=== PATIENT | female | born 1970 | race Caucasian/White ===

== ENCOUNTER 2019-09-25 15:05 | Outpatient (CLI) | payer BC, SELFPAY ==
--- NOTE | ~2019-09-25 | CT_ITS ---
EXAMINATION: CT sinus wo con DATE: 09/25/2019 15:47 INDICATION: Chronic sinusitis TECHNIQUE: Computed tomography (CT) of the paranasal sinuses was performed without intravenous contra st. Coronal reconstructions were obtained. Iterative reconstruction technique was employed. The dose- length product was 261.01 mGy-cm. COMPARISON: Head CT dated 11/18/2013 FINDINGS: Thickened sclerotic wall of the left sphenoid sinus consistent with chronic sinusitis. There is a def ect at the anterior wall of the left sphenoid sinus suggesting prior compression surgery no mucosal t hickening throughout the paranasal sinuses. Bilateral ostiomeatal units are patent with change of lik galilea prior left uncinectomy. Mild leftward bowing of the nasal septum. Orbits are normal. IMPRESSION: 1. Postoperative change of prior right uncinectomy and left anterior sphenoidotomy, the latter likely for prior chronic left sphenoid sinusitis. No evident current sinus disease. Reviewed, dictated and finalized at location A. 3RD GRADE TEACHER IMPRESSION: 1. Postoperative change of prior right uncinectomy and left anterior sphenoidot gayle, the latter likely for prior chronic left sphenoid sinusitis. No evident cu rrent sinus disease.
== END 2019-09-25 15:06 | disposition home or self-care (01) ==
PROVIDERS: PCP Family Medicine; Visit Provider Nurse Practitioner Family
DX: J32.9 Chronic sinusitis, unspecified (principal)
CPT/HCPCS: 70486

== ENCOUNTER → 2020-09-14 00:25 | Outpatient (CLI) | payer BC, SELFPAY ==
[2020-09-14 21:19] LABS: SARS-CoV-2 RNA PCR Negative
== END ==
PROVIDERS: PCP Family Medicine; Visit Provider Surgery Plastic and Reconstructive Surgery
DX: Z01.812 Encounter for preprocedural laboratory examination (principal); Z20.822 Contact with and (suspected) exposure to COVID-19
CPT/HCPCS: C9803; U0003; U0005

== ENCOUNTER 2020-09-14 10:06 | Outpatient (CLI) | payer BC, SELFPAY ==
--- NOTE | 2020-09-14 10:08 | ECG_ITS ---
Measurements Intervals [place] Rate: 63 P: 50 NV: 171 QRS: -32 QRSD: 100 T: -8 QT: 387 QTc: 396 Interpretive Statements SINUS RHYTHM LEFT AXIS DEVIATION VOLTAGE CRITERIA FOR LVH POOR R WAVE PROGRESSION, ANTERIOR LEADS BORDERLINE T WAVE ABNORMALITY- INFERIOR LEADS BORDERLINE ECG Electronically Signed On 09-14-2020 10:31:43 ERECTING CRANE OPERATOR by Mich Leary D.O.
[2020-09-14 10:51] LABS: Anion Gap 6 mmol/L (8-16); Blood Urea Nitrogen 13 mg/dL (7-17); Calcium 9.1 mg/dL (8.4-10.2); Carbon Dioxide 29 mmol/L (22-30); Chloride 104 mmol/L (98-107); Estimated Glomerular Filt Rate > 60; Glucose 119 mg/dL (65-105); Potassium 3.7 mmol/L (3.4-5.0); Sodium 139 mmol/L (137-145)
== END 2020-09-14 10:07 | disposition home or self-care (01) ==
LOC: ANHSURGERY 10:08
PROVIDERS: Anesthesiology; PCP Family Medicine; Visit Provider Surgery Plastic and Reconstructive Surgery
DX: I10 Essential (primary) hypertension (principal); Z01.818 Encounter for other preprocedural examination; R94.31 Abnormal electrocardiogram [ECG] [EKG]
CPT/HCPCS: 36415; 80048; 93005

== ENCOUNTER 2020-09-16 01:04 | Day surgery (SDC) | payer BC, SELFPAY ==
[2020-09-13 15:03] VITALS: BMI 38.3
[2020-09-16] VITALS (15 sets, daily range): BP systolic 101–142; BP diastolic 62–98; PULSE 59–96; RESP 12–20; TEMP 36.4–36.9; O2SAT 93–100
[2020-09-16] MEDS: LACTATED RINGERS 1,000 ML 30 ML IV CONT ×2 (06:40→10:04)
--- NOTE | 2020-09-16 06:42 | WPDHPUPDATE1 ---
History and Physical Update Update Date/Time: 09/16/20 06:42 History and Physical has been reviewed, including an updated exam of the patient. There are NO changes in the patient's condition. Risks, benefits, and alternatives have been discussed and questions answered. Patient agrees to proceed with procedure.
--- NOTE | 2020-09-16 06:42 | PM.PROC ---
Procedure Note - Detailed Date of procedure: 09/16/20 Pre-op diagnosis: Macromastia Post-op diagnosis: same Procedure performed: Bilateral Reduction Mammaplasty Description of procedure: She is here today for bilateral breast reduction. Previously and again today the risks, benefits, alternatives were discussed in extensive detail. I wanted her to be very realistic about the risks involved as well as expectations. We discussed aftercare and what to monitor for. She understands we can never guarantee final breast size and there will always be asymmetry. I was very upfront and honest about the risks of sensation change and even nipple loss (). Made sure answered all of her questions to her satisfaction today and consent was obtained. She was marked in the preoperative holding area with their verification. The patient was taken to the operating room placed supine on the operating table. Anesthesia was provided by anesthesiology. She was prepped and draped in a standard sterile fashion. A surgical time-out was taken. Stab incisions were made and I tumessed with a tumescent solution. I marked out the nipple-areolar complex at 42 mm. I then de-epithelialized the pedicle. The pedicle was well left well more than 2 cm in thickness. I then removed the inferior portion of the breast as well as the central keel to get shape based on preoperative planning. At this point copiously irrigated with saline solution and verified a strict hemostasis. I reapproximated the pillars using a 2-0 PDS as well as along the IMF. I tailor tacked the breast into place with ellie. She was placed in a sitting position. I verified the nipple-areolar complex position based on preoperative markings, intraoperative measurements, and observation which were in full agreement. This nipple-areolar complex was marked at 42 mm in size. I then placed supine and de-epithelialized this. Nipple-areolar complex was inset with 3-0 Monocryl. I closed the vertical incision with 3-0 Monocryl in the IMF with 3-0 stratafix. Then everything was closed using a running subcuticular 4-0 Monocryl followed by Steri-Strips. A dressing was placed followed by surgical bra. Patient was awoke and taken to PACU without difficulty. All instrument sponge counts were correct at the end of the case. Anesthesia: GLMA Surgeon: Dalton Hirsch MD Estimated blood loss (mL): 50 Drains: No Packing: No Pathology: yes (Breast tissue) Complications: No immediate complications Condition: stable Disposition: PACU Findings: Inverted T Superior Medial Pedicle Grams removed: Right: 665 grams Left: 591 grams
[2020-09-16 07:00] LABS: Urine Cotinine NEGATIVE
--- NOTE | 2020-09-16 07:12 | WPDANESEPPF ---
Anes - Initial Pre Proc Eval Procedure: Operation Date: 09/16/20 07:30 Proposed Procedures p Bilateral Reduction Mammoplasty - Dalton Hirsch MD Date/Time: 09/16/20 07:12 Surgeon: Dalton Hirsch MD Pre Op Diagnosis: Macromastia Patient Data Age: 49 Gender: F Height: 5 ft 7 in Weight: 111 kg Allergies Allergy/AdvReac Type Severity Reaction Status Date / Time metoclopramide Allergy Severe RASH, Verified 09/16/20 06:32 MUSCLE CONTRACTIONS, SOB morphine AdvReac Intermediate Itching Verified 09/16/20 06:32 Penicillins AdvReac Mild Rash Verified 09/16/20 06:32 sulfamethoxazole AdvReac Mild UPSET Verified 09/16/20 06:32 STOMACH trimethoprim AdvReac Mild Unknown Verified 09/16/20 06:32 Home Medications Medication Instructions Recorded Confirmed Type Cbd Oil 1,200 mg DAILY PRN 08/17/19 09/16/20 History estradiol 1 patch TRANSDERMAL WEEKLY 08/17/19 09/16/20 History losartan 50 mg-hydrochlorothiazide 1 tablet PO DAILY #90 tablet 07/10/20 09/16/20 Rx 12.5 mg tablet docusate sodium 100 mg capsule 100 mg PO BID #14 cap 09/06/20 09/13/20 Rx hydrocodone 5 mg-acetaminophen 325 1 tablet PO Q6H PRN #15 tablet 09/06/20 09/16/20 Rx mg tablet ondansetron HCl 4 mg tablet 4 mg PO Q6H PRN #30 tablet 09/06/20 09/13/20 Rx cetirizine [Zyrtec] 10 mg PO DAILY PRN 09/13/20 09/16/20 History montelukast [Singulair] 10 mg PO DAILY PRN 09/13/20 09/13/20 History diltiazem HCl 180 mg PO QPM 09/15/20 09/16/20 History sertraline 150 mg HS 09/15/20 09/16/20 History trazodone 50 mg PO HS PRN 09/15/20 09/16/20 History Laboratory Tests 09/16/20 06:16 Cotinine Negative Patient hx anesthesia problems: post op nausea/vomiting Family hx anesthesia problems: none PMFSH Past Medical History Medical History Body mass index [BMI] 39.0-39.9, adult (02/12/19) Chronic back pain Dyslipidemia Essential hypertension Fibromyalgia Heart palpitations Hypersomnia Obesity (BMI 35.0-39.9 without comorbidity) Syncope and collapse Surgical History Surgical History (Reviewed 09/06/20 @ 11:38 by Tg Wolf [facility]) delivery delivered Cholecystectomy planned H/O: hysterectomy History of ankle surgery History of cardiac radiofrequency ablation Previous back surgery Family History Family History Mother Family history of malignant neoplasm Father , motorcycle crash No problems noted. Sibling No problems noted. 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 Gender identity (if verbalized by the patient): Female Sexual Orientation (if Verbalized by the Patient): Straight or Heterosexual Spiritual care concerns: No Anes - Eval Final PreProcedure Day of Procedure 09/16/20 07:12 Patient weight: obese Heart: regular rate and rhythm Lungs: clear to auscultation Airway: Mallampati scale class II Neurological: alert and oriented Last oral intake: >/= 8 hours ASA classification: III Emergent: no Anesthetic plan: proceed Anesthesia type and monitoring: general LMA and standard monitoring Informed Consent: The patient's anesthetic plan and its attendant risks and benefits were discussed with the patient/family/POA. Questions were solicited and answers provided to the satisfaction of the patient/family/POA.
[2020-09-16] MEDS: SCOPOLAMINE 1.5 MG PATCH TRANSDERM (07:18)
[2020-09-16] MEDS: ceFAZolin 2 GM/D5W 50 ML 2 GM/50 ML BAG IVPB (07:33)
--- NOTE | 2020-09-16 09:43 | SUR.OPER ---
breast tissue sent to lab. given to Laura by Delisa quintana at [id number]
[2020-09-16] MEDS: fentaNYL CITRATE INJ (*CRX) 100 MCG/2 ML VIAL 25 MCG IV PUSH ×6 (10:09→10:45)
[2020-09-16] MEDS: HYDROmorphone HCL INJ (*CRX) 1 MG/ML SYR 0.5 MG IV PUSH ×5 (10:52→11:43)
[2020-09-16] MEDS: oxyCODONE HCL (*CRX) 5 MG TAB IR PO (12:51)
== END 2020-09-16 14:25 | disposition home or self-care (01) ==
PROVIDERS: PCP Family Medicine; Visit Provider Surgery Plastic and Reconstructive Surgery
PROC: 0HBV0ZZ Excision of Bilateral Breast, Open Approach (ICD-10-PCS; CPT 19318; principal; 2020-09-16 07:30)
DX: N62 Hypertrophy of breast (principal); M54.9 Dorsalgia, unspecified; G89.29 Other chronic pain; I10 Essential (primary) hypertension; E78.5 Hyperlipidemia, unspecified; M79.7 Fibromyalgia; E66.01 Morbid (severe) obesity due to excess calories; Z68.41 Body mass index [BMI] 40.0-44.9, adult
CPT/HCPCS: 19318; 80307; 88305; A9270; J0171; J0690; J1100; J1170; J2250; J2405; J2704; J3010; J7120

== ENCOUNTER → 2021-07-08 04:18 | Outpatient (CLI) | payer BC, SELFPAY ==
[2021-07-08 19:27] LABS: SARS-CoV-2 RNA PCR Positive
== END ==
PROVIDERS: PCP Family Medicine; Visit Provider Nurse Practitioner Family
DX: U07.1 COVID-19 (principal)
CPT/HCPCS: C9803; U0003; U0005

== ENCOUNTER 2021-07-11 11:00 | Outpatient (RCR) | payer BC, SELFPAY ==
[2021-07-11 14:14] VITALS: BP 136/85; PULSE 73; RESP 24; TEMP 36.3; O2SAT 99
[2021-07-11] MEDS: FAMOTIDINE 20 MG TABLET PO (14:20)
[2021-07-11] MEDS: diphenhydrAMINE HCl CAP 25 MG CAPSULE PO (14:20)
[2021-07-11] MEDS: ACETAMINOPHEN 325 MG TABLET 650 MG PO (14:20)
[2021-07-11 15:48] VITALS: BP 130/75
--- NOTE | 2021-07-12 12:13 | PC.NURSE ---
Ms Gomez called back and she stated she had a fever last night but it stopped now, and she is still tired and weak, but feels some better today. She has no other questions at this time.
== END 2021-07-11 17:00 ==
LOC: AMCINF 11:00
PROVIDERS: PCP Family Medicine; Referring Provider Family Medicine; Visit Provider Internal Medicine Hematology & Oncology
DX: U07.1 COVID-19 (principal); I10 Essential (primary) hypertension; I25.10 Atherosclerotic heart disease of native coronary artery without angina pectoris
CPT/HCPCS: A9270; M0245; Q0245

== ENCOUNTER 2021-07-13 11:51 | Emergency (ER) | payer BC, SELFPAY ==
--- NOTE | ~2021-07-13 | XR_ITS ---
EXAMINATION: XR chest 1V portable EXAM DATE: 07/13/2021 12:48 INDICATION: Cough. TECHNIQUE: Frontal and lateral projections of the chest obtained and reviewed. Comparison is made to prior examination from 04/28/2019. FINDINGS: Suspect some ill-defined bilateral mid lung zone peripheral groundglass airspace disease, possible COVID pneumonia. Please clinically correlate. No pneumothorax or pleural effusion. Cardiomed iastinal silhouette is normal. There are no osseous abnormalities identified. IMPRESSION: Suspicion of developing viral pneumonia. Reviewed, dictated and finalized at location B. HEN HAND
[2021-07-13 11:55] VITALS: BP 147/77; PULSE 64; RESP 16; TEMP 36.2; O2SAT 94
[2021-07-13 12:31] VITALS: BP 115/63; PULSE 64
[2021-07-13 12:33] VITALS: BP 126/82; PULSE 67
[2021-07-13 12:34] VITALS: BP 130/84; PULSE 73
[2021-07-13 12:38] VITALS: BP 130/84; PULSE 73; RESP 14; O2SAT 96
[2021-07-13] MEDS: ONDANSETRON INJ 4 MG/2 ML VIAL IV PUSH (14:54)
--- NOTE | 2021-07-13 15:00 | ED.GENADULT ---
HPI - General Adult General Chief complaint: Upper Respiratory Infection Stated complaint: COVID+ Time Seen by Provider: 07/13/21 12:14 History of Present Illness HPI narrative: Patient is a 50-year-old female who presents ER with shortness of breath and nausea/vomiting. Patient recently diagnosed with COVID-19. Of biting her house is the same illness. She received monoclonal antibody infusion. She reports fevers and sweats. Has not been eating well. Feels like she is dehydrated. Patient has developed some cough and occasional dyspnea with walking. She also feels like she gets dizzy when she goes from sitting to standing. Patient is unvaccinated. Related Data Home Medications Medication Instructions Recorded Confirmed Cbd Oil 1,200 mg DAILY PRN 08/17/19 07/11/21 estradiol 1 patch TRANSDERMAL WEEKLY 08/17/19 07/11/21 cetirizine [Zyrtec] 10 mg PO DAILY PRN 09/13/20 07/11/21 montelukast [Singulair] 10 mg PO DAILY PRN 09/13/20 07/11/21 Allergies Allergy/AdvReac Type Severity Reaction Status Date / Time metoclopramide Allergy Severe RASH, Verified 07/13/21 11:59 MUSCLE CONTRACTIONS, SOB morphine AdvReac Intermediate Itching Verified 07/13/21 11:59 Penicillins AdvReac Mild Rash Verified 07/13/21 11:59 sulfamethoxazole AdvReac Mild UPSET Verified 07/13/21 11:59 STOMACH trimethoprim AdvReac Mild Unknown Verified 07/13/21 11:59 Review of Systems Review of Systems: All systems reviewed & are unremarkable except as noted in HPI and below Constitutional: Constitutional: Reports chills, Reports fatigue and Reports fever(s) ENT: Reports nasal congestion and Reports sore throat Comments: Loss of taste and smell. Cardiovascular: Cardiovascular: Denies chest pain and Denies radiating jaw, neck or arm pain Respiratory: Respiratory: Denies chest congestion, Reports cough, Reports dyspnea and Denies wheezing Gastrointestinal: Gastrointestinal: Denies abdominal pain, Reports nausea and Reports vomiting PMFSH Past Medical History Medical History Body mass index [BMI] 39.0-39.9, adult (02/12/19) Chronic back pain Dyslipidemia Essential hypertension Fibromyalgia Heart palpitations Hypersomnia Obesity (BMI 35.0-39.9 without comorbidity) Syncope and collapse Surgical History Surgical History delivery delivered Cholecystectomy planned H/O: hysterectomy History of ankle surgery History of cardiac radiofrequency ablation Hx of breast reduction, elective Previous back surgery Family History Family History Mother Family history of malignant neoplasm Father , motorcycle crash Sibling Hypertension Other Family history of lung disease Social History Social History Smoking status: Never smoker Second hand tobacco smoke exposure: Yes Alcohol intake: current Substance use: never Substance use type: does not use 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 HEAD: Normocephalic, atraumatic. CHEST: Clear to auscultation, coughs with deep breath. No respiratory distress. HEART: Regular rate and rhythm. Normal peripheral pulses. EXTREMITIES: Normal range of motion. No edema. SKIN: Warm, dry, no rash. NEURO: No focal deficits. Alert and oriented x3. PSYCH: Normal mood and affect. Course Course Emergency Course: Patient informed of results. Discussed return precautions. Discharged home with albuterol and Zofran. Vital Signs Vital signs: Vital Signs Temperature 97.2 F L
[2021-07-13 15:15] VITALS: BP 144/98; PULSE 62; RESP 16; O2SAT 96
== END 2021-07-13 15:15 | disposition home or self-care (01) ==
PROVIDERS: Emergency Provider Emergency Medicine; PCP Family Medicine
DX: U07.1 COVID-19 (principal); J12.82 Pneumonia due to coronavirus disease 2019; G89.29 Other chronic pain; E78.5 Hyperlipidemia, unspecified; I10 Essential (primary) hypertension; M79.7 Fibromyalgia; E66.9 Obesity, unspecified
CPT/HCPCS: 71045; 96374; 99284; J2405

== ENCOUNTER 2021-08-12 11:07 | Outpatient (CLI) | payer BC, SELFPAY ==
--- NOTE | ~2021-08-12 | XR_ITS ---
EXAMINATION: XR chest 2V DATE: 08/12/2021 11:38 INDICATION: Cough. COVID-19 pneumonia. TECHNIQUE: Frontal and lateral views of the chest were obtained. COMPARISON: Chest single view 07/13/2021, chest CT 01/16/2019 FINDINGS: The chest demonstrates clear lungs without pneumonia, pleural effusion, or pneumothorax. Th e heart size is normal. IMPRESSION: 1. No acute cardiopulmonary disease. Reviewed, dictated and finalized at location B. AL HYGIENE PROFESSOR
== END 2021-08-12 11:08 | disposition home or self-care (01) ==
LOC: ANHIMG 11:12
PROVIDERS: PCP Family Medicine; Visit Provider Nurse Practitioner Family
DX: K76.0 Fatty (change of) liver, not elsewhere classified (principal); R05.3 Chronic cough; U07.1 COVID-19
CPT/HCPCS: 71046

== ENCOUNTER 2021-11-15 09:52 | Outpatient (CLI) | payer BC, SELFPAY ==
--- NOTE | ~2021-11-15 | MM_ITS ---
EXAMINATION: MM screening priti BI w antonio HISTORY: Screening mammogram TECHNIQUE: Craniocaudal and mediolateral oblique 3-D tomosynthesis images were obtained and synthetic 2-D images were generated. CAD analysis was submitted and interpreted. COMPARISON: No prior mammogram is available for comparison at this institution. BREAST PARENCHYMAL COMPOSITION: There are scattered areas of fibroglandular density. FINDINGS: Status post bilateral breast reduction surgery. There is no evidence of suspicious mass, ca lcification, or architectural distortion to suggest malignancy in either breast. IMPRESSION: 1. No mammographic evidence of malignancy. 2. Recommend routine screening mammography in one year. BI-RADS Category 2: Benign finding(s). Reviewed, dictated and finalized at location A.
== END 2021-11-15 09:53 | disposition home or self-care (01) ==
PROVIDERS: PCP Family Medicine; Visit Provider Obstetrics & Gynecology
DX: Z12.31 Encounter for screening mammogram for malignant neoplasm of breast (principal)
CPT/HCPCS: 77063; 77067

== ENCOUNTER 2022-02-22 15:22 | Outpatient (CLI) | payer BC, SELFPAY ==
--- NOTE | ~2022-02-22 | CT_ITS ---
EXAMINATION: CT abdomen pelvis w con INDICATION: Right-sided abdominal pain, history of cholecystectomy TECHNIQUE: Computed tomographic images of the abdomen and pelvis were obtained after the administrati on of 100 cc of Omnipaque 350 intravenous contrast. The dose-length product (DLP) was 1460.52 mGy-cm. Automated exposure control and iterative reconstruction technique were employed. COMPARISON: 04/24/2013 FINDINGS: The lung bases are clear. The heart size is normal. The liver is diffusely low in attenuati on when compared with the spleen, consistent with hepatic steatosis. The gallbladder is surgically ab sent. The spleen, pancreas, and adrenal glands are normal. The kidneys are unremarkable. No pathologi kenneth enlarged abdominal or pelvic lymph nodes are identified. There is no free intraperitoneal gas o r evidence of bowel obstruction. The appendix is normal. There is severe lumbar spondylosis at L4-5. A fat-containing umbilical hernia is noted. IMPRESSION: 1. No CT correlate for the patient's symptoms. 2. Diffuse hepatic steatosis. Reviewed, dictated and finalized at location B.
[2022-02-22 15:45] LABS: Estimated Glomerular Filt Rate > 60
== END 2022-02-22 15:23 | disposition home or self-care (01) ==
LOC: ANHIMG 15:22
PROVIDERS: PCP Family Medicine; Visit Provider Nurse Practitioner Family
DX: R10.9 Unspecified abdominal pain (principal); R10.819 Abdominal tenderness, unspecified site; K76.0 Fatty (change of) liver, not elsewhere classified
CPT/HCPCS: 74177; Q9967

== ENCOUNTER → 2022-11-28 16:05 | Outpatient (CLI) | payer BC, SELFPAY ==
--- NOTE | ~2022-11-28 | XR_ITS ---
EXAMINATION: XR ribs BI 3V w CXR 2V DATE: 11/28/2022 16:31 INDICATION: Pleurodynia TECHNIQUE: PA and lateral views of the chest and 3 views of the left ribs and 3 views of the right ri bs were obtained. COMPARISON: Chest radiograph dated 08/12/2021 FINDINGS: No rib fractures identified. And remain clear with no focal airspace opacities, pulmonary edema, pleu ral effusion or pneumothorax. Cardiomediastinal silhouette is normal. Mild thoracic spondylosis. Chol ecystectomy clips in right upper quadrant. IMPRESSION: 1. No rib fracture or acute cardiopulmonary disease. Reviewed, dictated and finalized at location A.
== END ==
PROVIDERS: PCP Nurse Practitioner Family; Visit Provider Nurse Practitioner Family
DX: R07.81 Pleurodynia (principal)
CPT/HCPCS: 71046; 71110

== ENCOUNTER 2023-03-23 09:39 | Outpatient (CLI) | payer BC, SELFPAY ==
--- NOTE | ~2023-03-23 | CT_ITS ---
EXAMINATION: CT cervical spine wo con DATE: 03/23/2023 09:58 INDICATION: Cervical spondylosis. TECHNIQUE: Computed tomography (CT) of the cervical spine was performed without intravenous contrast. Automated exposure control and iterative reconstruction technique were employed. The dose-length pro duct was 537.52 mGy-cm. COMPARISON: None FINDINGS: There is 5 degrees dextrocurvature of cervical spine. Vertebral body heights are normal. Th ere is moderately decreased disc height at C5-C6. The following disc levels are specifically discusse d: C2-C3: There is no uncovertebral joint osteoarthritis. There is mild left facet joint osteoarthritis. There is no neural foraminal stenosis. There is no central canal stenosis. C3-C4: There is mild bilateral uncovertebral joint osteoarthritis. There is no facet joint osteoarthr itis. There is moderate left neural foraminal stenosis. There is no central canal stenosis. C4-C5: There is no uncovertebral joint osteoarthritis. There is moderate left facet joint osteoarthri tis. There is mild left neural foraminal stenosis. There is no central canal stenosis. C5-C6: There is severe bilateral uncovertebral joint osteoarthritis. There is moderate left facet rose mary nt osteoarthritis. There is moderate bilateral neural foraminal stenosis. There is mild central canal stenosis. C6-C7: There is no uncovertebral joint osteoarthritis. There is severe left facet joint osteoarthriti s. There is mild left neural foraminal stenosis. There is no central canal stenosis. C7-T1: There is no uncovertebral joint osteoarthritis. There is severe bilateral facet joint osteoart hritis. There is mild bilateral neural foraminal stenosis. There is no central canal stenosis. IMPRESSION: 1. Moderate cervical spondylosis. Reviewed, dictated and finalized at location A.
== END 2023-03-23 09:40 | disposition home or self-care (01) ==
PROVIDERS: PCP Family Medicine; Visit Provider Neurological Surgery
DX: M43.02 Spondylolysis, cervical region (principal)
CPT/HCPCS: 72125

== ENCOUNTER 2023-03-28 13:33 | Outpatient (CLI) | payer BC, SELFPAY ==
--- NOTE | ~2023-03-28 | MM_ITS ---
EXAMINATION: MM screening priti BI w antonio HISTORY: Screening mammogram TECHNIQUE: Craniocaudal and mediolateral oblique 3-D tomosynthesis images were obtained and synthetic 2-D images were generated. CAD analysis was submitted and interpreted. COMPARISON: 11/15/2021 BREAST PARENCHYMAL COMPOSITION: The breasts are almost entirely fatty. FINDINGS: There are dystrophic calcifications in the right breast related to reduction mammoplasty. N o suspicious mass, calcification, or architectural distortion are identified in either breast to sugg est malignancy. There has been no suspicious interval change. IMPRESSION: 1. No mammographic evidence of malignancy. 2. Recommend routine screening mammography in one year. BI-RADS Category 2: Benign finding(s). Reviewed, dictated and finalized at location A.
== END 2023-03-28 13:34 | disposition home or self-care (01) ==
LOC: ANHIMG 13:36
PROVIDERS: PCP Family Medicine; Visit Provider Obstetrics & Gynecology
DX: Z12.31 Encounter for screening mammogram for malignant neoplasm of breast (principal)
CPT/HCPCS: 77063; 77067

== ENCOUNTER 2023-05-09 09:59 | Outpatient (CLI) | payer BC, SELFPAY ==
--- NOTE | ~2023-05-09 | US_ITS ---
EXAMINATION: US venous doppler [facility] DATE: 05/09/2023 10:40 INDICATION: Right lower limb pain. TECHNIQUE: Grayscale ultrasound images without and with compression and Doppler ultrasound images of the bilateral lower extremity veins were obtained. COMPARISON: None. FINDINGS: The visualized portions of right common femoral vein, profunda (deep) femoral vein, femoral vein, pop liteal vein, peroneal veins, posterior tibial veins, and greater saphenous vein outflow are patent. T here is no abnormality posterior to the knee where the patient reports a bulge. The visualized portions of left common femoral vein, profunda femoral vein, femoral vein, popliteal v ein, peroneal veins, posterior tibial veins, and greater saphenous vein outflow are patent. IMPRESSION: 1. No deep venous thrombosis. Reviewed, dictated and finalized at location A.
== END 2023-05-09 10:00 | disposition home or self-care (01) ==
PROVIDERS: PCP Family Medicine; Visit Provider Nurse Practitioner Family
DX: M25.561 Pain in right knee (principal); M79.651 Pain in right thigh
CPT/HCPCS: 93970

== ENCOUNTER 2023-05-17 11:50 | Outpatient (CLI) | payer BC, SELFPAY ==
--- NOTE | ~2023-05-17 | XR_ITS ---
XR knee RT 3V DATE: 05/17/2023 12:25 INDICATION: Right knee pain, posterior. No injury. TECHNIQUE: AP, lateral, sunrise views COMPARISON: None FINDINGS: No fracture or dislocation or joint effusion. Joint spaces are well preserved. No radiopaqu e intra-articular loose body or chondrocalcinosis. No periosteal reaction or bone destruction. IMPRESSION: Negative Reviewed, dictated and finalized at location L. IMPRESSION: Negative
== END 2023-05-17 11:51 | disposition home or self-care (01) ==
PROVIDERS: PCP Family Medicine; Visit Provider Nurse Practitioner Family
DX: M25.561 Pain in right knee (principal); R29.898 Other symptoms and signs involving the musculoskeletal system
CPT/HCPCS: 73562

== ENCOUNTER 2023-07-07 18:23 | Emergency (ER) | payer BC, SELFPAY ==
[2023-07-07] VITALS (19 sets, daily range): BP systolic 120–151; BP diastolic 81–107; PULSE 70–103; RESP 13–25; TEMP 36.3; O2SAT 95–100
--- NOTE | ~2023-07-07 | XR_ITS ---
EXAMINATION: XR chest 2V Exam Date/Time: 07/07/2023 19:30 [employer] HISTORY: CP Comparison: 11/28/2022. RESULT: Lines, tubes, and devices: Cholecystectomy clips. Lungs and pleura: Clear. Cardiomediastinal silhouette: Stable. Other: No acute osseous or upper abdominal finding. IMPRESSION: No acute cardiopulmonary process. Reviewed, dictated and finalized at location K. [employer]
--- NOTE | 2023-07-07 18:30 | ECG_ITS ---
Measurements Intervals [place] Rate: 97 P: 47 WV: 174 QRS: -39 QRSD: 99 T: 51 QT: 342 QTc: 436 Interpretive Statements SINUS RHYTHM LEFTWARD AXIS MODERATE VOLTAGE CRITERIA FOR LVH, CONSIDER NORMAL VARIANT POSSIBLE ANTEROSEPTAL MYOCARDIAL INFARCTION , AGE INDETERMINATE Electronically Signed On 07-08-2023 10:26:30 ANALOG DESIGN ENGINEER by Anil Rhoades M.D.
[2023-07-07 18:55] LABS: Basophils Absolute Auto 0.1 K/mm3 (0.0-0.1); Eosinophils Absolute Auto 0.1 K/mm3 (0-0.3); Eosinophils Percent Auto 1.3 % (0-4.4); Hematocrit 45.2 % (37.0-47.0); Hemoglobin 15.7 g/dL (12.0-15.0); Immature Granulocyte Absolute 0.04 K/mm3 (0.00-0.031); Immature Granulocyte Percent A 0.4 % (0-0.5); Lymphocytes Absolute Auto 2.61 K/mm3 (0.9-3.2); Lymphocytes Percent Auto 28.6 % (18.3-44.2); Mean Corpuscular HGB Conc 34.7 g/dl (32-36); Mean Corpuscular Hemoglobin 32.1 pg (26-34); Mean Corpuscular Volume 92.4 fl (80-100); Mean Platelet Volume 9.8 fl (7.4-10.4); Monocytes Absolute Auto 0.6 K/mm3 (0.1-0.6); Monocytes Percent Auto 6.9 % (2.6-8.5); Neutrophils Absolute Auto 5.6 K/mm3 (1.3-6.7); Neutrophils Percent Auto 61.8 % (45.5-73.1); Platelet Count Result 271 k/mm3 (150-375); Red Blood Count 4.89 M/mm3 (4.2-5.4); Red Cell Distribution Width 12.8 % (11.5-14.5); White Blood Count 9.1 K/mm3 (4.5-10.0)
[2023-07-07 19:04] LABS: Appearance Urine Clear (Clear); Bilirubin Urine Negative (Negative); Blood Urine Negative (Negative); Color Urine Yellow (Yellow); Glucose Urine UA Negative (Negative); Ketones Urine Negative (Negative); Leukocyte Esterase Ur Negative LEU/UL (Negative); Nitrate Urine Negative (Negative); Protein Urine Negative (Negative); Specific Grav Ur 1.005 (1.001-1.035); Urobilinogen Urine 0.2 mg/dL (<2.0)
[2023-07-07 19:05] LABS: Prothrombin Time 13.5 Seconds (11.1-14.7)
[2023-07-07 19:06] LABS: Partial Thromboplastin Time 28.7 SECONDS (22.3-36.8)
[2023-07-07 19:08] LABS: Alanine Aminotransferase 38 U/L (6-35); Albumin Level 4.9 g/dL (3.5-5.1); Alkaline Phosphatase 77 U/L (38-126); Anion Gap 8 mmol/L (8-16); Aspartate Amino Transferase 31 U/L (14-36); Bilirubin,Total 1.6 mg/dL (0.2-1.3); Blood Urea Nitrogen 14 mg/dL (7-17); Calcium 9.8 mg/dL (8.4-10.2); Carbon Dioxide 28 mmol/L (22-30); Chloride 105 mmol/L (98-107); Estimated CRCL calculation 92 ml/min; Estimated Glomerular Filt Rate > 60; Glucose 103 mg/dL (65-110); Lipase 536 U/L (23-300); Potassium 3.3 mmol/L (3.4-5.0); Sodium 141 mmol/L (137-145)
--- NOTE | 2023-07-07 19:10 | PC.NURSE ---
Report received from SHAYAN Meraz. Assumed care of patient at this time.
[2023-07-07 19:14] LABS: Add Urine Microscopic? NO
[2023-07-07 19:20] LABS: Troponin I < 0.012 ng/mL (0.000-0.034)
--- NOTE | 2023-07-07 20:32 | ED.GENADULT ---
HPI - General Adult General Chief complaint: Arrhythmia/Palpitations Stated complaint: Afib RVR Time Seen by Provider: 07/07/23 18:59 History of Present Illness HPI narrative: This is a 52-year-old female presenting with chief complaint of palpitations. Patient says that today she developed palpitations while sitting on the sofa. They lasted for longer than they usually do approximately 30 minutes before EMS was called. The patient then converted without any medications. Patient says that she has palpitations repeatedly every day. They usually last for several minutes at a time. She has been seen by insulator apprentice use they were benign. Patient was concerned today because it lasted longer than usual and she also developed a chest discomfort that radiated up into her jaw during the event. The pain resolved after the palpitations and finished and she is currently asymptomatic. 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 Related Data Home Medications Medication Instructions Recorded Confirmed estradiol 0.1 mg/24 hr weekly 1 patch transdermal WEEKLY 08/17/19 04/30/23 transdermal patch cetirizine 10 mg tablet (Zyrtec) 10 mg PO DAILY PRN Allergy Symptoms 09/13/20 04/30/23 cholecalciferol (vitamin D3) 50 50 mcg PO DAILY 01/04/23 04/30/23 mcg (2,000 unit) capsule (Vitamin D3) hydrocodone 7.5 mg-acetaminophen 1 tablet PO BID PRN Pain 01/04/23 04/30/23 325 mg tablet ibuprofen 200 mg tablet 800 mg PO BID 01/04/23 04/30/23 Allergies Allergy/AdvReac Type Severity Reaction Status Date / Time metoclopramide Allergy Severe RASH, Verified 07/07/23 18:47 MUSCLE CONTRACTIONS, SOB morphine AdvReac Intermediate Itching Verified 07/07/23 18:47 Penicillins AdvReac Mild Rash Verified 07/07/23 18:47 sulfamethoxazole AdvReac Mild UPSET Verified 07/07/23 18:47 STOMACH trimethoprim AdvReac Mild Nausea and Verified 07/07/23 18:47 Vomiting PMFSH Past Medical History Medical History BMI greater than 40 Body mass index [BMI] 39.0-39.9, adult (02/12/19) Chronic back pain Dyslipidemia Essential hypertension Fibromyalgia Heart palpitations Hypersomnia Obesity (BMI 35.0-39.9 without comorbidity) Syncope and collapse Surgical History Surgical History delivery delivered Cholecystectomy planned H/O: hysterectomy History of ankle surgery History of cardiac radiofrequency ablation Hx of breast reduction, elective Previous back surgery Family History Family History Mother Family history of malignant neoplasm Father , motorcycle crash Sibling Hypertension Other Family history of lung disease Social History Social History Smoking status: Never smoker Second hand tobacco smoke exposure: Yes Alcohol intake: current Substance use: never Substance use type: does not use Lack of Transportation: No Lack of Food: Never True Current Housing: I Have Housing Concerned About Future Housing: No Difficulty Paying Gas/Electric Bills: No Difficulty Paying for Meds: No Currently Unemployed: No Education: Trade/Vocational Certificate Difficulty w/ Childcare or Family Care: No Living arrangements: with family Occupation/Education: retired Additional occupation/education comments: [employer]-retired Gender identity (if verbalized by the patient): Female Sexual Orientation (if Verbalized by the Patient): Straight or Heterosexual Spiritual care concerns: No Exam Narrative: APPEARANCE: No apparent distress. Head: atraumatic. EYES: EOMI, NOSE: Atraumatic NECK: Trachea midline RESPIRATORY: No increased rate of breathing, CTAB CARDIOVASCULAR: RRR, no peripheral ABDOMINAL: Non-distended MUSCULOSKELETAl: No obvious defor
[2023-07-07 21:55] LABS: Troponin I < 0.012 ng/mL (0.000-0.034)
== END 2023-07-07 22:31 | disposition home or self-care (01) ==
PROVIDERS: Student in an Organized Health Care Education/Training Program; Emergency Provider Emergency Medicine; PCP Family Medicine
DX: R00.2 Palpitations (principal); I10 Essential (primary) hypertension; E78.5 Hyperlipidemia, unspecified; E11.9 Type 2 diabetes mellitus without complications; M79.7 Fibromyalgia; E66.9 Obesity, unspecified; Z68.37 Body mass index [BMI] 37.0-37.9, adult; Z90.49 Acquired absence of other specified parts of digestive tract; Z79.85 Long-term (current) use of injectable non-insulin antidiabetic drugs
CPT/HCPCS: 36415; 71046; 80053; 81003; 83690; 84484; 85025; 85610; 85730; 93005; 99284

== ENCOUNTER 2023-09-20 13:17 | Outpatient (CLI) | payer BC, SELFPAY ==
--- NOTE | 2023-09-26 16:23 | WPDHOLTEREM ---
Holter/Event Monitor Holter/Event Monitor Date of procedure: 09/20/23 Holter/Event Procedure: 48 Hr Holter Monitor Indications: Palpitations Conclusion: 1. 48 hour holter monitor on 09/20/23. 2. Underlying rhythm is sinus rhythm. HR range 52-106 bpm; average HR 69 bpm. 3. There are 19 premature supraventricular complexes. No supraventricular tachycardia. 4. There are 2 premature ventricular complexes. No ventricular tachycardia. 5. No sinoatrial or atrioventricular blocks. No significant pauses greater than 2 seconds. 6. No symptoms available for correlation.
== END 2023-09-20 13:18 | disposition home or self-care (01) ==
PROVIDERS: PCP Family Medicine; Visit Provider Nurse Practitioner Family
DX: R00.2 Palpitations (principal)
CPT/HCPCS: 93225; 93226

== ENCOUNTER 2023-11-08 17:13 | Outpatient (CLI) | payer BC, SELFPAY ==
--- NOTE | ~2023-11-08 | XR_ITS ---
XR chest 2V 11/08/2023 17:28 Indication: Chronic cough Procedure: 2 view chest Comparison: No prior studies for comparison. Findings: There is a possible new thin-walled cavitary lesion of the right upper lung. Heart size nor mal. Left lung clear. No pleural effusion or pneumothorax. No acute osseous abnormality. Impression: 1: Possible new thin-walled cavitary lesion right upper thorax, most likely infectious/inflammatory. Consider correlation with CT chest. Reviewed, dictated and finalized at location A. Impression: 1: Possible new thin-walled cavitary lesion right upper thorax, most likely inf ectious/inflammatory. Consider correlation with CT chest.
== END 2023-11-08 17:14 | disposition home or self-care (01) ==
LOC: ANHIMG 17:14
PROVIDERS: PCP Family Medicine; Visit Provider Nurse Practitioner Family
DX: R05.3 Chronic cough (principal)
CPT/HCPCS: 71046

== ENCOUNTER 2023-11-19 08:41 | Outpatient (CLI) | payer BC, SELFPAY ==
--- NOTE | ~2023-11-19 | CT_ITS ---
EXAMINATION:CT diagnostic chest w con DATE: 11/19/2023 09:27 INDICATION: Other disorders of lung. TECHNIQUE: Computed tomography (CT) of the chest was performed with 75 mL Omnipaque 350 intravenous c ontrast. Automated exposure control and iterative reconstruction technique were employed. The dose-le ngth product (DLP) was 668.38 mGy-cm. COMPARISON: Chest CT 01/16/19, chest 2 views 11/08/2023 FINDINGS: The lungs demonstrate minimal atelectasis. No pleural effusion. The heart size is normal. N o pericardial effusion. There is diffuse hepatic steatosis. There are changes of cholecystectomy. The re is moderate thoracic spondylosis. There is a benign bone island in T2 vertebral body. IMPRESSION: 1. No lung disease. No abnormal correlate for the chest radiograph finding. Reviewed, dictated and finalized at location E.
[2023-11-19 09:20] LABS: Estimated Glomerular Filt Rate > 60
== END 2023-11-19 08:42 | disposition home or self-care (01) ==
LOC: ANHIMG 08:45
PROVIDERS: PCP Family Medicine; Visit Provider Nurse Practitioner Family
DX: R91.8 Other nonspecific abnormal finding of lung field (principal); J98.4 Other disorders of lung
CPT/HCPCS: 71260; Q9967

== ENCOUNTER 2023-12-26 09:32 | Outpatient (CLI) | payer BC, SELFPAY ==
[2024-01-08 15:43] VITALS: BMI 39.4
--- NOTE | 2024-01-08 15:43 | WPDSLEEPSTUD ---
Sleep Study Date of Study: 12/26/23 Ordering Provider: Mich Leary DO Interpreting Physician: Mana Kwong DO Sleep Study Type: Polysomnogram Height: 1.68 m Weight: 110.677 kg Body Mass Index: 39.4 Neck Circumference (inches): 17 [place]: 2 Reason for Sleep Study Unrefreshing sleep Sleep History The patient is a 53-year-old female with chronic back pain, dyslipidemia, hypertension, fibromyalgia, heart palpitations, obesity, history of atrial fibrillation and seasonal allergies that had a sleep study ordered by her operations officer for evaluation of sleep apnea. The patient denies awakening from sleep short of breath. She occasionally awakens at night with heartburn, belching or cough. She rarely snores and is never loud enough that others complain. She occasionally has trouble sleeping when she has a cold. She denies waking up gasping for air throughout the night. She denies having breathing problems at night observed by herself or others. She denies sweating excessively at night. She frequently has heart palpitations or irregular heartbeats during the night. She denies falling asleep during the day and while driving. She denies sleep paralysis, cataplexy and hypnagogic / hypnopompic hallucinations. She denies having trouble at school or work due to sleepiness. She denies feeling afraid of going to sleep. She denies having nightmares. She rarely remembers her dreams. She denies having thoughts racing through her mind. She occasionally feels sad or depressed. She frequently has anxiety. She constantly has muscular tension. She rarely notices parts of her body jerk. She denies kicking during the night. She frequently has crawling and aching feelings in her legs but rarely has leg pain during the. She denies grinding her teeth during sleep and denies awakening with morning jaw pain. She is constantly bothered by pain during the day and frequently awakened by pain during the night. She constantly wakes up feeling stiff in the morning. She constantly wakes up with sore or achy muscles. She constantly wakes up with pain in the neck, spine and other joints. She did not give a specific time that she goes to bed or wakes up. It takes her 10-15 minutes to fall asleep. She wakes up 2-3 times throughout the night to urinate and a can take 10 minutes up to several hours for her to fall back asleep. The amount of sleep she gets per night is variable. She will stay in bed for a few minutes after waking up in the morning. She currently lives with her and 2 children. She will consume caffeinated beverages within 2 hours of bedtime. She denies engaging in physical exercise before bedtime. She will watch television before falling asleep. She denies taking naps in the afternoon or the evening. She consumes 1 caffeinated beverage per day. She denies tobacco, alcohol and recreational drug use. [facility] Past Medical History Medical History Acute medial meniscus tear of right knee BMI greater than 40 Body mass index [BMI] 39.0-39.9, adult (02/12/19) Chronic back pain Dyslipidemia Essential hypertension Fibromyalgia Heart palpitations Hypersomnia Obesity (BMI 35.0-39.9 without comorbidity) Syncope and collapse Synovial cyst of popliteal space [Dempsey], right knee Surgical History Surgical History delivery delivered Cholecystectomy planned H/O: hysterectomy History of ankle surgery History of cardiac radiofrequency ablation Hx of breast reduction, elective Previous back surgery Family History Family History Mother Family history of malignant neoplasm Father , motorcycle crash Sibling Hypertension Other Family history of lung disease Social History Social History (Reviewed 01/08/24 @ 15:43 by Francisco
== END 2023-12-27 05:55 | disposition home or self-care (01) ==
LOC: ANHCSM 09:33
PROVIDERS: PCP Family Medicine; Visit Provider Internal Medicine Cardiovascular Disease
DX: G47.10 Hypersomnia, unspecified (principal); R06.83 Snoring; I10 Essential (primary) hypertension
CPT/HCPCS: 95810

== ENCOUNTER 2024-02-21 15:42 | Outpatient (CLI) | payer BC, SELFPAY ==
--- NOTE | 2024-02-21 15:47 | ECHO_ITS ---
Patient Info Name: Tg Gomez Age: 53 years : 1970 Gender: Female Ht: 67 in Wt: 245 lbs BSA: 2.34 m2 HR: 70 bpm BP: 130 / 70 mmHg Heart Rhythm: Sinus Rhythm Technical Quality: Good Exam Date: 02/21/2024 4:01 PM Exam Location: Echo Lab Patient Status: Outpatient Admit Date: 02/21/2024 Staff Ordering Physician: Mich Leary DO Compressor Station Engineer Chief: Ninoska Aburto RDCS Attending Provider: Mich Leary DO Referring Physician: Gibran HUTCHINSON; Exam Type: CA echo doppler color flow Study Info Indications - paryoxyismal atrial fibrillation Complete two-dimensional, color flow and Doppler transthoracic echocardiogram is performed. Summary 1. Complete two-dimensional, color flow and Doppler transthoracic echocardiogram is performed. 2. Left ventricular chamber dimension is normal. 3. Left ventricular systolic function is normal, estimated at 60-65%. 4. The left ventricular diastolic function is normal. 5. E/e' 6 is not elevated. 6. Left atrial chamber dimension is mildly enlarged. 7. There is trace mitral valve regurgitation. 8. There is mild tricuspid valve regurgitation. 9. No pulmonary hypertension, estimated pulmonary arterial systolic pressure is 30 mmHg. Left Ventricle E/e' 6 is not elevated. Left ventricular chamber dimension is normal. Left ventricular systolic function is normal, estimated at 60-65%. The left ventricular diastolic function is normal. Right Ventricle Right ventricular systolic function is normal and with normal TAPSE 2.2 cm. Right ventricular chamber dimension is normal. Left Atria Left atrial chamber dimension is mildly enlarged. Right Atria Right atrial chamber dimension is normal. Aortic Valve The aortic valve is trileaflet. There is no aortic valve stenosis. There is no aortic valve regurgitation. Pulmonic Valve There is no pulmonic regurgitation. Mitral Valve There is no mitral valve stenosis. There is trace mitral valve regurgitation. Tricuspid Valve There is mild tricuspid valve regurgitation. No pulmonary hypertension, estimated pulmonary arterial systolic pressure is 30 mmHg. Pericardium/Pleural There is no pericardial effusion. Inferior Vena Cava Normal inferior vena cava with >50% collapse upon inspiration consistent with normal right atrial pressure, 5 mmHg. Aorta The aortic root size at the sinus of Valsalva is normal. Left Ventricular Outflow Tract Name Value Normal LVOT 2D LVOT Diameter 2.0 cm LVOT Doppler LVOT Peak Gradient 3 mmHg LVOT Mean Gradient 2 mmHg LVOT VTI 19 cm LVOT VTI/AV VTI Ratio 0.6 LVOT Stroke Volume 57 ml LVOT CO 2.0 l/min LVOT CI 0.8 l/min/m2 Pulmonic Valve Name Value Normal PV Doppler PV Peak Gradient 4 mmHg Mitral Valve ----
== END 2024-02-21 15:43 | disposition home or self-care (01) ==
LOC: ANHCARD 15:43
PROVIDERS: PCP Family Medicine; Visit Provider Internal Medicine Cardiovascular Disease
DX: I48.0 Paroxysmal atrial fibrillation (principal); I36.1 Nonrheumatic tricuspid (valve) insufficiency
CPT/HCPCS: 93306

== ENCOUNTER 2024-03-15 12:57 | Outpatient (CLI) | payer BC, SELFPAY ==
--- NOTE | ~2024-03-15 | CT_ITS ---
EXAMINATION: CT sinus wo con DATE: 03/15/2024 13:22 INDICATION: Chronic sinusitis. Previous sphenoid sinus surgery TECHNIQUE: Computed tomography (CT) of the paranasal sinuses was performed without contrast. Iterativ e reconstruction technique was employed. Exam dose: 294.13 mGy-cm total exam DLP. COMPARISON: September 25, 2019 CT sinuses FINDINGS: There is leftward deviation of the nasal septum. There is resection of the left uncinate process. There is partial resection of the anterior inferomed ial wall of the left sphenoid sinus. The paranasal sinuses are well developed and aerated, without significant mucoperiosteal thickening o r air-fluid level or soft tissue mass density. The mastoid air cells are well-developed and aerated bilaterally. IMPRESSION: Status post left uncinectomy and partial anterior inferomedial wall resection Patent ostiomeatal units, paranasal sinuses and mastoid air cells Reviewed, dictated and finalized at Location A. Reviewed, dictated and finalized at location J. IMPRESSION: Status post left uncinectomy and partial anterior inferomedial wal l resection Patent ostiomeatal units, paranasal sinuses and mastoid air cells
== END 2024-03-15 12:58 | disposition home or self-care (01) ==
PROVIDERS: PCP Family Medicine
DX: J32.9 Chronic sinusitis, unspecified (principal); Z98.890 Other specified postprocedural states
CPT/HCPCS: 70486

== ENCOUNTER 2024-03-19 23:09 | Emergency (ER) | payer BC, SELFPAY ==
--- NOTE | ~2024-03-19 | CT_ITS ---
EXAMINATION: CT abdomen pelvis w con DATE: 03/20/2024 01:21 INDICATION: Abdominal pain. TECHNIQUE: Computed tomography (CT) of the abdomen and pelvis was performed with 100 mL Omnipaque 350 intravenous contrast. Automated exposure control and iterative reconstruction technique were employe d. The dose-length product was 1536.77 mGy-cm. COMPARISON: None. FINDINGS: The visualized portions of the lung bases demonstrate mild atelectasis. No pleural effusion . The heart is normal. No pericardial effusion. There is diffuse hepatic steatosis. There are changes of cholecystectomy. The spleen, pancreas, adrenal glands, and right kidney are normal. There is a 5 mm cyst in left kidney. There is diverticulosis of the colon without evidence of diverticulitis. The appendix is normal. There are no dilated loops of bowel. There are no pathologically enlarged lymph n odes. There is no free intraperitoneal fluid. There is extensive fat stranding and subcutaneous gas i n anterior abdominal wall, consistent with recent liposuction. There is a focus of old fat necrosis i n the right buttock. There is severe lumbar spondylosis. IMPRESSION: 1. Changes of recent liposuction. 2. Diffuse hepatic steatosis. Reviewed, dictated and finalized at location A.
[2024-03-19 23:11] VITALS: BP 134/86; PULSE 90; RESP 14; TEMP 36.6; O2SAT 94
[2024-03-20 00:12] VITALS: BP 134/78; PULSE 72; RESP 16; TEMP 36.3; O2SAT 100
--- NOTE | 2024-03-20 00:33 | ED.GENADULT ---
HPI - General Adult General Chief complaint: Recheck/Abnormal Lab/Rx Stated complaint: POST OP BLEEDING Time Seen by Provider: 03/20/24 00:16 History of Present Illness HPI narrative: patient 53-year-old female who presents emergency department with chief complaint of bleeding from incision sites. The patient reports she had a light post suction and skin removal procedure done today by a local plastic surgeon office patient states that she started having some bright red blood from the incision sites and had to reinforce the dressing 3 times. The patient reports no lightheadedness reports she is having some abdominal pain and nausea. Patient reports that she is not on any blood thinners reports no trauma reports that she talked to her surgeon who recommended that she come to the nearest emergency department. Related Data Home Medications Medication Instructions Recorded Confirmed estradiol 0.1 mg/24 hr weekly 1 patch transdermal WEEKLY 08/17/19 03/06/24 transdermal patch cetirizine 10 mg tablet (Zyrtec) 10 mg PO DAILY PRN Allergy Symptoms 09/13/20 03/06/24 cholecalciferol (vitamin D3) 50 50 mcg PO DAILY 01/04/23 03/06/24 mcg (2,000 unit) capsule (Vitamin D3) hydrocodone 7.5 mg-acetaminophen 1 tablet PO BID PRN Pain 01/04/23 03/06/24 325 mg tablet ibuprofen 200 mg tablet 800 mg PO BID 01/04/23 03/06/24 aspirin 325 mg tablet 325 mg PO DAILY 08/22/23 03/06/24 Allergies Allergy/AdvReac Type Severity Reaction Status Date / Time metoclopramide Allergy Severe RASH, Verified 03/06/24 13:31 MUSCLE CONTRACTIONS, SOB morphine AdvReac Intermediate Itching Verified 03/06/24 13:31 Penicillins AdvReac Mild Rash Verified 03/06/24 13:31 sulfamethoxazole AdvReac Mild UPSET Verified 03/06/24 13:31 STOMACH trimethoprim AdvReac Mild Nausea and Verified 03/06/24 13:31 Vomiting Review of Systems Review of Systems: A 10 system review of systems was completed on the patient and is negative except for what is stated in the HPI. Nursing and ancillary documentation was reviewed. [facility] Past Medical History Medical History Acute medial meniscus tear of right knee BMI greater than 40 Body mass index [BMI] 39.0-39.9, adult (02/12/19) Chronic back pain Dyslipidemia Essential hypertension Fibromyalgia Heart palpitations Hypersomnia Obesity (BMI 35.0-39.9 without comorbidity) Syncope and collapse Synovial cyst of popliteal space [Dempsey], right knee Surgical History Surgical History delivery delivered Cholecystectomy planned H/O: hysterectomy History of ankle surgery History of cardiac radiofrequency ablation Hx of breast reduction, elective Previous back surgery Family History Family History Mother Family history of malignant neoplasm Father , motorcycle crash Sibling Hypertension Other Family history of lung disease Social History Social History Smoking status: Never smoker Second hand tobacco smoke exposure: Yes Alcohol intake: current Substance use: never Substance use type: does not use Lack of Transportation: No Lack of Food: Never True Current Housing: I Have Housing Concerned About Future Housing: No Difficulty Paying Gas/Electric Bills: No Difficulty Paying for Meds: No Currently Unemployed: No Education: Trade/Vocational Certificate Difficulty w/ Childcare or Family Care: No Living arrangements: with family Occupation/Education: retired 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
[2024-03-20] MEDS: ONDANSETRON INJ 4 MG/2 ML VIAL IV PUSH (00:34)
[2024-03-20] MEDS: SODIUM CHLORIDE 0.9% IV 1,000 ML 999 ML IV CONT (00:34)
[2024-03-20] MEDS: HYDROmorphone HCL INJ (*CRX) 1 MG/ML SYR 0.5 MG IV PUSH (00:34)
[2024-03-20 00:49] LABS: BEDSIDEPREGUCG Negative
[2024-03-20 00:52] LABS: Alanine Aminotransferase 53 U/L (6-35); Albumin Level 3.8 g/dL (3.5-5.1); Alkaline Phosphatase 67 U/L (38-126); Anion Gap 9 mmol/L (4-12); Aspartate Amino Transferase 36 U/L (14-36); Basophils Absolute Auto 0.1 K/mm3 (0.0-0.1); Basophils Percent Auto 0.6 % (0.2-1.2); Bilirubin,Total 1.3 mg/dL (0.2-1.3); Blood Urea Nitrogen 13 mg/dL (7-17); Carbon Dioxide 26 mmol/L (22-30); Chloride 100 mmol/L (98-107); Eosinophils Absolute Auto 0.1 K/mm3 (0-0.3); Eosinophils Percent Auto 0.6 % (0-4.4); Estimated CRCL calculation 91 ml/min; Estimated Glomerular Filt Rate > 60; Glucose 201 mg/dL (65-110); Hematocrit 38.2 % (37.0-47.0); Hemoglobin 13.4 g/dL (12.0-15.0); Immature Granulocyte Absolute 0.23 K/mm3 (0.00-0.031); Immature Granulocyte Percent A 1.6 % (0-0.5); Lymphocytes Percent Auto 18.6 % (18.3-44.2); Mean Corpuscular HGB Conc 35.1 g/dl (32-36); Mean Corpuscular Hemoglobin 33.5 pg (26-34); Mean Corpuscular Volume 95.5 fl (80-100); Mean Platelet Volume 9.7 fl (7.4-10.4); Monocytes Percent Auto 7.4 % (2.6-8.5); Neutrophils Absolute Auto 9.9 K/mm3 (1.3-6.7); Neutrophils Percent Auto 71.2 % (45.5-73.1); Platelet Count Result 192 k/mm3 (150-375); Potassium 3.4 mmol/L (3.4-5.0); Red Cell Distribution Width 13.3 % (11.5-14.5); Sodium 135 mmol/L (137-145)
[2024-03-20 00:53] LABS: Prothrombin Time 13.8 Seconds (11.1-14.7)
[2024-03-20 00:54] LABS: Partial Thromboplastin Time 24.9 Seconds (22.3-36.8)
[2024-03-20 00:55] LABS: Add Urine Microscopic? YES; Appearance Urine Clear (Clear); Bacteria Urine None Seen /hpf; Bilirubin Urine Negative (Negative); Blood Urine Trace (Negative); Color Urine Dark Yellow (Yellow); Glucose Urine UA Negative (Negative); Ketones Urine Trace mg/dL (Negative); Leukocyte Esterase Ur Negative LEU/UL (Negative); Nitrate Urine Negative (Negative); Non Pathogenic Casts 0-2; Protein Urine Negative (Negative); RBC Urine 0-2 /hpf (0-2); Specific Grav Ur 1.026 (1.001-1.035); Squamous Epithelial Cell Urine Occasional /hpf (Few); WBC Urine 0-5 /hpf (0-3); pH Urine 5.5 (5.0-9.0)
[2024-03-20] MEDS: HYDROmorphone HCL INJ (*CRX) 1 MG/ML SYR IV PUSH (01:47)
[2024-03-20 02:01] VITALS: BP 117/70; PULSE 67; RESP 16; TEMP 37; O2SAT 96
[2024-03-20 03:58] VITALS: BP 119/79; PULSE 72; RESP 16; TEMP 36.6; O2SAT 99
== END 2024-03-20 04:06 | disposition home or self-care (01) ==
PROVIDERS: Emergency Provider Emergency Medicine; PCP Family Medicine
DX: L76.22 Postprocedural hemorrhage of skin and subcutaneous tissue following other procedure (principal); I10 Essential (primary) hypertension; E78.5 Hyperlipidemia, unspecified; E66.9 Obesity, unspecified; Z68.37 Body mass index [BMI] 37.0-37.9, adult; M79.7 Fibromyalgia; Z90.710 Acquired absence of both cervix and uterus; Z90.49 Acquired absence of other specified parts of digestive tract
CPT/HCPCS: 36415; 74177; 80053; 81001; 81025; 83605; 85025; 85610; 85730; 86850; 86900; 86901; 96361; 96374; 96375; 96376; 99284; J1170; J2405; J7030; Q9967

== ENCOUNTER 2024-04-03 13:41 | Outpatient (CLI) | payer BC, SELFPAY ==
--- NOTE | ~2024-04-03 | MM_ITS ---
EXAMINATION: MM screening priti BI w antonio HISTORY: Screening TECHNIQUE: Craniocaudal and mediolateral oblique 3-D tomosynthesis images were obtained and synthetic 2-D images were generated. CAD analysis was submitted and interpreted. COMPARISON: Comparison to multiple prior studies sequentially, with oldest reviewed study dated . BREAST PARENCHYMAL COMPOSITION: Not dense: There are scattered areas of fibroglandular density. FINDINGS: Stable benign bilateral breast calcifications. There is no evidence of suspicious mass, mariola cification, or architectural distortion to suggest malignancy in either breast. There has been no michael picious interval change. IMPRESSION: 1. No mammographic evidence of malignancy. 2. Recommend routine screening mammography in one year. BI-RADS Category 2: Benign finding(s). Reviewed, dictated and finalized at location B.
== END 2024-04-03 13:42 | disposition home or self-care (01) ==
PROVIDERS: PCP Family Medicine; Visit Provider Obstetrics & Gynecology
DX: Z12.31 Encounter for screening mammogram for malignant neoplasm of breast (principal)
CPT/HCPCS: 77063; 77067

== ENCOUNTER 2024-08-02 13:18 | Emergency (ER) | payer BC, SELFPAY ==
--- NOTE | ~2024-08-02 | XR_ITS ---
XR chest 1V portable Ordering provider: Luzma Jacobson MD History: 53 years Female with . cough . Comparison: None. FINDINGS: MEDIASTINUM: The cardiac silhouette is slightly enlarged. Congestive amanda. LUNGS: No effusions or pneumothorax. Opacification in the left lower lobe suggestive of atelectasis v ersus pneumonia. Bilateral interstitial changes. OTHER: No free air under the diaphragm. IMPRESSION: Left basilar atelectasis versus pneumonia. Bilateral interstitial changes which may indicate pneumonitis versus pulmonary edema. Clinical correl ation advised. Reviewed, dictated and finalized at location A. SUGAR HANDLER IMPRESSION: Left basilar atelectasis versus pneumonia. Bilateral interstitial changes which may indicate pneumonitis versus pulmonary edema. Clinical correlation advised.
[2024-08-02 13:40] VITALS: BP 134/81; PULSE 89; RESP 18; TEMP 37.4; O2SAT 95
[2024-08-02 17:32] VITALS: BP 148/75; PULSE 87; RESP 16; O2SAT 100
--- NOTE | 2024-08-02 17:33 | ED.GENADULT ---
HPI - General Adult General Chief complaint: Nausea/Vomiting/Diarrhea Stated complaint: n/v, fever Time Seen by Provider: 08/02/24 17:30 Source: patient Mode of arrival: ambulatory Limitations: no limitations History of Present Illness HPI narrative: Patient is 53 years old white female came to the ED with her from home complaining of headache, body aches, fever, chills, coughing, nasal and postnasal discharge and sore throat started 2-3 days ago. History hypertension, does not smoke or drink or use drugs. Patient denies sick contact. Reported vomiting maximum twice and loose bowel movement once over the last 24 hours Related Data Home Medications ?Medication ?Instructions ?Recorded ?Confirmed ?Last Taken ?Type estradiol 0.1 mg/24 hr weekly 1 patch transdermal WEEKLY 08/17/19 07/09/24 09/13/20 History transdermal patch cetirizine 10 mg tablet (Zyrtec) 10 mg PO DAILY PRN Allergy Symptoms 09/13/20 07/09/24 Unknown History cholecalciferol (vitamin D3) 50 50 mcg PO DAILY 01/04/23 07/09/24 Unknown History mcg (2,000 unit) capsule (Vitamin D3) hydrocodone 7.5 mg-acetaminophen 1 tablet PO BID PRN Pain 01/04/23 07/09/24 Unknown History 325 mg tablet ibuprofen 200 mg tablet 800 mg PO BID 01/04/23 07/09/24 Unknown History omega-3 900 mg-dha 360 mg-epa 455 cap PO 07/09/24 07/09/24 Unknown History mg-fish oil 1,000 mg capsule (Fish Oil) Allergies Allergy/AdvReac Type Severity Reaction Status Date / Time metoclopramide Allergy Severe RASH, Verified 08/02/24 17:31 MUSCLE CONTRACTIONS, SOB morphine AdvReac Intermediate Itching Verified 08/02/24 17:31 Penicillins AdvReac Mild Rash Verified 08/02/24 17:31 sulfamethoxazole AdvReac Mild UPSET Verified 08/02/24 17:31 STOMACH trimethoprim AdvReac Mild Nausea and Verified 08/02/24 17:31 Vomiting Review of Systems Review of Systems: All systems reviewed & are unremarkable except as noted in HPI and below PMFSH Past Medical History Medical History Acute medial meniscus tear of right knee Synovial cyst of popliteal space [Dempsey], right knee BMI greater than 40 Body mass index [BMI] 39.0-39.9, adult (02/12/19) Dyslipidemia Essential hypertension Heart palpitations Hypersomnia Obesity (BMI 35.0-39.9 without comorbidity) Syncope and collapse Fibromyalgia Chronic back pain Surgical History Surgical History Hx of breast reduction, elective History of cardiac radiofrequency ablation History of ankle surgery Cholecystectomy planned H/O: hysterectomy Previous back surgery delivery delivered Family History Family History Mother Family history of malignant neoplasm Father , motorcycle crash Sibling Hypertension Other Family history of lung disease Social History Social History Smoking status: Never smoker Second hand tobacco smoke exposure: Yes Alcohol intake: current Substance use: never Substance use type: does not use Do You Feel Safe in your Home?: Yes Lack of Transportation: No Lack of Food: Never True Current Housing: I Have Housing Concerned About Future Housing: No Difficulty Paying Gas/Electric Bills: No Difficulty Paying for Meds: No Currently Unemployed: No Education: Trade/Vocational Certificate Difficulty w/ Childcare or Family Care: No Living arrangements: with family Occupation/Education: retired 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 Gender identity (if verbalized by the patient): Female Sexual Orientation (if Verbalized by the Patient): Straight or Heterosexual Spiritual care concerns: No Exam Narrative: General appearance: Well-developed, well-nourished, raspy voice Skin: Normal color Head: Normocephalic, nontraumatic Eyes: Clear conjunctiva ENT: Oropharynx normal, ears normal, nose normal Neck: Supple, nontender Chest and respiratory: Airway patent, no respiratory distress, no accessory muscle use Heart: Regular rate/rhythm Abdomen: Soft, nontender, no organomegaly, quiet bowel sounds Vascular: Normal peripheral pulses, normal capillary refill. Musculoskeletal: Normal range of motion, nontender back Neurologic: Alert and oriented ?3, INSURANCE CODER is normal as tested, no gross motor deficit Course Consultations Consultation #1: Dr. Magana at shift change. Waiting for lab result of the COVID, flu and RSV. Date: 08/02/24 Time: 19:15 Vital Signs Vital signs: Vital Signs Temperature 37.4 C 08/02/24 13:40 Pulse Rate 89 08/02/24 13:40 Respiratory Rate 18 08/02/24 13:40 Blood Pressure 134/81 08/02/24 13:40 Pulse Oximetry 95 08/02/24 13:40 Temperature 38.8 C H 08/02/24 18:41 Pulse Rate 82 08/02/24 18:41 Respiratory Rate 20 08/02/24 18:41 Blood Pressure 127/64 08/02/24 18:41 Pulse Oximetry 94 08/02/24 18:41 Medical Decision Making MDM Narrative Medical decision making narrative: Patient presents with upper respiratory viral infection like symptoms Vital signs are stable Physical examination as above Differential diagnosis upper respiratory viral infection, walking pneumonia is less likely. Differential Diagnosis Differential Diagnosis: As above Vital Signs Vital Signs: Vital Signs Temperature 37.4 C 08/02/24 13:40 Pulse Rate 89 08/02/24 13:40 Respiratory Rate 18 08/02/24 13:40 Blood Pressure 134/81 08/02/24 13:40 Pulse Oximetry 95 08/02/24 13:40 Temperature 38.8 C H 08/02/24 18:41 Pulse Rate 82 08/02/24 18:41 Respiratory Rate 20 08/02/24 18:41 Blood Pressure 127/64 08/02/24 18:41 Pulse Oximetry 94 08/02/24 18:41 Lab Data Labs: Lab Results 08/02/24 Range/Units 17:35 Influenza A (RT-PCR) Pending Influenza B (RT-PCR) Pending RSV (RT-PCR) Pending SARS-CoV-2 RNA (RT-PCR) Pending Imaging Data Radiologist's impression: Chest x-ray showed no acute abnormality Discharge Plan Discharge Patient Language: Guinean Prescriptions: No Action estradiol 0.1 mg/24 hr Patch Weekly 1 patch TRANSDERMAL WEEKLY Patient Comments: TOOK PATCH OFF 09/15/2020 ondansetron HCl 4 mg tablet 4 mg PO Q6H PRN (Reason: nausea and vomiting) Qty: 30 0RF montelukast [Singulair] 10 mg tablet 10 mg PO DAILY PRN (Reason: Allergy Symptoms) Qty: 30 2RF Fish Oil 900 mg-360 mg- 455 mg-1,000 mg capsule PO Zepbound 2.5 mg/0.5 mL pen injector 2.5 mg subcut WEEKLY Qty: 2 2RF Rx Instructions: for weeks 1 through 4 azithromycin 250 mg tablet See Rx Instructions PO .COMPLEX Qty: 6 0RF Rx Instructions: For 250 mg dose pack: take 500 mg today (day 1), then 250 mg for 4 days (days 2-5) PO hydrocodone-acetaminophen 7.5-325 mg tablet 1 tablet PO BID PRN (Reason: Pain) Patient Comments: TAKES USUALLY AT NIGHT ibuprofen 200 mg Tablet 800 mg PO BID cholecalciferol (vitamin D3) [Vitamin D3] 50 mcg (2,000 unit) Capsule 50 mcg PO DAILY cetirizine [Zyrtec] 10 mg tablet 10 mg PO DAILY PRN (Reason: Allergy Symptoms) (DME) pen needle, diabetic [BD Arabella 2nd Gen Pen Needle] 32 gauge x 5/32 needle See Rx Instructions .Route Qty: 100 2RF Rx Instructions: for use with daily saxenda injection sertraline 100 mg tablet See Rx Instructions .ROUTE .COMPLEX Qty: 90 5RF Dose Instruction: TAKE ONE AND ONE-HALF TABLETS AT BEDTIME Rx Instructions: TAKE ONE AND ONE-HALF TABLETS AT BEDTIME diltiazem HCl 180 mg capsule,extended release 24hr See Rx Instructions .ROUTE .COMPLEX Qty: 90 3RF Dose Instruction: TAKE 1 CAPSULE DAILY Rx Instructions: TAKE 1 CAPSULE DAILY losartan 100 mg tablet 100 mg PO DAILY Qty: 90 1RF Follow-up/Referrals: Ashwin Hong MD [Primary Care Provider] -
[2024-08-02] MEDS: SODIUM CHLORIDE 0.9% IV 1,000 ML 999 ML IV CONT (17:53)
[2024-08-02] MEDS: ONDANSETRON INJ 4 MG/2 ML VIAL IV PUSH (17:54)
[2024-08-02] MEDS: KETOROLAC 30 MG/ML VIAL (*BKC) IV PUSH (17:54)
[2024-08-02 17:59] VITALS: BP 145/73; PULSE 79; RESP 16; TEMP 39.4; O2SAT 96
[2024-08-02 18:41] VITALS: BP 127/64; PULSE 82; RESP 20; TEMP 38.8; O2SAT 94
[2024-08-02 19:20] LABS: Influenza A QL RT-PCR Positive (Negative); Influenza B QL RT-PCR Negative (Negative); RSV RNA, RT-PCR Negative (Negative); SARS-CoV-2 RNA PCR Negative (Negative)
[2024-08-02 19:53] VITALS: BP 130/66; PULSE 84; RESP 19; TEMP 37.9; O2SAT 99
[2024-08-02 19:54] VITALS: BP 130/66; PULSE 84; RESP 19; TEMP 37.9; O2SAT 99
--- OUTSIDE RECORDS SUMMARY | 2024-08-09 20:02 | XMS_ITS | Encounter Summary ---
Author Organization [facility] Address [address] [facility] [place] [address] Care Team Providers Care Deployment Engineer Name Role Phone Cesar Berry MD Primary Care Provider [phone] Encounter Details Date Type Department Care Team (Late st Contact Info) Description 03/18/2021 Lab Requisition [facility] [address] [facility], [facility] [place] [id number] Noe Niño MD [address] [place] [id number] Social History Tobacco Use Types Packs/Day Years Used Date Smoking Tobacco: Never Smokeless Tobacco: Never Alcohol Use Standard Drinks/Week Comments Yes 0 (1 standard drink = 0.6 oz pur e alcohol) Sex and Gender Information Value Date Recorded Sex Assigned at Not on file Gender Identity Not on file Sexual Orientation Not on file documented as of this encounter Plan of Treatment Not on file documented as of this encounter Procedures Procedure Name Priority Date/Time Associated Diagnosis Comments DERMATOPATHOLOGY Routine 03/16/2021 3:33 AM CDT documented in this encounter Results * DERMATOPATHOLOGY (03/16/2021 3:33 AM CDT) Case Report Dermatopathology Report ? Case: [id number] ? Authorizing Provider: ??Noe Niño MD ?Collected: ? 03/16/2021 03:33 AM ? Ordering Location: ? [facility] ?Received: ?03/18/2021 05:50 AM ? Pathologist: ? Radha Alfonso MD ? Specimen: ?Skin, left anti helix ? 1 4:09 PM CDT DERMATOPATHOLOGY LABORATORY Final Diagnosis Specimen A. SKIN, left anti helix: SEBORRHEIC KERATOSIS, IRRITATED (L82.0) 4:09 PM T DERMATOPATHOLOGY LABORATORY Clinical History SK vs other. Path # [id number]. 4:09 PM CDT DERMATOPATHOLOGY LABORATORY Gross Description Specimen A: Received is one formalin filled container labeled with the patient's name and designated left anti helix. The specimen consists of a shave biopsy measuring [id number]. Jar 0. 4:09 PM CDT DERMATOPATHOLOGY LABORATORY Microscopic Description Specimen A. SKIN, left anti helix: There is acanthosis consisting of fairly uniform squamous cells with eosinophilic cytoplasm and squamous eddies. 4:09 PM T DERMATOPATHOLOGY LABORATORY Disclaimer An external and internal positive and negative controls are appropriate for the histochemical, immunohistochemical and immunofluorescence stain(s) in this case (if any), except where stated explicitly. The performance characteristics of the stain(s) cited in this report were developed and its performance characteristic determined by the Dermatopathology Laboratory at [facility], directed by Dr. Mayte Quintana. These tests need not be, and therefore are not, approved by the [place] Food and Drug Administration. The tests are used for clinical purposes. Billing Codes Specimen Charges Stain Charges 90928 1 1 4:09 PM CDT DERMATOPATHOLOGY LABORATORY Embedded Images 1 4:09 PM CDT DERMATOPATHOLOGY LABORATORY Pathology/Cytolo gy TISSUE SPECIMEN FROM SKIN / Unknown 03/16/2021 3:33 AM CDT 03/18/2021 5:50 AM CDT Noe Niño MD LAB - PATHOLOGY/CYTO LOGY ORDERABLES DERMATOPATHOLOGY LABORATORY [facility] - Department of Dermatology [address] [phone] documented in this encounter Visit Diagnoses Not on filedocumented in this encounter Care Teams Deployment Engineer Relationship Specialty Start Date End Date Cesar Berry MD [address] [facility] [address] [place] [address] PCP - General 08/09/16 documented as of this encounter
--- OUTSIDE RECORDS SUMMARY | 2024-08-09 20:02 | XMS_ITS | Encounter Summary ---
Author Organization [facility] Address [address] [facility] [place] [address] Care Team Providers Care Milling Machine Operator Gear Name Role Phone Cesar Berry MD Primary Care Provider [phone] Encounter Details Date Type Department Care Team (Late st Contact Info) Description 09/05/2012 Hospital Outpatient Visit [facility] [address] [place] [address] Lisset Romero S, SAND CUTTING MACHINE OPERATOR-INSPECTOR RUBBER ST[employer] DIE [address] [facility] [address] [place] [address] Discharge Disposition: Home or Self Care Social History Tobacco Use Types Packs/Day Years Used Date Smoking Tobacco: Never Assessed Sex and Gender Information Value Date Recorded Sex Assigned at Not on file Gender Identity Not on file Sexual Orientation Not on file documented as of this encounter Plan of Treatment Not on file documented as of this encounter Visit Diagnoses Not on filedocumented in this encounter Care Teams Milling Machine Operator Gear Relationship Specialty Start Date End Date Cesar Berry MD [address] [facility] [address] [place] [id number] PCP - General 08/09/16 documented as of this encounter
--- OUTSIDE RECORDS SUMMARY | 2024-08-09 20:02 | XMS_ITS | Encounter Summary ---
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 [address] [place] [id number] Discharge Disposition: Home or Self Care Social History Tobacco Use Types Packs/Day Years Used Date Smoking Tobacco: Never Assessed Sex and Gender Information Value Date Recorded Sex Assigned at Not on file Gender Identity Not on file Sexual Orientation Not on file documented as of this encounter H&P Notes * Marc Nunez MD - 08/30/2012 7:18 AM CST H&P Signed by Marc Nunez MD on 08/30/2012 8:44 AM Author: Marc Nunez MD Service: Electrophysiology Author Type: Physician Date of Service: 08/30/2012 7:18 AM Filed: 08/30/2012 8:44 AM Note Type: H&P Status: Signed Animal Health Technician: Marc Nunez MD (Physician) Related Notes: Original Note by Andres Ayers MD (Resident) filed at 08/30/2012 7:[address] [facility] Inpatient Moderate Sedation H&P Patient: Tg Hurst Age: 41 y.o. Date of : 1970 Date of Admission: 08/30/2012 Subjective: Date: 08/30/2012 Procedure: PVC ablation Pre-Procedure diagnosis: Symptomatic PVC Indications: Symptomatic PVC Past medical History: 41 yo with hx of hypertension and palpitation and documented symptomatic PVC (about 2% on the last monitor) with intolerance to the medical therapy (fatigue with BB and CCB) was referred to EP lab for ablation of PVCs. Past Medical History Diagnosis Date ??? Arrhythmia ??? Hypertension Objective: Past Medical History History of cardiac disease? No History of pulmonary disease? No History of central nervous system disease? No History of liver disease? No History of kidney disease, renal failure, or dialysis? No Allergies Allergen Reactions ??? Pcn (Penicillins Cross Reactors) Shortness Of Breath ??? Morphine Hives ??? Reglan Nausea And Vomiting Medications Coumadin - No ASA - No NSAID - No Insulin - No Other Meds - Current Outpatient Prescriptions Medication Sig Dispense Refill ??? losartan (COZAAR) 50 MG PO tablet Take one tab by mouth daily 30 tablet 6 Pain: No Assessment: Physical examination 41 y.o. Wt Readings from Last 1 Encounters: 08/30/12 220 lb (99.791 kg) HEENT: PERRL, OP Clear, MMM Lungs:CTAB, No WRR Heart: RRR, S1S2, No MRG appreciated Abdomen:S/NT/ND, no fluid shift, BS+ Mental Status;Neuro: AxOx3, no focal deficits Stress Test Results : Lexiscan was normal Echocardiogram (last 6 months): 05/2012 - Normal LV size and systolic function. Ejection fraction = 50-55%. - Normal RV size and systolic function. - Enlarged left atrium. - Normal aortic valve structure and velocities. No aortic regurgitation. - Normal mitral valve structure and velocities. Mild mitral regurgitation. - Normal LV diastolic function. - Normal tricuspid valve structure and velocities. Mild tricuspid regurgitation. - Calculated right ventricular systolic pressure of <35 mmHg which is normal. - Normal pulmonary valve structure and velocities. No pulmonic egurgitation. Sedation Risk Assessment: Any oral intake after midnight? No Time of last oral intake: last night Previous adverse reaction to conscious sedation or other types of anesthesia? No Aspiration risk? No History of substance abuse? No Possibility of ? No History of stridor, snoring, disturbed sleep or obstructive sleep apnea? No History of oropharyngeal surgery? No History of chronic analgesic drugs? No History of gastric outlet obstruction, intestinal obstruction or hiatal hernia? No ASA physical status classification: ASA 3 - Patient with moderate systemic disease with functional limitations Sedation Plan: Local and moderate sedation. The procedure, its risk, benefits and alternatives have been discussed with the patient and/or family and informed consent has been obtained. Andres Ayers MD Attending note:41 year old woman with symptomatic recurrent PVCs here for ablation. On exam there was no murmur,or rales. Pt would be an excellent candidate to have ablation. I went over the risks,benefirts,alternatives and details of procedure and answered all her question.She gave informed consent. Patient was seen and examined with the fellow. I have discussed the pertinent information with him and have reviewed all pertinent laboratory dataand imaging studies. I agree with his assessment and plan as outlined. Marc Nunez MD, [facility] decorator consultant NTRY INDIRECT FIRE CREWMEMBER documented in this encounter Procedure Notes * Provider, MD Mariana - 08/30/2012 1:44 PM CST Procedures Signed by Ian Bunn MD on 09/01/2012 10:43 AM Author: Ian Bunn MD Service: Electrophysiology Author Type: Physician Date of Service: 08/30/2012 1:44 PM Filed: 09/01/2012 10:43 AM Note Type: Procedures Status: Signed Animal Health Technician: Ian Bunn MD (Physician) Related Notes: Original Note by Girish Becerra MD (Resident) filed at 08/30/2012 2:39 PM Pre-procedure Diagnoses: 1. PVC's (premature ventricular contractions) [427.69] Post-procedure Diagnoses: 1. PVC (premature ventricular contraction) [427.69] Procedures: 1. EP ABLATION VT [EP82 (Custom)] Electrophysiology Laboratory Procedure Report 08/30/2012 Procedures Performed: 1. Comprehensive Electrophysiology Study with Coronary Sinus Pacing/Recording 2. LVOT PVC Ablation. Indication: Ms. Tg Hurst is a 41 year old female with a history of hypertension and symptomatic PVC's (palpitations). She has been intolerant to the medical therapy (fatigue with BB and CCB) and was thus referred to for ablation of PVCs. 12 lead holter monitor revealed 2 PVC morphologies. One appears to be in the RVOT/LVOT interventricular septum and the other from the aortic-mitral continuity. PVC 1 (RVOT/LVOT interventricular septum): LBBB. + 2,3,AVF. R in lead 1. Precordial transition v2-v3. PVC 2 (aortic-mitral continuity): RBBB. + 2, 3, AVF. rS in lead 1. Precordial transition v3-v4. Team Supervisor: MD Ian Trotter MD Medications: The patient received 23 mg of Versed and 675 mcg of Fentanyl in divided doses for conscious sedation during the procedure. Isoproterenol was utilized at doses up to 2 mcg/min for attempts at induction of tachycardia. Description of Procedure: The risks and benefits of the procedure were discussed with the patient and the patient consented for the procedure. The patient presented to the electrophysiology laboratory in a fasting, nonsedated state. The patient was prepped and draped in the usual sterile fashion for electrophysiology study. 1% lidocaine was administered to the skin and subcutaneous tissues in theRight groin(s). Using a modified Seldinger technique the right femoral vein was accessed times 2. A6 and an 8 czech sheath were advanced into the vein without difficulty. Through the 6 czech sheath a Bard deflectable decapolar catheter was advanced to the coronary sinus with the use of fluoroscopic guidance. Through the 8 czech sheath a Bard Dynamic XT quadripolar catheter was advanced to the His bundle region with the use of fluoroscopic guidance. Pacing and recording was performed from these catheters for the purposes of electrophysiologic study. Isoproterenol was utilized at 2 mcg/min for induction of PVC's. A PVC morphology similar to that seen on the patient's outpatient 12 lead holter (PVC morphology 2 = aortic-mitral continuity) was seenand noted to elicit the patient's clinical symptoms. After a baseline study was performed the RV catheter was removed and a [employer] 4 mm tip D curve ablation catheter was advanced though the 8 sheath to the right ventricle with the use of fluoroscopic guidance. The [employer] system was utilized for three dimensional electroanatomic mapping of the RVOT. PVC frequency was insufficient as to allow activation mapping. Therefore, pace mapping was undertaken. It was clear that the pacing morphology in the RVOT and distal coronary sinus (not quite tothe anterior cardiac vein) was dissimilar from the clinical PVCs morophology. The ablation catheterwas removed and an 8 czech sheath was inserted into the right femoral artery utilizing the Seldinger technique. Heparin was administered to maintain an ACT between 250-350. ACTs were drawn every 20 minutes. The coronary cusps and LVOT were pace mapped until a 12/12 match was noted along the aortic-mitral continuity. Ablation was undertaken at the earliest site at 35 Martinez (increased to 50 Martinez). Ventricular ectopy with a 12/12 match to the clinical PVC morphology was noted during ablation. Additional lesions were placed in a circumferential pattern around the initial ablation site. The ablation catheter was withdrawn and isoproterenol was re-infused. Additional PVC's were noted that were of a similar morphology but slightly different than the clinical PVCs seen earlier (PVC 2). The ablation catheter was re-advanced to the aortic-mitral continuity and pace mapping yielded a 12/12 matchin an area just posterior and lateral to the prior ablation site. RF was administered at 50 Martinez and additional ectopy was noted with a 12/12 match to this new PVC morphology. The ablation catheter was withdrawn and no further ectopy was noted for 20 minutes. The patient tolerated the procedure well; there were no apparent complications at the end of the procedure. Electrophysiology Study Data: Baseline Study: Sinus Cycle Length 809 ms, AH Interval 50 ms, HV interval 44 ms. 1:1 conduction present to 320 ms. AVWB at 320 msec and 2:1 AVB at 280 msec. Retrograde 1:1 conduction present to 320 ms (VAWB). Concentric atrial activation. AV Node ERP 600/260 and 400/280 with no AH jump. Mapping and Ablation: Using a [employer] 4mm tip D curve ablation catheter mapping was undertaken in the RVOT/LVOT/distal coronary sinus/aortic cusps with the use of the DIVINE system. Pace mapping was performed as described above and a 12/12 match was noted at the aortic-mitral continuity. Ablation was undertaken in this area at 35 to 50 Martinez. Ablation successfully terminated the patient's ectopy. Fluoroscopy Time: 44 min. Impression: 1. LVOT PVCs at the aortic-mitral contuinuity status post successful ablation. 2. Unable to induce pt's second clinical PVC morphology (PVC 1 above). Plan: 1. Bedrest for 4 hours 2. Overnight telemetry monitoring. 3. Clinic follow up in 1 month. 4. ASA 25 mg po daily for 1 month. NTRY INDIRECT FIRE CREWMEMBER documented in this encounter Plan of Treatment Not on file documented as of this encounter Procedures Procedure Name Priority Date/Time Associated Diagnosis Comments BASIC METABOLIC PANEL (CALCIUM TOTAL) STAT 08/30/2012 8:09 AM INFANTRY INDIRECT FIRE CREWMEMBER URINALYSIS REFLEX TO MICROSCOPIC NO CULTURE STAT 08/30/2012 8:00 AM INFANTRY INDIRECT FIRE CREWMEMBER CULTURE URINE STAT 08/30/2012 8:00 AM INFANTRY INDIRECT FIRE CREWMEMBER PT-INR SL STAT 08/30/2012 6:30 AM INFANTRY INDIRECT FIRE CREWMEMBER CBC W/O DIFFERENTIAL STAT 08/30/2012 6:30 AM INFANTRY INDIRECT FIRE CREWMEMBER documented in this encounter Results * BASIC METABOLIC PANEL (CALCIUM TOTAL) (08/30/2012 8:09 AM INFANTRY INDIRECT FIRE CREWMEMBER) BUN 13 7 - 26 mg/dL [facility] Creatinine 0.7 0.6 - 1.2 mg/dL [facility] eGFR by MDRD > 60 ML/MIN [facility] Comment: Chronic kidney disease: ??<60 ml/min Kidney failure: ?<15 ml/min Based on BSA of 1.73m2. Sodium 141 136 - 145 mmol/L [facility] Potassium 4.0 3.5 - 4.5 mmol/L [facility] Chloride 106 98 - 107 mmol/L [facility] CO2 26 22 - 29 mmol/L [facility] Glucose 97 70 - 115 mg/dL [facility] Calcium 9.3 8.4 - 10.2 mg/dL [facility] Anion Gap 13 8 - 18 [facility] BUN/Creatinine Ratio 18 7 - 23 [facility] Osmolality Calculation 276 270 - 300 mOsm/kg [facility] Venous blood specimen (specimen) 08/30/2012 8:09 AM INFANTRY INDIRECT FIRE CREWMEMBER 08/30/2012 8:27 AM INFANTRY INDIRECT FIRE CREWMEMBER Marc Nunez MD LAB - CHEMISTRY ORDKary JACKSON [address] [phone] * CULTURE URINE (08/30/2012 8:00 AM INFANTRY INDIRECT FIRE CREWMEMBER) Culture Urine NO GROWTH OF >100 CFU/ML AFTER 48 HOURS. [facility] Urine specimen (specimen) URINE SPECIMEN COLLECTION, CATHETERIZED / Unknown 08/30/2012 8:00 AM INFANTRY INDIRECT FIRE CREWMEMBER 08/30/2012 8:26 AM INFANTRY INDIRECT FIRE CREWMEMBER Narrative [facility] - 09/01/2012 11:09 AM INFANTRY INDIRECT FIRE CREWMEMBER Specimen Type->Urine Marc Nunez MD LAB - MICROBIOLOGY O RDERABLES Performing Organization Address [facility] Co de Phone Number [address] [phone] * URINALYSIS REFLEX TO MICROSCOPIC NO CULTURE (08/30/2012 8:00 AM INFANTRY INDIRECT FIRE CREWMEMBER) Color UA YELLOW STRW,YELLOW [facility] Clarity UA CLEAR CLEAR [facility] Specific [place] Urine 1.010 1.001 - 1.030 [facility] pH UA 7.0 5.0 - 8.0 [facility] Protein UA NEGATIVE <20 mg/dL [facility] Glucose UA NEGATIVE NEGATIVE mg/dL [facility] Ketones NEGATIVE NEGATIVE mg/dL [facility] Bilirubin UA NEGATIVE NEGATIVE mg/dL [facility] Blood UA NEGATIVE NEGATIVE [facility] Nitrite UA NEGATIVE NEGATIVE [facility] Leukocyte Esterase NEGATIVE NEGATIVE [facility] Urobilinogen UA < 2.0 <2.0 mg/dL [facility] UA Micro Reflex NO [facility] Urine specimen (specimen) URINE SPECIMEN COLLECTION, CATHETERIZED / Unknown 08/30/2012 8:00 AM INFANTRY INDIRECT FIRE CREWMEMBER 08/30/2012 8:27 AM INFANTRY INDIRECT FIRE CREWMEMBER Marc Nunez MD LAB - URINALYSIS ORD ERABLES Performing Organization Address [facility] [place] [address], [facility] [phone] * PT-INR SLU (08/30/2012 6:30 AM INFANTRY INDIRECT FIRE CREWMEMBER) PT 13.1 12.1 - 14.8 SECONDS [facility] INR 1.0 [facility] Comment: SUGGESTED THERAPEUTIC RANGE FOR LOW-INTENSITY COUMADIN THERAPY FOR VENOUS THROMBOEMBOLISM IS INR 2.0-3.0. ??FOR HIGH RISK PATIENTS (MITRAL VALVE PROSTHESIS, ATRIAL FIBRILLATION, HISTORY OF TIA/STROKE), SUGGESTED THERAPEUTIC RANGE IS INR 2.5-3.5. Plasma specimen (specimen) 08/30/2012 6:30 AM INFANTRY INDIRECT FIRE CREWMEMBER 08/30/2012 7:50 AM INFANTRY INDIRECT FIRE CREWMEMBER Narrative [facility] - 08/30/2012 8:12 AM INFANTRY INDIRECT FIRE CREWMEMBER Is patient on Heparin, Argatroban or Dabigatran?->N Marc Nunez MD LAB - COAGULATION OR DERABLES Performing Organization Address City/State/[facility] Co de Phone Number [address] [phone] * CBC W/O DIFFERENTIAL (08/30/2012 6:30 AM INFANTRY INDIRECT FIRE CREWMEMBER) WBC 6.6 3.5 - 10.5 10^3/uL [facility] RBC 4.69 3.90 - 5.00 10^6/uL [facility] Hemoglobin 15.0 12.0 - 15.5 g/dL [facility] Hematocrit 43.3 35.0 - 45.0 % [facility] MCV 92.3 81.0 - 97.0 FL [facility] MCH 32.0 28.0 - 34.0 PG [facility] MCHC 34.6 32.0 - 36.0 G/DL [facility] Platelet 208 150 - 400 10^3/uL [facility] RDW 13.2 11.2 - 14.8 % [facility] RDW-SD 44.5 36 - 50 FL [facility] MPV 9.9 9.3 - 12.8 FL [facility] Venous blood specimen (specimen) 08/30/2012 6:30 AM INFANTRY INDIRECT FIRE CREWMEMBER 08/30/2012 7:50 AM INFANTRY INDIRECT FIRE CREWMEMBER Marc Nunez MD LAB - HEMATOLOGY ORD BROO[place] [facility] [address] [phone] documented in this encounter Visit Diagnoses Diagnosis Other premature beats Essential hypertension documented in this encounter Care Teams Vertica Architect Relationship Specialty Start Date End Date Cesar Berry MD [address] [facility] [address] [place] [address] PCP - General 08/09/16 documented as of this encounter
--- OUTSIDE RECORDS SUMMARY | 2024-08-09 20:02 | XMS_ITS | Encounter Summary ---
Author Organization [facility] Address [address] [place] [address] Care Team Providers Care Test Pilot Name Role Phone Cesar Berry MD Primary Care Provider [phone] Encounter Details Date Type Department Care Team (Latest Contact Info) Description 09/02/2012 Emergency Department Historic [facility] EMERGENCY DEPARTMENT [address] [place] [address] Jaskaran Plummer, [address] [place] [id number] Discharge Disposition: Home or Self Care Social [...] Procedure Name Priority Date/Time Associated Diagnosis Comments EKG 12-LEAD STAT 12/17/2012 1:47 PM CDT TROPONIN I STAT 09/02/2012 3:00 PM LOG COOKER CBC W AUTO DIFFERENTIAL STAT 09/02/2012 3:00 PM LOG COOKER BASIC METABOLIC PANEL (CALCIUM TOTAL) STAT 09/02/2012 3:00 PM LOG COOKER CK + CKMB PANEL STAT 09/02/2012 3:00 PM LOG COOKER XR CHEST 2VW STAT 09/02/2012 2:38 PM LOG COOKER ECHO LIMITED OR FOLLOWUP Routine 09/02/2012 12:00 AM LOG COOKER documented in this encounter Results * EKG 12-LEAD (12/17/2012 1:47 PM CDT) Narrative [facility] RADIOLOG[facility] - 12/17/2012 1:47 PM CDT A scan was deleted from the Results section by Jenni Arreola [[id number]] on 12/17/2012 at ??1:47 PM (File: [id number]) Procedure Note Provider, MD Mariana - 01/04/2018 A scan was deleted from the Results section by Jenni Arreola [[id number]] on 12/17/2012t 1:47 PM (File:[id number]) Gaetano Partida MD ECG ORDERABLES [facility] RAD[facility] * (ABNORMAL) TROPONIN I (09/02/2012 3:00 PM LOG COOKER) Troponin I 0.675(HH) <0.032 ng/mL [facility] Comment: RESULT CONFIRMED BY REPEAT ANALYSIS, CALLED TO AND READ BACK BY SHAYAN PATEL AT 1617 ON 09/02/12. ? NOTE Any condition resulting in myocardial cell damage can potentially increase cardiac troponin-I levels. Published studies have documented that these conditions include, but are not limited to, angina, unstable angina, congestive heart failure, myocarditis, cardiac surgery, or invasive testing and non-cardiac related causes such as pulmonary embolism, renal failure, and sepsis. 6-8 hours are required for cardiac troponin I to increase after onset of chest pain. ??Troponin values generally remain elevated for 5-10 days. 09/02/2012 3:00 PM LOG COOKER 09/02/2012 3:25 PM LOG COOKER Gaetano Partida MD LAB - CHEMISTRY ORDE RABLES Performing Organization Address [facility]/ZIP Co de Phone Number [address] [phone] * CK + CKMB PANEL (09/02/2012 3:00 PM LOG COOKER) CK Total 103 30 - 200 Units/L [facility] CK-MB 2.2 0.0 - 6.6 ng/mL [facility] Comment: ? CKMB Reference Range 6.6 ng/mL or greater = Positive For indeterminate results, additional specimen(s) for CKMB, drawn at least one hour apart, may aid diagnosis. Positive CKMB results should be clinically interpreted in combination with total CK serum level. ??In patients without cardiac muscle damage, CKMB (ng/mL) is generally <2.5% of total CK enzyme activity (Units/L). Virtually all patients with acute myocardial infarction have CKMB values 6.6 ng/mL or greater for samples drawn at least 8-12 hours after the onset of chest pain. ??CKMB values generally remain elevated for 2-3 days. 09/02/2012 3:00 PM LOG COOKER 09/02/2012 3:25 PM LOG COOKER Gaetano Partida MD LAB - CHEMISTRY PEDRO PABLO KERAROSY Performing Organization Address [facility] Co de Phone Number [address] [phone] * BASIC METABOLIC PANEL (CALCIUM TOTAL) (09/02/2012 3:00 PM LOG COOKER) BUN 11 7 - 26 mg/dL [facility] Creatinine 0.7 0.6 - 1.2 mg/dL [facility] eGFR by MDRD > 60 ML/MIN [facility] Comment: Chronic kidney disease: ??<60 ml/min Kidney failure: ?<15 ml/min Based on BSA of 1.73m2. Sodium 143 136 - 145 mmol/L [facility] Potassium 3.9 3.5 - 4.5 mmol/L [facility] Chloride 105 98 - 107 mmol/L [facility] CO2 27 22 - 29 mmol/L [facility] Glucose 88 70 - 115 mg/dL [facility] Calcium 9.8 8.4 - 10.2 mg/dL [facility] Anion Gap 15 8 - 18 [facility] BUN/Creatinine Ratio 15 7 - 23 [facility] Osmolality Calculation 278 270 - 300 mOsm/kg [facility] Venous blood specimen (specimen) 09/02/2012 3:00 PM LOG COOKER 09/02/2012 3:25 PM LOG COOKER Gaetano Partida MD LAB - CHEMISTRY PEDRO PABLO [place] Organization Address City/State/[facility] Co de Phone Number [address] [phone] * (ABNORMAL) CBC W AUTO DIFFERENTIAL (09/02/2012 3:00 PM LOG COOKER) WBC 6.9 3.5 - 10.5 10^3/uL [facility] RBC 3.67(L) 3.90 - 5.00 10^6/uL [facility] Hemoglobin 11.9(L) 12.0 - 15.5 g/dL [facility] Hematocrit 33.9(L) 35.0 - 45.0 % [facility] MCV 92.4 81.0 - 97.0 FL [facility] MCH 32.4 28.0 - 34.0 PG [facility] MCHC 35.1 32.0 - 36.0 G/DL [facility] Platelet 195 150 - 400 10^3/uL [facility] RDW 13.1 11.2 - 14.8 % [facility] RDW-SD 43.9 36 - 50 FL [facility] MPV 9.9 9.3 - 12.8 FL [facility] Neutrophils % 70.0 35.0 - 70.0 % [facility] Lymphocytes % 21.0 19.7 - 55.1 % [facility] Monocytes % 6.5 3 - 15 % [facility] Eosinophils % 1.9 0.0 - 6.0 % [facility] Basophils % 0.6 0.0 - 1.5 % [facility] Neutrophils Absolute 4.8 1.7 - 7.0 10^3/uL [facility] Lymphocyte Absolute 1.5 0.8 - 2.9 10^3/uL [facility] Monocytes Absolute 0.5 0.14 - 0.66 10^3/uL [facility] Eosinophils Absolute 0.13 0.00 - 0.22 10^3/uL [facility] Basophils Absolute 0.04 0.02 - 0.06 10^3/uL [facility] Differential Type AUTO DIFFERENTIAL [facility] Venous blood specimen (specimen) 09/02/2012 3:00 PM LOG COOKER 09/02/2012 3:25 PM LOG COOKER Gaetano Partida MD LAB - HEMATOLOGY ORD ERABLES [address] [phone] * XR CHEST 2VW (09/02/2012 2:38 PM LOG COOKER) Anatomical Region Laterality Modality Chest Other Impressions 09/02/2012 4:12 PM LOG COOKER Impression: No acute pulmonary disease. Report dictated by Dalton Alonzo DO (vice president sales). This report was approved ??by Dalton Alonzo M.D. ?? on 09/02/2012 3:54 PM . I, Dr. TERI CHASE M.D. have personally reviewed and interpreted this examination/study. This report was electronically signed by TERI CHASE M.D. ??on 09/02/2012 4:12 PM . Narrative 09/02/2012 4:12 PM LOG COOKER Examination: XR CHEST PA AND LATERAL Date: 09/02/2012 2:30 PM History: chest pain Findings: No prior study is available for comparison. The lungs are free of focal consolidation bilaterally. No pneumothorax or pleural effusion is identified. The cardiomediastinal silhouette is within normal limits. The visualized osseous structures appear intact. Procedure Note Teri Chase MD - 10/28/2017 Examination: XR CHEST PA AND LATERAL Date: 09/02/2012 2:30 PM History: chest pain Findings: No prior study is available for comparison. The lungs are free of focal consolidation bilaterally. No pneumothorax orpleural effusion is identified. The cardiomediastinal silhouette is withinnormal limits. The visualized osseous structures appear intact. IMPRESSION Impression: No acute pulmonary disease. Report dictated by Dalton Alonzo DO (vice president sales). This report was approved by Dalton Alonzo M.D. on 09/02/2012 3:54 PM . I, Dr. TERI CHASE M.D. have personally reviewed and interpreted thisexamination/study. This report was electronically signed by TERI CHASE M.D. on 09/02/20124:12 PM . Gaetano Partida MD DIAGNOSTIC IMAGING O RDERABLES * ECHO FU OR LIMITED (09/02/2012 12:00 AM LOG COOKER) Anatomical Region Laterality Modality Other 09/02/2012 Ian Bunn MD ECHOCARDIOGRAPHY RADIANT documented in this encounter Visit Diagnoses Diagnosis Other premature beats Chest pain documented in this encounter Care Teams Test Pilot Relationship Specialty Start Date End Date Cesar Berry MD [address] [facility] [address] [place] [address] PCP - General 08/09/16 documented as of this encounter
--- OUTSIDE RECORDS SUMMARY | 2024-08-09 20:02 | XMS_ITS | Encounter Summary ---
Author Organization [facility] Address [address] [place] [address] Care Team Providers Care Wooden Furniture Polisher Name Role Phone Cesar Berry MD Primary Care Provider Encounter Details Date Type Department Care Team (Latest Contact Info) Description 09/05/2012 Hospital Outpatient Visit Historic [facility] VASCULAR [facility] [place] [id number] Discharge Disposition: Home or Self Care Social [...] Procedure Name Priority Date/Time Associated Diagnosis Comments VAS RIGHT ARTERIAL DUPLEX LE Routine 09/05/2012 2:17 PM 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 documented in this encounter Results * VAS RIGHT ARTERIAL DUPLEX LE (09/05/2012 2:17 PM 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) Anatomical Region Laterality Modality Other Lisset Romero 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
--- OUTSIDE RECORDS SUMMARY | 2024-08-09 20:02 | XMS_ITS | Clinical Summary ---
Author Organization [facility] [employer] Address [address] [place] [address] Care Team Providers Care Performance Test Architect Name Role Phone Cesar Berry MD Primary Care Provider [phone] Source Comments [facility] [employer],non-owned Affiliates and Associated Physician Practices is amultiple site organization consisting of ambulatory clinics and hospital sitesin [place], [place], [place] and [place]. This disclosure is being madepursuant to the Care Everywhere program and may not contain all information available regarding this patient. Last updated 18.Your Policy Manager [employer] Allergies Active Allergy Reactions Criticality Noted Date Comments Kdc:Yellow Dye+Ci Pigment Bl ue 63+Metoclopramide Nausea and/or Vomiting Low 02/05/2012 Morphine Skin Reactions Medium 02/05/2012 Penicillins Cross Reactors Shortness of Breath High 02/05/2012 Sulfa Drugs Nausea Low 09/06/2016 Medications * Be aware that medications may not be up to date on this document. Alwaysverify current medications with the patient. Medication Sig Dispensed Refills Start Date End Date Status sertraline (ZOLOFT) 100 MG tablet 100 mg DAILY. 0 08/08/2016 Active dilTIAZem SR 24hr (DILT-XR) 180 MG capsule 180 mg DAILY. 0 06/01/2016 Active estradiol (VIVELLE-DOT) 0.1 MG/24HR patch 1 patch 2X/week. 3 06/28/2016 A ctive dicyclomine (BENTYL) 20 MG tablet 20 mg. 0 08/21/2016 Active traMADol (ULTRAM) 50 MG tablet 50 mg. 0 06/30/2016 Active Active Problems Problem Noted Date Diagnosed Date Obesity 05/13/2015 Insomnia 10/10/2012 Other specified postprocedural states 09/09/2012 Personal history of other di seases of the circulatory system 09/09/2012 Gastro-esophageal reflux disease without esophag itis 09/09/2012 Essential (primary) hypertension 02/11/2012 Palpitations 02/11/2012 Ventricular premature depolarization 02/11/2012 Family History Medical History Relation Name Comments Other Father MVA; Status: De ceased Arthritis - Rheumatoid Maternal Grandmother Arthritis - Rheumatoid Mother Cancer Mother cervical mets l ungs Hypertension Mother Status: d Inflammatory Bowel Disease Neg Hx Lupus Neg Hx Psoriasis Neg Hx Thyroid Disease Neg Hx Relation Name Status Comments Father Maternal Grandmother Mother Social History Tobacco Use Types Packs/Day Years Used Date Smoking Tobacco: Never Smokeless Tobacco: Never Alcohol Use Standard Drinks/Week Comments Yes 0 (1 standard drink = 0.6 oz pur e alcohol) Sex and Gender Information Value Date Recorded Sex Assigned at Not on file Gender Identity Not on file Sexual Orientation Not on file Last Filed Vital Signs Vital Sign Reading Time Taken Comments Blood Pressure 120/80 09/06/2016 9:44 AM PROFESSIONAL BUILDER Pulse 98 09/06/2016 9:44 AM PROFESSIONAL BUILDER Temperature 36.6 ??C (97.9 ??F) 09/06/2016 9:44 AM CS T Respiratory Rate 18 09/06/2016 9:44 AM PROFESSIONAL BUILDER Oxygen Saturation 97% 09/06/2016 9:44 AM PROFESSIONAL BUILDER Inhaled Oxygen Concentration - - Weight 110.2 kg (243 lb) 09/06/2016 9:44 AM PROFESSIONAL BUILDER Height 170.2 cm (5' 7 ) 09/06/2016 9:44 AM PROFESSIONAL BUILDER Body Mass Index 38.06 09/06/2016 9:44 AM PROFESSIONAL BUILDER Plan of Treatment Health Maintenance Due Date Last Done Comments COLOGUARD (AGES 45-75) - COL ON CA SCREENING 1971 COLON MONITORING 1971 COLONOSCOPY - COLON CA SCREENING 1971 CT COLONOGRAPHY - COLON CA SCREENING 1971 Colorectal Cancer Screening 1971 FIT - COLON CA SCREENING 1971 FLEX SIG - COLON CA SCREENING 1971 LIPID TESTING 1971 MAMMOGRAM 1971 PAP SMEAR 1971 HIV SCREENING 11/30/1986 HEPATITIS C SCREENING 11/26/1989 DTAP/TDAP/TD VACCINES (1 - Tdap) 11/30/1990 HEPATITIS B VACCINE (1 of 3 - 19+ 3-dose series) 11/30/1990 ZOSTER VACCINE (1 of 2) 11/30/2021 DEPRESSION SCREENING 07/30/2023 COVID-19 VACCINE (1 - 2023-2 5 season) 2024 INFLUENZA VACCINE (#1) 2024 HIB VACCINE Aged Out No longer eligi ble based on patient's age to complete this topic HPV VACCINE Aged Out No longer eligi ble based on patient's age to complete this topic MENINGOCOCCAL VACCINE Aged Out No raven luis eligible based on patient's age to complete this topic PNEUMOCOCCAL VACCINE Aged Out No long er eligible based on patient's age to complete this topic Care Teams Performance Test Architect Relationship Specialty Start Date End Date Cesar Berry MD [address] [facility] [address] [place] [address] PCP - General 08/09/16
--- OUTSIDE RECORDS SUMMARY | 2024-08-09 20:02 | XMS_ITS | Referral Summary ---
Author Organization [facility] [employer] Address [address] [place] [address] Care Team Providers Care Photographs Curator Name Role Phone Cesar Berry MD Primary Care Provider [phone] Source Comments [facility] [employer],non-owned Affiliates and Associated Physician Practices is amultiple site organization consisting of ambulatory clinics and hospital sitesin [place], [place], [place] and [place]. This disclosure is being madepursuant to the Care Everywhere program and may not contain all information available regarding this patient. 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 Social History Tobacco Use Types Packs/Day Years [...] Comments Blood Pressure 120/80 09/06/2016 9:44 AM ROUSTABOUT HEAD Pulse 98 09/06/2016 9:44 AM ROUSTABOUT HEAD Temperature 36.6 ??C (97.9 ??F) 09/06/2016 9:44 AM CS T Respiratory Rate 18 09/06/2016 9:44 AM ROUSTABOUT HEAD Oxygen Saturation 97% 09/06/2016 9:44 AM ROUSTABOUT HEAD Inhaled Oxygen Concentration - - Weight 110.2 kg (243 lb) 09/06/2016 9:44 AM ROUSTABOUT HEAD Height 170.2 cm (5' 7 ) 09/06/2016 9:44 AM ROUSTABOUT HEAD Body Mass Index 38.06 09/06/2016 9:44 AM ROUSTABOUT HEAD Plan of Treatment Not on file Care Teams Photographs Curator Relationship Specialty Start Date End Date Cesar Berry MD [address] [facility] [address] [place] [address] PCP - General 08/09/16
--- OUTSIDE RECORDS SUMMARY | 2024-08-09 20:02 | XMS_ITS | Patient Health Summary ---
Author Organization [facility] [employer] Address [address] [place] [address] Care Team Providers Care Primer Inserting Machine Operator Name Role Phone Cesar Berry MD Primary Care Provider [phone] Note from [facility],non-owned Affiliates and Associated Physician Practices is amultiple site organization consisting of ambulatory clinics and hospital sitesin [place], [place], [place] and [place]. This disclosure is being madepursuant to the Care Everywhere program and may not contain all information available regarding this patient. Last updated 18.[facility] [employer] Allergies * Kdc:Yellow Dye+Ci Pigment Blue 63+Metoclopramide(Nausea and/or Vomiting) -Low Criticality * Morphine(Skin Reactions) -Medium Criticality * Penicillins Cross Reactors(Shortness of Breath) -High Criticality * Sulfa Drugs(Nausea) -Low Criticality Medications * Be aware that medications may not be up to date on this document. Alwaysverify current medications with the patient. * sertraline (ZOLOFT) 100 MG tablet(Started 08/08/2016) 100 mg DAILY. * dilTIAZem SR 24hr (DILT-XR) 180 MG capsule(Started 06/01/2016) 180 mg DAILY. * estradiol (VIVELLE-DOT) 0.1 MG/24HR patch(Started 06/28/2016) 1 patch 2X/week. 3 refills left * dicyclomine (BENTYL) 20 MG tablet(Started 08/21/2016) 20 mg. * traMADol (ULTRAM) 50 MG tablet(Started 06/30/2016) 50 mg. Active Problems Problem Noted Date Diagnosed Date [...] Comments Blood Pressure 120/80 09/06/2016 9:44 AM HIGH SCHOOL T[employer]OR Pulse 98 09/06/2016 9:44 AM H[employer] S[employer]OL [employer] Temperature 36.6 ??C (97.9 ??F) 09/06/2016 9:44 AM CS T Respiratory Rate 18 09/06/2016 9:44 AM H[employer] SCHOOL T[employer]OR Oxygen Saturation 97% 09/06/2016 9:44 AM HIGH S[employer]OL T[employer]OR Inhaled Oxygen Concentration - - Weight 110.2 kg (243 lb) 09/06/2016 9:44 AM HIGH SCHOOL T[employer]OR Height 170.2 cm (5' 7 ) 09/06/2016 9:44 AM HIGH SCHOOL T[employer]OR Body Mass Index 38.06 09/06/2016 9:44 AM HIGH SCHOOL T[employer]OR Procedures * DERMATOPATHOLOGY(Performed 03/16/2021) * EKG 12-LEAD(Performed 12/17/2012) * HOLTER MONITOR(Performed 10/21/2012) * HOLTER MONITOR(Performed 10/10/2012) * MAGNESIUM BLOOD(Performed 10/10/2012) * BASIC METABOLIC PANEL (CALCIUM TOTAL)(Performed 10/10/2012) * EKG 12-LEAD(Performed 10/10/2012) * LAB HISTORICAL RESULTS-ONBASE(Performed 10/10/2012) * EKG 12-LEAD(Performed 09/26/2012) * EKG 12-LEAD(Performed 09/26/2012) * VAS RIGHT ARTERIAL DUPLEX LE(Performed 09/05/2012) * EKG 12-LEAD(Performed 09/05/2012) * TROPONIN I(Performed 09/02/2012) * CK + CKMB PANEL(Performed 09/02/2012) * BASIC METABOLIC PANEL (CALCIUM TOTAL)(Performed 09/02/2012) * CBC W AUTO DIFFERENTIAL(Performed 09/02/2012) * XR CHEST 2VW(Performed 09/02/2012) * ECHO LIMITED OR FOLLOWUP(Performed 09/02/2012) * ANTITHROMBIN III ACTIVITY(Performed 08/30/2012) * ANTITHROMBIN III ACTIVITY(Performed 08/30/2012) * ANTITHROMBIN III ACTIVITY(Performed 08/30/2012) * ANTITHROMBIN III ACTIVITY(Performed 08/30/2012) * ANTITHROMBIN III ACTIVITY(Performed 08/30/2012) * BASIC METABOLIC PANEL (CALCIUM TOTAL)(Performed 08/30/2012) * URINALYSIS REFLEX TO MICROSCOPIC NO CULTURE(Performed 08/30/2012) * CULTURE URINE(Performed 08/30/2012) * PT-INR [facility](Performed 08/30/2012) * CBC W/O DIFFERENTIAL(Performed 08/30/2012) * HOLTER MONITOR(Performed 06/19/2012) * EKG 12-LEAD(Performed 06/13/2012) * ECHO 2D ONLY WO COLOR OR DOPPLER(Performed 06/03/2012) * TSH(Performed 06/03/2012) * HOLTER MONITOR(Performed 05/31/2012) Results * DERMATOPATHOLOGY (03/16/2021 3:33 AM CDT) Case Report Dermatopathology Report ? Case: [id number] ? Authorizing Provider: ??Noe Niño MD ?Collected: ? 03/16/2021 03:33 AM ? Ordering Location: ? [facility] Care DermPath Lab ?Received: ?03/18/2021 05:50 AM ? Pathologist: ? Radha Alfonso MD ? Specimen: ?Skin, left anti helix ? 4:09 PM CDT DERMATOPATHOLOGY LABORATORY Final Diagnosis Specimen A. SKIN, left anti helix: SEBORRHEIC KERATOSIS, IRRITATED (L82.0) 4:09 PM CDT DERMATOPATHOLOGY LABORATORY Clinical History SK vs other. Path # [id number]. 4:09 PM CDT DERMATOPATHOLOGY LABORATORY Gross Description Specimen A: Received is one formalin filled container labeled with the patient's name and designated left anti helix. The specimen consists of a shave biopsy measuring [id number]. Jar 0. 4:09 PM CDT DERMATOPATHOLOGY LABORATORY Microscopic Description Specimen A. SKIN, left anti helix: There is acanthosis consisting of fairly uniform squamous cells with eosinophilic cytoplasm and squamous eddies. 4:09 PM CDT DERMATOPATHOLOGY LABORATORY Disclaimer An external and internal [...] purposes. Billing Codes Specimen Charges Stain Charges [id number] 1 4:09 PM CDT DERMATOPATHOLOGY LABORATORY Embedded Images 4:09 PM CDT DERMATOPATHOLOGY LABORATORY Pathology/Cytolo gy TISSUE SPECIMEN FROM SKIN / Unknown 03/16/2021 3:33 AM CDT 03/18/2021 5:50 AM CDT Noe Niño MD LAB - PATHOLOGY/CYTO LOGY ORDERABLES DERMATOPATHOLOGY LABORATORY [facility] Department of Dermatology [address], [address] [phone] * EKG 12-LEAD (12/17/2012 1:47 PM CDT) Only the most recent of6 resultswithin the time period is included. Narrative [facility] - 12/17/2012 1:47 PM CDT A scan was deleted from the Results section by Jenni Arreola [[id number]] on 12/17/2012 at ??1:47 PM (File: [id number]) Procedure Note Provider, MD Mariana - 01/04/2018 A scan was deleted from the Results section by Jenni Arreola [[id number]] on 12/17/2012t 1:47 PM (File:[id number]) Gaetano Partida MD ECG ORDERABLES [facility] * HOLTER MONITOR (10/21/2012 5:05 PM CDT) Only the most recent of4 resultswithin the time period is included. Narrative [facility] - 10/21/2012 5:05 PM CDT Comments: 1) Predominant rhythm sinus rhythm 2) 947 premature ventricular contractions noted (out of [id number] total beats). Mrs. Hurst has a PVC burden of 0.39% (i.e. PVC's represent 0.39% of her total ventricular contractions). Twenty three couplets and one bigeminy event noted (representing three beats). 3) No supraventricular ectopy noted. 4) No patient diary submitted. 5) Maximum heart rate, 128 bpm, occurred during sinus tachycardia. 6) There were no pauses noted which were > 2.5 seconds. 7) A total of 45:09 hours was analyzed. Procedure Note Provider, MD Mariana - 01/04/2018 Comments: 1) Predominant rhythm sinus rhythm 2) 947 premature ventricular contractions noted (out of [id number] totalbeats). Mrs. Hurst has a PVC burden of 0.39% (i.e. PVC's represent 0.39%of her total ventricular contractions). Twenty three couplets and onebigeminy event noted (representing three beats). 3) No supraventricular ectopy noted. 4) No patient diary submitted. 5) Maximum heart rate, 128 bpm, occurred during sinus tachycardia. 6) There were no pauses noted which were > 2.5 seconds. 7) A total of 45:09 hours was analyzed. Lisset Romero FIELD ASSOCIATE-FLASH DRIER OPERATOR CARDIAC SER VICES ORDERABLES [facility] * BASIC METABOLIC PANEL (CALCIUM TOTAL) (10/10/2012 2:19 PM CDT) Only the most recent of3 resultswithin the time period is included. Glucose 77 65 - 99 mg/dL [facility] ([facility]) Comment: ? Fasting reference interval BUN 13 7 - 25 mg/dL [facility] ([facility]) Creatinine 0.67 0.50 - 1.10 mg/dL [facility] ([facility]) eGFR non- 110 > OR = 60 mL/min/1. 73m2 [facility] ([facility]) eGFR 127 > OR = 60 mL/min/1. 73m2 [facility] ([facility]) BUN/Creatinine Ratio NOT APPLICABLE 6 - 22 (calc) [facility] ([facility]) Sodium 141 135 - 146 mmol/L [facility] ([facility]) Potassium 4.0 3.5 - 5.3 mmol/L [facility] ([facility]) Chloride 106 98 - 110 mmol/L [facility] ([facility]) CO2 25 19 - 30 mmol/L [facility] ([facility]) Calcium 9.0 8.6 - 10.2 mg/dL [facility] ([facility]) Comment: Test Performed at: [facility] [address] [place], [place] ??[address] GAGE DRAKE DO,MPH 10/10/2012 2:19 PM CDT 10/10/2012 2:20 PM CDT Lisset Angelica Heather CHRISN-FLASH DRIER OPERATOR LAB - CHEMI STRY ORDERABLES Performing Organization Address [facility]/ZIP Co de Phone Number [facility] ([facility]) * MAGNESIUM BLOOD (10/10/2012 2:19 PM CDT) Magnesium 2.4 1.5 - 2.5 mg/dL [facility] ([facility]) Comment: Test Performed at: [facility] [address] ??[phone] GAGE DRAKE DO,MPH Serum 10/10/2012 2:19 PM CDT 10/10/2012 2:20 PM CDT Lisset Romero APRN-FLASH DRIER OPERATOR LAB - CHEMI STRY ORDERABLES Performing Organization Address [facility] Co de Phone Number [facility] ([facility]) * LAB HISTORICAL RESULTS-ONBASE (10/10/2012) 10/10/2012 Narrative [facility] - 10/11/2012 9:21 AM CDT Historical Provider LAB - CHEMISTRY O RDERABLES Performing Organization Address [facility] Co de Phone Number [facility] [address] [place] [address], [facility] * VAS RIGHT ARTERIAL DUPLEX LE (09/05/2012 2:17 PM HIGH SCHOOL TUTOR) Anatomical Region Laterality Modality Other Lisset Angelica Heather FIELD ASSOCIATE-FLASH DRIER OPERATOR VASCULAR LA B ORDERABLES * (ABNORMAL) TROPONIN I (09/02/2012 3:00 PM HIGH SCHOOL TUTOR) Troponin I 0.675(HH) <0.032 ng/mL [facility] Comment: RESULT CONFIRMED BY REPEAT [...] elevated for 5-10 days. 09/02/2012 3:00 PM HIGH SCHOOL TUTOR 09/02/2012 3:25 PM HIGH SCHOOL TUTOR Gaetano Partida MD LAB - CHEMISTRY [facility] [address] [phone] * (ABNORMAL) CBC W AUTO DIFFERENTIAL (09/02/2012 3:00 PM HIGH SCHOOL TUTOR) WBC 6.9 3.5 - 10.5 10^3/uL [facility] RBC 3.67(L) 3.90 - 5.00 10^6/uL [facility] Hemoglobin 11.9(L) 12.0 - 15.5 g/dL [facility] Hematocrit 33.9(L) 35.0 - 45.0 % [facility] MCV 92.4 81.0 - 97.0 FL [facility] MCH 32.4 28.0 - 34.0 PG [facility] MCHC 35.1 32.0 - 36.0 G/DL [facility] Platelet 195 150 - 400 10^3/uL [facility] RDW 13.1 11.2 - 14.8 % [facility] RDW-SD 43.9 36 - 50 FL [facility] MPV 9.9 9.3 - 12.8 FL [facility] Neutrophils % 70.0 35.0 - 70.0 % [facility] Lymphocytes % 21.0 19.7 - 55.1 % [facility] Monocytes % 6.5 3 - 15 % [facility] Eosinophils % 1.9 0.0 - 6.0 % [facility] Basophils % 0.6 0.0 - 1.5 % [facility] Neutrophils Absolute 4.8 1.7 - 7.0 10^3/uL [facility] Lymphocyte Absolute 1.5 0.8 - 2.9 10^3/uL [facility] Monocytes Absolute 0.5 0.14 - 0.66 10^3/uL [facility] Eosinophils Absolute 0.13 0.00 - 0.22 10^3/uL [facility] Basophils Absolute 0.04 0.02 - 0.06 10^3/uL [facility] Differential Type AUTO DIFFERENTIAL [facility] Venous blood specimen (specimen) 09/02/2012 3:00 PM HIGH SCHOOL TUTOR 09/02/2012 3:25 PM HIGH SCHOOL TUTOR Gaetano Partida MD LAB - HEMATOLOGY FRANCY COX Performing Organization Address [facility] Co de Phone Number [address] [phone] * CK + CKMB PANEL (09/02/2012 3:00 PM HIGH SCHOOL TUTOR) CK Total 103 30 - 200 Units/L [facility] CK-MB 2.2 0.0 - 6.6 ng/mL [facility] Comment: ? CKMB Reference Range 6.6 [...] elevated for 2-3 days. 09/02/2012 3:00 PM HIGH SCHOOL TUTOR 09/02/2012 3:25 PM HIGH SCHOOL TUTOR Gaetano Partida MD LAB - CHEMISTRY PEDRO PABLO JACKSON Performing Organization Address [facility] Co de Phone Number [address] [phone] * XR CHEST 2VW (09/02/2012 2:38 PM HIGH SCHOOL TUTOR) Anatomical Region Laterality Modality Chest Other Impressions 09/02/2012 4:12 PM HIGH SCHOOL TUTOR Impression: No acute pulmonary disease. Report dictated by Dalton Alonzo DO (vice president tax). This report was approved ??by Dalton Alonzo M.D. ?? on 09/02/2012 3:[address] TERI Alcantar M.D. have personally reviewed and interpreted this examination/study. This report was electronically signed by ETRI CHASE M.D. ??on 09/02/2012 4:12 PM . Narrative 09/02/2012 4:12 PM HIGH SCHOOL TUTOR Examination: XR CHEST PA AND LATERAL Date: [...] dictated by Dalton Alonzo DO (vice president tax). This report was approved by Dalton Alonzo M.D. on 09/02/2012 3:[address] TERI Alcantar M.D. have personally reviewed and interpreted thisexamination/study. This report was electronically signed by TERI CHASE M.D. on 09/02/20124:12 PM . Gaetano Partida MD DIAGNOSTIC IMAGING O RDERABLES * ECHO FU OR LIMITED (09/02/2012 12:00 AM HIGH SCHOOL TUTOR) Anatomical Region Laterality Modality Other 09/02/2012 Ian Bunn MD ECHOCARDIOGRAPHY RADIANT * ANTITHROMBIN III ACTIVITY (08/30/2012 12:35 PM HIGH SCHOOL TUTOR) Only the most recent of5 resultswithin the time period is included. AT ACT 138 105 - 167 SECONDS [facility] Comment: Therapeutic range for Cardiac laborer airport maintenance is: ? 200 - 300 seconds ? line pull ACT < 170 seconds ? Therapeutic range for EPS lab is: ? 200 - 240 seconds ? rebolus at < 160 seconds for procedure ? line pull ACT < 140 seconds ? Therapeutic range for CT/Angio Special Procedures is: ? 200 - 300 seconds ? line pull ACT < 200 seconds Therapeutic range for Surgery in OR: ? ACT > 360-999 seconds Patient on Aprotinin ACT > 450-999 seconds 08/30/2012 12:3 5 PM HIGH SCHOOL TUTOR 09/02/2012 4:12 PM HIGH SCHOOL TUTOR Marc Nunez MD LAB - COAGULATION OR DERABLES Performing Organization Address City/State/[facility] Co de Phone Number [address] [phone] * URINALYSIS REFLEX TO MICROSCOPIC NO CULTURE (08/30/2012 8:00 AM HIGH SCHOOL TUTOR) Color UA YELLOW STRW,YELLOW [facility] Clarity UA CLEAR CLEAR [facility] Specific [place] Urine 1.010 1.001 - 1.030 [facility] pH UA 7.0 5.0 - 8.0 [facility] Protein UA NEGATIVE <20 mg/dL [facility] Glucose UA NEGATIVE NEGATIVE mg/dL [facility] Ketones NEGATIVE NEGATIVE mg/dL [facility] Bilirubin UA NEGATIVE NEGATIVE mg/dL [facility] Blood UA NEGATIVE NEGATIVE [facility] Nitrite UA NEGATIVE NEGATIVE [facility] Leukocyte Esterase NEGATIVE NEGATIVE [facility] Urobilinogen UA < 2.0 <2.0 mg/dL [facility] UA Micro Reflex NO [facility] Urine specimen (specimen) URINE SPECIMEN COLLECTION, CATHETERIZED / Unknown 08/30/2012 8:00 AM HIGH SCHOOL TUTOR 08/30/2012 8:27 AM HIGH SCHOOL TUTOR Marc Nunez MD LAB - URINALYSIS ORD ERABLES Performing Organization Address [facility] Co de Phone Number [address] [phone] * CULTURE URINE (08/30/2012 8:00 AM HIGH SCHOOL TUTOR) Culture Urine NO GROWTH OF >100 CFU/ML AFTER 48 HOURS. [facility] Urine specimen (specimen) URINE SPECIMEN COLLECTION, CATHETERIZED / Unknown 08/30/2012 8:00 AM HIGH SCHOOL TUTOR 08/30/2012 8:26 AM HIGH SCHOOL TUTOR Narrative [facility] - 09/01/2012 11:09 AM HIGH SCHOOL TUTOR Specimen Type->Urine Marc Nunez MD LAB - MICROBIOLOGY O RDERABLES Performing Organization Address [facility] Co de Phone Number [address] [phone] * PT-INR [facility] (08/30/2012 6:30 AM HIGH SCHOOL TUTOR) PT 13.1 12.1 - 14.8 SECONDS [facility] INR 1.0 [facility] Comment: SUGGESTED THERAPEUTIC RANGE FOR LOW-INTENSITY COUMADIN THERAPY FOR VENOUS THROMBOEMBOLISM IS INR 2.0-3.0. ??FOR HIGH RISK PATIENTS (MITRAL VALVE PROSTHESIS, ATRIAL FIBRILLATION, HISTORY OF TIA/STROKE), SUGGESTED THERAPEUTIC RANGE IS INR 2.5-3.5. Plasma specimen (specimen) 08/30/2012 6:30 AM HIGH SCHOOL TUTOR 08/30/2012 7:50 AM HIGH SCHOOL TUTOR Narrative [facility] - 08/30/2012 8:12 AM HIGH SCHOOL TUTOR Is patient on Heparin, Argatroban or Dabigatran?->N Marc Nunez MD LAB - COAGULATION OR DERABLES Performing Organization Address [facility] Co de Phone Number [address] [phone] * CBC W/O DIFFERENTIAL (08/30/2012 6:30 AM HIGH SCHOOL TUTOR) WBC 6.6 3.5 - 10.5 10^3/uL [facility] RBC 4.69 3.90 - 5.00 10^6/uL [facility] Hemoglobin 15.0 12.0 - 15.5 g/dL [facility] Hematocrit 43.3 35.0 - 45.0 % [facility] MCV 92.3 81.0 - 97.0 FL [facility] MCH 32.0 28.0 - 34.0 PG [facility] MCHC 34.6 32.0 - 36.0 G/DL [facility] Platelet 208 150 - 400 10^3/uL [facility] RDW 13.2 11.2 - 14.8 % [facility] RDW-SD 44.5 36 - 50 FL [facility] MPV 9.9 9.3 - 12.8 FL [facility] Venous blood specimen (specimen) 08/30/2012 6:30 AM HIGH SCHOOL TUTOR 08/30/2012 7:50 AM HIGH SCHOOL TUTOR Marc Nunez MD LAB - HEMATOLOGY ORD ERABLES Performing Organization Address [facility] Co de Phone Number [address] [phone] * ECHO 2D ONLY WO COLOR OR DOPPLER (06/03/2012 3:07 PM HIGH SCHOOL TUTOR) Anatomical Region Laterality Modality Other Narrative 06/03/2012 3:07 PM HIGH SCHOOL TUTOR NAME: Tg Hurst : 1970 AGE: 41 y.o. SEX: female Referring Physician: Vivek Leo MD [address] [place] [address] [address] [place] [address] Ordering Physician: ?? 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 Weight: ?? BSA: ?? Introduction: Tg Hurst is a 41 y.o. female presenting with palpitations. Indication: Palpitations Chamber Measurements LV Internal Dimension Systole (cm): 3.6 cm LV Internal Dimension Diastole (cm): 4.7 cm Septal Thickness (cm): 0.9 cm Posterior Wall Thickness (cm): 0.8 cm LV Systolic Function: Normal Aortic Root Measurement (cm): 3.3 cm Left Atrium Measurement (cm): 4.2 cm Right Atrial Size: Normal RV Size: Normal Global RV function: Normal Aortic Valve AV Max (m/s): 1.8 m/s LVOT Diameter (cm): 2.1 cm LVOT max (m/s): 1.5 m/s Normal Aortic Valve Velocities: Yes Mitral Valve Mitral Valve Velocities: ? E (m/s): 0.8 m/s ? A (m/s): 0.7 m/s ? Tissue Doppler Velocities: ? Diastolic Function: Normal Tricuspid Valve Max Tricuspid Valve Velocity (m/s): 0.8 m/s Normal Tricuspid Valve Velocities: Yes Pulmonic Valve Max Pulmonic Valve Velocity (m/s): 1 m/s Normal Pulmonic Valve Velocities: Yes OVERALL INTERPRETATION: - Technically Good echocardiogram. - Normal LV size and systolic function. Ejection fraction = 50-55%. - Normal RV size and systolic function. - Enlarged left atrium. - Normal right atrium. - No abnormalities of the aorta. - No abnormalities of the pericardium. - Normal aortic valve structure and velocities. ??No aortic regurgitation. - Normal mitral valve structure and velocities. ??Mild mitral regurgitation. - Normal LV diastolic function. - Normal tricuspid valve structure and velocities. ?? Mild tricuspid regurgitation. - Calculated right ventricular systolic pressure of <35 mmHg which is normal. - Normal pulmonary valve structure and velocities. ??No pulmonic regurgitation. Supervising Physician: Vivek Leo, ??M.D. Reading Physician: Delisa Caro MD Procedure Note Provider, MD Mariana - 01/04/2018 NAME: Tg Hurst : 1970 AGE: 41 y.o. SEX: female Referring Physician: Vivek Leo MD [address] [facility] [address] [place] [address] Ordering Physician: Primary Care Physician: Shekhar Blake Date of Test: 06/03/12 TAPE#: digital Jigger Artisan: casper Height: Weight: BSA: Introduction: Tg Hurst is a 41 y.o. female presenting withpalpitations. Indication: Palpitations Chamber Measurements LV Internal Dimension Systole (cm): 3.6 cm LV Internal Dimension Diastole (cm): 4.7 cm Septal Thickness (cm): 0.9 cm Posterior Wall Thickness (cm): 0.8 cm LV Systolic Function: Normal Aortic Root Measurement (cm): 3.3 cm Left Atrium Measurement (cm): 4.2 cm Right Atrial Size: Normal RV Size: Normal Global RV function: Normal Aortic Valve AV Max (m/s): 1.8 m/s LVOT Diameter (cm): 2.1 cm LVOT max (m/s): 1.5 m/s Normal Aortic Valve Velocities: Yes Mitral Valve Mitral Valve Velocities: E (m/s): 0.8 m/s A (m/s): 0.7 m/s Tissue Doppler Velocities: Diastolic Function: Normal Tricuspid Valve Max Tricuspid Valve Velocity (m/s): 0.8 m/s Normal Tricuspid ValveVelocities: Yes Pulmonic Valve Max Pulmonic Valve Velocity (m/s): 1 m/s Normal Pulmonic Valve Velocities:Yes OVERALL INTERPRETATION: - Technically Good echocardiogram. - Normal LV size and systolic function. Ejection fraction = 50-55%. - Normal RV size and systolic function. - Enlarged left atrium. - Normal right atrium. - No abnormalities of the aorta. - No abnormalities of the pericardium. - Normal aortic valve structure and velocities. No aorticregurgitation. - Normal mitral valve structure and velocities. Mild mitralregurgitation. - Normal LV diastolic function. - Normal tricuspid valve structure and velocities. Mild tricuspidregurgitation. - Calculated right ventricular systolic pressure of <35 mmHg which isnormal. - Normal pulmonary valve structure and velocities. No pulmonicregurgitation. Supervising Physician: Vivek Leo M.D. Reading Physician: Delisa Caro MD Vivek Leo MD ECHOCARDIOGRAPHY RAD IANT * TSH (06/03/2012 12:00 PM HIGH SCHOOL TUTOR) TSH 0.78 mIU/L [facility] ([facility]) Comment: ?Reference Range ?> or = 20 Years ??0.40-4.50 ? Ranges ?First trimester ?0.26-2.66 ?Second trimester ?? 0.55-2.73 ?Third trimester ?0.43-2.91 Test Performed at: [facility] [address] ??[phone] GAGE DRAKE DO,MPH Venous blood specimen (specimen) 06/03/2012 12:00 PM HIGH SCHOOL TUTOR 06/03/2012 12:01 PM HIGH SCHOOL TUTOR Vivek Leo MD LAB - CHEMISTRY PEDRO PABLO JACKSON [facility] ([facility]) Care Teams Primer Inserting Machine Operator Relationship Specialty Start Date End Date Cesar Berry MD [address] [facility] [address] [place] [address] PCP - General 08/09/16
--- OUTSIDE RECORDS SUMMARY | 2024-08-09 20:04 | XMS_ITS | Referral Summary ---
Author Organization [facility] Address [address] [place] [address] Care Team Providers Care Tool Procurement Coordinator Name Role Phone Deyns Urrutia MD Unavailable [phone] Suzy Hopkins PT Unavailable Unavailable Aditi Mccormick GAMEPLAY PROGRAMMER Unavailable Unavailable Ashwin Hong MD Primary Care Provider [phone] Jeanette Parikh MD Unavailable [phone] Allergies Active Allergy Reactions Criticality Noted Date Comments Levofloxacin Nausea only Low Patient says she has GI upset with levaquin Metoclopramide Hcl Nausea And Vomiting Low 02/05/20 12 Morphine Itching,Hives High 02/05/2012 Patient states is extreme itching Oxycodone Vomiting High 12/05/2017 Patient states she received after her ablation, and vomited and vomited profusly Penicillins Other (See comments),Shortness of breath High 02/05/2012 Reaction: Unknown, , Metoclopramide Nausea only High Reaction: Unknown, , Sulfasalazine Nausea Only Low 09/06/2016 Medications dilTIAZem XR (CARDIZEM CD,DILACOR XR) 180 mg 24 hr capsule Take 1 capsule (180 mg total) by mouth daily with dinner Active sertraline (ZOLOFT) 100 mg tablet Take 1 tablet (100 mg total) by mouth nightly Active loratadine (CLARITIN) 10 mg tablet Take 1 tablet (10 mg total) by mouth daily as needed for allergies Active fluticasone propionate (FLONASE) 50 mcg/actuation nasal spray Administer 1 spray into each nostril daily Active cannabidiol, CBD, (EPIDIOLEX) 100 mg/mL solution Take 5 mg/kg by mouth 2 (two) times a day Active Narcan 4 mg/actuation spray,non-aeroso l USE 1 SPRAY NASALLY ONCE FOR OVERSEDATION. REPEAT IN 2 TO 3 MINUTES IF NEEDED. 2 Active HYDROcodone-acet aminophen (NORCO) 7.5-325 mg per tablet Take 1 tablet by mouth 2 (two) times a day as needed 2 Active losartan-hydroCH LOROthiazide (HYZAAR) 100-12.5 mg per tablet 2 Active Ozempic 1 mg/dose (4 mg/3 mL) pen injector injection 4 Active estradioL (Lyllana) 0.1 mg/24 hrIndications:Ho rmone replacement therapy Place 1 patch on the skin 2 (two) times a week 8 patch 4 Active estradioL (VIVELLE-DOT) 0.1 mg/[address] 1 patch on the skin 2 (two) times a week 24 patch 2 4 12/06/19 25 Active Active Problems Problem Noted Date Diagnosed Date 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 Assessment & Plan (02/13/2020 8:31 AM CDT): Will obtain CT sinus Sinus Rinse or Nasal saline spray (Simply saline, Little Remedies, [place], [place]) 2 second sprays or 2 squeezes into each nostril while looking down over the sink, do not need to sniff in followed by Flonase 2 sprays into each nostril while looking down over the sink, do not sniff in or blow nose after use for at least 30 minutes Continue Claritin or other antihistamine such as Zyrtec (Cetirizine) 10 mg daily Blood allergy testing Avoid ear cleaning techniques Avoid water to ears Allergic rhinitis 02/11/2020 Assessment & Plan (02/13/2020 8:31 AM CDT): Will obtain CT sinus Sinus Rinse or Nasal saline spray (Simply saline, Little Remedies, [place], [place]) 2 second sprays or 2 squeezes into each nostril while looking down over the sink, do not need to sniff in followed by Flonase 2 sprays into each nostril while looking down over the sink, do not sniff in or blow nose after use for at least 30 minutes Continue Claritin or other antihistamine such as Zyrtec (Cetirizine) 10 mg daily Blood allergy testing Avoid ear cleaning techniques Avoid water to ears Fibromyalgia 06/14/2018 Chronic bilateral low back pain without sciatica 05/31/2018 Lumbar disc herniation 12/05/2017 H/O: pituitary tumor 04/20/2017 Hypertension 06/30/2014 Chronic infection of sinus 12/20/2011 Assessment & Plan (02/11/2020 3:15 PM CDT): Will obtain CT sinus Sinus Rinse or Nasal saline spray (Simply saline, Little Remedies, [place], [place]) 2 second sprays or 2 squeezes into each nostril while looking down over the sink, do not need to sniff in followed by Flonase 2 sprays into each nostril while looking down over the sink, do not sniff in or blow nose after use for at least 30 minutes Continue Claritin or other antihistamine such as Zyrtec (Cetirizine) 10 mg daily Blood allergy testing Avoid ear cleaning techniques Avoid water to ears Acquired deviated nasal septum 05/10/2009 Social History Tobacco Use Types Packs/Day Years Used Date Smoking Tobacco: Never Passive Smoke Exposure: Never Smokeless Tobacco: Never Tobacco Cessation:Counseling Given: Not Answered Alcohol Use Standard Drinks/Week Comments Yes 0 (1 standard drink = 0.6 oz pur e alcohol) socially Comments No Sex and Gender Information Value Date Recorded Sex Assigned at Not on file Legal Sex Female 5:22 AM HOME MAKER Gender Identity Not on file Sexual Orientation Not on file Last Filed Vital Signs Vital Sign Reading Time Taken Comments Blood Pressure 119/86 10/02/2023 11:53 AM HOME MAKER Pulse 74 02/11/2020 2:42 PM CDT Temperature 36.6 ??C (97.9 ??F) 08/09/2020 12:[address] Respiratory Rate 18 05/31/2018 1:59 PM CDT Oxygen Saturation 95% 01/26/2018 12:46 PM CDT Inhaled Oxygen Concentration - - Weight 112 kg (247 lb) 10/02/2023 11:53 AM HOME MAKER Height 170.2 cm (5' 7 ) 10/02/2023 11:53 AM HOME MAKER Body Mass Index 38.69 10/02/2023 11:53 AM HOME MAKER Plan of Treatment Not on file Goals Goal Patient Goal Type Associated Problems Recent Progress Patient-Stated? Author [facility] On track( 018 11:29 AM CDT) Cruz Irizarry, RN Note: Patient will describe how unrelieved pain will be managed. Procedures Procedure Name Priority Date/Time Associated Diagnosis Comments THINPREP IMAGING PAP AND HPV MRNA E6/E7 REFLEX HPV 16,18/45 Routine 10/02/2023 1:44 PM HOME MAKER Encounter for routine gynecological examination with Papanicolaou smear of cervix from Last 3 Months or Most Recently Relevant to Health Maintenance Results * ThinPrep(R) Imaging Pap and HPV mRNA E6/E7 Reflex HPV 16,18/45 (10/02/2023 1:44 PM HOME MAKER) CLINICAL INFORMATION: [facility] Comment:None given LMP [facility] Comment:NONE GIVEN Previous Pap [facility] Comment:2019 NORMAL W/+HRHPV NEG 16/18/45 Prev. Bx [facility] Comment:NONE GIVEN SOURCE: [facility] Comment:None given Pap, specimen adequacy [facility] Comment:SATISFACTORY FOR ALEXANDREA LUATION HPV interp [facility] Comment: Cytology Results: Negative for intraepithelial lesion or malignancy. COMMENTS [facility] Comment: This Pap test has been evaluated with computer assisted technology. [facility] Comment: BES, CT(ASCP) CT screening location: [place] [address] [place] [address] Comment [facility] Comment: EXPLANATORY NOTE: The Pap is a screening test for cervical cancer. It is not a diagnostic test and is subject to false negative and false positive results. It is most reliable when a satisfactory sample, regularly obtained, is submitted with relevant clinical findings and history, and when the Pap result is evaluated along with historic and current clinical information. Human papillomavirus RNA, High Risk E6/E7 Not Detected Not Detected [facility] [facility] Comment: Methodology: Sales And Service Specialist-Mediated Amplification This assay detects E6/E7 viral messenger RNA (mRNA) from 14 high-risk HPV types (16,18,31,33,35,39,45,51,52,56,58,59,66,68). Cervical sources are required for HPV testing. If a vaginal source from a patient who has had a total hysterectomy with removal of cervix was submitted, please contact the testing laboratory for alternative testing options. For additional information, please refer to http://education.MessageCast/faq/LQP278p0 (This link if provided for information/ educational purposes only.) Vaginal (Endocervical/va ginal) 10/02/2023 1:44 PM HOME MAKER 10/03/2023 12:11 AM HOME MAKER Brenda Rubio NP LAB CYTOLOGY ORDERABLES Final Result [facility] [address] [place] [address] [facility] [address] [place] [address] from Last 3 Months or Most Recently Relevant to Health Maintenance Insurance [employer] Compliance Science OOS Dynamic Recreation CHOICE OOS Dynamic Recreation CHOICE OOS Care Teams Tool Procurement Coordinator Relationship Specialty Start Date End Date Ashwin Hong MD PCP - General 12/17/19 Denys Urrutia MD [address] [facility] [address] [place] [address] Surgeon Neurosurgery 01/15/18 Suzy Hopkins, PT Physical Therapist Physical Therapy 01/15/18 Aditi Mccormick, GAMEPLAY PROGRAMMER Dental Intern Physical Therapy 01/23/18 [place] [address] [place] [address] Consulting Physician Obstetrics and Gynecology 09/17/22
--- OUTSIDE RECORDS SUMMARY | 2024-08-09 20:04 | XMS_ITS | Encounter Summary ---
Author Organization [facility] Address [address] [place] [address] Care Team Providers Care Mechanical Design Engineer Facilities Name Role Phone Denys Urrutia MD Unavailable [phone] Suzy Hopkins PT Unavailable Unavailable Aditi Mccormick DIRECTOR SPECIAL EDUCATION Unavailable Unavailable Ashwin Hong MD Primary Care Provider + [phone] Reason for Referral * Diagnostic Imaging (Routine) - Closed Specialty Diagnoses / Procedures Referred By Contac t Referred To Contact Diagnoses Right elbow pain Procedures XR Elbow Right 2 Views Shannan Rivera MD [address] [facility] [address] [address] Phone: tel: fax: [place] [address] [place] [address] Referral ID Status Reason Start Date Expiration Date Visits Re quested Visits Authorized [id number] Closed 04/29/2021 05/29/2022 1 1 * Diagnostic Imaging (Routine) - Closed Specialty Diagnoses / Procedures Referred By Contac t Referred To Contact Diagnoses Musculoskeletal pain Procedures XR Elbow Left 3 or More Views Shannan Rivera MD [address] [facility] [address] [place] [address] Phone: tel: fax: [facility] [address] [place] [address] Referral ID Status Reason Start Date Expiration Date Visits Re quested Visits Authorized [id number] Closed 08/09/2020 09/08/2021 1 1 * Diagnostic Imaging (Routine) - Closed Specialty Diagnoses / Procedures Referred By Contac t Referred To Contact Diagnoses Musculoskeletal pain Procedures XR Hand Right 3 or More Views Shannan Rivera MD [address] [place] [address] Phone: tel: fax: [facility] [address] [place] [address] Referral ID Status Reason Start Date Expiration Date Visits Re quested Visits Authorized [id number] Closed 08/09/2020 09/08/2021 1 1 * Diagnostic Imaging (Routine) - Closed Specialty Diagnoses / Procedures Referred By Contac t Referred To Contact Diagnoses Musculoskeletal pain Procedures XR Hand Left 3 or More Views Shannan Rivera MD [address] [place] [address] Phone: tel: fax: [facility] [address] [place] [address] Referral ID Status Reason Start Date Expiration Date Visits Re quested Visits Authorized [id number] Closed 08/09/2020 09/08/2021 1 1 Reason for Visit * Diagnostic Imaging (Routine) - Closed Specialty Diagnoses / Procedures Referred By Contac t Referred To Contact Diagnoses Right elbow pain Procedures XR Elbow Right 2 Views Shannan Rivera MD [address] [place] [address] Phone: tel: fax: [facility] [address] [place] [address] Referral ID Status Reason Start Date Expiration Date Visits Re quested Visits Authorized [id number] Closed 04/29/2021 05/29/2022 1 1 Encounter Details Date Type Department Care Team (Latest Contact Info) Description 05/19/2021 10:39 AM CDT - 05/19/2021 11:59 PM CDT Hospital Encounter [facility] - Imaging [address] [place] [id number] Musculoskeletal pain; Right elbow pain Discharge Disposition: Discharge to home or self care Social History Tobacco Use Types Packs/Day Years Used Date Smoking Tobacco: Never Smokeless Tobacco: Never Alcohol Use Standard Drinks/Week Comments Yes 0 (1 standard drink = 0.6 oz pur e alcohol) socially Comments No Sex and Gender Information Value Date Recorded Sex Assigned at Not on file Legal Sex Female 5:22 AM LCPC Gender Identity Not on file Sexual Orientation Not on file documented as of this encounter Medications at Time of Discharge cannabidiol, CBD, (EPIDIOLEX) 100 mg/mL solution Take 5 mg/kg by mouth 2 (two) times a day dilTIAZem XR (CARDIZEM CD,DILACOR XR) 180 mg 24 hr capsule Take 1 capsule (180 mg total) by mouth daily with dinner fluticasone propionate (FLONASE) 50 mcg/actuation nasal spray Administer 1 spray into each nostril daily loratadine (CLARITIN) 10 mg tablet Take 1 tablet (10 mg total) by mouth daily as needed for allergies sertraline (ZOLOFT) 100 mg tablet Take 1 tablet (100 mg total) by mouth nightly estradiol (CLIMARA) 0.05 mg/[address] 1 patch on the skin 2 (two) times a week. Sunday and 1 HYDROcodone-acet aminophen (NORCO) 5-325 mg per tablet TK 1 T PO QD PRN 01/23/2020 09/12/19 2 2 losartan-hydroch lorothiazide (HYZAAR) 100-25 mg per tablet Take 1 tablet by mouth sexton helper before breakfast. 2 documented as of this encounter Discharge Disposition Disposition Code Departure Means Destination Discharge to home or self care documented in this encounter Plan of Treatment Not on file documented as of this encounter Goals Goal Patient Goal Type Associated Problems Recent Progress Patient-Stated? Author [facility] On track( 018 11:29 AM CDT) Cruz Irizarry, SHAYAN Note: Patient will describe how unrelieved pain will be managed. documented as of this encounter Procedures Procedure Name Priority Date/Time Associated Diagnosis Comments XR HAND RIGHT 3 OR MORE VIEWS Schedule Routine, Read Routine (OP Routine) 05/19/2021 10:57 AM CDT Musculoskeletal pain XR HAND LEFT 3 OR MORE VIEWS Schedule Routine, Read Routine (OP Routine) 05/19/2021 10:57 AM CDT Musculoskeletal pain XR ELBOW LEFT 3 OR MORE VIEWS Schedule Routine, Read Routine (OP Routine) 05/19/2021 10:57 AM CDT Musculoskeletal pain XR ELBOW RIGHT 2 OR MORE VIEWS Schedule Routine, Read Routine (OP Routine) 05/19/2021 10:57 AM CDT Right elbow pain documented in this encounter Results * XR Elbow Right 2 Views (05/19/2021 10:57 AM CDT) Anatomical Region Laterality Modality Upper Extremities, Elbow Right Compute d Radiography 05/19/2021 12:4 6 PM CDT Impressions 05/19/2021 12:46 PM CDT 1. ??No acute bony abnormality identified in either elbow. 2. ??No signs of significant arthritic change evident in either elbow. 3. ??No sign of a joint effusion in either elbow. Electronically signed by: Caleb Chavis M.D. Narrative 05/19/2021 12:46 PM CDT Exam: XR ELBOW LEFT 3 OR MORE VIEWS, XR ELBOW RIGHT 2 VIEWS Date/Time of Exam: 05/19/2021 11:00 AM Reason For Exam: Elbow pain, initial exam. ??Bilateral elbow pain. Diagnosis: Musculoskeletal pain [M79.18 (ICD-10-CM)] Findings: There are no signs of fracture or dislocation of the bony structures of either elbow. ??The elbow joint margins appear preserved and aligned. ??Fat pad relationships are normal about the distal humeri. ??No sign of a joint effusion in either elbow. ??No signs of obvious soft tissue swelling. Procedure Note Caleb Chavis MD - 05/19/2021 Exam: XR ELBOW LEFT 3 OR MORE VIEWS, XR ELBOW RIGHT 2 VIEWS Date/Time of Exam: 05/19/2021 11:00 AM Reason For Exam: Elbow pain, initial exam. Bilateral elbow pain. Diagnosis: Musculoskeletal pain [M79.18 (ICD-10-CM)] Findings: There are no signs of fracture or dislocation of the bony structures of either elbow. The elbow joint margins appear preserved and aligned. Fat pad relationships are normal about the distal humeri. No sign of a joint effusion in either elbow. No signs of obvious soft tissue swelling. IMPRESSION: 1. No acute bony abnormality identified in either elbow. 2. No signs of significant arthritic change evident in either elbow. 3. No sign of a joint effusion in either elbow. Electronically signed by: Caleb Chavis M.D. us Shannan Rivera MD IMG XR PROCEDURES Fin al Result * XR Elbow Left 3 or More Views (05/19/2021 10:57 AM CDT) Anatomical Region Laterality Modality Upper Extremities, Elbow Left Compute d Radiography 05/19/2021 12:4 6 PM CDT Impressions 05/19/2021 12:46 PM CDT 1. ??No acute bony abnormality identified in either elbow. 2. ??No signs of significant arthritic change evident in either elbow. 3. ??No sign of a joint effusion in either elbow. Electronically signed by: Caleb Chavis M.D. Narrative 05/19/2021 12:46 PM CDT Exam: XR ELBOW LEFT 3 OR MORE VIEWS, XR ELBOW RIGHT 2 VIEWS Date/Time of Exam: 05/19/2021 11:00 AM Reason For Exam: Elbow pain, initial exam. ??Bilateral elbow pain. Diagnosis: Musculoskeletal pain [M79.18 (ICD-10-CM)] Findings: There are no signs of fracture or dislocation of the bony structures of either elbow. ??The elbow joint margins appear preserved and aligned. ??Fat pad relationships are normal about the distal humeri. ??No sign of a joint effusion in either elbow. ??No signs of obvious soft tissue swelling. Procedure Note Caleb Chavis MD - 05/19/2021 Exam: XR ELBOW LEFT 3 OR MORE VIEWS, XR ELBOW RIGHT 2 VIEWS Date/Time of Exam: 05/19/2021 11:00 AM Reason For Exam: Elbow pain, initial exam. Bilateral elbow pain. Diagnosis: Musculoskeletal pain [M79.18 (ICD-10-CM)] Findings: There are no signs of fracture or dislocation of the bony structures of either elbow. The elbow joint margins appear preserved and aligned. Fat pad relationships are normal about the distal humeri. No sign of a joint effusion in either elbow. No signs of obvious soft tissue swelling. IMPRESSION: 1. No acute bony abnormality identified in either elbow. 2. No signs of significant arthritic change evident in either elbow. 3. No sign of a joint effusion in either elbow. Electronically signed by: Caleb Chavis M.D. us Shannan Rivera MD IMG XR PROCEDURES Fin al Result * XR Hand Right 3 or More Views (05/19/2021 10:57 AM CDT) Anatomical Region Laterality Modality Upper Extremities, Hand Right Computed Radiography 05/19/2021 12:4 4 PM CDT Impressions 05/19/2021 12:44 PM CDT 1. ??No acute bony abnormality identified in either hand. 2. ??No signs of significant arthritic change identified in either hand. Electronically signed by: Caleb Chavis M.D. Narrative 05/19/2021 12:44 PM CDT Exam: XR HAND LEFT 3 OR MORE VIEWS, XR HAND RIGHT 3 OR MORE VIEWS Date/Time of Exam: 05/19/2021 11:00 AM Reason For Exam: Bilateral hand pain. Diagnosis: Musculoskeletal pain [M79.18 (ICD-10-CM)] Findings: There are no signs of fracture or dislocation of the bony structures of either hand. ??The joints appear preserved bilaterally. No significant joint space narrowing. ??No periarticular erosions. ??No periostitis or bony destruction. ??Bone density is maintained. Procedure Note Caleb Chavis MD - 05/19/2021 Exam: XR HAND LEFT 3 OR MORE VIEWS, XR HAND RIGHT 3 OR MORE VIEWS Date/Time of Exam: 05/19/2021 11:00 AM Reason For Exam: Bilateral hand pain. Diagnosis: Musculoskeletal pain [M79.18 (ICD-10-CM)] Findings: There are no signs of fracture or dislocation of the bony structures of either hand. The joints appear preserved bilaterally. No significant joint space narrowing. No periarticular erosions. No periostitis or bony destruction. Bone density is maintained. IMPRESSION: 1. No acute bony abnormality identified in either hand. 2. No signs of significant arthritic change identified in either hand. Electronically signed by: Caleb Chavis M.D. Shannan Rivera MD IMG XR PROCEDURES Fin al Result * XR Hand Left 3 or More Views (05/19/2021 10:57 AM CDT) Anatomical Region Laterality Modality Upper Extremities, Hand Left Computed Radiography 05/19/2021 12:4 4 PM CDT Impressions 05/19/2021 12:44 PM CDT 1. ??No acute bony abnormality identified in either hand. 2. ??No signs of significant arthritic change identified in either hand. Electronically signed by: Caleb Chavis M.D. Narrative 05/19/2021 12:44 PM CDT Exam: XR HAND LEFT 3 OR MORE VIEWS, XR HAND RIGHT 3 OR MORE VIEWS Date/Time of Exam: 05/19/2021 11:00 AM Reason For Exam: Bilateral hand pain. Diagnosis: Musculoskeletal pain [M79.18 (ICD-10-CM)] Findings: There are no signs of fracture or dislocation of the bony structures of either hand. ??The joints appear preserved bilaterally. No significant joint space narrowing. ??No periarticular erosions. ??No periostitis or bony destruction. ??Bone density is maintained. Procedure Note Caleb Chavis MD - 05/19/2021 Exam: XR HAND LEFT 3 OR MORE VIEWS, XR HAND RIGHT 3 OR MORE VIEWS Date/Time of Exam: 05/19/2021 11:00 AM Reason For Exam: Bilateral hand pain. Diagnosis: Musculoskeletal pain [M79.18 (ICD-10-CM)] Findings: There are no signs of fracture or dislocation of the bony structures of either hand. The joints appear preserved bilaterally. No significant joint space narrowing. No periarticular erosions. No periostitis or bony destruction. Bone density is maintained. IMPRESSION: 1. No acute bony abnormality identified in either hand. 2. No signs of significant arthritic change identified in either hand. Electronically signed by: Caleb Chavis M.D. Shannan Rivera MD IMG XR PROCEDURES Fin al Result documented in this encounter Visit Diagnoses Diagnosis Musculoskeletal pain Unspecified myalgia and myositis Right elbow pain Pain in joint, upper arm documented in this encounter Care Teams Mechanical Design Engineer Facilities Relationship Specialty Start Date End Date Ashwin Hong MD PCP - General 12/17/19 Denys Urrutia MD [address] [address] Surgeon Neurosurgery 01/15/18 Suzy Hopkins, PT Physical Therapist Physical Therapy 01/15/18 Aditi Mccormick, DIRECTOR SPECIAL EDUCATION Size Maker Physical Therapy 01/23/18 documented as of this encounter
--- OUTSIDE RECORDS SUMMARY | 2024-08-09 20:04 | XMS_ITS | Encounter Summary ---
Author Organization [facility] Address [address] [facility] [address] [place] [address] Care Team Providers Care Chief Development Officer Name Role Phone Denys Urrutia MD Unavailable [phone] Suzy Hopkins PT Unavailable Unavailable Aditi Mccormick SALES REPRESENTATIVE WIRE ROPE Unavailable Unavailable Ashwin Hong MD Primary Care Provider + [phone] Reason for Referral * Diagnostic Imaging (Routine) - Closed Specialty Diagnoses / Procedures Referred By Ernestina t Referred To Contact Diagnoses Right elbow pain Procedures XR Elbow Right 2 Views Shannan Rivera MD [address] [facility] [address] [place] [address] Phone: tel: fax: [place] [id number] [place] [address] Referral ID Status Reason Start Date Expiration Date Visits Re quested Visits Authorized [id number] Closed 04/29/2021 05/29/2022 1 1 Encounter Details Date Type Department Care Team (Late st Contact Info) Description 04/29/2021 Orders Only [facility] [address] [facility] [address] [place] [address] Shannan Rivera MD [address] [address] [place] [address] Right elbow pain (Primary Dx) Social History Tobacco Use Types Packs/Day Years Used Date Smoking Tobacco: Never Smokeless Tobacco: Never Alcohol Use Standard Drinks/Week Comments Yes 0 (1 standard drink = 0.6 oz pur e alcohol) socially Comments No Sex and Gender Information Value Date Recorded Sex Assigned at Not on file Legal Sex Female 5:22 AM SPRING COVERER Gender Identity Not on file Sexual Orientation Not on file documented as of this encounter Plan of Treatment Not on file documented as of this encounter Goals Goal Patient Goal Type Associated Problems Recent Progress Patient-Stated? Author [facility] On track( 018 11:29 AM CDT) No Cruz Garza, SHAYAN Note: Patient will describe how unrelieved pain will be managed. documented as of this encounter Results * XR Elbow Right [...] elbow. Electronically signed by: Caleb Chavis M.D. Shannan Rivera MD IMG XR PROCEDURES Fin al Result documented in this encounter Visit Diagnoses Diagnosis Right elbow pain- Primary Pain in joint, upper arm Musculoskeletal pain Unspecified myalgia and myositis Right elbow pain Pain in joint, upper arm documented in this encounter Care Teams Chief Development Officer Relationship Specialty Start Date End Date Ashwin Hong MD PCP - General 12/17/19 Denys Urrutia MD [address] [address] Surgeon Neurosurgery 01/15/18 Suzy Hopkins, PT Physical Therapist Physical Therapy 01/15/18 Aditi Mccormick, SALES REPRESENTATIVE WIRE ROPE Hoist Cylinder Loader Physical Therapy 01/23/18 documented as of this encounter
--- OUTSIDE RECORDS SUMMARY | 2024-08-09 20:04 | XMS_ITS | Encounter Summary ---
Author Organization [facility] Address [address] [facility] [address] [place] [address] Care Team Providers Care Free Lance Model Name Role Phone Denys Urrutia MD Unavailable [phone] Suzy Hopkins PT Unavailable Unavailable Aditi Mccormick MACHINE OPERATOR HELPER Unavailable Unavailable Ashwin Hong MD Primary Care Provider + [phone] Reason for Referral * Diagnostic Imaging (Routine) - Closed Specialty Diagnoses / Procedures Referred By Contac t Referred To Contact Diagnoses Musculoskeletal pain Procedures XR Elbow Left 3 or More Views Shannan Rivera MD [address] [facility] [address], [place] [address] Phone: tel: fax: [id number] [place] [address] Referral ID Status Reason Start Date Expiration Date Visits Re quested Visits Authorized [id number] Closed 08/09/2020 09/08/2021 1 1 GER UROLOGY * Diagnostic Imaging (Routine) - Closed Specialty Diagnoses / Procedures Referred By Contac t Referred To Contact Diagnoses Musculoskeletal pain Procedures XR Hand Right 3 or More Views Shannan Rivera MD [address] [place] [address] Phone: tel: fax: [facility] [address] [place] [address] Referral ID Status Reason Start Date Expiration Date Visits Re quested Visits Authorized [id number] Closed 08/09/2020 09/08/2021 1 1 GER UROLOGY * Diagnostic Imaging (Routine) - Closed Specialty Diagnoses / Procedures Referred By Contac t Referred To Contact Diagnoses Musculoskeletal pain Procedures XR Hand Left 3 or More Views Shannan Rivera MD [address] [facility] [address] [place] [address] Phone: tel: fax: [place] [place] [address] Referral ID Status Reason Start Date Expiration Date Visits Re quested Visits Authorized [id number] Closed 08/09/2020 09/08/2021 1 1 GER UROLOGY Reason for Visit * Reason Comments Musculoskeletal Pain Encounter Details Date Type Department Care Team (Late st Contact Info) Description 08/09/2020 1:15 PM MANAGER UROLOGY Telemedicine [facility] [address] [facility] [address] [place] [address] Shannan Rivera MD [address] [facility] [address] [place], [place] [id number] Musculoskeletal pain (Primary Dx) Social History Tobacco Use Types Packs/Day Years Used Date Smoking Tobacco: Never Smokeless Tobacco: Never Alcohol Use Standard Drinks/Week Comments Yes 0 (1 standard drink = 0.6 oz pur e alcohol) socially Comments No Sex and Gender Information Value Date Recorded Sex Assigned at Not on file Legal Sex Female 5:22 AM MANAGER UROLOGY Gender Identity Not on file Sexual Orientation Not on file documented as of this encounter Last Filed Vital Signs Vital Sign Reading Time Taken Comments Blood Pressure 144/88 08/09/2020 12:30 PM MANAGER UROLOGY Pulse - - Temperature 36.6 ??C (97.9 ??F) 08/09/2020 12:[address] Respiratory Rate - - Oxygen Saturation - - Inhaled Oxygen Concentration - - Weight - - Height 170.2 cm (5' 7 ) 08/09/2020 12:30 PM MANAGER UROLOGY Body Mass Index - - documented in this encounter Progress Notes * Shannan Rivera MD - 08/09/2020 1:15 PM CST TELEMEDICINE VISIT @DATE@ Patient Name: Tg Gomez Date of : 1970 This was a telemedicine visit with Tg Gomez which took place via Telephone/Video. During the visit, I was located at home office, alone and the patient was located at home. The session started at 1:22 and ended at 1:36. The patient has been informed that the visit may not be secure and acknowledged the information. This visit was completed via telephone/video due to the restrictions of the COVID-19 pandemic. All issues as below were discussed and addressed but no physical exam was performed. More than 50% of this time was spent in counseling and coordination of care. CHIEF COMPLAINT: Musculoskeletal Pain HPI: feels about the same, hurting more though overall, notes multiple bulging discs. getting injectionsw/ pain management, however, they do not really help and feels like this makes her fibro flare. Takes hydrocodone and uses CBD. States that she had a sleep study and was advised that she never really hits REM. Hands are worse and L elbow are worse. PE: through zoom *no synovitis REVIEW OF SYSTEMS: Constitutional: Negative for fatigue, fever and unexpected weight change. HENT: Negative for nosebleeds and trouble swallowing. Eyes: Negative for photophobia, pain and redness. Respiratory: Negative for cough and shortness of breath. Cardiovascular: Negative for chest pain and leg swelling. Gastrointestinal: Negative for abdominal pain, blood in stool, constipation, diarrhea, nausea and vomiting. Endocrine: Negative for cold intolerance and heat intolerance. Genitourinary: Negative for dysuria and hematuria. Musculoskeletal: +spine pain Skin: Negative for rash. Neurological: Negative for weakness and headaches. Hematological: Does not bruise/bleed easily. Psychiatric/Behavioral: Negative for suicidal ideas. The patient is not nervous/anxious. MEDICATIONS: Current Outpatient Medications Medication Sig Dispense Refill ??? cannabidiol, CBD, (EPIDIOLEX) 100 mg/mL solution Take 5 mg/kg by mouth 2 (two) times a day ??? dilTIAZem XR (dilTIAZem CD) 180 mg 24 hr capsule Take 180 mg by mouth daily with dinner. ??? estradiol (CLIMARA) 0.05 mg/[address] 1 patch on the skin 2 (two) times a week. Sunday and ??? fluticasone propionate (FLONASE) 50 mcg/actuation nasal spray Administer 1 spray into each nostril daily ??? HYDROcodone-acetaminophen (NORCO) 5-325 mg per tablet TK 1 T PO QD PRN ??? loratadine (CLARITIN) 10 mg tablet Take 10 mg by mouth daily as needed for allergies. ??? losartan-hydrochlorothiazide (HYZAAR) 100-25 mg per tablet Take 1 tablet by mouth early morningbefore breakfast. ??? sertraline (ZOLOFT) 100 mg tablet Take 100 mg by mouth nightly. No current facility-administered medications for this visit. ALLERGIES: Metoclopramide, Morphine, Oxycodone, Penicillins, Levofloxacin, Metoclopramide hcl, and Sulfasalazine Past Medical History: Diagnosis Date ??? Arthritis ??? Depression ??? Dysrhythmia History of ablation for cardiac ectopy of PVCs and PACs but it was unsuccessful. ??? Gastroesophageal reflux disease ??? Hypertension 11/03/2016 Hypertension ??? Migraine Ocular ??? Morbid obesity with BMI of 40.0-44.9, adult (CMS/HCC) BMI 40.9 ??? PONV (postoperative nausea and vomiting) ??? [facility] pituitary tumor- [facility], but PCP monitor levels now Family History Problem Relation Age of Onset ??? Cancer Mother ??? Rheum arthritis Mother Past Surgical History: Procedure Laterality Date ??? ANKLE SURGERY ??? CARDIAC ELECTROPHYSIOLOGY STUDY AND ABLATION ??? SECTION x2 ??? GALLBLADDER SURGERY gall bladder and hernia repair ??? HERNIA REPAIR ??? HYSTERECTOMY 2012 complete ??? LYMPH NODE DISSECTION ??? OOPHERECTOMY ??? OTHER SURGICAL HISTORY 2018 discectomy of l5 ??? OVARY SURGERY Right 2009 ??? SINUS SURGERY x2 ??? SINUS SURGERY 2009 first sinus surgery approx 2009 had second one. [facility] [address] Social History Socioeconomic History ??? Marital status: Spouse name: Not on file ??? Number of children: Not on file ??? Years of education: Not on file ??? Highest education level: Not on file Tobacco Use ??? Smoking status: Never Smoker ??? Smokeless tobacco: Never Used Substance and Sexual Activity ??? Alcohol use: Yes Comment: socially ??? Drug use: No PAST MEDICAL HISTORY, ALLERGIES, SURGICAL HISTORY, SOCIAL HISTORY, MEDICATIONS WERE REVIEWED AND UPDATED APPROPRIATE LABS: Lab Results Component Value Date GLUCOSE 122 12/03/2017 CALCIUM 9.9 12/03/2017 NA 142 07/01/2014 K 3.7 07/01/2014 CO2 29 12/03/2017 CL 103 07/01/2014 CREATININE 0.72 12/17/2019 Lab Results Component Value Date ALT 142 (H) 06/03/2013 AST 63 (H) 06/03/2013 ALKPHOS 103 06/03/2013 BILITOT 1.5 (H) 06/03/2013 Lab Results Component Value Date HGB 14.2 06/03/2013 HCT 41.7 06/03/2013 MCV 93.6 06/03/2013 Lab Results Component Value Date SEDRATE 9 04/16/2018 IMAGING/PROCEDURES: Results for orders placed during the hospital encounter of 04/16/18 XR Hand Left 3 or More Views Narrative EXAM: LEFT HAND 3 VIEWS HISTORY: Left hand pain. COMPARISON: None. FINDINGS: Three views of the left hand were performed. There is no evidence of fracture or dislocation. There are no erosive or destructive changes. Mild generalized arthritic changes present. No soft tissue abnormality is identified. Impression Mild arthritic changes. Electronically signed by: Silverio Loja M.D. Results for orders placed during the hospital encounter of 04/16/18 XR Hand Right 3 or More Views Narrative EXAM: RIGHT HAND 3 VIEWS HISTORY: Hand pain. COMPARISON: None. FINDINGS: Three views of the right hand were performed. There is no evidence of fracture or dislocation. There are no erosive or destructive changes. Minor generalized arthritic changes. Probable bone island in the distal phalanx of the 3rd finger. No soft tissue abnormality is identified. Impression No acute findings. Electronically signed by: Silverio Loja M.D. ASSESSMENT/PLAN: 1. Musculoskeletal pain Likely mechanical in nature. Already follows w/ pain management. However, I will screen the listed tests below. - CRP (acute phase); Future - Cyclic citrul peptide antibody, IgG; Future - Erythrocyte sedimentation rate; Future - Rheumatoid factor; Future - XR Hand Left 3 or More Views; Future - XR Hand Right 3 or More Views; Future - XR Elbow Left 3 or More Views; Future No orders of the defined types were placed in this encounter. Shannan Rivera MD GER UROLOGY documented in this encounter Plan of Treatment Not on file documented as of this encounter Goals Goal Patient Goal Type Associated Problems Recent Progress Patient-Stated? Author [facility] On track( 018 11:29 AM CDT) No Cruz Garza RN Note: Patient will describe how unrelieved pain will be managed. documented as of this encounter Results * XR Elbow Left 3 or More [...] hand. Electronically signed by: Caleb Chavis M.D. us [...] in this encounter Visit Diagnoses Diagnosis Musculoskeletal pain- Primary Unspecified myalgia and myositis Musculoskeletal pain Unspecified myalgia and myositis Right elbow pain Pain in joint, upper arm documented in this encounter Discontinued Medications Medication Sig Discontinue Reason Start Date End Da te turmeric root extract 500 mg capsule Take 1 capsule by mouth grails web application developer before breakfast. Therapy completed 08/09/2020 documented as of this encounter Care Teams Free Lance Model Relationship Specialty Start Date End Date Ashwin Hong MD PCP - General 12/17/19 Denys Urrutia MD [address] [address] Surgeon Neurosurgery 01/15/18 Suzy Hopkins, PT Physical Therapist Physical Therapy 01/15/18 Aditi Mccormick, MACHINE OPERATOR HELPER Voice And Data Technician Physical Therapy 01/23/18 documented as of this encounter
--- OUTSIDE RECORDS SUMMARY | 2024-08-09 20:04 | XMS_ITS | Encounter Summary ---
Author Organization [facility] Address [address] [facility] [address] [place] [address] Care Team Providers Care Wrapping Clerk Name Role Phone Denys Urrutia MD Unavailable [phone] Suzy Hopkins PT Unavailable Unavailable Aditi Mccormick MANAGER BILINGUAL Unavailable Unavailable Ashwin Hong MD Primary Care Provider [phone] Reason for Visit * Consultation (Routine) - Closed Specialty Diagnoses / Procedures Referred By Ernestina kam Referred To Contact Otolaryngology Diagnoses Chronic sinusitis, unspecified location Kevin Caceres, JESSICA [address] [place] [address] Phone: tel: fax: Selina Valdes DO [address] [place] [address] DR KACEY Zamora [address] [address] Phone: tel: fax: Referral ID Status Reason Start Date Expiration Date V isits Requested Visits Authorized [id number] Closed Specialty Services Required 09/29/2019 04/09/2021 1 1 Encounter Details Date Type Department Care Team (Late st Contact Info) Description 02/11/2020 2:10 PM CDT Office Visit [facility] ENT Specialists - [facility] [address] [facility] [address] [place] [id number] Selina Valdes DO [address] [place] [address] DR KACEY Zamora [address] [address] Allergic rhinitis, unspecified seasonality, unspecified trigger (Primary Dx); Chronic sinusitis, unspecified location; Nasal septal perforation Social History Tobacco Use Types Packs/Day Years Used Date Smoking Tobacco: Never Smokeless Tobacco: Never Alcohol Use Standard Drinks/Week Comments Yes 0 (1 standard drink = 0.6 oz pur e alcohol) socially Comments No Sex and Gender Information Value Date Recorded Sex Assigned at Not on file Legal Sex Female 5:22 AM FRONT OFFICE DEVELOPER Gender Identity Not on file Sexual Orientation Not on file documented as of this encounter Last Filed Vital Signs Vital Sign Reading Time Taken Comments Blood Pressure 142/95 02/11/2020 2:42 PM CDT Pulse 74 02/11/2020 2:42 PM CDT Temperature 36.4 ??C (97.6 ??F) 02/11/2020 2:42 PM CD T Respiratory Rate - - Oxygen Saturation - - Inhaled Oxygen Concentration - - Weight 116.3 kg (256 lb 6.4 oz) 02/11/2020 2:42 PM CDT Height 170.2 cm (5' 7 ) 02/11/2020 2:42 PM CDT Body Mass Index 40.16 02/11/2020 2:42 PM CDT documented in this encounter Patient Instructions * Patient Instructions* Selina Valdes DO - 02/11/2020 2:10 PM CDT Will obtain CT sinus Sinus Rinse or Nasal saline spray (Simply saline, Little Remedies, [place], [place]) 2 second sprays or 2squeezes into each nostril while looking down over [...] ear cleaning techniques Avoid water to ears documented in this encounter Progress Notes * Selina Valdes DO - 02/11/2020 2:10 PM CDT Images from the original note were not included. ENT Consult Reason for Consult: sinus infections Requesting Provider: Kevin Webb* SUBJECTIVE: Patient is a 49 y.o. female with chief complaint of sinus infections. HPI: Tg reported location of complaint was sinuses. This compliant quality was reported as recurrent and has a severity of moderate. The duration of this complaint was the last many years. Onset of this problems was many years and was associated with 3 rounds of antibiotics, two previoussinus surgeries by Dr. Cota, last one in 2008. CT sinus at [facility] early this year, clear. No previous allergy test, using Flonase, Claritin daily. Three dogs at home FH: +Sinuses in Son Past Medical History: Diagnosis Date ??? Arthritis ??? Depression ??? Dysrhythmia History of ablation for cardiac ectopy of PVCs and PACs but it was unsuccessful. ??? Gastroesophageal reflux disease ??? Hypertension 11/03/2016 Hypertension ??? Migraine Ocular ??? Morbid obesity with BMI of 40.0-44.9, adult ([facility]) BMI 40.9 ??? PONV (postoperative nausea and vomiting) ??? 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 Hypertension ??? H/O: pituitary tumor ??? Acquired deviated nasal septum ??? Chronic infection of sinus ??? Lumbar disc herniation ??? Chronic bilateral low back pain without sciatica ??? Fibromyalgia ??? Nasal septal perforation ??? Allergic rhinitis Past Surgical History: Procedure Laterality Date ??? [...] SINUS SURGERY 2009 first sinus surgery approx [address] [facility] [address] Social History Tobacco Use ??? Smoking status: Never Smoker ??? Smokeless tobacco: Never Used Substance Use Topics ??? Alcohol use: Yes Comment: socially ??? Drug use: No Family History Problem Relation Age of Onset ??? Cancer Mother ??? Rheum arthritis Mother Current Outpatient Medications on File Prior to Visit Medication Sig Dispense Refill ??? cannabidiol, CBD, [...] tablet Take 100 mg by mouth nightly. ??? turmeric root extract 500 mg capsule Take 1 capsule by mouth commercial cleaner before breakfast. No current facility-administered medications on file prior to visit. Allergies Allergen Reactions ??? Metoclopramide Nausea only Reaction: Unknown, , ??? Morphine Itching Patient states is extreme itching ??? Oxycodone Vomiting Patient states she received after her ablation, and vomited and vomited profusly ??? Penicillins Other (See comments) and Shortness of breath Reaction: Unknown, , ??? Levofloxacin Nausea only Patient says she has GI upset with levaquin OBJECTIVE: Vitals BP 142/95 (BP Location: Left arm, Patient Position: Sitting) Pulse 74 Temp 36.4 ??C (97.6 ??F) (Temporal) Ht 170.2 cm (5' 7 ) Wt 116.3 kg (256 lb 6.4 oz) BMI 40.16 kg/m?? Review of Systems Constitutional: Negative. Negative for chills, fatigue and fever. HENT: Positive for ear discharge, postnasal drip, sinus pressure and sinus pain. Negative for congestion, hearing loss, nosebleeds, sore throat, tinnitus, trouble swallowing and voice change. Eyes: Negative. Negative for pain and discharge. Respiratory: Negative for apnea, cough, choking, shortness of breath, wheezing and stridor. Cardiovascular: Negative for chest pain, palpitations and leg swelling. Gastrointestinal: Negative for abdominal pain, constipation, nausea and vomiting. Negative for Heartburn, trouble swallowing foods or liquids Endocrine: Negative. Negative for cold intolerance and heat intolerance. Musculoskeletal: Negative. Negative for arthralgias, joint swelling, myalgias, neck pain and neck stiffness. Skin: Negative. Negative for color change, rash and wound. Negative for new skin lesions Allergic/Immunologic: Negative. Negative for environmental allergies and food allergies. Neurological: Negative. Negative for dizziness, syncope, speech difficulty, light-headedness and headaches. Hematological: Negative. Negative for adenopathy. Does not bruise/bleed easily. Psychiatric/Behavioral: Negative for agitation, behavioral problems and dysphoric mood. The patientis not nervous/anxious. Physical Exam Constitutional: She is oriented to person, place, and time. She appears well- developed. She is cooperative. No distress. HENT: Head: Normocephalic and atraumatic. Right Ear: Hearing, tympanic membrane, external ear and ear canal normal. Left Ear: Hearing, tympanic membrane, external ear and ear canal normal. Nose: Mucosal edema present. No rhinorrhea, sinus tenderness or nasal deformity. Mouth/Throat: Uvula is midline and mucous membranes are normal. No oral lesions. Posterior oropharyngeal erythema present. Eyes: Pupils are equal, round, and reactive to light. Conjunctivae and lids are normal. Neck: Trachea normal and full passive range of motion without pain. Neck supple. Cardiovascular: No edema, no JVD, normal distal perfusion Pulmonary/Chest: Effort normal. No respiratory distress. No cough, wheezing or stridor Abdominal: Normal appearance. Musculoskeletal: Normal range of motion. Left shoulder: Normal. Lymphadenopathy: She has no cervical adenopathy. Neurological: She is alert and oriented to person, place, and time. No cranial nerve deficit. Coordination and gait normal. Skin: Skin is warm and dry. No rash noted. Nails show no clubbing. Psychiatric: Her speech is normal and behavior is normal. Examination of the pharynx with use of the laryngeal mirror was not able to be performed due to patient discomfort Neck: no palpable abnormality of submandibular or parotid gland Facial Nerve strength intact and symmetric Nasal Endoscopy Procedure: Patient was seen and examined, verbal consent was obtained. Afrin was applied into each nasal cavity and after allowing time for local the congestion, flexible fiberoptic scope was introduced into each nasal cavity noting nasal vestibule nasal septum inferior, middle, and superior turbinates. The lateral nasal wall, posterior nasal septum nasopharynx including torus tubarius, fossa of Rosenmuller, posterior nasopharynx and eustachian tube orifice were examined today. Findings: Intranasally: no masses, polyps or purulence bilaterally, mid inferior septal perforation, larynx: diffuse inflammation, vocal fold movement was symmetric to midline, swallow intact, no masses, polyps, lesions or ulcers. Assessment & Plan: Diagnoses and all orders for this visit: Allergic rhinitis, unspecified seasonality, unspecified trigger (Primary) Assessment & Plan: Will obtain CT sinus Sinus Rinse or Nasal saline spray (Simply saline, Little Remedies, [place], [place]) 2 second sprays or 2squeezes into each nostril while looking down over [...] ear cleaning techniques Avoid water to ears Orders: - Expanded respiratory allergy profile; Future Chronic sinusitis, unspecified location Assessment & Plan: Will obtain CT sinus Sinus Rinse or Nasal saline spray (Simply saline, Little Remedies, [place], [place]) 2 second sprays or 2squeezes into each nostril while looking down over [...] ear cleaning techniques Avoid water to ears Orders: - Ambulatory referral to ENT Nasal septal perforation Assessment & Plan: Will obtain CT sinus Sinus Rinse or Nasal saline spray (Simply saline, Little Remedies, [place], [place]) 2 second sprays or 2squeezes into each nostril while looking down over [...] ear cleaning techniques Avoid water to ears Selina Valdes DO documented in this encounter Miscellaneous Notes * Assessment & Plan Note - Selina Valdes DO - 02/13/2020 8:31 AM CDT Associated Problem(s): Allergic rhinitis Will obtain CT sinus Sinus Rinse or Nasal saline spray (Simply saline, Little Remedies, [place], [place]) 2 second sprays or 2squeezes into each nostril while looking down over [...] ear cleaning techniques Avoid water to ears * Assessment & Plan Note - Selina Valdes DO - 02/13/2020 8:30 AM CDT Associated Problem(s): Nasal septal perforation Will obtain CT sinus Sinus Rinse or Nasal saline spray (Simply saline, Little Remedies, [place], [place]) 2 second sprays or 2squeezes into each nostril while looking down over [...] ear cleaning techniques Avoid water to ears * Assessment & Plan Note - Selina Valdes DO - 02/11/2020 3:15 PM CDT Associated Problem(s): Chronic infection of sinus Will obtain CT sinus Sinus Rinse or Nasal saline spray (Simply saline, Little Remedies, [place], [place]) 2 second sprays or 2squeezes into each nostril while looking down over [...] ear cleaning techniques Avoid water to ears documented in this encounter Plan of Treatment Not on file documented as of this encounter Goals Goal Patient Goal Type Associated Problems Recent Progress Patient-Stated? Author [facility] On track( 018 11:29 AM CDT) Cruz Irizarry, RN Note: Patient will describe how unrelieved pain will be managed. documented as of this encounter Visit Diagnoses Diagnosis Allergic rhinitis, unspecified seasonality, unspecified trigger- Primary Chronic sinusitis, unspecified location Nasal septal perforation Other diseases of nasal cavity and sinuses documented in this encounter Historical Medications * This list may reflect changes made after this encounter. cannabidiol, CBD, (EPIDIOLEX) 100 mg/mL solution Take 5 mg/kg by mouth 2 (two) times a day fluticasone propionate (FLONASE) 50 mcg/actuation nasal spray Administer 1 spray into each nostril daily HYDROcodone-acet aminophen (NORCO) 5-325 mg per tablet TK 1 T PO QD PRN 01/23/2020 09/12/19 2 2 added in this encounter Orders Outpatient Referral Count Last Ordered Date Fir st Ordered Date AMB REFERRAL TO ENT 1 02/11/2020 documented in this encounter Care Teams Wrapping Clerk Relationship Specialty Start Date End Date Ashwin Hong MD PCP - General 12/17/19 Denys Urrutia MD [address] [place] [address] Surgeon Neurosurgery 01/15/18 Suzy Hopkins, PT Physical Therapist Physical Therapy 01/15/18 Aditi Mccormick, MANAGER BILINGUAL Engineering Test Specialist Physical Therapy 01/23/18 documented as of this encounter
--- OUTSIDE RECORDS SUMMARY | 2024-08-09 20:04 | XMS_ITS | Encounter Summary ---
Author Organization [facility] Address [address] [place] [address] Care Team Providers Care Nursing Program Director Name Role Phone Denys Urrutia MD Unavailable [phone] Suzy Hopkins PT Unavailable Unavailable Aditi Mccormick BED BUG EXTERMINATOR Unavailable Unavailable Ashwin Hong MD Primary Care Provider [phone] Encounter Details Date Type Department Care Team (Late st Contact Info) Description 12/17/2019 8:15 AM CDT [address] [address] Social History Tobacco Use Types Packs/Day Years Used Date Smoking Tobacco: Never Smokeless Tobacco: Never Alcohol Use Standard Drinks/Week Comments Yes 0 (1 standard drink = 0.6 oz pur e alcohol) socially Comments No Sex and Gender Information Value Date Recorded Sex Assigned at Not on file Legal Sex Female 5:22 AM COAL PASSER Gender Identity Not on file Sexual Orientation [...] on filedocumented in this encounter Care Teams Nursing Program Director Relationship Specialty Start Date End Date Ashwin Hong MD PCP - General 12/17/19 Denys Urrutia MD [address] [place] [address] Surgeon Neurosurgery 01/15/18 Suzy Hopkins, PT Physical Therapist Physical Therapy 01/15/18 Aditi Mccormick, BED BUG EXTERMINATOR Director Alumni Relations Physical Therapy 01/23/18 documented as of this encounter
--- OUTSIDE RECORDS SUMMARY | 2024-08-09 20:04 | XMS_ITS | Encounter Summary ---
Author Organization [facility] Address [address] [facility] [address] [place] [address] Care Team Providers Care Electronics Utility Worker Name Role Phone Denys Urrutia MD Unavailable [phone] Suzy Hopkins PT Unavailable Unavailable Aditi Mccormick DIGITAL PRINTER OPERATOR Unavailable Unavailable Ashwin Hong MD Primary Care Provider [phone] Encounter Details Date Type Department Care Team (Late st Contact Info) Description 05/20/2020 Telephone [facility] ENT Specialists - [facility] [address] [facility] [address] [place] [phone] Genevieve Guerrero MA Social History Tobacco Use Types Packs/Day Years Used Date Smoking Tobacco: Never Smokeless Tobacco: Never Alcohol Use Standard Drinks/Week Comments Yes 0 (1 standard drink = 0.6 oz pur e alcohol) socially Comments No Sex and Gender Information Value Date Recorded Sex Assigned at Not on file Legal Sex Female 5:22 AM FRENCH BINDER Gender Identity Not on file Sexual Orientation Not on file documented as of this encounter Miscellaneous Notes * Telephone Encounter - Genevieve Guerrero MA - 05/20/2020 10:22 AM CDT ----- Message from Selina Valdes DO sent at 05/20/2020 10:13 AM CDT ----- Please call and remind her to get this drawn ----- Message ----- From: SYSTEM Sent: 05/15/2020 12:20 AM CDT To: Selina Valdes DO documented in this encounter Plan of Treatment Not on file documented as of this encounter Goals Goal Patient Goal Type Associated Problems Recent Progress Patient-Stated? Author [facility] On track( 018 11:29 AM CDT) Cruz Irizarry, RN Note: Patient will describe how unrelieved pain will be managed. documented as of this encounter Visit Diagnoses Not on filedocumented in this encounter Care Teams Electronics Utility Worker Relationship Specialty Start Date End Date Ashwin Hong MD PCP - General 12/17/19 Denys Urrutia MD [address] [facility] [address] [place] [address] Surgeon Neurosurgery 01/15/18 Suzy Hopkins, PT Physical Therapist Physical Therapy 01/15/18 Aditi Mccormick, DIGITAL PRINTER OPERATOR S Iron Worker Physical Therapy 01/23/18 documented as of this encounter
--- OUTSIDE RECORDS SUMMARY | 2024-08-09 20:04 | XMS_ITS | Encounter Summary ---
Author Organization [facility] Address [address] [place] [address] Care Team Providers Care Frame Catcher Name Role Phone Denys Urrutia MD Unavailable [phone] Suzy Hopkins PT Unavailable Unavailable Aditi Mccormick NATIONAL PARK TOUR GUIDE Unavailable Unavailable Ashwin Hong MD Primary Care Provider [phone] Jeanette Parikh MD Unavailable [phone] Encounter Details Date Type Department Care Team (Late st Contact Info) Description 09/18/2022 Orders Only [facility] [address] [place] [address] Brenda Rubio RETAIL BANKING MANAGER [address] [place] [address] Social History Tobacco Use Types Packs/Day Years Used Date Smoking Tobacco: Never Passive Smoke Exposure: Never Smokeless Tobacco: Never Alcohol Use Standard Drinks/Week Comments Yes 0 (1 standard drink = 0.6 oz pur e alcohol) socially Comments No Sex and Gender Information Value Date Recorded Sex Assigned at Not on file Legal Sex Female 5:22 AM ASSEMBLY LINE ROBOT OPERATOR Gender Identity Not on file Sexual Orientation Not on file documented as of this encounter Plan of Treatment Not on file documented as of this encounter Goals Goal Patient Goal Type Associated Problems Recent Progress Patient-Stated? Author [facility] On track( 018 11:29 AM CDT) No Cruz Garza, RN Note: Patient will describe how unrelieved pain will be managed. documented as of this encounter Procedures Procedure Name Priority Date/Time Associated Diagnosis Comments THINPREP IMAGING PAP AND HPV MRNA E6/E7 REFLEX HPV 16,18/45 Routine 09/18/2022 1:54 PM ASSEMBLY LINE ROBOT OPERATOR documented in this encounter Results * ThinPrep(R) Imaging Pap and HPV mRNA E6/E7 Reflex HPV 16,18/45 (09/18/2022 1:54 PM ASSEMBLY LINE ROBOT OPERATOR) CLINICAL INFORMATION: [facility] Comment:Hysterectomy LMP [facility] Comment:NONE GIVEN Previous Pap [facility] Comment:S/P HYSTERECTOMY Prev. Bx [facility] Comment:NONE GIVEN SOURCE: [facility] Comment:None given Pap, specimen adequacy [facility] Comment:SATISFACTORY FOR ALEXANDREA LUATION HPV interp [facility] Comment:Negative for intraep ithelial lesion or malignancy. COMMENTS [facility] Comment: This Pap test has been evaluated with computer assisted technology. Chef French [facility] Comment: PCM, CT(ASCP) CT Screening Location: [place] [address] [place] [address] Comment [facility] Comment: EXPLANATORY NOTE: The Pap [...] High Risk E6/E7 Not Detected Not Detected [facility] Comment: Methodology: Warp Placer-Mediated Amplification This assay detects E6/E7 viral messenger RNA (mRNA) from 14 high-risk HPV types (16,18,31,33,35,39,45,51,52,56,58,59,66,68). Cervical sources are required for HPV testing. If a vaginal source from a patient who has had a total hysterectomy with removal of cervix was submitted, please contact the testing laboratory for alternative testing options. For additional information, please refer to http://education.Recyclebank/faq/GEB682n8 (This link if provided for information/ educational purposes only.) 09/18/2022 1:54 PM ASSEMBLY LINE ROBOT OPERATOR 09/18/2022 11:24 PM ASSEMBLY LINE ROBOT OPERATOR Brenda Rubio RETAIL BANKING MANAGER LAB CYTOLOGY ORDERABLES Final Result [facility] [address] [place] [address] [facility] [address] [place] [address] documented in this encounter Visit Diagnoses Not on filedocumented in this encounter Care Teams Frame Catcher Relationship Specialty Start Date End Date Ashwin Hong MD PCP - General 12/17/19 Denys Urrutia MD [address] [facility] [address] [address] Surgeon Neurosurgery 01/15/18 Suzy Hopkins, PT Physical Therapist Physical Therapy 01/15/18 Aditi Mccormick, NATIONAL PARK TOUR GUIDE Digital Program Manager Physical Therapy 01/23/18 [place] [address] [place] [address] Consulting Physician Obstetrics and Gynecology 09/17/22 documented as of this encounter
--- OUTSIDE RECORDS SUMMARY | 2024-08-09 20:04 | XMS_ITS | Clinical Summary ---
Author Organization [facility] Address [address] [place] [address] Care Team Providers Care Ergonomic Specialist Name Role Phone Denys Urrutia MD Unavailable [phone] Suzy Hopkins PT Unavailable Unavailable Aditi Mccormick ELECTRICIAN THIRD Unavailable Unavailable Ashwin Hong MD Primary Care Provider + [phone] Jeanette Parikh MD Unavailable [phone] Allergies Active Allergy Reactions Criticality Noted Date [...] Nasal saline spray (Simply saline, Little Remedies, [place], [place]) 2 second sprays or 2 squeezes into [...] Nasal saline spray (Simply saline, Little Remedies, [place], [place]) 2 second sprays or 2 squeezes into [...] Nasal saline spray (Simply saline, Little Remedies, [place], [place]) 2 second sprays or 2 squeezes into [...] to ears Acquired deviated nasal septum 05/10/2009 Surgical History Surgery Date Site/Laterality Comments SECTION x2 GALLBLADDER SURGERY gall bladder and hernia repair OVARY SURGERY 07/30/2008 - 07/29/2009 Right SINUS SURGERY x2 LYMPH NODE DISSECTION HERNIA REPAIR ANKLE SURGERY OOPHERECTOMY 04/29/2013 - 05/29/2013 Bilateral BSO/adhesiolysis HK/Biest CARDIAC ELECTROPHYSIOLOGY ST UDY AND ABLATION OTHER SURGICAL HISTORY 07/30/2017 - 07/29/2018 discectomy of l5 SINUS SURGERY 2008 first sinus surgery approx 2009 had second one. [facility] [address] LAPAROSCOPIC TOTAL HYSTERECTOMY 11/13/2012 [facility]H HK/DS REDUCTION MAMMAPLASTY 08/30/2020 - 09/26/2020 Bilateral Medical History Medical History Date Comments Hypertension 11/03/2016 Hypertension Arthritis Gastroesophageal reflux disease Prolactinoma (HCC) pituitary kalpesh or- used to see Dr Reddy at [facility], but PCP monitor levels now Migraine Ocular Depression PONV (postoperative nausea and vomiting) Morbid obesity with BMI of 4 0.0-44.9, adult (HCC) BMI 40.9 Dysrhythmia History of ablat ion for cardiac ectopy of PVCs and PACs but it was unsuccessful. Family History Medical History Relation Name Comments Rheum arthritis Mother Uterine cancer Mother Relation Name Status Comments Father Mother Social History Tobacco Use Types Packs/Day Years Used Date Smoking Tobacco: Never Passive Smoke Exposure: Never Smokeless Tobacco: Never Tobacco Cessation:Counseling Given: Not Answered Alcohol Use Standard Drinks/Week Comments Yes 0 (1 standard drink = 0.6 oz pur e alcohol) socially Comments No Sex and Gender Information Value Date Recorded Sex Assigned at Not on file Legal Sex Female 5:22 AM SURFACE SUPERVISOR Gender Identity Not on file Sexual Orientation Not on file Obstetrics History Para Term AB IAB SAB Ectopic Multiple Livin g Live Births 2 2 Date Outcome GA Total Labor Labor/2nd/3rd Weight Sex Type Anes PTL Miriam A1 A5 Name Clin Para Para Comments C/s x2 Last Filed Vital Signs Vital Sign Reading Time Taken Comments Blood Pressure 119/86 10/02/2023 11:53 AM SURFACE SUPERVISOR Pulse 74 02/11/2020 2:42 PM CDT Temperature 36.6 ??C (97.9 ??F) 08/09/2020 12:[address] Respiratory Rate 18 05/31/2018 1:59 PM CDT Oxygen Saturation 95% 01/26/2018 12:46 PM CDT Inhaled Oxygen Concentration - - Weight 112 kg (247 lb) 10/02/2023 11:53 AM SURFACE SUPERVISOR Height 170.2 cm (5' 7 ) 10/02/2023 11:53 AM SURFACE SUPERVISOR Body Mass Index 38.69 10/02/2023 11:53 AM SURFACE SUPERVISOR Plan of Treatment Health Maintenance Due Date Last Done Comments Breast Cancer Screening-Mammogram 1971 Colon Cancer Screening-Colonoscopy 1971 Hepatitis C Screening 1971 DTaP/Tdap/Td Vaccine (1 - Tdap) 11/30/1982 Hepatitis B Screening 11/30/1989 Depression Screening 08/13/2018 08/13/2017, 08/13/2017 Zoster Vaccine (1 of 2) 11/30/2021 Influenza Vaccine (#1) 2024 06/04/2017 Regular Well Visit/Exam 18-64 10/01/2024 10/02/2023, 09/18/2022, 09/12/2021 Cervical Cancer Screening Discontinued 2023, 09/18/2022, 09/12/2021 Pneumococcal vaccine <65 Aged Out No longer eligible based on patient's age to complete this topic Goals Goal Patient Goal Type Associated Problems Recent Progress Patient-Stated? Author BH-Pain Behavioral Health On track( 018 11:29 AM CDT) Cruz Irizarry, RN Note: Patient will describe how unrelieved pain will be managed. Procedures Procedure Name Priority Date/Time Associated Diagnosis Comments THINPREP IMAGING PAP AND HPV MRNA E6/E7 REFLEX HPV 16,18/45 Routine 10/02/2023 1:44 PM SURFACE SUPERVISOR Encounter for routine gynecological examination with Papanicolaou smear of cervix from Last 3 Months or Most Recently Relevant to Health Maintenance Results * ThinPrep(R) Imaging Pap and HPV mRNA E6/E7 Reflex HPV 16,18/45 (10/02/2023 1:44 PM SURFACE SUPERVISOR) CLINICAL INFORMATION: [facility] Comment:None given LMP [facility] Comment:NONE GIVEN Previous Pap [facility] Comment:2019 NORMAL W/+HRHPV NEG 16/18/45 Prev. Bx [facility] Comment:NONE GIVEN SOURCE: [facility] Comment:None given Pap, specimen adequacy [facility] Comment:SATISFACTORY FOR ALEXANDREA LUATION HPV interp [facility] Comment: Cytology Results: Negative for intraepithelial lesion or malignancy. COMMENTS [facility] Comment: This Pap test has been evaluated with computer assisted technology. Miter Operator [facility] Comment: BES, CT(ASCP) CT screening location: [place] [address] [place] [address] Comment [facility] Comment: EXPLANATORY NOTE: The Pap is a [...] High Risk E6/E7 Not Detected Not Detected [facility] Comment: Methodology: Legal Recruiter-Mediated Amplification This assay detects E6/E7 viral messenger RNA (mRNA) from 14 high-risk HPV types (16,18,31,33,35,39,45,51,52,56,58,59,66,68). Cervical sources are required for HPV testing. If a vaginal source from a patient who has had a total hysterectomy with removal of cervix was submitted, please contact the testing laboratory for alternative testing options. For additional information, please refer to http://education.LISNR/faq/FVQ610j1 (This link if provided for information/ educational purposes only.) Vaginal (Endocervical/va ginal) 10/02/2023 1:44 PM SURFACE SUPERVISOR 10/03/2023 12:11 AM SURFACE SUPERVISOR Brenda Rubio NP LAB CYTOLOGY ORDERABLES Final Result [facility] [address] [place] [address] [facility] [address] [place] [address] from Last 3 Months or Most Recently Relevant to Health Maintenance [place] [address] [facility]LY [facility] ACCESS Compute [email or web address] [email or web address] CHOICE OOS [email or web address] CHOICE OOS Care Teams Ergonomic Specialist Relationship Specialty Start Date End Date Ashwin Hong MD PCP - General 12/17/19 Denys Urrutia MD [address] [facility] [address] [address] Surgeon Neurosurgery 01/15/18 Suzy Hopkins, PT Physical Therapist Physical Therapy 01/15/18 Aditi Mccormick, ELECTRICIAN THIRD Halver Machine Operator Physical Therapy 01/23/18 [place] [address] [place] [address] Consulting Physician Obstetrics and Gynecology 09/17/22
--- OUTSIDE RECORDS SUMMARY | 2024-08-09 20:04 | XMS_ITS | Encounter Summary ---
Author Organization [facility] Healthcare Address [address] [place] [address] Care Team Providers Care Ux Lead Name Role Phone Denys Urrutia MD Unavailable [phone] Suzy Hopkins PT Unavailable Unavailable Aditi Mccormick PTA Unavailable Unavailable Ashwin Hong MD Primary Care Provider [phone] Reason for Visit * Reason Onset Date Comments Covid-19 Questions 07/09/2021 Encounter Details Date Type Department Care Team (Late st Contact Info) Description 07/09/2021 Telephone [facility] HealthCare/ Physicians [address] [place] [address] Tracey Vaughn RN Covid-19 Questions Social History Tobacco Use Types Packs/Day Years Used Date Smoking Tobacco: Never Smokeless Tobacco: Never Alcohol Use Standard Drinks/Week Comments Yes 0 (1 standard drink = 0.6 oz pur e alcohol) socially Comments No Sex and Gender Information Value Date Recorded Sex Assigned at Not on file Legal Sex Female 5:22 AM TAG MAKER Gender Identity Not on file Sexual Orientation Not on file documented as of this encounter Miscellaneous Notes * Telephone Encounter - Tracey Vaughn RN - 07/09/2021 3:16 PM TAG MAKER Pt called covid line asking about mAb tx. She said she is eligible after asking qualifying questions. Let her know we need doctors order and we dont give over weekend. She can check the national infusion website as well. Patient had no more questions. MAKER documented in this encounter Plan of Treatment Not on file documented as of this encounter Goals Goal Patient Goal Type Associated Problems Recent Progress Patient-Stated? Author [facility] On track( 018 11:29 AM CDT) Cruz Irizarry, RN Note: Patient will describe how unrelieved pain will be managed. documented as of this encounter Visit Diagnoses Not on filedocumented in this encounter Care Teams Ux Lead Relationship Specialty Start Date End Date Ashwin Hong MD PCP - General 12/17/19 Denys Urrutia MD [address] [facility] [address] [address] Surgeon Neurosurgery 01/15/18 Suzy Hopkins, PT Physical Therapist Physical Therapy 01/15/18 Aditi Mccormick, GLAZIER SUPERVISOR Associate Director Data & Analytics Physical Therapy 01/23/18 documented as of this encounter
--- OUTSIDE RECORDS SUMMARY | 2024-08-09 20:04 | XMS_ITS | Encounter Summary ---
Author Organization [facility] Address [address] [facility] [address] [place] [address] Care Team Providers Care Panelboard Assembler Name Role Phone Denys Urrutia MD Unavailable [phone] Suzy Hopkins PT Unavailable Unavailable Aditi Mccormick ASSEMBLY SUPERVISOR Unavailable Unavailable Ashwin Hong MD Primary Care Provider [phone] Encounter Details Date Type Department Care Team (Late st Contact Info) Description 06/08/2021 Telephone [facility] [address] [facility] [address] [place] [address] Shannan Rivera MD [address] [place] [address] [address] [place] [address] Social History Tobacco Use Types Packs/Day Years Used Date Smoking Tobacco: Never Smokeless Tobacco: Never Alcohol Use Standard Drinks/Week Comments Yes 0 (1 standard drink = 0.6 oz pur e alcohol) socially Comments No Sex and Gender Information Value Date Recorded Sex Assigned at Not on file Legal Sex Female 5:22 AM GEOTECHNICAL INTERN Gender Identity Not on file Sexual Orientation Not on file documented as of this encounter Miscellaneous Notes * Telephone Encounter - Ria Collier - 06/08/2021 3:43 PM CST LMOVM that Xrays overall unremarkable other than degenerative changes. ECHNICAL INTERN * Telephone Encounter - Ria Collier - 06/08/2021 3:43 PM CST ----- Message from Shannan Rivera MD sent at 06/06/2021 11:00 PM GEOTECHNICAL INTERN ----- Xrays overall unremarkable other than degenerative changes. ECHNICAL INTERN documented in this encounter Plan of Treatment Not on file documented as of this encounter Goals Goal Patient Goal Type Associated Problems Recent Progress Patient-Stated? Author [facility] Behavioral [facility] On track( 018 11:29 AM CDT) Cruz Irizarry, RN Note: Patient will describe how unrelieved pain will be managed. documented as of this encounter Visit Diagnoses Not on filedocumented in this encounter Care Teams Panelboard Assembler Relationship Specialty Start Date End Date Ashwin Hong MD PCP - General 12/17/19 Denys Urrutia MD [address] [facility] [address] [place] [address] Surgeon Neurosurgery 01/15/18 Suzy Hopkins, PT Physical Therapist Physical Therapy 01/15/18 Aditi Mccormick, ASSEMBLY SUPERVISOR Dramatic Teacher Physical Therapy 01/23/18 documented as of this encounter
--- OUTSIDE RECORDS SUMMARY | 2024-08-09 20:04 | XMS_ITS | Encounter Summary ---
Author Organization [facility] Address [address] [facility] [address] [place] [address] Care Team Providers Care Machine Set Up Operator Name Role Phone Denys Urrutia MD Unavailable [phone] Suzy Hopkins PT Unavailable Unavailable Aditi Mccormick REAMING MACHINE OPERATOR FOR PLASTIC Unavailable Unavailable Ashwin Hong MD Primary Care Provider [phone] Reason for Visit * Reason Onset Date Comments x rays 04/27/2021 Encounter Details Date Type Department Care Team (Late st Contact Info) Description 04/27/2021 Telephone [facility] [address] [facility] [address] [place] [address] Shannan Rivera MD [address] [place] [address] [address] [place] [address] x rays Social History Tobacco Use Types Packs/Day Years Used Date Smoking Tobacco: Never Smokeless Tobacco: Never Alcohol Use Standard Drinks/Week Comments Yes 0 (1 standard drink = 0.6 oz pur e alcohol) socially Comments No Sex and Gender Information Value Date Recorded Sex Assigned at Not on file Legal Sex Female 5:22 AM ROLL TENDER Gender Identity Not on file Sexual Orientation Not on file documented as of this encounter Miscellaneous Notes * Telephone Encounter - Ria Collier - 04/29/2021 11:55 AM CDT LMOVM that Dr Rivera added the x ray of her right elbow * Telephone Encounter - Shannan Rivera MD - 04/29/2021 9:13 AM CDT Order in * Telephone Encounter - Ria Collier - 04/27/2021 1:05 PM CDT Pt is going to go get the x rays you ordered done and she would like for you to add the right elbow. It has been causing her some problems. Please advise documented in this encounter Plan of Treatment [...] on filedocumented in this encounter Care Teams Machine Set Up Operator Relationship Specialty Start Date End Date Ashwin Hong MD PCP - General 12/17/19 Denys Urrutia MD [address] [facility] [address] [place] [address] Surgeon Neurosurgery 01/15/18 Suzy Hopkins, PT Physical Therapist Physical Therapy 01/15/18 Aditi Mccormick, REAMING MACHINE OPERATOR FOR PLASTIC Folder Machine Physical Therapy 01/23/18 documented as of this encounter
--- OUTSIDE RECORDS SUMMARY | 2024-08-09 20:04 | XMS_ITS | Encounter Summary ---
Author Organization [facility] Healthcare Address [address] [place] [address] Care Team Providers Care Tourist Cabin Keeper Name Role Phone Denys Urrutia MD Unavailable [phone] Suzy Hopkins PT Unavailable Unavailable Aditi Mccormick BAKED GOODS STOCK CLERK Unavailable Unavailable Ashwin Hong MD Primary Care Provider [phone] Jeanette Parikh MD Unavailable [phone] Encounter Details Date Type Department Care Team (Latest Contact Info) Description 07/07/2023 5:56 PM SERVICE SPRINKLER HELPER - 07/07/2023 11:59 PM SERVICE SPRINKLER HELPER Hospital Encounter [facility] Emergency, Room R Discharge Disposition: Discharge to home or self [...] on file Legal Sex Female 5:22 AM SERVICE SPRINKLER HELPER Gender Identity Not on file Sexual Orientation [...] Administer 1 spray into each nostril daily HYDROcodone-aceta minophen (NORCO) 7.5-325 mg per tablet Take 1 tablet by mouth 2 (two) times a day as needed 08/11/2021 loratadine (CLARITIN) 10 mg tablet Take 1 tablet (10 mg total) by mouth daily as needed for allergies losartan-hydroCHL OROthiazide (HYZAAR) 100-12.5 mg per tablet 09/02/2021 Narcan 4 mg/actuation spray,non-aerosol USE 1 SPRAY NASALLY ONCE FOR OVERSEDATION. REPEAT IN 2 TO 3 MINUTES IF NEEDED. 08/11/2021 sertraline (ZOLOFT) 100 mg tablet Take 1 tablet (100 mg total) by mouth nightly Lyllana 0.1 mg/24 hrIndications:Hor huang replacement therapy APPLY 1 PATCH TO DRY SKIN AND CHANGE TWICE WEEKLY 24 patch 3 10/18/2022 4 documented as of this encounter Discharge Disposition Disposition Code Departure Means Destination Discharge to home or self care documented in this encounter Plan of Treatment Not on file documented as of this encounter Goals Goal Patient Goal Type Associated Problems Recent Progress Patient-Stated? Author -Pain Behavioral Health On track( 018 11:29 AM CDT) Cruz Irizarry, RN Note: Patient will describe how unrelieved pain will be managed. documented as of this encounter Visit Diagnoses Not on filedocumented in this encounter Care Teams Tourist Cabin Keeper Relationship Specialty Start Date End Date Ashwin Hong MD PCP - General 12/17/19 Denys Urrutia MD [address] [facility] [address] [place] [address] Surgeon Neurosurgery 01/15/18 Suzy Hopkins, PT Physical Therapist Physical Therapy 01/15/18 Aditi Mccormick, BAKED GOODS STOCK CLERK Denture Laboratory Technician Physical Therapy 01/23/18 [place] [address] [place] [address] Consulting Physician Obstetrics and Gynecology 09/17/22 documented as of this encounter
--- OUTSIDE RECORDS SUMMARY | 2024-08-09 20:04 | XMS_ITS | Encounter Summary ---
Author Organization [facility] Address [address] [place] [address] Care Team Providers Care Recording Studio Internship Name Role Phone Denys Urrutia MD Unavailable [phone] Suzy Hopkins PT Unavailable Unavailable Aditi Mccormick HIDE OR SKIN BUFFER Unavailable Unavailable Ashwin Hong MD Primary Care Provider [phone] Jeanette Parikh MD Unavailable [phone] Reason for Referral * Diagnostic Lab (Routine) - Closed Specialty Diagnoses / Procedures Referred By Contac t Referred To Contact Lab Diagnoses Encounter for routine gynecological examination with Papanicolaou smear of cervix Procedures ThinPrep(R) Imaging Pap and HPV mRNA E6/E7 Reflex HPV 16,18/[place] [address] [place] [address] Phone: tel: fax: Referral ID Status Reason Start Date Expiration Date Visits Re quested Visits Authorized [id number] Closed 09/18/2022 10/18/2023 1 1 H DRIER Reason for Visit * Reason Comments Annual Exam Encounter Details Date Type Department Care Team (Latest Contact Info) Description 09/18/2022 11:25 AM CLOTH DRIER Office Visit [facility] [address] [place] [address] [place] [address] [place] [address] Encounter for routine gynecological examination with Papanicolaou smear of cervix (Primary Dx); Breast cancer screening by mammogram Social History Tobacco Use Types Packs/Day Years Used Date Smoking Tobacco: Never Passive Smoke Exposure: Never Smokeless Tobacco: Never Alcohol Use Standard Drinks/Week Comments Yes 0 (1 standard drink = 0.6 oz pur e alcohol) socially Comments No Sex and Gender Information Value Date Recorded Sex Assigned at Not on file Legal Sex Female 5:22 AM CLOTH DRIER Gender Identity Not on file Sexual Orientation Not on file documented as of this encounter Last Filed Vital Signs Vital Sign Reading Time Taken Comments Blood Pressure 124/90 09/18/2022 11:26 AM CLOTH DRIER Pulse - - Temperature - - Respiratory Rate - - Oxygen Saturation - - Inhaled Oxygen Concentration - - Weight 118.5 kg (261 lb 3.2 oz) 023 11:26 AM CLOTH DRIER Height 170.2 cm (5' 7 ) 09/18/2022 11:2 6 AM CLOTH DRIER Body Mass Index 40.91 09/18/2022 11:26 AM CLOTH DRIER documented in this encounter Progress Notes * Brenda Rubio NP - 09/18/2022 11:25 AM CST Established Patient Well Woman Exam HPI: Tg Gomez is a 51 y.o. year old female who presents for a well woman exam. Patient deniesany breast tenderness, pelvic pain or abnormal vaginal discharge. She notes hot flushes and night sweats are increasing again. Uses generic Vivelle 0.1 mg twice weekly patch correctly. Changes on time. Patch never falls off. No changes in health hx or increased stress. Having difficulty losing weight. Pt has an appointment with her PCP next week for lab work, states they have disc'd possibility of insulin resistance and pre-DM. Menstrual History: No LMP recorded. Patient has had a hysterectomy. S/p TLH with RSO in 10/2012, then LSO in 04/2013. Sexual History: Pt is not sexually active. has medical issues. States they are fine with this and have a good relationship. OB History 2 Para 2 Term AB Living SAB IAB Ectopic Multiple Live Births # Outcome Date GA Labor/2nd Weight Sex Delivery Anes PTL Lv A1 A5 1 Para 2 Para Obstetric Comments C/s x2 I have reviewed medical history, surgical history, medications, social history, family history withpatient. Patient denies any changes in personal or family history. REVIEW OF SYSTEMS: Review of systems negative except for as above PHYSICAL EXAM: BP 124/90 Ht 170.2 cm (5' 7 ) Wt 261 lb 3.2 oz (118.5 kg) BMI 40.91 kg/m?? General: Well appearing, No pain or distress, well nourished. Obesity Neck: Supple Breast: No dominant masses, no skin changes. B/l nipples normal. Bilat scars, s/p mammoplasty Respiratory: Respirations unlabored Gastrointestinal: soft, non-tender abdomen, no masses palpable EGBUS: wnl Vagina: no lesion. Normal discharge. Cuff well-supported Cervix: surgically absent Uterus: surgically absent Adnexa: ovaries surgically absent, no masses Extremities: no cyanosis or clubbing or edema Musculoskeletal: no obvious joint deformities Skin: no obvious rash or bruising Psychiatric: normal affect Neurologic: awake/alert, no focal deficits Assessment and Plan: Tg Gomez is a 51 y.o. female who presents for a well woman exam. -ThinPrep pap and HrHPV testing done. Enc'd monthly sbe -Hormone therapy, risks and benefits reviewed. Disc'd pt may not be absorbing estrogen as well. Option of changing route of administration. Disc'd elevated blood sugars could be playing a role in increased vasomotor symptoms. Pt desires to cont patch for now. She'll see how lab results look and then decide whether she will change HT. ERX Vivelle 0.1mg twice weekly patch to [facility]. -STI screening discussed. Patient elects to omit -Mammogram: Up to Date. New order given. -Colonoscopy: plans on discussing with PCP next week. RTO 1 yr/prn Brenda Rubio NP H DRIER documented in this encounter Plan of Treatment Scheduled Orders Name Type Priority Associated Diagnoses Orde r Schedule ThinPrep(R) Imaging Pap and HPV mRNA E6/E7 Reflex HPV 16,18/45 Pathology and Cytology Routine Encounter for routine gynecological examination with Papanicolaou smear of cervix Expected: 09/18/2022, Expires: 09/17/2023 documented as of this encounter Goals Goal Patient Goal Type Associated Problems Recent Progress Patient-Stated? Author BH-Pain Behavioral Health On track( 018 11:29 AM CDT) Cruz Irizarry, RN Note: Patient will describe how unrelieved pain will be managed. documented as of this encounter Visit Diagnoses Diagnosis Encounter for routine gynecological examination with Papanicolaou smear of cervix- Primary Breast cancer screening by mammogram documented in this encounter Care Teams Recording Studio Internship Relationship Specialty Start Date End Date Ashwin Hong MD PCP - General 12/17/19 Denys Urrutia MD [address] [facility] [address] [address] Surgeon Neurosurgery 01/15/18 Suzy Hopkins, PT Physical Therapist Physical Therapy 01/15/18 Aditi Mccormick, HIDE OR SKIN BUFFER Senior Dentist Physical Therapy 01/23/18 [place] [address] [place] [address] Consulting Physician Obstetrics and Gynecology 09/17/22 documented as of this encounter
--- OUTSIDE RECORDS SUMMARY | 2024-08-09 20:04 | XMS_ITS | Encounter Summary ---
Author Organization [facility] Healthcare Address [address] [place] [address] Care Team Providers Care Retail Seasonal Specialist Name Role Phone Denys Urrutia MD Unavailable [phone] Suzy Hopkins PT Unavailable Unavailable Aditi Mccormick PTA Unavailable Unavailable Ashwin Hong MD Primary Care Provider [phone] Encounter Details Date Type Department Care Team (Latest Contact Info) Description 07/13/2021 11:18 AM CHIEF [facility]RSON DIVISION - 07/13/2021 11:59 PM [facility]F [facility] Hospital Encounter [facility] Discharge Disposition: Discharge to home or self care Social History Tobacco Use Types Packs/Day Years Used Date Smoking Tobacco: Never Smokeless Tobacco: Never Alcohol Use Standard Drinks/Week Comments Yes 0 (1 standard drink = 0.6 oz pur e alcohol) socially Comments No Sex and Gender Information Value Date Recorded Sex Assigned at Not on file Legal Sex Female 5:22 AM CHIEF ARSON DIVISION Gender Identity Not on file Sexual Orientation [...] tablet (100 mg total) by mouth nightly HYDROcodone-acet aminophen (NORCO) 5-325 mg per tablet TK 1 T PO QD PRN 01/23/2020 09/12/19 2 2 losartan-hydroch lorothiazide (HYZAAR) 100-25 mg per tablet Take 1 tablet by mouth pharmacy picking technician before breakfast. 2 Lyllana 0.1 mg/24 hr APPLY 1 PATCH TO DRY SKIN AND CHANGE TWICE WEEKLY 8 patch 05/20/2021 2 documented as of this encounter Discharge [...] on filedocumented in this encounter Care Teams Retail Seasonal Specialist Relationship Specialty Start Date End Date Ashwin Hong MD PCP - General 12/17/19 Denys Urrutia MD [address] [facility] [address] [address] Surgeon Neurosurgery 01/15/18 Suzy Hopkins, PT Physical Therapist Physical Therapy 01/15/18 Aditi Mccormick, PRINTING PRESSMAN Debeaker Physical Therapy 01/23/18 documented as of this encounter
--- OUTSIDE RECORDS SUMMARY | 2024-08-09 20:04 | XMS_ITS | Encounter Summary ---
Author Organization [facility] Address [address] [place] [address] Care Team Providers Care Dray Driver Name Role Phone Denys Urrutia MD Unavailable [phone] Suzy Hopkins PT Unavailable Unavailable Aditi Mccormick RESEARCH GENETICIST Unavailable Unavailable Ashwin Hong MD Primary Care Provider [phone] Reason for Referral * Diagnostic Lab (Routine) - Closed Specialty Diagnoses / Procedures Referred By Contac t Referred To Contact Lab Diagnoses Encounter for well woman exam with routine gynecological exam Procedures ThinPrep(R) Imaging Pap and HPV mRNA E6/E7 Reflex HPV 16,18/[place] [address] [place] [address] Phone: tel: fax: Referral ID Status Reason Start Date Expiration Date Visits Re quested Visits Authorized [id number] Closed 09/12/2021 10/12/2022 1 1 RETE BOOM OPERATOR Reason for Visit * Reason Comments Annual Exam Encounter Details Date Type Department Care Team (Latest Contact Info) Description 09/12/2021 9:30 AM CONCRETE BOOM OPERATOR Office Visit [facility] [address] [place] [address] [place] [id number] [place] [id number] Encounter for well woman exam with routine gynecological exam (Primary Dx); Screening mammogram, encounter for; Hormone replacement therapy Social History Tobacco Use Types Packs/Day Years Used Date Smoking Tobacco: Never Smokeless Tobacco: Never Alcohol Use Standard Drinks/Week Comments Yes 0 (1 standard drink = 0.6 oz pur e alcohol) socially Comments No Sex and Gender Information Value Date Recorded Sex Assigned at Not on file Legal Sex Female 5:22 AM CONCRETE BOOM OPERATOR Gender Identity Not on file Sexual Orientation Not on file documented as of this encounter Last Filed Vital Signs Vital Sign Reading Time Taken Comments Blood Pressure 132/92 09/12/2021 9:35 AM CONCRETE BOOM OPERATOR Pulse - - Temperature - - Respiratory Rate - - Oxygen Saturation - - Inhaled Oxygen Concentration - - Weight 118.8 kg (262 lb) 09/12/2021 9:35 AM CONCRETE BOOM OPERATOR Height 170.2 cm (5' 7 ) 09/12/2021 9:35 AM CONCRETE BOOM OPERATOR Body Mass Index 41.04 09/12/2021 9:35 AM CONCRETE BOOM OPERATOR documented in this encounter Ordered Prescriptions Prescription Sig Dispense Quantity Refills Last Filled Start Date End Date estradioL (Vivelle-Dot) 0.1 mg/24 hrIndications:Vaso motor Symptoms associated with Menopause Place 1 patch on the skin 2 (two) times a week Remove old patch. Apply one new patch twice weekly to dry skin. (example, Sunday and ) 24 patch 3 09/12/2021 07/26/2022 documented in this encounter Progress Notes * Jeanette Parikh MD - 09/12/2021 9:30 AM CST Well Woman Exam Subjective: Tg Gomez is a 50 y.o. year old female who presents for a well woman exam. One year s/p bilateral breast reduction-feels great! Now back to a size B down from G. Menstrual History: No LMP recorded. Patient has had a hysterectomy. Doing well with the patch. Still gets hot flashes if she forgets to change it. Sexual History: H has medical issues, so not SA for a few years. Both are ok with things and declines any further management. She has a low drive regardless, declines any changes. OB History 2 Para 2 Term AB Living SAB IAB Ectopic Multiple Live Births # Outcome Date GA Labor/2nd Weight Sex Delivery Anes PTL Lv A1 A5 1 Para 2 Para Obstetric Comments C/s x2 Past Medical History: Diagnosis Date ??? Arthritis ??? Depression ??? Dysrhythmia History of ablation for cardiac ectopy of PVCs and PACs but it was unsuccessful. ??? Gastroesophageal reflux disease ??? Hypertension 11/03/2016 Hypertension ??? Migraine Ocular ??? Morbid obesity with BMI of 40.0-44.9, adult (HCC) BMI 40.9 ??? PONV (postoperative nausea and vomiting) ??? Prolactinoma (CMS/HCC) (HCC) pituitary tumor- used to see Dr Reddy at [facility], but PCP monitor levels now Past Surgical History: Procedure Laterality Date ??? ANKLE SURGERY ??? CARDIAC ELECTROPHYSIOLOGY STUDY AND ABLATION ??? SECTION x2 ??? GALLBLADDER SURGERY gall bladder and hernia repair ??? HERNIA REPAIR ??? LAPAROSCOPIC TOTAL HYSTERECTOMY 11/13/2012 [facility] HK/DS ??? LYMPH NODE DISSECTION ??? OOPHERECTOMY Bilateral 04/2013 BSO/adhesiolysis HK/Biest ??? OTHER SURGICAL HISTORY 2018 discectomy of l5 ??? OVARY SURGERY Right 2009 ??? SINUS SURGERY x2 ??? SINUS SURGERY 2009 first sinus surgery approx 2010 had second one. [facility] [address] [address] Family history reviewed with patient. Current Outpatient Medications: ??? cannabidiol, CBD, (EPIDIOLEX) 100 mg/mL solution, Take 5 mg/kg by mouth 2 (two) times a day, Disp: , Rfl: ??? dilTIAZem XR (CARDIZEM CD,DILACOR XR) 180 mg 24 hr capsule, Take 180 mg by mouth daily with dinner., Disp: , Rfl: ??? fluticasone propionate (FLONASE) 50 mcg/actuation nasal spray, Administer 1 spray into each nostril daily, Disp: , Rfl: ??? HYDROcodone-acetaminophen (NORCO) 7.5-325 mg per tablet, Take 1 tablet by mouth 2 (two) times aday as needed, Disp: , Rfl: ??? loratadine (CLARITIN) 10 mg tablet, Take 10 mg by mouth daily as needed for allergies., Disp: ,Rfl: ??? losartan-hydroCHLOROthiazide (HYZAAR) 100-12.5 mg per tablet, , Disp: , Rfl: ??? Lyllana 0.1 mg/24 hr, APPLY 1 PATCH TO DRY SKIN AND CHANGE TWICE WEEKLY, Disp: 8 patch, Rfl: 0 ??? Narcan 4 mg/actuation spray,non-aerosol, USE 1 SPRAY NASALLY ONCE FOR OVERSEDATION. REPEAT IN 2TO 3 MINUTES IF NEEDED., Disp: , Rfl: ??? sertraline (ZOLOFT) 100 mg tablet, Take 100 mg by mouth nightly., Disp: , Rfl: Allergies Allergen Reactions ??? Morphine Itching and Hives Patient states is extreme itching ??? Oxycodone Vomiting Patient states she received after her ablation, and vomited and vomited profusly ??? Penicillins Other (See comments) and Shortness of breath Reaction: Unknown, , ??? Reglan [Metoclopramide] Nausea only Reaction: Unknown, , ??? Levofloxacin Nausea only Patient says she has GI upset with levaquin ??? Metoclopramide Hcl Nausea And Vomiting ??? Sulfasalazine Nausea Only REVIEW OF SYSTEMS: Review of systems negative except for as above PHYSICAL EXAM: BP 132/92 Ht 170.2 cm (5' 7 ) Wt 262 lb (118.8 kg) BMI 41.04 kg/m?? General: Well appearing, No pain or distress, well nourished Neck: Supple Respiratory: respirations unlabored Cardiovascular: RRR Gastrointestinal: soft, non-tender abdomen, no masses palpable Breast: No dominant masses/no skin changes. No nipple changes, s/p bilateral reduction. EGBUS: WNL Cervix: s/p hysterectomy, vag cuff intact, no prolapse Uterus: s/p hysterectomy Adnexa: s/p LSO, no masses bilaterally Extremities: no cyanosis or clubbing or edema Musculoskeletal: no obvious joint deformities Skin: no obvious rash or bruising Psychiatric: normal affect Neurologic: awake/alert, no focal deficits Assessment and Plan: Tg Gomez is a 50 y.o. female who presents for a well woman exam. 1) s/p bilateral breast reduction. Doing well. 2) HT- risks/benefits reviewed. Pros/cons reviewed. PT wishes to remain on it. Rx vivelle 0.1mg patch [facility]. 3) WWE done/SBE encouraged. HPVscreening. Pap recommendations reviewed. Jeanette Parikh MD 09/12/2021 RETE BOOM OPERATOR documented in this encounter Plan of Treatment [...] HPV MRNA E6/E7 REFLEX HPV 16,18/45 Routine 09/12/2021 11:58 AM CONCRETE BOOM OPERATOR Encounter for well woman exam with routine gynecological exam documented in this encounter Results * ThinPrep(R) Imaging Pap and HPV mRNA E6/E7 Reflex HPV 16,18/45 (09/12/2021 11:58 AM CONCRETE BOOM OPERATOR) CLINICAL INFORMATION: [facility] Comment:490 WWE LMP [facility] Comment:2012, [facility] Previous Pap [facility] Comment:2020 Prev. Bx [facility] Comment:2019 PAP +HRHPV SOURCE: [facility] Comment:None given Pap, specimen adequacy [facility] Comment:SATISFACTORY FOR ALEXANDREA LUATION HPV interp [facility] Comment:Negative for intraep ithelial lesion or malignancy. COMMENTS [facility] Comment: This Pap test has been evaluated with computer assisted technology. Him Analyst [facility] Comment: KMY, CT(ASCP) CT screening location: [place] [address] [address] [address] Review fuel system maintenance supervisor [facility] Comment: MEF, CT(ASCP) CT screening location: [place] [address] [address] [place] [address] Comment [facility] Comment: EXPLANATORY NOTE: The Pap is a [...] High Risk E6/E7 Not Detected Not Detected [facility] Comment: Methodology: Frame Maker-Mediated Amplification This assay detects E6/E7 viral messenger RNA (mRNA) from 14 high-risk HPV types (16,18,31,33,35,39,45,51,52,56,58,59,66,68). The analytical performance characteristics of this assay have been determined by [facility]. The modifications have not been cleared or approved by the FDA. This assay has been validated pursuant to the CLIA regulations and is used for clinical purposes. For additional information, please refer to http://education.BiBCOM/faq/MDF494q4 (This link if provided for information/ educational purposes only.) Swab (Endocervical/va ginal) 09/12/2021 11:58 AM CONCRETE BOOM OPERATOR 09/13/2021 1:00 AM CONCRETE BOOM OPERATOR Jeanette Parikh MD LAB CYTOLOGY ORDERABLES F [facility]al [facility] [address] [place] [address] [facility] [address] [place] [address] documented in this encounter Visit Diagnoses Diagnosis Encounter for well woman exam with routine gynecological exam- Primary Screening mammogram, encounter for Hormone replacement therapy documented in this encounter Discontinued Medications Medication Sig Discontinue Reason Start Date End Da te HYDROcodone-acetaminophe n (NORCO) 5-325 mg per tablet TK 1 T PO QD PRN Therapy completed 01/23/2020 09/12/2021 losartan-hydrochlorothia zide (HYZAAR) 100-25 mg per tablet Take 1 tablet by mouth vamp strap ironer before breakfast. Therapy completed 09/12/2021 Lyllana 0.1 mg/24 hr APPLY 1 PATCH TO DRY SKIN AND CHANGE TWICE WEEKLY Other 05/20/2021 09/12/2021 documented as of this encounter Historical Medications * This list may reflect changes made after this encounter. losartan-hydroCHL OROthiazide (HYZAAR) 100-12.5 mg per tablet 09/02/2021 HYDROcodone-aceta minophen (NORCO) 7.5-325 mg per tablet Take 1 tablet by mouth 2 (two) times a day as needed 08/11/2021 Narcan 4 mg/actuation spray,non-aerosol USE 1 SPRAY NASALLY ONCE FOR OVERSEDATION. REPEAT IN 2 TO 3 MINUTES IF NEEDED. 08/11/2021 added in this encounter Care Teams Dray Driver Relationship Specialty Start Date End Date Ashwin Hong MD PCP - General 12/17/19 Denys Urrutia MD [address] [address] Surgeon Neurosurgery 01/15/18 Suzy Hopkins, PT Physical Therapist Physical Therapy 01/15/18 Aditi Mccormick, RESEARCH GENETICIST [employer] Administrator Physical Therapy 01/23/18 documented as of this encounter
--- OUTSIDE RECORDS SUMMARY | 2024-08-09 20:04 | XMS_ITS | Encounter Summary ---
Author Organization [facility] Address [address] [place] [address] Care Team Providers Care Prosthodontist/Educator Name Role Phone Denys Urrutia MD Unavailable [phone] Suzy Hopkins PT Unavailable Unavailable Aditi Mccormick WELLNESS NURSE RN Unavailable Unavailable Ashwin Hong MD Primary Care Provider [phone] Jeanette Parikh MD Unavailable [phone] Encounter Details Date Type Department Care Team (Late st Contact Info) Description 12/05/2023 Orders Only [facility] [address] [address] Scarlet Murray, RN Hormone replacement therapy Social History Tobacco Use Types Packs/Day Years Used Date Smoking Tobacco: Never Passive Smoke Exposure: Never Smokeless Tobacco: Never Alcohol Use Standard Drinks/Week Comments Yes 0 (1 standard drink = 0.6 oz pur e alcohol) socially Comments No Sex and Gender Information Value Date Recorded Sex Assigned at Not on file Legal Sex Female 5:22 AM TELEPHONE ORDER CLERK Gender Identity Not on file Sexual Orientation Not on file documented as of this encounter Ordered Prescriptions Prescription Sig Dispense Quantity Refills Last Filled Start Date End Date estradioL (VIVELLE-DOT) 0.1 mg/[address] 1 patch on the skin 2 (two) times a week 24 patch 2 12/06/2023 12/05/2024 estradioL (Lyllana) 0.1 mg/24 hrIndications:Hormo ne replacement therapy Place 1 patch on the skin 2 (two) times a week 8 patch 12/06/2023 documented in this encounter Progress Notes * Scarlet Murray, RN - 12/05/2023 11:44 AM CDT Pt is calling for E2 patch refill-- needs a small supply sent to local pharmacy while she awaits Rxfrom mail-order. Rx sent to preferred pharmacy. documented in this encounter Plan of Treatment Not on file documented as of this encounter Goals Goal Patient Goal Type Associated Problems Recent Progress Patient-Stated? Author [facility] On track( 018 11:29 AM CDT) Cruz Irizarry, RN Note: Patient will describe how unrelieved pain will be managed. documented as of this encounter Visit Diagnoses Diagnosis Hormone replacement therapy documented in this encounter Discontinued Medications Medication Sig Discontinue Reason Start Date End Da te Lyllana 0.1 mg/24 hrIndications:Hormone replacement therapy APPLY 1 PATCH TO DRY SKIN AND CHANGE TWICE WEEKLY Reorder 10/18/2022 12/05/2023 documented as of this encounter Care Teams Prosthodontist/Educator Relationship Specialty Start Date End Date Ashwin Hong MD PCP - General 12/17/19 Denys Urrutia MD [address] [address] Surgeon Neurosurgery 01/15/18 Suzy Hopkins, KAIA Physical Therapist Physical Therapy 01/15/18 Aditi Mccormick, WELLNESS NURSE RN Sanitarian Aide Physical Therapy 01/23/18 [place] [address] [place] [address] Consulting Physician Obstetrics and Gynecology 09/17/22 documented as of this encounter
--- OUTSIDE RECORDS SUMMARY | 2024-08-09 20:04 | XMS_ITS | Encounter Summary ---
Author Organization [facility] Address [address] [place] [address] Care Team Providers Care Bee Tender Name Role Phone Denys Urrutia MD Unavailable [phone] Suzy Hopkins PT Unavailable Unavailable Aditi Mccormick SHADE MAKER Unavailable Unavailable Ashwin Hong MD Primary Care Provider [phone] Jeanette Parikh MD Unavailable [phone] Reason for Referral * Diagnostic Imaging (Routine) - Authorized Specialty Diagnoses / Procedures Referred By Ernestina kam Referred To Contact Diagnoses Breast cancer screening by mammogram Procedures Screening [place] [address] [place] [address] Phone: tel: fax: External Order Referral ID Status Reason Start Date Expiration Date V isits Requested Visits Authorized [id number] Authorized 10/02/2023 10/31/2024 1 1 SE WORKER * Diagnostic Lab (Routine) - Pending Review Specialty Diagnoses / Procedures Referred By Ernestina kam Referred To Contact Lab Diagnoses Encounter for routine gynecological examination with Papanicolaou smear of cervix Procedures ThinPrep(R) Imaging Pap and HPV mRNA E6/E7 Reflex HPV 16,18/[place] [address] [place] [address] Phone: tel: fax: Referral ID Status Reason Start Date Expiration Date V isits Requested Visits Authorized [id number] Pending Review 10/02/2023 10/31/2024 1 1 SE WORKER Reason for Visit * Reason Comments Annual Exam Encounter Details Date Type Department Care Team (Latest Contact Info) Description 10/02/2023 11:40 AM GREASE WORKER Office Visit [facility] [address] [facility] [place] [id number] [place] [address] [place] [address] Encounter for routine gynecological examination with Papanicolaou smear of cervix (Primary Dx); Vasomotor symptoms due to menopause; Breast cancer screening by mammogram; Urinary retention Social History Tobacco Use Types Packs/Day Years Used Date Smoking Tobacco: Never Passive Smoke Exposure: Never Smokeless Tobacco: Never Tobacco Cessation:Counseling Given: Not Answered Alcohol Use Standard Drinks/Week Comments Yes 0 (1 standard drink = 0.6 oz pur e alcohol) socially Comments No Sex and Gender Information Value Date Recorded Sex Assigned at Not on file Legal Sex Female 5:22 AM GREASE WORKER Gender Identity Not on file Sexual Orientation Not on file documented as of this encounter Last Filed Vital Signs Vital Sign Reading Time Taken Comments Blood Pressure 119/86 10/02/2023 11:53 AM GREASE WORKER Pulse - - Temperature - - Respiratory Rate - - Oxygen Saturation - - Inhaled Oxygen Concentration - - Weight 112 kg (247 lb) 10/02/2023 11:53 AM GREASE WORKER Height 170.2 cm (5' 7 ) 10/02/2023 11:53 AM GREASE WORKER Body Mass Index 38.69 10/02/2023 11:53 AM GREASE WORKER documented in this encounter Progress Notes * Brenda Rubio NP - 10/02/2023 11:40 AM CST Well Woman Exam Subjective: Tg Gomez is a 52 y.o. year old female who presents for a well woman exam. S/p Total laparoscopic hysterectomy with RSO in 10/2012, then LSO in 04/2013. Tg denies pelvic pain, abnormal vaginal discharge and breast issues. Overall happy with generic Vivelle 0.1 mg twice weekly patch. For past 2 years Tg feels she is not fully emptying bladder. Once flow ends she has to shift on commode and void again. No ANDREA or dysuria. Reports some constipation with Ozempic. She had to stop Ozempic 6-8 weeks ago due to A-fib. She was transported to ED per ambulance. A-fib was noted on the way, she then converted to normal sinus rhythm before reaching hospital. While in ED potassium andsodium were both low. S/p Holter monitor x48 hours, no a-fib. 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 Resumed Ozempic, no further issues on lower dose. Menstrual History: No LMP recorded. Patient has had a hysterectomy. Sexual History: No past issues. Patient is not sexually active. has medical issues. OB History 2 Para 2 Term AB Living SAB IAB Ectopic Multiple Live Births # Outcome Date GA Labor/2nd Weight Sex Delivery Anes PTL Lv A1 A5 1 Para 2 Para Obstetric Comments C/s x2 Past Medical History: Diagnosis Date Arthritis Depression Dysrhythmia History of ablation for cardiac ectopy of PVCs and PACs but it was unsuccessful. Gastroesophageal reflux disease Hypertension 11/03/2016 Hypertension Migraine Ocular Morbid obesity with BMI of 40.0-44.9, adult (HCC) BMI 40.9 PONV (postoperative nausea and vomiting) Prolactinoma (HCC) pituitary tumor- used to see Dr Reddy at [facility], but PCP monitor levels now Past Surgical History: Procedure Laterality Date ANKLE SURGERY CARDIAC ELECTROPHYSIOLOGY STUDY AND ABLATION SECTION x2 GALLBLADDER SURGERY gall bladder and hernia repair HERNIA REPAIR LAPAROSCOPIC TOTAL HYSTERECTOMY 11/13/2012 TLH HK/DS LYMPH NODE DISSECTION OOPHERECTOMY Bilateral 04/2013 BSO/adhesiolysis HK/Biest OTHER SURGICAL HISTORY 2018 discectomy of l5 OVARY SURGERY Right 2009 REDUCTION MAMMAPLASTY Bilateral 08/2020 SINUS SURGERY x2 SINUS SURGERY 2009 first sinus surgery approx 2010 had second one. [facility] [address] [address] Family history reviewed with patient. Current Outpatient Medications: cannabidiol, CBD, (EPIDIOLEX) 100 mg/mL solution, Take 5 mg/kg by mouth 2 (two) times a day, Disp: , Rfl: dilTIAZem XR (CARDIZEM CD,DILACOR XR) 180 mg 24 hr capsule, Take 1 capsule (180 mg total) by mouth daily with dinner, Disp: , Rfl: fluticasone propionate (FLONASE) 50 mcg/actuation nasal spray, Administer 1 spray into each nostrildaily, Disp: , Rfl: HYDROcodone-acetaminophen (NORCO) 7.5-325 mg per tablet, Take 1 tablet by mouth 2 (two) times a dayas needed, Disp: , Rfl: loratadine (CLARITIN) 10 mg tablet, Take 1 tablet (10 mg total) by mouth daily as needed for allergies, Disp: , Rfl: losartan-hydroCHLOROthiazide (HYZAAR) 100-12.5 mg per tablet, , Disp: , Rfl: Lyllana 0.1 mg/24 hr, APPLY 1 PATCH TO DRY SKIN AND CHANGE TWICE WEEKLY, Disp: 24 patch, Rfl: 3 Narcan 4 mg/actuation spray,non-aerosol, USE 1 SPRAY NASALLY ONCE FOR OVERSEDATION. REPEAT IN 2 TO 3 MINUTES IF NEEDED., Disp: , Rfl: Ozempic 1 mg/dose (4 mg/3 mL) pen injector injection, , Disp: , Rfl: sertraline (ZOLOFT) 100 mg tablet, Take 1 tablet (100 mg total) by mouth nightly, Disp: , Rfl: Allergies Allergen Reactions Morphine Itching and Hives Patient states is extreme itching Oxycodone Vomiting Patient states she received after her ablation, and vomited and vomited profusly Penicillins Other (See comments) and Shortness of breath Reaction: Unknown, , Reglan [Metoclopramide] Nausea only Reaction: Unknown, , Levofloxacin Nausea only Patient says she has GI upset with levaquin Metoclopramide Hcl Nausea And Vomiting Sulfasalazine Nausea Only REVIEW OF SYSTEMS: Review of systems negative except for PHYSICAL EXAM: BP 119/86 Ht 170.2 cm (5' 7 ) Wt 247 lb (112 kg) BMI 38.69 kg/m?? General: Well appearing, No pain or distress, well nourished Neck: Supple Respiratory: respirations unlabored Cardiovascular: RRR Gastrointestinal: soft, non-tender abdomen, no masses palpable Breast: No dominant masses/no skin changes. No nipple changes. Bilat scars, s/p reduction mammoplasty EGBUS: WNL, urethra WNL. No prolapse. Cervix: surgically absent, cuff well-supported Uterus: surgically absent Adnexa: no masses. Ovaries bilat surgically absent Extremities: no cyanosis or clubbing or edema Musculoskeletal: no obvious joint deformities Skin: no obvious rash or bruising Psychiatric: normal affect Neurologic: awake/alert, no focal deficits Assessment and Plan: Tg Gomez is a 52 y.o. female who presents for a well woman exam. - Incomplete emptying of bladder -have BM daily-increase fiber and fluids, lean forward or rock to help empty bladder, some medications can cause retention. Discussed option of pelvic floor P.T. Patient agrees, contact info provided. - Vasomotor symptoms-ERX estradiol 0.1 mg - WWE done/SBE encouraged. Pap smear obtained - thin-prep method, HPV test done. Pap recommendations reviewed. - Annual mammogram encouraged. Screening mammogram negative 11/18/21 at [facility]. New orderfor screening given. Brenda Rubio NP 10/02/2023 documented in this encounter Plan of Treatment Scheduled Orders Name Type Priority Associated Diagnoses Orde r Schedule Screening Mammogram Bilateral W Roberto Imaging Schedule Routine, Read Routine (OP Routine) Breast cancer screening by mammogram Expected: 09/30/2024 (Approximate), Expires: 11/30/2024 documented as of this encounter Goals Goal [...] REFLEX HPV 16,18/45 Routine 10/02/2023 1:44 PM GREASE WORKER Encounter for routine gynecological examination with Papanicolaou smear of cervix documented in this encounter Results * ThinPrep(R) Imaging Pap and HPV mRNA E6/E7 Reflex HPV 16,18/45 (10/02/2023 1:44 PM GREASE WORKER) CLINICAL INFORMATION: [facility] Comment:None given LMP [facility] Comment:NONE GIVEN Previous Pap [facility] Comment:2019 NORMAL W/+HRHPV NEG 16/18/45 Prev. Bx [facility] Comment:NONE GIVEN SOURCE: [facility] Comment:None given Pap, specimen adequacy [facility] Comment:SATISFACTORY FOR ALEXANDREA LUATION HPV interp [facility] Comment: Cytology Results: Negative for intraepithelial lesion or malignancy. COMMENTS [facility] Comment: This Pap test has been evaluated with computer assisted technology. Lay Out And Detail Drafter [facility] Comment: BES, CT(ASCP) CT screening location: [place] [address] [address] [place] [address] Comment [facility] Comment: EXPLANATORY NOTE: The Pap [...] High Risk E6/E7 Not Detected Not Detected [facility]: Methodology: Intensive Care Nurse-Mediated Amplification This assay detects E6/E7 viral messenger RNA (mRNA) from 14 high-risk HPV types (16,18,31,33,35,39,45,51,52,56,58,59,66,68). Cervical sources are required for HPV testing. If a vaginal source from a patient who has had a total hysterectomy with removal of cervix was submitted, please contact the testing laboratory for alternative testing options. For additional information, please refer to http://education.9SLIDES/faq/IBO520y2 (This link if provided for information/ educational purposes only.) Vaginal (Endocervical/va ginal) 10/02/2023 1:44 PM GREASE WORKER 10/03/2023 12:11 AM GREASE WORKER Brenda Rubio COLORECTAL SURGEON LAB CYTOLOGY ORDERABLES Final Result [facility] [address] [address] [place] [address] [facility] [address] [place] [address] documented in this encounter Visit Diagnoses Diagnosis Encounter for routine gynecological examination with Papanicolaou smear of cervix- Primary Vasomotor symptoms due to menopause Breast cancer screening by mammogram Urinary retention Unspecified retention of urine documented in this encounter Historical Medications * This list may reflect changes made after this encounter. Medication Sig Dispense Quantity Refills Last Filled Start D ate End Date Ozempic 1 mg/dose (4 mg/3 mL) pen injector injection 09/27/2023 added in this encounter Care Teams Bee Tender Relationship Specialty Start Date End Date Ashwin Hong MD PCP - General 12/17/19 Denys Urrutia MD [address] [facility] [address] [address] Surgeon Neurosurgery 01/15/18 Suzy Hopkins, PT Physical Therapist Physical Therapy 01/15/18 Aditi Mccormick SHADE MAKER Slab [employer]isher Physical Therapy 01/23/18 [place] [address] [place] [address] Consulting Physician Obstetrics and Gynecology 09/17/22 documented as of this encounter
--- OUTSIDE RECORDS SUMMARY | 2024-08-09 20:05 | XMS_ITS | Encounter Summary ---
Author Organization [facility] Healthcare Address [address] [place] [address] Care Team Providers Care Birth Certificate Clerk Name Role Phone Cesar Berry MD Primary Care Provider + [phone] Cruz Garza RN Unavailable Unavailabl e Marlin Stewart RN Unavailable Unavailab le Encounter Details Date Type Department Care Team (Late st Contact Info) Description 12/05/2017 10:55 AM CDT Anesthesia Event [facility] Operating Room [facility] [place] [id number] Vivek Daniel MD [address] [facility] [place] [address] Huong Quiros CRNA [address] [facility] [place] [place] [address] Anesthesia Record Procedure Summary Procedure Name Responsible Anesthesiologist Anesthesia Start Time Anesthesia Stop Time Left L4-5 Microdiscectomy (Left: Back) Vivek Daniel MD 12/05/17 1055 12/05/17 1335 Events Date Time Event Comment 12/05/2017 0935 1055 An Start 1100 In Room 1101 An Start Data 1107 An Induction The patient was reevaluated immediately before moderate or deep sedation use and before anesthesia induction. 1108 An Intubation 1110 Anesthesia Ready 1110 Patient Positioned Prone 1115 Quick Note Placed new IV d ue to first IV not running in prone position 1129 Proc Start 1130 Incision Start 1300 Proc Fin 1303 Quick Note Flipped supine to OR stretcher, head of bed up 45 degrees. 1323 An Extubation 1324 an stop data 1325 Out of Room 1330 Handoff to RN I completed my handoff to the receiving nurse during which we: 1. Patient identified 2. Responsible provider identified 3. Pertinent medical history reviewed 4. Procedure type and surgical course discussed 5. Intraoperative anesthetic management and any significant issues discussed 6. Expectations and concerns for postop period discussed 7. Questions solicited from receiving nurse 8. Patient disposition at the time of handoff: PACU 1335 An Stop 1500 Release from care Meds Name Total midazolam 2 mg fentaNYL 250 mcg lidocaine (CARDIAC) syringe 2 % 10 mL propofol 260 mg propofol 1,403 mg rocuronium 50 mg ondansetron 4 mg dexamethasone 4 mg/ml 10 mg prochlorperazine 5 mg Lactated Ringer's (LR) infusion 1,400 mL * Agents Name O2 Air Sevoflurane Desflurane Inspired Desflurane Inspired Sevoflurane * Blood No blood administrations on file. Lines, Drains, and Airways Type Details Placement Removal RETIRED Surgical Site 08/14/17; 0952; Gibson ck; 07/01/24 (Retired LDA, Removed/Completed by Epic with LDA Utility); 1213 (Retired LDA, Removed/Completed by Epic with LDA Utility) 08/14/17 0952 by Cruz Garza RN 07/01/24 1213 by Discharge Provider, Automatic RETIRED Surgical Site 08/27/17; 0954; Gibson ck; 07/01/24 (Retired LDA, Removed/Completed by Epic with LDA Utility); 1213 (Retired LDA, Removed/Completed by Epic with LDA Utility) 08/27/17 0954 by Cruz Garza RN 07/01/24 1213 by Discharge Provider, Automatic RETIRED Surgical Site 09/10/17; 0935; Gibson ck; 07/01/24 (Retired LDA, Removed/Completed by Epic with LDA Utility); 1213 (Retired LDA, Removed/Completed by Epic with LDA Utility) 09/10/17 0935 by Marlin Stewart RN 07/01/24 1213 by Discharge Provider, Automatic Peripheral IV Placement Date: 12/05/17; Placement Time: 1021; Catheter Size: 20 G; Orientation: Left; Location: Wrist; Site Prep: Chlorhexidine; Local Anes: Injectable; Inserted by: Elisha DOWNEY; Insertion Attempts: 3; Patient Tolerance: Tolerated well; Removal Date: 12/05/17; Removal Time: 1635; Removal Reason: Therapy completed 12/05/17 1021 by Tasha Campbell RN 12/05/17 1635 by Maddison Oliveros, SHAYAN ETT Placement Date: 12/05/17; Placement Time: 1108 (created via procedure documentation); Mask Ventilation: 1; Technique: Direct laryngoscopy; Type: ETT - single; Single Lumen Tube Size: 7 mm; Cuffed: Yes; Laryngoscope: Benja; Blade Size: 3; Location: Oral; Grade View: Grade I; Insertion Attempts: 1; Placement Verification: Auscultation, Capnometry; Removal Date: 12/05/17; Removal Time: 1323 12/05/17 1108 by Tasha Roger, DELVIN 12/05/17 1323 by Huong Quiros CRNA Peripheral IV Placement Date: 12/05/17; Placement Time: 1115; Catheter Size: 20 G; Orientation: Right; Location: Wrist; Site Prep: Alcohol; Local Anes: None; Technique: Anatomical landmarks; Inserted by: huong quiros; Insertion Attempts: 1; Removal Date: 12/05/17; Removal Time: 1745; Removal Reason: Therapy completed 12/05/17 1115 by Huong Quiros CRNA 12/05/17 1745 by Maddison Oliveros, SHAYAN RETIRED Surgical Site 12/05/17; 1141; Le ft; Back; 07/01/24 (Retired LDA, Removed/Completed by [facility] with LDA Utility); 1213 (Retired LDA, Removed/Completed by [facility] with LDA Utility) 12/05/17 1141 by Za Arteaga RN 07/01/24 1213 by Discharge Provider, Automatic documented in this encounter Social History Tobacco Use Types Packs/Day Years Used Date Smoking Tobacco: Never Smokeless Tobacco: Never Alcohol Use Standard Drinks/Week Comments Yes 0 (1 standard drink = 0.6 oz pur e alcohol) socially Comments No Sex and Gender Information Value Date Recorded Sex Assigned at Not on file 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 Gender Identity Not on file Sexual Orientation Not on file documented as of this encounter OR Notes * Anesthesia Postprocedure Evaluation - Vivek Daniel MD - 12/05/2017 3:00 PM CDT Patient: Tg Gomez Procedure Summary Date: 12/05/17 Room / Location: [facility] OPERATING ROOM 04 / [facility] OPERATING ROOM Anesthesia Start: 1055 Anesthesia Stop: 1335 Procedure: Left L4-5 Microdiscectomy (Left Back) Diagnosis: Herniated lumbar intervertebral disc (Herniated lumbar intervertebral disc [M51.26]) Surgeon: Denys Urrutia MD Responsible Provider: Vivek Daniel MD Anesthesia Type: general ASA Status: 3 Anesthesia Type: general Last vitals BP 120/74 (12/05/17 1450) Temp Pulse 71 (12/05/17 1450) Resp 9 (12/05/17 1450) SpO2 96 % (12/05/17 1450) Anesthesia Post Evaluation Patient location during evaluation: PACU Level of consciousness: follows simple commands and fully awake Pain management: adequate Airway patency: adequate Anesthetic complications: no Cardiovascular status: acceptable and hemodynamically stable Respiratory status: acceptable Hydration status: acceptable Pt is: normothermic Nausea/Vomiting status: none * Anesthesia Procedure Notes - Huong Quiros CRNA - 12/05/2017 12:23 PM CDTAssociated Order(s): ANESTHESIA INTUBATION Airway Patient location: OR Urgency: elective Date/time: 12/05/2017 11:08 AM Indications for airway management: anesthesia Difficult airway: no Staff: Placed by: HIGH SCALER: HUONG QUIROS Emergent airway documentation: Risks and benefits discussed: yes Consent obtained: yes Consent given by: patient Airway prep: Preoxygenated: yes Patient position: sniffing MILS maintained throughout: yes Mask difficulty assessment: 1 - vent by mask Spontaneous ventilation during airway: absent Sedation level during airway: GA Final airway details: Final airway type: endotracheal airway Tube type: ETT ETT size: 7.0 mm Cuffed: yes Technique used for successful ETT placement: direct laryngoscopy Devices/Methods used in placement: intubating stylet Insertion site: oral Blade type: Benja Blade size: 3 Cormack-Lehane (direct): grade I - full view of glottis Cuff inflated with: air Placement verified by: auscultation and CO2 detection Airway secured with: silk tape Number of attempts: 1 * Anesthesia Preprocedure Evaluation - Favian Norris MD - 12/03/2017 1:58 PM CDT Anesthesia Evaluation Tg Gomez is a 47 y.o. female is here to get presurgical evaluation prior to Left L4-5 Microdiscectomy by Denys Urrutia MD HISTORY Past Medical History Information obtained from: patient. Neurological Neuro/Psych system: negative Cardiovascular + Hypertension Respiratory Respiratory system: negative Hepatic / Heme Hepatic/Heme system: negative Gastrointestinal + GERD (presently asymptomatic) - PRN medication use only. Renal / Renal/ system: negative Musculoskeletal/Pain + Chronic pain (L>R LE radiculopathy) - back pain. + Chronic opioid use - daily. + Headaches - migraine headaches. Endocrine / Other + Obesity (BMI >30)- morbid obesity (BMI>40). Functional Capacity Functional capacity: 4-6 METs Day of Surgery assessments + Possibility of assessed - ruled out by patient's provided history. Review of Systems Pertinent positives: + chronic pain (L>R LE radiculopathy) Pertinent negatives: productive cough; SOB; fever; palpitations; pedal edema; muscle weakness; numbness/tingling; chipped/loose teeth; abdominal pain; no unexpected weight change Past Medical History: Diagnosis Date ??? Arthritis ??? Depression ??? Dysrhythmia History of ablation for cardiac ectopy of PVCs and PACs but it was unsuccessful. ??? Gastroesophageal reflux disease ??? Hypertension 11/03/2016 Hypertension ??? Migraine Ocular ??? Morbid obesity with BMI of 40.0-44.9, adult ([facility]) BMI 40.9 ??? PONV (postoperative nausea and vomiting) ??? Prolactinoma (CMS/HCC) pituitary tumor- used to see Dr Reddy at [facility], but PCP monitor levels now Past Surgical History: Procedure Laterality Date ??? ANKLE SURGERY ??? CARDIAC ELECTROPHYSIOLOGY STUDY AND ABLATION ??? SECTION x2 ??? GALLBLADDER SURGERY gall bladder and hernia repair ??? HERNIA REPAIR ??? HYSTERECTOMY 2012 complete ??? LYMPH NODE DISSECTION ??? OOPHERECTOMY ??? OVARY SURGERY Right 2009 ??? SINUS SURGERY x2 OB History No data available Allergies Allergen Reactions ??? Metoclopramide Nausea only Reaction: Unknown, , ??? Penicillins Other (See comments) and Shortness of breath Reaction: Unknown, , ??? Levofloxacin ??? Morphine Itching Reaction: Unknown, ??? Percocet [Oxycodone-Acetaminophen] Vomiting HOME MEDICATIONS : Current Outpatient Prescriptions: ??? acetaminophen (TYLENOL) 500 mg tablet ??? dilTIAZem XR (dilTIAZem CD) 180 mg 24 hr capsule ??? estradiol (CLIMARA) 0.05 mg/24 hr ??? HYDROcodone-acetaminophen (NORCO) 10-325 mg per tablet ??? loratadine (CLARITIN) 10 mg tablet ??? losartan-hydrochlorothiazide (HYZAAR) 100-25 mg per tablet ??? sertraline (ZOLOFT) 100 mg tablet ??? turmeric root extract 500 mg capsule Social History Smoking Status ??? Never Smoker Smokeless Tobacco ??? Never Used Alcohol Use ??? Yes Comment: socially Drug Use No Family History Problem Relation Age of Onset ??? Cancer Mother ??? Rheum arthritis Mother PAT Physical Exam Airway Exam: Mallampati: see comments Cervical ROM: FROM TM distance: 3 Jaw ROM: full (NC/AT) Cardiovascular Exam: Rate: regular Rhythm: regular Murmur - Peripheral edema - Pulmonary Exam: LCTA, bilat EENT Exam: trachea midline (No Bruits bilaterally) Dental Exam: Appears intact Abdominal exam: Abdomen is soft. Bowel sounds are present. Current state: Patient's current state is cooperative. Additional comments: Patient is a 47 y.o. female with no clinical risk factors per ACC/AHA guidelines and moderate functional capacity for a low risk procedure. Patient was having frequent PVCs and PACs that caused her to have a cardiac ablation, but it was unsuccessful. Mostly controlled with diltiazem. Her recent EKG from 11/28/17 showed sinus rhythm. Left axis deviation. Poor R-wave progression. Nonspecific intraventricular conduction delay. Moderate voltage criteria for LVH. Consider normal variant.- no ectopy noted. A second provider was offered during exam- patient declined. Patient instructions reviewed and given to patient, questions answered. SEC evaluation complete. Vitals: 12/03/17 1221 BP: 105/69 Pulse: 87 SpO2: 97% Hgb A1C: 12/03/2017: 5.5 % BMP Glucose: 12/03/2017: 122 mg/dL Calcium: 12/03/2017: 9.9 mg/dL Sodium: 12/03/2017: 141 mmol/L Potassium: 12/03/2017: 3.2 mmol/L* CO2: 12/03/2017: 29 mmol/L Chloride: 12/03/2017: 100 mmol/L BUN: 12/03/2017: 9 mg/dL Creatinine: 12/03/2017: 0.72 mg/dL STOP-Bang Total Score: 2 Gary index score: 100 EKG 11/28/17: SINUS RHYTHM LEFT AXIS DEVIATION LOW QRS VOLTAGE IN PRECORDIAL LEADS Poor R-wave progression Nonspecific intraventricular conduction delay MODERATE VOLTAGE criteria forLVH DOS Physical Exam Medical history, medications, and allergies reviewed. Attestation: With today's edits, I endorse the findings of the anesthesia pre-evaluation assessment dated: 12/05/2017. Airway Exam: Mallampati: II Cervical ROM: FROM TM distance: normal Jaw ROM: full Cardiovascular Exam: Rate: regular Rhythm: regular Pulmonary Exam: LCTA, bilat Anesthesia Plan ASA 3 Planned anesthesia: General Team communication plan: oral ET tube Induction: Induction: intravenous. Informed Consent: Anesthesia plan and risks discussed with patient. Consent and Attending signature: I and/or my designee have discussed the anesthesia plan, benefits, possible alternatives, parental presence at time of induction (if indicated), and clinically relevant risks that may include dental injury, unintentional awareness, and/or other complications. The patient and/or parent/legal guardian understand, and agree to proceed. All questions answered. documented in this encounter Miscellaneous Notes * Addendum Note - Vivek Daniel MD - 12/05/2017 3:01 PM CDT Addendum created 12/05/17 1501 by Vivek Daniel MD Order list changed, Order sets accessed documented in this encounter Plan of Treatment Not on file documented as of this encounter Goals Goal Patient Goal Type Associated Problems Recent Progress Patient-Stated? Author [facility] On track( 018 11:29 AM CDT) Cruz Irizarry, SHAYAN Note: Patient will describe how unrelieved pain will be managed. documented as of this encounter Procedures Procedure Name Priority Date/Time Associated Diagnosis Comments MS AN ELECTIVE ENDOTRACHEAL AIRWAY Routine 12/05/2017 12:23 PM CDT Procedure Note - Huong Quiros CRNA - 12/05/2017 12:23 PM CDTThis note is in progress. Airway Patient location: OR Urgency: elective Date/time: 12/05/2017 11:08 AM Indications for airway management: anesthesia Difficult airway: no Staff: Placed by: HIGH SCALER: HUONG QUIROS Emergent airway documentation: Risks and benefits discussed: yes Consent obtained: yes Consent given by: patient Airway prep: Preoxygenated: yes Patient position: sniffing MILS maintained throughout: yes Mask difficulty assessment: 1 - vent by mask Spontaneous ventilation during airway: absent Sedation level during airway: GA Final airway details: Final airway type: endotracheal airway Tube type: ETT ETT size: 7.0 mm Cuffed: yes Technique used for successful ETT placement: direct laryngoscopy Devices/Methods used in placement: intubating stylet Insertion site: oral Blade type: Benja Blade size: 3 Cormack-Lehane (direct): grade I - full view of glottis Cuff inflated with: air Placement verified by: auscultation and CO2 detection Airway secured with: silk tape Number of attempts: 1 documented in this encounter Visit Diagnoses Not on filedocumented in this encounter Administered Medications Inactive Administered Medications - up to 3 most recent administrations Medication Order MAR Action Action Date Dose Rate Site dexamethasone (DECADRON) injection intravenous, As needed, Starting on Sun12/05/17 at 1112, Anesthesia Intra-op Given 12/05/2017 11:12 AM CDT 10 mg fentaNYL (SUBLIMAZE) preservative free injection intravenous, As needed, Starting on Sun12/05/17 at 1107, Anesthesia Intra-op Given 12/05/2017 12:53 PM CDT 50 mcg Given 12/05/2017 11:28 AM CDT 50 mcg Given 12/05/2017 11:15 AM CDT 50 mcg lidocaine (cardiac) (XYLOCAINE) preservative free injection intravenous, As needed, Starting on Sun12/05/17 at 1107, Anesthesia Intra-op, Indications: Ventricular ArrhythmiasIndications:Ventricular Arrhythmias Given 12/05/2017 1:02 PM CDT 5 mL Given 12/05/2017 11:07 AM CDT 5 mL midazolam (VERSED) preservative free injection intravenous, As needed, Starting on Sun12/05/17 at 1100, Anesthesia Intra-op Given 12/05/2017 11:00 AM CDT 2 mg ondansetron (ZOFRAN) injection intravenous, As needed, nausea, vomiting, Starting on Sun12/05/17 at 1307, Anesthesia Intra-op Given 12/05/2017 1:07 PM CDT 4 mg prochlorperazine (COMPAZINE) injection As needed, nausea, vomiting, Starting on Sun12/05/17 at 1115, Anesthesia Intra-op Given 12/05/2017 11:15 AM CDT 5 mg propofol (DIPRIVAN) IV Continuous PRN, Starting on Sun12/05/17 at 1120, Anesthesia Intra-op Rate/Dose Change 12/05/2017 12:44 PM CDT 50 mcg/kg/min 34.5 mL/hr Rate/Dose Change 12/05/2017 12:40 PM CDT 100 mcg/kg/min 69 mL/hr Rate/Dose Change 12/05/2017 11:29 AM CDT 150 mcg/kg/min 10 3.5 mL/hr propofol (DIPRIVAN) IV intravenous, As needed, Starting on Sun12/05/17 at 1107, Anesthesia Intra-op Given 12/05/2017 1:02 PM CDT 20 mg Given 12/05/2017 12:53 PM CDT 20 mg Given 12/05/2017 11:15 AM CDT 20 mg rocuronium (ZEMURON) injection intravenous, As needed, Starting on Sun12/05/17 at 1107, Anesthesia Intra-op Given 12/05/2017 11:07 AM CDT 50 mg documented in this encounter Orders Procedures Count Last Ordered Date First Orde red Date ANESTHESIA INTUBATION 1 12/05/2017 documented in this encounter Care Teams Birth Certificate Clerk Relationship Specialty Start Date End Date Cesar Berry MD PCP - General 08/07/17 12/16/19 Cruz Garza, RN Registered Nurse 08/13/17 06/13/18 Marlin Stewart, SHAYAN Registered Nurse Pain Management 10/23/17 8 documented as of this encounter
--- OUTSIDE RECORDS SUMMARY | 2024-08-09 20:05 | XMS_ITS | Encounter Summary ---
Author Organization [facility] Healthcare Address [address] [place] [address] Care Team Providers Care Grey Tender Name Role Phone Cesar Berry MD Primary Care Provider [phone] Cruz Garza RN Unavailable UnavailMarlin Mantilla RN Unavailable Unavailab Denys Ellsworth MD Unavailable [phone] Suzy Hpokins PT Unavailable Unavailable Aditi Mccormick PTA Unavailable Unavailable Reason for Visit * Reason Comments PT Treatment Encounter Details Date Type Department Care Team (Late st Contact Info) Description 02/11/2018 1:00 PM CDT Therapy [facility] Physical Therapy [address] [place] [id number] Suzy Hopkins, PT Other intervertebral disc displacement, lumbar region (Primary Dx) Social History Tobacco Use Types Packs/Day Years Used Date Smoking Tobacco: Never Smokeless Tobacco: Never Alcohol Use Standard Drinks/Week Comments Yes 0 (1 standard drink = 0.6 oz pur e alcohol) socially Comments No Sex and Gender Information Value Date Recorded Sex Assigned at Not on file 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 She got in to see her surgeon the following week and was scheduled to get an MRI which she had this past week. Pt states she was in a lot of pain after the MRI due to testing position. The results were negative other than increased fluid. She statesthe doctor hopes the fluid will resolve itself. She states the doctor told her if she is still having nerve pain in a couple of weeks, then they will need to do some other testing. Pt states the doctor told her to resume PT this week. She currently c/o some burning and numbness in her L leg mainly along the outside of her thigh. She also c/o numbness along the bottom of her foot. She also states her tailbone has been hurting recently. She states she has not been sleeping well either. Pain: 310 tailbone and into L thigh. Objective: Added rockerboard stability to program. Reviewed HEP due to pt stopping these recently.Pt performs more ROM and stabilization exercises with min/no c/o increased pain. Treatment Provided: Nustep L4 X 5 min Rockerboard stability - static X 1 min each direction HEP review X 10 each LTR x 10 slowly Tato abs w/march using green tband x 10 Tato abs w/BKFO using green tband x 10 each LE Manual hamstring and piriformis stretch x 4 B Scar massage to lumbar surgical incision??x 8 min. Ice pack with E-stim to low back x 15 min. ? HEP: -Glut sets (supine with knees bent) -Supine pelvic tilts -Supine clam shells with green Tband with TA contraction -Walking outside the home (progression) Assessment: Pt tolerated treatment well stating her L LE symptoms were better with supine exercises. She will benefit from continued PT to address ongoing goals. Plan: Continue PT as per plan of care progressing therapeutic exercises as pt tolerates. Start Time: 1259 End Time: 1353 Suzy Hopkins PT documented in this encounter Plan of Treatment Not on file documented as of this encounter Goals Goal Patient Goal Type Associated Problems Recent Progress Patient-Stated? Author [facility] On track( 018 11:29 AM CDT) No Cruz Garza, RN Note: Patient will describe how unrelieved pain will be managed. documented as of this encounter Visit Diagnoses Diagnosis Other intervertebral disc displacement, lumbar region- Primary documented in this encounter Care Teams Grey Tender Relationship Specialty Start Date End Date Cesar Berry MD PCP - General 08/07/17 12/16/19 Cruz Garza, RN Registered Nurse 08/13/17 06/13/18 Marlin Stewart, SHAYAN Registered Nurse Pain Management 10/23/17 06/13/18 Denys Urrutia MD [address] [facility] [address] [address] Surgeon Neurosurgery 01/15/18 Suzy Hopkins, PT Physical Therapist Physical Therapy 01/15/18 Aditi Mccormick, INDUSTRIAL PHOTOGRAPHER Equipment Operator Warehouse Physical Therapy 01/23/18 documented as of this encounter
--- OUTSIDE RECORDS SUMMARY | 2024-08-09 20:05 | XMS_ITS | Encounter Summary ---
Author Organization [facility] Healthcare Address [address] [place] [address] Care Team Providers Care Inspector Shells Name Role Phone Cesar Berry MD Primary Care Provider [phone] Cruz Garza RN Unavailable UnavailMarlin Mantilla RN Unavailable Unavailab Denys Ellsworth MD Unavailable [phone] Suzy Hopkins PT Unavailable Unavailable Aditi Mccormick PTA Unavailable Unavailable Reason for Visit * Reason Comments PT Treatment Encounter Details Date Type Department Care Team (Late st Contact Info) Description 02/13/2018 8:15 AM CDT Therapy [facility] Physical Therapy [address] [place] [id number] Aditi Mccormick, LIZABETH Other intervertebral disc displacement, lumbar region (Primary Dx) Social History Tobacco Use Types Packs/Day Years Used Date Smoking Tobacco: Never Smokeless Tobacco: Never Alcohol Use Standard Drinks/Week Comments Yes 0 (1 standard drink = 0.6 oz pur e alcohol) socially Comments No Sex and Gender Information Value Date Recorded Sex Assigned at Not on file 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 Pt states she feels the STM and electrical stim is what caused an increase in her pain after last treatment. Pain: 2/10 low back to tailbone Objective:Increased HEP reps, will hold STM and electrical stim today (see subjective information). Treatment Provided: Nustep L6 X 5 min Rockerboard stability - static fwd/back and R/L X 1 min each direction ?? HEP review X 15 each LTR x 10 slowly Tato abs w/september using green tband x 15 Tato abs w/BKFO using green tband x 15 ea LE ?? Manual hamstring and piriformis stretch x 4 B ?? Scar massage to lumbar surgical incision??x 8 min.* Ice pack to low back x 10 min. ? HEP: -Glut sets (supine with knees bent) x 15 -Supine pelvic tilts x 15 -Supine clam shells with green Tband with TA contraction x 15 -Walking outside the home (progression) ? *=not completed today. Assessment: Goals are ongoing. Pt tolerated treatment well. STG 1:: Pt will be independent and compliant with HEP in 2 weeks of PT. Goal status: New STG 2:: Pt will have minimal/moderate tenderness and pain to palpation in the low back in order to improve overall pain levels throughout the day in 2-4 weeks of PT. Goal status: New STG 3:: Pt will achieve B hamstring flexibility = -10 deg from terminal extension in the 90/90 testin order to improve overall mobility without difficulty in 2-4 weeks. 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 Goal status: New LTG 1:: Pt will have minimal/no tenderness and pain to palpation in the low back in order to improve overall pain levels throughout the day by D/C. 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 Goal status: New LTG 3:: Pt will achieve strength = 4-/5 for B hip extension and 4/5 for lower abdominals in order to improve lumbar/hip stability and pain with ambulation and mobility by D/C. 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 Goal status: New ?? Plan: Continue to see pt per POC Start Time: 810 End Time:905 Aditi Mccormick PTA documented in this encounter Plan of Treatment [...] Primary documented in this encounter Care Teams Inspector Shells Relationship Specialty Start Date End Date Cesar Berry MD PCP - General 08/07/17 12/16/19 Cruz Garza, RN Registered Nurse 08/13/17 06/13/18 Marlin Stewart, RN Registered Nurse Pain Management 10/23/17 06/13/18 Denys Urrutia MD [address] [facility] [address] [address] Surgeon Neurosurgery 01/15/18 Suzy Hopkins, PT Physical Therapist Physical Therapy 01/15/18 Aditi Mccormick ASPHALT WORKER Medical Recruiter Physical Therapy 01/23/18 documented as of this encounter
--- OUTSIDE RECORDS SUMMARY | 2024-08-09 20:05 | XMS_ITS | Encounter Summary ---
Author Organization [facility] Healthcare Address [address] [place] [address] Care Team Providers Care Cordage Sales Representative Name Role Phone Cesar Berry MD Primary Care Provider [phone] Cruz Garza RN Unavailable UnavailMarlin Mantilla RN Unavailable Unavailab Denys Ellsworth MD Unavailable [phone] Suzy Hopkins PT Unavailable Unavailable Aditi Mccormick PTA Unavailable Unavailable Reason for Visit * Reason Comments PT Treatment Encounter Details Date Type Department Care Team (Late st Contact Info) Description 02/15/2018 10:45 AM CDT Therapy [facility] Physical Therapy [address] [place] [address] Aditi Mccormick, LIZABETH Other intervertebral disc displacement, lumbar region (Primary Dx) Social History Tobacco Use Types Packs/Day Years Used Date Smoking Tobacco: Never Smokeless Tobacco: Never Alcohol Use Standard Drinks/Week Comments Yes 0 (1 standard drink = 0.6 oz pur e alcohol) socially Comments No Sex and Gender Information Value Date Recorded Sex Assigned at Not on file 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 Pt states the new HEP is going well. Pain: 08/08 low back/tailbone Objective: Added bridging and kinesiotape to L piriformis today. Treatment Provided: Nustep L6 X??7 min Rockerboard stability - static fwd/back and R/L X 2 min each direction ?? HEP review X 15 each LTR x 10 slowly Tato abs w/march using green tband??x 15 Tato abs w/BKFO using green tband??x 15 ea LE Tato abs w/clam shell w/tband green x 15 Bridging x 15 ?? Manual hamstring and piriformis stretch x 4 B ?? kinesiotape L back and piriformis Ice pack to??low back x 10??min. ? HEP: -Glut sets (supine with knees bent) x 15 -Supine pelvic tilts x 15 -Supine clam shells with green Tband with TA contraction x 15 -Walking outside the home (progression) ? *=not completed today. ?? Scar massage to lumbar surgical incision??x 8??min.* Assessment: Goals are ongoing. Pt tolerated treatment well. Plan: Continue to see pt per POC Start Time: 1045 End Time:1145 Aditi Mccormick PTA documented in this encounter [...] Primary documented in this encounter Care Teams Cordage Sales Representative Relationship Specialty Start Date End Date Cesar Berry MD PCP - General 08/07/17 12/16/19 Cruz Garza, RN Registered Nurse 08/13/17 06/13/18 Marlin Stewart, SHAYAN Registered Nurse Pain Management 10/23/17 06/13/18 Denys Urrutia MD [address] [facility] [address] [place] [address] Surgeon Neurosurgery 01/15/18 Suzy Hopkins, PT Physical Therapist Physical Therapy 01/15/18 Aditi Mccormick, BAKER SECOND Multi Disciplined Language Analyst Physical Therapy 01/23/18 documented as of this encounter
--- OUTSIDE RECORDS SUMMARY | 2024-08-09 20:05 | XMS_ITS | Encounter Summary ---
Author Organization [facility] Healthcare Address [address] [place] [address] Care Team Providers Care Phosphoric Acid Supervisor Name Role Phone Cesar Berry MD Primary Care Provider [phone] Cruz Garza RN Unavailable Unavailabl Marlin Mcneil RN Unavailable Unavailab Denys Ellsworth MD Unavailable [phone] Suzy Hopkins PT Unavailable Unavailable Aditi Mccormick PTA Unavailable Unavailable Reason for Visit * Reason Comments PT Treatment Encounter Details Date Type Department Care Team (Late st Contact Info) Description 01/23/2018 1:45 PM CDT Therapy [facility] Physical Therapy [address] [place] [id number] Aditi Mccormick, LIZABETH Other intervertebral disc displacement, lumbar region (Primary Dx) Social History Tobacco Use Types Packs/Day Years Used Date Smoking Tobacco: Never Smokeless Tobacco: Never Alcohol Use Standard Drinks/Week Comments Yes 0 (1 standard drink = 0.6 oz pur e alcohol) socially Comments No Sex and Gender Information Value Date Recorded Sex Assigned at Not on file 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 Pain: 3/10 low back B Objective: Added Nustep, manual stretching, core exercises. Treatment Provided: NO LIFTING > 15-20# Nustep L5 5 min Manual hamstring and piriformis stretch x 4 B LTR x 10 w/hold Tato abs w/march x 10 Tato abs w/BKFO x 10 GS Bridging Scar massage to lumbar surgical incision x 5 min. Ice pack on low back x 10 min. HEP instruction: -Glut sets (supine with knees bent) -Supine pelvic tilts -Supine clam shells with green Tband with TA contraction -Walking outside the home (progression) Assessment: Goals are ongoing. Pt tolerated treatment well. STG 1:: Pt will be independent and compliant with HEP in 2 weeks of PT. STG 2:: Pt will have minimal/moderate tenderness and pain to palpation in the low back in order to improve overall pain levels throughout the day in 2-4 weeks of PT. STG 3:: Pt will achieve B hamstring flexibility = -10 deg from terminal extension in the 90/90 testin order to improve overall mobility without difficulty in 2-4 weeks. 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 LTG 1:: Pt will have minimal/no tenderness and pain to palpation in the low back in order to improve overall pain levels throughout the day by D/C. 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 LTG 3:: Pt will achieve strength = 4-/5 for B hip extension and 4/5 for lower abdominals in order to improve lumbar/hip stability and pain with ambulation and mobility by D/C. 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 ?? Plan:Continue to see pt per POC Start Time: 1345 End Time:1445 Aditi Mccormick PTA documented in this encounter [...] Primary documented in this encounter Care Teams Phosphoric Acid Supervisor Relationship Specialty Start Date End Date Cesar Berry MD PCP - General 08/07/17 12/16/19 Cruz Garza, RN Registered Nurse 08/13/17 06/13/18 Marlin Stewart, SHAYAN Registered Nurse Pain Management 10/23/17 06/13/18 Denys Urrutia MD [address] [facility] [address] [place] [address] Surgeon Neurosurgery 01/15/18 Suzy Hopkins, PT Physical Therapist Physical Therapy 01/15/18 Aditi Mccormick, DEBEADER Service Sprinkler Helper Physical Therapy 01/23/18 documented as of this encounter
--- OUTSIDE RECORDS SUMMARY | 2024-08-09 20:05 | XMS_ITS | Encounter Summary ---
Author Organization [facility] Healthcare Address [address] [place] [address] Care Team Providers Care Orange Picking Supervisor Name Role Phone Cesar Berry MD Primary Care Provider [phone] Cruz Garza RN Unavailable UnavailMarlin Mantilla RN Unavailable Unavailab Denys Ellsworth MD Unavailable [phone] Suzy Hopkins PT Unavailable Unavailable Aditi Mccormick PTA Unavailable Unavailable Reason for Referral * Diagnostic Imaging (Routine) - Closed Specialty Diagnoses / Procedures Referred By Contac t Referred To Contact Diagnoses Musculoskeletal pain Procedures XR Hand Right 3 or More Views Shannan Rivera MD Phone: tel: fax: [facility] [address] [place] [address] Referral ID Status Reason Start Date Expiration Date Visits Re quested Visits Authorized [id number] Closed 04/16/2018 10/26/2019 1 1 * Diagnostic Imaging (Routine) - Closed Specialty Diagnoses / Procedures Referred By Contac t Referred To Contact Diagnoses Musculoskeletal pain Procedures XR Hand Left 3 or More Views Shannan Rivera MD Phone: tel: fax: [facility] [address] [place] [address] Referral ID Status Reason Start Date Expiration Date Visits Re quested Visits Authorized [id number] Closed 04/16/2018 10/26/2019 1 1 Reason for Visit * Diagnostic Imaging (Routine) - Closed Specialty Diagnoses / Procedures Referred By Contsandeep t Referred To Contact Diagnoses Musculoskeletal pain Procedures XR Hand Left 3 or More Views Shannan Rivera MD Phone: tel: fax: [facility] [address] [place] [address] Referral ID Status Reason Start Date Expiration Date Visits Re quested Visits Authorized [id number] Closed 04/16/2018 10/26/2019 1 1 Encounter Details Date Type Department Care Team (Latest Contact Info) Description 04/16/2018 12:15 PM CDT - 04/16/2018 11:59 PM CDT Hospital Encounter [facility] - Imaging [address] [place] [address] Shannan Rivera MD [address] [facility] [address] [place] [address] Musculoskeletal pain Discharge Disposition: Discharge to home or self care Social History Tobacco Use Types Packs/Day Years Used Date Smoking Tobacco: Never Smokeless Tobacco: Never Alcohol Use Standard Drinks/Week Comments Yes 0 (1 standard drink = 0.6 oz pur e alcohol) socially Comments No Sex and Gender Information Value Date Recorded Sex Assigned at Not on file 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 Sunday and 1 losartan-hydroch lorothiazide (HYZAAR) 100-25 mg per tablet Take 1 tablet by mouth early childhood aide classroom before breakfast. 2 meloxicam (MOBIC) 7.5 mg tablet Take 1 tablet (7.5 mg total) by mouth daily. 30 tablet 11 04/16/2018 8 turmeric root extract 500 mg capsule Take 1 capsule by mouth early childhood aide classroom before breakfast. 1 documented as of this encounter Discharge Disposition [...] Priority Date/Time Associated Diagnosis Comments XR HAND LEFT 3 OR MORE VIEWS Schedule Routine, Read Routine (OP Routine) 04/16/2018 12:54 PM CDT Musculoskeletal pain XR HAND RIGHT 3 OR MORE VIEWS Schedule Routine, Read Routine (OP Routine) 04/16/2018 12:54 PM CDT Musculoskeletal pain documented in this encounter Results * XR Hand Left 3 or More Views (04/16/2018 12:54 PM CDT) Anatomical Region Laterality Modality Upper Extremities, Hand Left Computed Radiography 04/16/2018 1:06 PM CDT Impressions 04/16/2018 1:06 PM CDT Mild arthritic changes. Electronically signed by: Silverio Loja M.D. Narrative 04/16/2018 1:06 PM CDT EXAM: ??LEFT HAND 3 VIEWS HISTORY: ??Left hand pain. COMPARISON: ??None. FINDINGS: Three views of the left hand were performed. There is no evidence of fracture or dislocation. ??There are no erosive or destructive changes. Mild generalized arthritic changes present. ?? No soft tissue abnormality is identified. Procedure Note Silverio Loja MD - 04/16/2018 EXAM: LEFT HAND 3 VIEWS HISTORY: Left hand pain. COMPARISON: None. FINDINGS: Three views of the left hand were performed. There is no evidence of fracture or dislocation. There are no erosive or destructive changes. Mild generalized arthritic changes present. No soft tissue abnormality is identified. IMPRESSION: Mild arthritic changes. Electronically signed by: Silverio Loja M.D. Shannan Rivera MD IMG XR PROCEDURES Fin al Result * XR Hand Right 3 or More Views (04/16/2018 12:54 PM CDT) Anatomical Region Laterality Modality Upper Extremities, Hand Right Computed Radiography 04/16/2018 1:05 PM CDT Impressions 04/16/2018 1:05 PM CDT No acute findings. Electronically signed by: Silverio Loja M.D. Narrative 04/16/2018 1:05 PM CDT EXAM: ??RIGHT HAND 3 VIEWS HISTORY: ??Hand pain. COMPARISON: ??None. FINDINGS: Three views of the right hand were performed. There is no evidence of fracture or dislocation. ??There are no erosive or destructive changes. Minor generalized arthritic changes. ??Probable bone island in the distal phalanx of the 3rd finger. ?? No soft tissue abnormality is identified. ?? Procedure Note Silverio Loja MD - 04/16/2018 EXAM: RIGHT HAND 3 VIEWS HISTORY: Hand pain. COMPARISON: None. FINDINGS: Three views of the right hand were performed. There is no evidence of fracture or dislocation. There are no erosive or destructive changes. Minor generalized arthritic changes. Probable bone island in the distal phalanx of the 3rd finger. No soft tissue abnormality is identified. IMPRESSION: No acute findings. Electronically signed by: Silverio Loja M.D. Shannan Rivera MD IMG XR PROCEDURES Fin al Result documented in this encounter Visit Diagnoses Diagnosis Musculoskeletal pain Unspecified myalgia and myositis documented in this encounter Care Teams Orange Picking Supervisor Relationship Specialty Start Date End Date Cesar Berry MD PCP - General 08/07/17 12/16/19 Cruz Garza, RN Registered Nurse 08/13/17 06/13/18 Marlin Stewart, SHAYAN Registered Nurse Pain Management 10/23/17 06/13/18 Denys Urrutia MD [address] [facility] [address] [place] [address] Surgeon Neurosurgery 01/15/18 Suzy Hopkins, PT Physical Therapist Physical Therapy 01/15/18 Aditi Mccormick, FERTILIZING MACHINE OPERATOR Public Information Relations Manager Physical Therapy 01/23/18 documented as of this encounter
--- OUTSIDE RECORDS SUMMARY | 2024-08-09 20:05 | XMS_ITS | Encounter Summary ---
Author Organization [facility] Healthcare Address [address] [place] [address] Care Team Providers Care Boom Supervisor Name Role Phone Cesar Berry MD Primary Care Provider [phone] Cruz Garza RN Unavailable UnavailMarlin Mantilla RN Unavailable Unavailab Denys Ellsworth MD Unavailable [phone] Suzy Hopkins PT Unavailable Unavailable Aditi Mccormick PTA Unavailable Unavailable Encounter Details Date Type Department Care Team (Late st Contact Info) Description 04/16/2018 2:40 PM CDT Lab [facility] [id number] [place] [address] Social History Tobacco Use Types Packs/Day Years Used Date Smoking Tobacco: Never Smokeless Tobacco: Never Alcohol Use Standard Drinks/Week Comments Yes 0 (1 standard drink = 0.6 oz pur e alcohol) socially Comments No Sex and Gender Information Value Date Recorded Sex Assigned at Not on file 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
--- OUTSIDE RECORDS SUMMARY | 2024-08-09 20:05 | XMS_ITS | Encounter Summary ---
Author Organization [facility] Healthcare Address [address] [place] [address] Care Team Providers Care Office Technologist Name Role Phone Cesar Berry MD Primary Care Provider [phone] Cruz Garza RN Unavailable UnavailMarlin Mantilla RN Unavailable Unavailab Denys Ellsworth MD Unavailable [phone] Suzy Hopkins PT Unavailable Unavailable Aditi Mccormick PTA Unavailable Unavailable Reason for Visit * Reason Comments PT Treatment Encounter Details Date Type Department Care Team (Late st Contact Info) Description 03/01/2018 1:45 PM CDT Therapy [facility] Physical Therapy [address] [place] [id number] Aditi Mccormick, LIZABETH Other intervertebral disc displacement, lumbar region (Primary Dx) Social History Tobacco Use Types Packs/Day Years Used Date Smoking Tobacco: Never Smokeless Tobacco: Never Alcohol Use Standard Drinks/Week Comments Yes 0 (1 standard drink = 0.6 oz pur e alcohol) socially Comments No Sex and Gender Information Value Date Recorded Sex Assigned at Not on file 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 Pain: 4/10 B low back Objective: Added Cybex Hip machine. Treatment Provided: Nustep L6??X??7??min Rockerboard stability - static fwd/back and R/L ??X 2??min each direction* Leg press B LE @ 100#, x 20; B ankles @ 100# X 20 Cybex Hip 2 plates, flex and ABD x 10 ea B ?? Sidestepping with green tband, 10 ft X 2* Monster walk 20' x 1w/tband green ??* Seated B hip IR with green tband X 15* Retro Monster walks 20' x 1 w/tband green*?? LTR x 15??slowly PPT x 15 Tato abs w/march using green tband??x 15 * Tato abs w/BKFO using green tband??x 15 ea LE* Tato abs w/clam shell w/tband green x 15* Bridging x 15 * ?? Manual hamstring and piriformis stretch and ITB x 5 B Nerve glide on L LE STM B Low back to buttock (piriformis).?? kinesiotape B lumbar paraspinal to piriformis PUS in S/L x 8 min L low back and L hip (at point of pain)* Ice pack ??to??low back and L buttock x 10??min. ? HEP: -Glut sets (supine with knees bent) -Supine pelvic tilts -Supine clam shells and marching??with green Tband with TA contraction - Supine BKFO's with green tband with TA contraction - Bridging with band around knees - Walking outside the home (progression) ?? Assessment: Goals are ongoing. Pt tolerated treatment well. Plan:Continue to see pt per POC Start Time: 1345 End Time:1440 Aditi Mccormick PTA documented in this encounter Plan of Treatment Not on file documented as of this encounter Goals Goal Patient Goal Type Associated Problems Recent Progress Patient-Stated? Author [facility]JEL[facility] On track( 018 11:29 AM CDT) No Cruz Garza, RN Note: Patient will describe how unrelieved pain will be managed. documented as of this encounter Visit Diagnoses Diagnosis Other intervertebral disc displacement, lumbar region- Primary documented in this encounter Care Teams Office Technologist Relationship Specialty Start Date End Date Cesar Berry MD PCP - General 08/07/17 12/16/19 Cruz Garza, RN Registered Nurse 08/13/17 06/13/18 Marlin Stewart, SHAYAN Registered Nurse Pain Management 10/23/17 06/13/18 Densy Urrutia MD [address] [facility] [address] [place] [address] Surgeon Neurosurgery 01/15/18 Suzy Hopkins, PT Physical Therapist Physical Therapy 01/15/18 Aditi Mccormick, TITLE ABSTRACTOR Engagement Director Physical Therapy 01/23/18 documented as of this encounter
--- OUTSIDE RECORDS SUMMARY | 2024-08-09 20:05 | XMS_ITS | Encounter Summary ---
Author Organization [facility] Healthcare Address [address] [place] [address] Care Team Providers Care Customer Service Technician Name Role Phone Ceasr Berry MD Primary Care Provider [phone] Cruz Garza RN Unavailable UnavailMarlin Mantilla RN Unavailable Unavailab Denys Ellsworth MD Unavailable [phone] Suzy Hopkins PT Unavailable Unavailable Aditi Mccormick PTA Unavailable Unavailable Reason for Visit * Reason Comments Follow-up Hip Pain Encounter Details Date Type Department Care Team (Late st Contact Info) Description 05/31/2018 1:45 PM CDT Office Visit [facility] [address] [place] [address] [facility] [address] [place] [address] Nura Umana MD [address] [place] [address] [address] [place] [address] Chronic bilateral low back pain without sciatica (Primary Dx) Discharge Disposition: Discharge to home or self care Social History Tobacco Use Types Packs/Day Years Used Date Smoking Tobacco: Never Smokeless Tobacco: Never Alcohol Use Standard Drinks/Week Comments Yes 0 (1 standard drink = 0.6 oz pur e alcohol) socially Comments No Sex and Gender Information Value Date Recorded Sex Assigned at Not on file 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 Gender Identity Not on file Sexual Orientation Not on file documented as of this encounter Last Filed Vital Signs Vital Sign Reading Time Taken Comments Blood Pressure 133/90 05/31/2018 1:59 PM CDT Pulse 76 05/31/2018 1:59 PM CDT Temperature - - Respiratory Rate 18 05/31/2018 1:59 PM CDT Oxygen Saturation - - Inhaled Oxygen Concentration - - Weight - - Height - - Body Mass Index - - documented in this encounter Discharge Disposition Disposition Code Departure Means Destination Discharge to home or self care documented in this encounter Progress Notes * Nura Umana MD - 05/31/2018 1:45 PM CDT CC: Bilat radiating LBP. HPI: She had lumbar discectomy surgery in November which helped her back pain Sxs somewhat. She did some lifting in the process of moving last month which has aggravated her back pain. Dull achy to sharp LBP which radiates to both lateral hip areas. She does have a Hx of depression and is on Zoloft. No leg weakness or paresthesia. Past Medical History: Diagnosis Date ??? Arthritis ??? Depression ??? Dysrhythmia History of ablation for cardiac ectopy of PVCs and PACs but it was unsuccessful. ??? Gastroesophageal reflux disease ??? Hypertension 11/03/2016 Hypertension ??? Migraine Ocular ??? Morbid obesity with BMI of 40.0-44.9, adult ([facility]) BMI 40.9 ??? PONV (postoperative nausea and vomiting) ??? 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 Metoclopramide Nausea only Reaction: Unknown, , ??? Morphine Itching Patient states is extreme itching ??? Oxycodone Vomiting Patient states she received after her ablation, and vomited and vomited profusly ??? Penicillins Other (See comments) and Shortness of breath Reaction: Unknown, , ??? Levofloxacin Nausea only Patient says she has GI upset with levaquin Past Surgical History: Procedure Laterality Date ??? ANKLE SURGERY ??? CARDIAC ELECTROPHYSIOLOGY STUDY AND ABLATION ??? SECTION x2 ??? GALLBLADDER SURGERY gall bladder and hernia repair ??? HERNIA REPAIR ??? HYSTERECTOMY 2012 complete ??? LYMPH NODE DISSECTION ??? OOPHERECTOMY ??? OTHER SURGICAL HISTORY 2018 discectomy of l5 ??? OVARY SURGERY Right 2009 ??? SINUS SURGERY x2 Social History Social History ??? Marital status: Spouse name: N/A ??? Number of children: N/A ??? Years of education: N/A Occupational History ??? Not on file. Social History Main Topics ??? Smoking status: Never Smoker ??? Smokeless tobacco: Never Used ??? Alcohol use Yes Comment: socially ??? Drug use: No ??? Sexual activity: Not on file Other Topics Concern ??? Not on file Social History Narrative ??? No narrative on file Family History Problem Relation Age of Onset ??? Cancer Mother ??? Rheum arthritis Mother Current Outpatient Prescriptions Medication ??? dilTIAZem XR (dilTIAZem CD) 180 mg 24 hr capsule ??? estradiol (CLIMARA) 0.05 mg/24 hr ??? loratadine (CLARITIN) 10 mg tablet ??? losartan-hydrochlorothiazide (HYZAAR) 100-25 mg per tablet ??? meloxicam (MOBIC) 7.5 mg tablet ??? sertraline (ZOLOFT) 100 mg tablet ??? turmeric root extract 500 mg capsule No current facility-administered medications for this visit. ROS: Review of Systems Constitutional: Negative. Musculoskeletal: Positive for back pain and myalgias. Negative for arthralgias, gait problem and neck pain. Neurological: Negative for weakness and numbness. Psychiatric/Behavioral: Negative for confusion. Vitals: Most Recent : Vitals BP 133/90 (BP Location: Left arm, Patient Position: Sitting) Pulse 76 Resp 18 PEX: Physical Exam Constitutional: She is oriented to person, place, and time. She appears well- developed and well-nourished. Musculoskeletal: Normal range of motion. Neurological: She is alert and oriented to person, place, and time. Psychiatric: She has a normal mood and affect. Back:tenderness to palpation all back muscle groups. Some tenderness the L3-4 lumbar interspace level. SLR neg bilat. Neuro: LE foot dorsiflexion strong and equal. LE sensory intact to touch. Imaging: None new. Assessment: Axial LBP which looks to be mostly fibromyalgia type. Problem List Items Addressed This Visit Chronic bilateral low back pain without sciatica - Primary Plan: -Get CPP blood tests to look for auto-immune arthralgias -Have her PCP switch her from Zoloft to Cymbalta -RTC 2 weeks to go over lab results * Cruz Garza, SHAYAN - 05/31/2018 1:45 PM CDT Pt weight bearing, gait steady, no assistive devices needed. Reports continuous pain to low back radiating to boom buttocks, occ to boom thighs, has had recent discectomy surgery in November, continues to have pain, tx hx includes physical therapy, moist heat with no relief, has also been seen by administrative underwriter, CRP and SR ordered, Dr Umana wanting RF, CHRISTINE, HLA, and cortisol drawn for further eval. Hard copy given, pt to return in 2 weeks for review. DIVINE therapy may be indicated if labs WNL. documented in this encounter Plan of Treatment Not on file documented as of this encounter Goals Goal Patient Goal Type Associated Problems Recent Progress Patient-Stated? Author [facility] On track( 018 11:29 AM CDT) No Cruz Garza, RN Note: Patient will describe how unrelieved pain will be managed. documented as of this encounter Visit Diagnoses Diagnosis Chronic bilateral low back pain without sciatica- Primary documented in this encounter Care Teams Customer Service Technician Relationship Specialty Start Date End Date Cesar Berry MD PCP - General 08/07/17 12/16/19 Cruz Garza, RN Registered Nurse 08/13/17 06/13/18 Marlin Stewart, SHAYAN Registered Nurse Pain Management 10/23/17 06/13/18 Denys Urrutia MD [address] [address] Surgeon Neurosurgery 01/15/18 Suzy Hopkins, PT Physical Therapist Physical Therapy 01/15/18 Aditi Mccormick, DURABLE MEDICAL EQUIPMENT REPAIRER [employer] Physical Therapy 01/23/18 documented as of this encounter
--- OUTSIDE RECORDS SUMMARY | 2024-08-09 20:05 | XMS_ITS | Encounter Summary ---
Author Organization [facility] Address [address] [facility] [address] [place] [address] Care Team Providers Care Veterans Rehabilitation Counselor Name Role Phone Cesar Berry MD Primary Care Provider [phone] Cruz Garza RN Unavailable Unavailabl Marlin Mcneil RN Unavailable Unavailab Denys Ellsworth MD Unavailable Suzy Hopkins PT Unavailable Unavailable Aditi Mccormick PTA Unavailable Unavailable Reason for Visit * Reason Onset Date Comments lab/ xray results 04/24/2018 Encounter Details Date Type Department Care Team (Late st Contact Info) Description 04/24/2018 Telephone [facility] [address] [facility] [address], [place] [address] Shannan Rivera MD [address] [place] [address] [address] [place] [address] lab/ xray results Social History Tobacco Use Types Packs/Day Years Used Date Smoking Tobacco: Never Smokeless Tobacco: Never Alcohol Use Standard Drinks/Week Comments Yes 0 (1 standard drink = 0.6 oz pur e alcohol) socially Comments No Sex and Gender Information Value Date Recorded Sex Assigned at Not on file 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 No other concerning findings documented in this encounter Plan of Treatment [...] on filedocumented in this encounter Care Teams Veterans Rehabilitation Counselor Relationship Specialty Start Date End Date Cesar Berry MD PCP - General 08/07/17 12/16/19 Cruz Garza, RN Registered Nurse 08/13/17 06/13/18 Marlin Stewart, SHAYAN Registered Nurse Pain Management 10/23/17 06/13/18 Denys Urrutia MD [address] [facility] [address] [place] [address] Surgeon Neurosurgery 01/15/18 Suzy Hopkins, PT Physical Therapist Physical Therapy 01/15/18 Aditi Mccormick, SENIOR PROGRAM PLANNER Single Stayer Operator Physical Therapy 01/23/18 documented as of this encounter
--- OUTSIDE RECORDS SUMMARY | 2024-08-09 20:05 | XMS_ITS | Encounter Summary ---
Author Organization [facility] Healthcare Address [address] [place] [address] Care Team Providers Care Revenue Collector Name Role Phone Cesar Berry MD Primary Care Provider [phone] Cruz Garza RN Unavailable UnavailMarlin Mantilla RN Unavailable Unavailab Denys Ellsworth MD Unavailable [phone] Suzy Hopkins PT Unavailable Unavailable Aditi Mccormick PTA Unavailable Unavailable Encounter Details Date Type Department Care Team (Late st Contact Info) Description 06/03/2018 11:00 AM QUALITY CONTROL MICROBIOLOGY SUPERVISOR Lab [address] [address] Nura Umana MD [address] [place] [id number] Discharge Disposition: Discharge to home or self care Social History Tobacco Use Types Packs/Day Years Used Date Smoking Tobacco: Never Smokeless Tobacco: Never Alcohol Use Standard Drinks/Week Comments Yes 0 (1 standard drink = 0.6 oz pur e alcohol) socially Comments No Sex and Gender Information Value Date Recorded Sex Assigned at Not on file Legal Sex Female 5:22 AM QUALITY CONTROL MICROBIOLOGY SUPERVISOR Gender Identity Not on file Sexual Orientation Not on file documented as of this encounter Discharge Disposition [...] Procedure Name Priority Date/Time Associated Diagnosis Comments NURIS QUALITATIVE WITH REFLEX TO NURIS QUANTITATIVE Routine 06/03/2018 11:00 AM QUALITY CONTROL MICROBIOLOGY SUPERVISOR HLA-B27 ANTIGEN Routine 06/03/2018 11:00 AM QUALITY CONTROL MICROBIOLOGY SUPERVISOR RHEUMATOID FACTOR Routine 06/03/2018 11: 00 AM QUALITY CONTROL MICROBIOLOGY SUPERVISOR CORTISOL Routine 06/03/2018 11:00 AM QUALITY CONTROL MICROBIOLOGY SUPERVISOR documented in this encounter Results * HLA-B27 antigen (06/03/2018 11:00 AM QUALITY CONTROL MICROBIOLOGY SUPERVISOR) HLA-B27 ag Negative Not Applicable SWETA OVALLE (TIKA) HLA-B27 interp SEE BELOW RYANNE OVALLE (TIKA) Comment: RESULT: HLA-B27 antigen was not detected. ADDITIONAL INFORMATION Method: Flow Cytometry Performing Laboratory CLIA# [id number] Test Performed by: [place] [address] Blood specimen (specimen) 06/03/2018 11:00 AM QUALITY CONTROL MICROBIOLOGY SUPERVISOR 06/03/2018 11:54 AM QUALITY CONTROL MICROBIOLOGY SUPERVISOR Narrative SWETA GONSALES) - 06/05/2018 3:58 PM QUALITY CONTROL MICROBIOLOGY SUPERVISOR fax results to [phone] us Nura Umana MD LAB BLOOD ORDERABLES Final Result SWETA GONSALES) 1 [facility] [place] [address] * NURIS qualitative with reflex to NURIS Quantitative (06/03/2018 11:00 AM QUALITY CONTROL MICROBIOLOGY SUPERVISOR) NURIS Negative Negative SWETA OVALLE (TIKA) Comment: Interpretive Data Normal range for Nuris Qualitative Antibody = Negative. 1. ??NURIS titers are performed on all positive qualitative results. 2. ??A significantly positive NURIS result is defined as a positive nuclear fluorescence at a titer of 1:80 or greater. 3. ??15% of normal people above age 65 have significantly positive NURIS results. ??5% or less of normal people age 65 or under have significantly positive NURIS results. Current interpretive data was last revised on 03. Testing performed by: [facility], [address] [place] [address], [id number] Blood specimen (specimen) 06/03/2018 11:00 AM QUALITY CONTROL MICROBIOLOGY SUPERVISOR 06/03/2018 1:37 PM QUALITY CONTROL MICROBIOLOGY SUPERVISOR Narrative SWETA OVALLE (TIKA) - 06/05/2018 10:06 AM QUALITY CONTROL MICROBIOLOGY SUPERVISOR fax results to [phone] Nura Umana MD LAB BLOOD ORDERABLES Final Result Performing Organization Address [facility] Phone Number SWETA OVALLE (TIKA) 1 [facility] [place] [address] * Rheumatoid factor (06/03/2018 11:00 AM QUALITY CONTROL MICROBIOLOGY SUPERVISOR) Rheumatoid factor, quant <<20.0 0 - 19 IUnits/mL SWETA OVALLE (TIKA) Comment:Testing performed by : [facility], [address] [place] [address], [address] Blood specimen (specimen) 06/03/2018 11:00 AM QUALITY CONTROL MICROBIOLOGY SUPERVISOR 06/03/2018 1:37 PM QUALITY CONTROL MICROBIOLOGY SUPERVISOR Narrative SWETA OVALLE (TIKA) - 06/04/2018 7:14 AM QUALITY CONTROL MICROBIOLOGY SUPERVISOR Nura Umana MD LAB BLOOD ORDERABLES Final Result Performing Organization Address [facility] de Phone Number SWETA OVALLE (TIKA) 1 [facility] [place] [address] * (ABNORMAL) Cortisol (06/03/2018 11:00 AM QUALITY CONTROL MICROBIOLOGY SUPERVISOR) Cortisol 5.2(L) 7.0 - 25.0 mcg/dL SWETA OVALLE (TIKA) Comment: Interpretive Data Reference Interval (>5 yrs of age): ??a.m collection: ??7 - 25 mcg/dl ??p.m collection: ??2 - 14 mcg/dl Cortisol is released in a cyclic fashion, typically resulting in a diurnal peak (6:00 - 8:00 a.m.) and ilan (11:00 p.m.). Current interpretive data was last revised on 2016. Testing performed by: [facility], [address] [place] [address]., [id number] Blood specimen (specimen) 06/03/2018 11:00 AM QUALITY CONTROL MICROBIOLOGY SUPERVISOR 06/03/2018 1:37 PM QUALITY CONTROL MICROBIOLOGY SUPERVISOR Narrative SWETA OVALLE (TIKA) - 06/03/2018 2:03 PM QUALITY CONTROL MICROBIOLOGY SUPERVISOR fax results to [phone] Nura Umana MD LAB BLOOD ORDERABLES Final Result SWETA OVALLE (BUENA) 1 [facility] Department [place] [address] documented in this encounter Visit Diagnoses Not on filedocumented in this encounter Care Teams Revenue Collector Relationship Specialty Start Date End Date Cesar Berry MD PCP - General 08/07/17 12/16/19 Cruz Garza, SHAYAN Registered Nurse 08/13/17 06/13/18 Marlin Stewart, SHAYAN Registered Nurse Pain Management 10/23/17 06/13/18 Denys Urrutia MD [address] [address] Surgeon Neurosurgery 01/15/18 Suzy Hopkins, PT Physical Therapist Physical Therapy 01/15/18 Aditi Mccormick, POULTRY DEBEAKER Post Secondary Professional Physical Therapy 01/23/18 documented as of this encounter
--- OUTSIDE RECORDS SUMMARY | 2024-08-09 20:05 | XMS_ITS | Encounter Summary ---
Author Organization [facility] Address [address] [facility] [address] [place] [address] Care Team Providers Care Refrigeration Tech Name Role Phone Cesar Berry MD Primary Care Provider [phone] Denys Urrutia MD Unavailable [phone] Suzy Hopkins PT Unavailable Unavailable Aditi Mccormick PTA Unavailable Unavailable Reason for Visit * Reason Onset Date Comments No show 08/2108/21/2018 Encounter Details Date Type Department Care Team (Late st Contact Info) Description 08/21/2018 Telephone [facility] [address] [facility] [address], [place] [address] Shannan Rivera MD [address] [place] [address] [address] [place] [address] No show 08/21 Social History Tobacco Use Types Packs/Day Years Used Date Smoking Tobacco: Never Smokeless Tobacco: Never Alcohol Use Standard Drinks/Week Comments Yes 0 (1 standard drink = 0.6 oz pur e alcohol) socially Comments No Sex and Gender Information Value Date Recorded Sex Assigned at Not on file 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 Thank you TERY KEEPER * Telephone Encounter - Theresa Gomez LPN - 08/21/2018 11:29 AM CST Pt stated she was not aware of her appt, it did not convert to calendar TERY KEEPER * Telephone Encounter - Theresa Gomez LPN - 08/21/2018 11:26 AM CST ----- Message from Shannan Rivera MD sent at 08/21/2018 11:17 AM CEMETERY KEEPER ----- Regarding: No-Show I'm not sure if she was aware that she had an appointment today. When you get a moment, can you make her aware that she had an appointment today/No-Show? Thank you TERY KEEPER documented in this encounter Plan of Treatment Not on file documented as of this encounter Goals Goal Patient Goal Type Associated Problems Recent Progress Patient-Stated? Author [facility] On track( 018 11:29 AM CDT) Cruz Irizarry, SHAYAN Note: Patient will describe how unrelieved pain will be managed. documented as of this encounter Visit Diagnoses Not on filedocumented in this encounter Care Teams Refrigeration Tech Relationship Specialty Start Date End Date Cesar Berry MD PCP - General 08/07/17 12/16/19 Densy Urrutia MD [address] [facility] [address] [place] [address] Surgeon Neurosurgery 01/15/18 Suzy Hopkins, PT Physical Therapist Physical Therapy 01/15/18 Aditi Mccormick, PICTURE COPYIST Coil Rewind Machine Operator Physical Therapy 01/23/18 documented as of this encounter
--- OUTSIDE RECORDS SUMMARY | 2024-08-09 20:05 | XMS_ITS | Encounter Summary ---
Author Organization [facility] Address [address] [facility] [address] [place] [address] Care Team Providers Care Upset Operator Name Role Phone Cesar Berry MD Primary Care Provider + [phone] Cruz Garza RN Unavailable Unavailabl Marlin Mcneil RN Unavailable Unavailab Denys Ellsworth MD Unavailable [phone] Suzy Hopkins PT Unavailable Unavailable Aditi Mccormick PTA Unavailable Unavailable Reason for Visit * Reason Onset Date Comments lab and xray results 04/18/2018 Encounter Details Date Type Department Care Team (Late st Contact Info) Description 04/18/2018 Telephone [facility] [address] [facility] [address] [place] [address] Shannan Rivera MD [address] [place] [address] [address] [place] [address] lab and xray results Social History Tobacco Use Types Packs/Day Years Used Date Smoking Tobacco: Never Smokeless Tobacco: Never Alcohol Use Standard Drinks/Week Comments Yes 0 (1 standard drink = 0.6 oz pur e alcohol) socially Comments No Sex and Gender Information Value Date Recorded Sex Assigned at Not on file 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 Her Vit D level was a little low, but not significantly so. Her xrays showed findings of mild OA. * Telephone Encounter - Theresa Gomez LPN - 04/18/2018 10:35 AM CDT Pt calling for xray results documented in this encounter Plan of Treatment [...] on filedocumented in this encounter Care Teams Upset Operator Relationship Specialty Start Date End Date Cesar Berry MD PCP - General 08/07/17 12/16/19 Cruz Garza, RN Registered Nurse 08/13/17 06/13/18 Marlin Stewart RN Registered Nurse Pain Management 10/23/17 06/13/18 Denys Urrutia MD [address] [address] Surgeon Neurosurgery 01/15/18 Suzy Hopkins, PT Physical Therapist Physical Therapy 01/15/18 Aditi Mccormick, LOGISTICIAN Inside Trucker Physical Therapy 01/23/18 documented as of this encounter
--- OUTSIDE RECORDS SUMMARY | 2024-08-09 20:05 | XMS_ITS | Encounter Summary ---
Author Organization [facility] Healthcare Address [address] [place] [address] Care Team Providers Care Surveillance Director Name Role Phone Cesar Berry MD Primary Care Provider [phone] Cruz Garza RN Unavailable UnavailMarlin Mantilla RN Unavailable Unavailab Denys Ellsworth MD Unavailable [phone] Suzy Hopkins PT Unavailable Unavailable Aditi Mccormick PTA Unavailable Unavailable Encounter Details Date Type Department Care Team (Latest Contact Info) Description 02/05/2018 3:23 PM CDT - 02/05/2018 11:59 PM CDT Hospital Encounter [facility] [address] [place] [address] Sacha Mccartney PA [address] [place] [address] [address] [place] [address] Denys Urrutia MD [address] [facility] [address] [place] [address] Lumbar disc herniation Discharge Disposition: Discharge to home or self care Social History Tobacco Use Types Packs/Day Years Used Date Smoking Tobacco: Never Smokeless Tobacco: Never Alcohol Use Standard Drinks/Week Comments Yes 0 (1 standard drink = 0.6 oz pur e alcohol) socially Comments No Sex and Gender Information Value Date Recorded Sex Assigned at Not on file 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 8 estradiol (CLIMARA) 0.05 mg/[address] 1 patch on the skin 2 (two) times a week. Sunday and 1 HYDROcodone-acet aminophen (NORCO) 10-325 mg per tabletIndication s:Pain Take 2 tablets by mouth every 6 (six) hours as needed for pain. 30 tablet 01/26/2018 8 ibuprofen (ADVIL,MOTRIN) 600 mg tablet Take 1 tablet (600 mg total) by mouth every 6 (six) hours as needed for pain. 30 tablet 01/26/2018 8 losartan-hydroch lorothiazide (HYZAAR) 100-25 mg per tablet Take 1 tablet by mouth casting and pasting supervisor before breakfast. 2 turmeric root extract 500 mg capsule Take 1 capsule by mouth casting and pasting supervisor before breakfast. 1 documented as of this [...] Procedure Name Priority Date/Time Associated Diagnosis Comments MRI LUMBAR SPINE W WO CONTRAST Schedule Routine, Read Routine (OP Routine) 02/05/2018 4:23 PM CDT Lumbar disc herniation documented in this encounter Results * MRI Lumbar Spine W WO Contrast (02/05/2018 4:23 PM CDT) Anatomical Region Laterality Modality Spine N/A Magnetic Resonan ce 02/06/2018 6:35 AM CDT Impressions 02/06/2018 6:43 AM CDT 1. ??INTERVAL LEFT L4 HEMILAMINECTOMY WITH L4-L5 DISC HERNIATION RESECTION. 2. ??INTERVAL DEVELOPMENT OF A 2.3 X 2.7 X 6.2 CM FLUID COLLECTION IN THE MIDLINE DEEP SUBCUTANEOUS STRUCTURES WITH A SLIGHTLY ENHANCING WALL. ??THIS LIKELY REPRESENTS A POSTOPERATIVE SEROMA. ??SUPERIMPOSED INFECTION CANNOT BE EXCLUDED. 3. ??NO EVIDENCE OF CANAL OR FORAMINAL STENOSIS. Electronically signed by: Hebert Falcon M.D. Narrative 02/06/2018 6:43 AM CDT MRI LUMBAR SPINE W WO CONTRAST HISTORY: Other intervertebral disc displacement, lumbar region. Severe low back pain status post surgery 12/05/2017 TECHNIQUE: Standard lumbar spine imaging was obtained using axial and sagittal T2 and pre and postcontrast T1 sequences. ??20 mL Dotarem administered intravenously. COMPARISON: 10/22/2017 FINDINGS: There is been interval left hemilaminectomy at L4 with resection of the previously noted L4-L5 disc herniation. ??No recurrent herniation is seen. ??There has been interval development of a 2.3 x 2.7 x 6.2 cm fluid collection in the deep subcutaneous structures extending from L3 to L5. ??There is a mild discernible wall with slight postcontrast enhancement. ??There is no evidence of communication with the thecal sac. ?? The lumbar column is normally aligned. ??There is no evidence of fracture, marrow edema or spinal listhesis. ??The conus medullaris terminates normally at L1. ??The paraspinal structures are otherwise unremarkable. T12/L1: ??The disc is normal. The spinal canal and neural foramina are patent. L1/2: The disc is normal. The spinal canal and neural foramina are patent. L2/3: The disc is normal. The spinal canal and neural foramina are patent. L3/4: The disc is normal. The spinal canal and neural foramina are patent. L4/5: Mild postsurgical disc changes are present. ??There is no evidence of canal or foraminal stenosis. L5/S1: The disc is normal. The spinal canal and neural foramina are patent. Procedure Note Hebert Falcon MD - 02/06/2018 MRI LUMBAR SPINE W WO CONTRAST HISTORY: Other intervertebral disc displacement, lumbar region. Severe low back pain status post surgery 12/05/2017 TECHNIQUE: Standard lumbar spine imaging was obtained using axial and sagittal T2 and pre and postcontrast T1 sequences. 20 mL Dotarem administered intravenously. COMPARISON: 10/22/2017 FINDINGS: There is been interval left hemilaminectomy at L4 with resection of the previously noted L4-L5 disc herniation. No recurrent herniation is seen. There has been interval development of a 2.3 x 2.7 x 6.2 cm fluid collection in the deep subcutaneous structures extending from L3 to L5. There is a mild discernible wall with slight postcontrast enhancement. There is no evidence of communication with the thecal sac. The lumbar column is normally aligned. There is no evidence of fracture, marrow edema or spinal listhesis. The conus medullaris terminates normally at L1. The paraspinal structures are otherwise unremarkable. T12/L1: The disc is normal. The spinal canal and neural foramina are patent. L1/2: The disc is normal. The spinal canal and neural foramina are patent. L2/3: The disc is normal. The spinal canal and neural foramina are patent. L3/4: The disc is normal. The spinal canal and neural foramina are patent. L4/5: Mild postsurgical disc changes are present. There is no evidence of canal or foraminal stenosis. L5/S1: The disc is normal. The spinal canal and neural foramina are patent. IMPRESSION: 1. INTERVAL LEFT L4 HEMILAMINECTOMY WITH L4-L5 DISC HERNIATION RESECTION. 2. INTERVAL DEVELOPMENT OF A 2.3 X 2.7 X 6.2 CM FLUID COLLECTION IN THE MIDLINE DEEP SUBCUTANEOUS STRUCTURES WITH A SLIGHTLY ENHANCING WALL. THIS LIKELY REPRESENTS A POSTOPERATIVE SEROMA. SUPERIMPOSED INFECTION CANNOT BE EXCLUDED. 3. NO EVIDENCE OF CANAL OR FORAMINAL STENOSIS. Electronically signed by: Hebert Falcon M.D. [facility] MRI PROCEDURES Final Result documented in this encounter Visit Diagnoses Diagnosis Lumbar disc herniation Displacement of lumbar intervertebral disc without myelopathy documented in this encounter Administered Medications Inactive Administered Medications - up to 3 most recent administrations Medication Order MAR Action Action Date Dose Rate Site gadoterate meglumine (DOTAREM) 0.5 mmol/mL injection 20 mL 20 mL, intravenous, Once in imaging, contrast, Starting on 02/05/18 at 1617, For 1 dose Given 02/05/2018 4:12 PM CDT 20 mL documented in this encounter Orders Medications Ordered That Alessio ht Not Have Been Administered Count Last Ordered Date First Ordered Date gadoterate meglumine (DOTARE M) 0.5 mmol/mL injection 20 mL 1 02/05/2018 documented in this encounter Care Teams Surveillance Director Relationship Specialty Start Date End Date Cesar Berry MD PCP - General 08/07/17 12/16/19 Cruz Garza, RN Registered Nurse 08/13/17 06/13/18 Marlin Stewart, SHAYAN Registered Nurse Pain Management 10/23/17 06/13/18 Denys Urrutia MD [address] [facility] [address] [place] [address] Surgeon Neurosurgery 01/15/18 Suzy Hopkins, PT Physical Therapist Physical Therapy 01/15/18 Aditi Mccormick, BREADING MACHINE TENDER Security Auditor Physical Therapy 01/23/18 documented as of this encounter
--- OUTSIDE RECORDS SUMMARY | 2024-08-09 20:05 | XMS_ITS | Encounter Summary ---
Author Organization [facility] Healthcare Address [address] [place] [address] Care Team Providers Care Senior Quality Assurance Engineer Name Role Phone Cesar Berry MD Primary Care Provider [phone] Cruz Garza RN Unavailable UnavailMarlin Mantilla RN Unavailable Unavailab Denys Ellsworth MD Unavailable [phone] Suzy Hopkins PT Unavailable Unavailable Aditi Mccormick PTA Unavailable Unavailable Reason for Visit * Reason Comments PT Treatment Encounter Details Date Type Department Care Team (Late st Contact Info) Description 03/06/2018 1:45 PM CDT Therapy [facility] Physical Therapy [address] [place] [id number] Aditi Mccormick, LIZABETH Other intervertebral disc displacement, lumbar region (Primary Dx) Social History Tobacco Use Types Packs/Day Years Used Date Smoking Tobacco: Never Smokeless Tobacco: Never Alcohol Use Standard Drinks/Week Comments Yes 0 (1 standard drink = 0.6 oz pur e alcohol) socially Comments No Sex and Gender Information Value Date Recorded Sex Assigned at Not on file 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 Pt states she can't stand on a hard surface for longer than 30-45 min at a time. Pt c/o increased leg symptoms while on the rocker board. Pt c/o pain/tightness in L hip flexor today. Pain: 4-5/10 low back, L hip and leg. Objective:Pt could not tolerated manual therapy or even touch to L piriformis. STM was attempted however pt unable to tolerate. Pt instructed to increase piriformis stretch to 2-3 times per day 4 stretches ea, and very mild stretch. Pt to ice after each time. Palpable tightness noted in L hip flexor as well today. Treatment Provided: Nustep L6??X??8??min Rockerboard stability - static fwd/back and R/L ??X 2??min each direction Leg press B LE @ 100#, x 20; B ankles @ 100# X 20* Cybex Hip 2 plates, flex and ABD x 15 ea B* ?? Sidestepping with green tband, 10 ft X 2* Monster walk 20' x 1w/tband green ??* Seated B hip IR with green tband X 15* ?? Retro Monster walks 20' x 1 w/tband green*?? LTR x 15??slowly PPT x 15 Tato abs w/march using green tband??x 15 Tato abs w/BKFO using green tband??x 15 ea LE Tato abs w/clam shell w/tband green x 15 Bridging x 15 ?? Manual hamstring and piriformis stretch and ITB ??x 5 B Manual hip flexor stretch R x 4 - attempted, pt felt pressure in low back with this stretch today so stretch was stopped. Nerve glide on L LE x 4 B STM B Low back to buttock (piriformis).?? kinesiotape L?? piriformis PUS in S/L x 8 min L low back and L hip (at point of pain)* wasn't helping Ice pack ??to??low back and L buttock x 10??min. ? HEP: -Glut sets (supine with knees bent) -Supine pelvic tilts -Supine clam shells and marching??with green Tband with TA contraction - Supine BKFO's with green tband with TA contraction - Bridging with band around knees - Walking outside the home (progression) ?? Assessment: Pt has irritation from last taping B low back . L piriformis is very tender and tissue feels tight. Question if this tightness is causing the other pains she is experiencing. (see subjective) Plan:Continue to see pt per POC Start [...] Primary documented in this encounter Care Teams Senior Quality Assurance Engineer Relationship Specialty Start Date End Date Cesar Berry MD PCP - General 08/07/17 12/16/19 Cruz Garza, RN Registered Nurse 08/13/17 06/13/18 Marlin Stewart, RN Registered Nurse Pain Management 10/23/17 06/13/18 Denys Urrutia MD [address] [facility] [address] [address] Surgeon Neurosurgery 01/15/18 Suzy Hopkins, PT Physical Therapist Physical Therapy 01/15/18 Aditi Mccormick CYTOMETRY TECHNOLOGIST Bowling Alley Attendant Physical Therapy 01/23/18 documented as of this encounter
--- OUTSIDE RECORDS SUMMARY | 2024-08-09 20:05 | XMS_ITS | Encounter Summary ---
Author Organization [facility] Healthcare Address [address] [place] [address] Care Team Providers Care Cloth Shrinking Machine Operator Name Role Phone Cesar Berry MD Primary Care Provider [phone] Cruz Garza RN Unavailable UnavailMarlin Mantilla RN Unavailable Unavailab Denys Ellsworth MD Unavailable [phone] Suzy Hopkins PT Unavailable Unavailable Aditi Mccormick PTA Unavailable Unavailable Reason for Visit * Reason Comments Back Pain Encounter Details Date Type Department Care Team (Late st Contact Info) Description 01/26/2018 12:48 PM CDT - 01/26/2018 4:05 PM CDT Emergency [facility] Emergency Department [address] [place] [address] Girish Spring MD [address] [place] [address] Lumbar radiculopathy, acute (Primary Dx) Discharge Disposition: Discharge to home or self care Social History Tobacco Use Types Packs/Day Years Used Date Smoking Tobacco: Never Smokeless Tobacco: Never Alcohol Use Standard Drinks/Week Comments Yes 0 (1 standard drink = 0.6 oz pur e alcohol) socially Comments No Sex and Gender Information Value Date Recorded Sex Assigned at Not on file 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 Gender Identity Not on file Sexual Orientation Not on file documented as of this encounter Last Filed Vital Signs Vital Sign Reading Time Taken Comments Blood Pressure 114/82 01/26/2018 4:01 PM CDT Pulse 74 01/26/2018 12:46 PM CDT Temperature 36.9 ??C (98.5 ??F) 01/26/2018 12:46 PM C DT Respiratory Rate 18 01/26/2018 12:46 PM CDT Oxygen Saturation 95% 01/26/2018 12:46 PM CDT Inhaled Oxygen Concentration - - Weight 120.2 kg (265 lb) 01/26/2018 12:46 PM CDT Height - - Body Mass Index 41.5 12/05/2017 9:35 AM CDT documented in this encounter Discharge Instructions * Attachments The following attachments cannot be sent through Care Everywhere. * Lumbar Radiculopathy (General Information) (Sri Lankan) documented in this encounter Medications at Time of Discharge [...] per tablet Take 1 tablet by mouth wilton weaver before breakfast. 2 turmeric root extract 500 mg capsule Take 1 capsule by mouth wilton weaver before breakfast. 1 documented as of this encounter Ordered Prescriptions Prescription Sig Dispense Quantity Refills Last Filled Start Date End Date ibuprofen (ADVIL,MOTRIN) 600 mg tablet Take 1 tablet (600 mg total) by mouth every 6 (six) hours as needed for pain. 30 tablet 01/26/2018 8 HYDROcodone-acetam inophen (NORCO) 10-325 mg per tabletIndications: Pain Take 2 tablets by mouth every 6 (six) hours as needed for pain. 30 tablet 01/26/2018 8 documented in this encounter Discharge Disposition Disposition Code Departure Means Destination Discharge to home or self care documented in this encounter ED Notes * Girish Spring MD - 01/26/2018 1:33 PM CDT HPI Chief Complaint Patient presents with ??? Back Pain HPI 47 year old female with history of HTN, and back pain s/p Lumbar micro discectomy left L4-L5 on 12/05/17 presents with severe lower back pain. Patient reports that last night as she was getting out of the bath tub she experienced a sharp pain in her lower back which radiated bilaterally down her legsto her calves. Pain has been consistent. Patient took Whitehall, Flexoril and ibuprofen with minimal temporary relief. She has associated weakness in both of her legs as well as intermittent tingling. She reports that while standing she feels unsteady and she has had difficulty walking due to the pain.Patient denies urinary or bowel incontinence, saddle numbness, or toe numbness. She has not taken any Whitehall or Flexoril since last night. Patient History Patient Active Problem List Diagnosis Date Noted ??? Lumbar disc herniation 12/05/2017 ??? H/O: pituitary tumor 04/20/2017 ??? Hypertension 06/30/2014 Class: Chronic ??? Chronic infection of sinus 12/20/2011 Class: Chronic ??? Acquired deviated nasal septum 05/10/2009 Class: Chronic Past Medical History: Diagnosis Date ??? Arthritis ??? Depression ??? Dysrhythmia History of ablation for cardiac ectopy of PVCs and PACs but it was unsuccessful. ??? Gastroesophageal reflux disease ??? Hypertension 11/03/2016 Hypertension ??? Migraine Ocular ??? Morbid obesity with BMI of 40.0-44.9, adult ([facility]) BMI 40.9 ??? PONV (postoperative nausea and vomiting) ??? 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 ANKLE SURGERY ??? CARDIAC ELECTROPHYSIOLOGY STUDY AND ABLATION ??? SECTION x2 ??? GALLBLADDER SURGERY gall bladder and hernia repair ??? HERNIA REPAIR ??? HYSTERECTOMY 2012 complete ??? LYMPH NODE DISSECTION ??? OOPHERECTOMY ??? OVARY SURGERY Right 2009 ??? SINUS SURGERY x2 Family History Problem Relation Age of Onset ??? Cancer Mother ??? Rheum arthritis Mother Social History Substance Use Topics ??? Smoking status: Never Smoker ??? Smokeless tobacco: Never Used ??? Alcohol use Yes Comment: socially Social History Social History Narrative ??? No narrative on file Review of Systems Review of Systems Constitutional: ??No fever, no chills, unexplained weight change or malaise. Eyes: ??No visual changes, eye pain or discharge. ENMT: ??No hearing deficits, pain, discharge or infections. No neck pain or stiffness. Cardiac: ??No chest pain, SOB or edema. Respiratory: ??No cough or respiratory distress. GI: ??No nausea, vomiting, diarrhea or abdominal pain. : ??No dysuria, frequency or burning. MS: ??See HPI Neuro: ??See HPI Skin: ??No skin rash. All other systems negative except as noted above Physical Exam ED Triage Vitals [01/26/18 1246] Temp Pulse Resp BP SpO2 36.9 ??C (98.5 ??F) 74 18 152/89 95 % Temp src Heart Rate Source Patient Position BP Location FiO2 (%) Oral -- -- -- -- Physical Exam Vital Signs reviewed. CONSTITUTIONAL: Well-appearing; well-nourished; appears in no acute distress HEAD: Normocephalic; atraumatic EYES: PERRL; EOM intact; conjunctiva and sclera are clear bilaterally. NECK: Supple; non-tender; no cervical lymphadenopathy CARD: Normal S1, S2; no murmurs, rubs, or gallops. Regular rate and rhythm. RESP: Normal respiratory effort; breath sounds clear and equal bilaterally; no wheezes, rhonchi, orrales. ABD: Overweight, Normal bowel sounds; non-distended; non-tender; no palpable organomegaly, no masses, no bruits. EXT: Normal ROM in all four extremities; non-tender to palpation; distal pulses are normal, no edema. SKIN: Normal for age and race; warm; dry; good turgor; no apparent lesions or exudate, rashes or ulcers. NEURO: A&O x 3; Intact; non-focal exam; Normal reflexes: 5/5 strength with great toe and ankle plantar and dorsiflexion, sensation intact throughout bilateral lower extremities. rectal tone normal, perianal sensation intact, Psych: Normal affect. Back: 7cm midline incision of the lumbar spine healing well no signs of infection no erythema warmth or fluctuance., midline back lumbar tenderness and soft tissue lumbar tenderness bilaterally, [facility] Vitals: 01/26/18 1246 BP: 152/89 Pulse: 74 Resp: 18 Temp: 36.9 ??C (98.5 ??F) SpO2: 95% No orders to display Labs Reviewed - No data to display MDM 47-year-old female past medical history of hypertension GERD, and lumbar radiculopathy status post L4-L5 microdiskectomy on 12/05/[address] Urrutia, was healing well and going through PT that started this past week until last night. She was in the bathtub and getting while getting herself to astanding position from a seated position she reports sudden onset of severe sharp pain in her low back radiating down both legs to the mid calf level. This continued throughout the night despite homeNSAIDs Whitehall and Flexeril. Reports the pain is unimproved on arrival here has not taken any pain medicine test today Exam shows no signs of nor did she have symptoms of cauda equina. Surgical wound appears to be healing well with no signs of infection. Patient is afebrile. Given that the exam is reassuring I will treat with pain control and referred to her surgeon for outpatient follow-up care. ED Course as of Jan 26 719 Time: 01/26 0935 Comment: Spoke with promotions firm accounts manager for . He is aware patient in the will expect see patientnext week for early follow-up. By: Girish Spring MD Time: 01/26 1546 Comment: The patient feeling somewhat better. Feels well enough to go home. By: Girish Spring MD Lumbar radiculopathy, acute I, Mariangel Bunch, am scribing for, and in the presence of, Dr. Saw MD . I, Girish Spring MD, have personally performed the services described in the documentation,reviewed the documentation, as recorded by the scribe in my presence, and it accurately and completely records my words and actions. Mariangel Bunch 01/26/18 1337 Girish Spring MD 01/26/18 [id number] * Braydon Arana RN - 01/26/2018 12:44 PM CDT Pt reports Back surgery 6 weeks ago ( L4-L5). Started therapy this week. Last night while getting out of the tube experienced a jolt of pain with radiation to both legs. Pt denies loss of bowel or bladder control. documented in this encounter Plan of Treatment Not on file documented as of this encounter Goals Goal Patient Goal Type Associated Problems Recent Progress Patient-Stated? Author [facility] On track( 018 11:29 AM CDT) No Cruz Garaz, RN Note: Patient will describe how unrelieved pain will be managed. documented as of this encounter Visit Diagnoses Diagnosis Lumbar radiculopathy, acute- Primary documented in this encounter Administered Medications Inactive Administered Medications - up to 3 most recent administrations Medication Order MAR Action Action Date Dose Rate Site diazePAM (VALIUM) tablet 5 mg 5 mg, oral, Once, On 6/30/18 at 1326, For 1 dose Given 01/26/2018 1:42 PM CDT 5 mg HYDROcodone-acetaminophen (NORCO) 5-325 mg per tablet 2 tablet 2 tablet, oral, Once, On 01/26/18 at 1554, For 1 dose, Indications: PainIndications:Pain Given 01/26/2018 4:01 PM CDT 2 tablets HYDROmorphone (DILAUDID) injection 2 mg 2 mg, intramuscular, Once, On 01/26/18 at 1326, For 1 dose Given 01/26/2018 1:46 PM CDT 2 mg Right Deltoid ketorolac (TORADOL) injection 30 mg 30 mg, intramuscular, Once, On 01/26/18 at 1326, For 1 dose Given 01/26/2018 1:43 PM CDT 30 mg Left Deltoid ondansetron ODT (ZOFRAN-ODT) disintegrating tablet 4 mg 4 mg, oral, Once, On 01/26/18 at 1352, For 1 dose, Indications: Nausea, VomitingIndications:Nausea, Vomiting Given 01/26/2018 1:56 PM CDT 4 mg documented in this encounter Discontinued Medications Medication Sig Discontinue Reason Start Date End Da te HYDROcodone-acetaminophe n (NORCO) 10-325 mg per tabletIndications:Pain Take 1 tablet by mouth every 6 (six) hours as needed for pain. 01/26/2018 documented as of this encounter Active and Recently Administered Medications Times are shown in CDT. Scheduled Medication Order 01/24/2018 01/25/2018 01/26/2018 diazePAM (VALIUM) tablet 5 mg (COMPLETED) 5 mg, oral, Once, On 01/26/18 at 1326, For 1 dose 1342 (Given - Provid er: Dian Ellington RN) HYDROcodone-acetaminophen (NORCO) 5-325 mg per tablet 2 tablet (COMPLETED) 2 tablet, oral, Once, On 01/26/18 at 1554, For 1 dose, Indications: Pain 1601 (Given - Provid er: Irma Bhat RN) HYDROmorphone (DILAUDID) injection 2 mg (COMPLETED) 2 mg, intramuscular, Once, On 01/26/18 at 1326, For 1 dose 1346 (Given - Provid er: Dian Ellington, SHAYAN - Comment: 1mg Dilaudid given in each gluteus max.) ketorolac (TORADOL) injection 30 mg (COMPLETED) 30 mg, intramuscular, Once, On 01/26/18 at 1326, For 1 dose 1343 (Given - Provid er: Dian Ellington, SHAYAN) ondansetron ODT (ZOFRAN-ODT) disintegrating tablet 4 mg (COMPLETED) 4 mg, oral, Once, On 01/26/18 at 1352, For 1 dose, Indications: Nausea, Vomiting 1356 (Given - Provid er: Dian Ellington, SHAYAN) documented in this encounter Orders Medications Ordered That Alessio ht Not Have Been Administered Count Last Ordered Date First Ordered Date HYDROmorphone (DILAUDID) 0.5 mg/mL injection - ADS Override Pull 1 01/26/2018 documented in this encounter Care Teams Cloth Shrinking Machine Operator Relationship Specialty Start Date End Date Cesar Berry MD PCP - General 08/07/17 12/16/19 Cruz Garza, SHAYAN Registered Nurse 08/13/17 06/13/18 Marlin Stewart, SHAYAN Registered Nurse Pain Management 10/23/17 06/13/18 Denys Urrutia MD [address] [address] Surgeon Neurosurgery 01/15/18 Suzy Hopkins, PT Physical Therapist Physical Therapy 01/15/18 Aditi Mccormick, MOTHER HELPER Extension Edger Physical Therapy 01/23/18 documented as of this encounter
--- OUTSIDE RECORDS SUMMARY | 2024-08-09 20:05 | XMS_ITS | Encounter Summary ---
Author Organization [facility] Address [address] [place] [address] Care Team Providers Care Beach Expert Name Role Phone Cesar Berry MD Primary Care Provider [phone] Cruz Garza RN Unavailable UnavailMarlin Mantilla RN Unavailable Unavailab Denys Ellsworth MD Unavailable [phone] Suzy Hopkins PT Unavailable Unavailable Aditi Mccormick PTA Unavailable Unavailable Reason for Referral * Diagnostic Imaging (Routine) - Closed Specialty Diagnoses / Procedures Referred By Contac t Referred To Contact Diagnoses Musculoskeletal pain Procedures XR Hand Right 3 or More Views Shannan Rivera MD Phone: tel: fax: [id number] [place] [address] Referral ID Status Reason Start Date Expiration Date Visits Re quested Visits Authorized [id number] Closed 04/16/2018 10/26/2019 1 1 * Diagnostic Imaging (Routine) - Closed Specialty Diagnoses / Procedures Referred By Contac t Referred To Contact Diagnoses Musculoskeletal pain Procedures XR Hand Left 3 or More Views Shannan Rivera MD Phone: tel: fax: [id number] [place] [address] Referral ID Status Reason Start Date Expiration Date Visits Re quested Visits Authorized [id number] Closed 04/16/2018 10/26/2019 1 1 Reason for Visit * Reason Comments Joint Pain Encounter Details Date Type Department Care Team (Late st Contact Info) Description 04/16/2018 11:00 AM CDT Office Visit [facility] [address] [place] [address] Shannan Rivera MD [facility] [address] [place] [address] Musculoskeletal pain (Primary Dx); Class 2 severe obesity due to excess calories with serious comorbidity and body mass index (BMI) of 39.0 to 39.9 in adult (CMS/[facility]) Social History Tobacco Use Types Packs/Day Years Used Date Smoking Tobacco: Never Smokeless Tobacco: Never Alcohol Use Standard Drinks/Week Comments Yes 0 (1 standard drink = 0.6 oz pur e alcohol) socially Comments No Sex and Gender Information Value Date Recorded Sex Assigned at Not on file 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 Gender Identity Not on file Sexual Orientation Not on file documented as of this encounter Last Filed Vital Signs Vital Sign Reading Time Taken Comments Blood Pressure 120/78 04/16/2018 10:55 AM CDT Pulse 76 04/16/2018 10:55 AM CDT Temperature 37.1 ??C (98.7 ??F) 04/16/2018 1 0:55 AM CDT Respiratory Rate 16 04/16/2018 10:5 5 AM CDT Oxygen Saturation - - Inhaled Oxygen Concentration - - Weight 115.7 kg (255 lb 1.6 oz) 018 10:55 AM CDT Height 170.2 cm (5' 7 ) 04/16/2018 10:5 5 AM CDT Body Mass Index 39.95 04/16/2018 10:55 AM CDT documented in this encounter Ordered Prescriptions Prescription Sig Dispense Quantity Refills Last Filled Start Date End Date meloxicam (MOBIC) 7.5 mg tablet Take 1 tablet (7.5 mg total) by mouth daily. 30 tablet 11 04/16/2018 06/14/2018 documented in this encounter Progress Notes * Shannan Rivera MD - 04/16/2018 11:00 AM CDT Joint Pain HPI: This is a 47 y.o. female patient presenting with a chief complaint of Joint Pain . Noted that she was starting to feel better after her back surgery. However, she was then told that she had a likely seroma and now PT aggravates her symptoms of back and buttock and hip pain. She wastold that she has piriformis syndrome. She is going to see Dr. Christopher for eval for hip injections.She feels like her gabapentin was sedating. She is interested in discussing more 'natural' things that she can do. Hands are more achy as of late. No overt synovitis. No fevers, no rashes. Current Outpatient Prescriptions Medication Sig Dispense Refill ??? dilTIAZem XR (dilTIAZem CD) 180 mg 24 hr capsule Take 180 mg by mouth daily with dinner. ??? estradiol (CLIMARA) 0.05 mg/[address] 1 patch on the skin 2 (two) times a week. Sunday and ??? loratadine (CLARITIN) 10 mg tablet Take 10 mg by mouth daily as needed for allergies. ??? losartan-hydrochlorothiazide (HYZAAR) 100-25 mg per tablet Take 1 tablet by mouth early morningbefore breakfast. ??? sertraline (ZOLOFT) 100 mg tablet Take 100 mg by mouth nightly. ??? meloxicam (MOBIC) 7.5 mg tablet Take 1 tablet (7.5 mg total) by mouth daily. 30 tablet 11 ??? turmeric root extract 500 mg capsule Take 1 capsule by mouth pillow cleaner before breakfast. No current facility-administered medications for this visit. Metoclopramide; Morphine; Oxycodone; Penicillins; and Levofloxacin Past Medical History: Diagnosis Date ??? Arthritis ??? Depression ??? Dysrhythmia History of ablation for cardiac ectopy of PVCs and PACs but it was unsuccessful. ??? Gastroesophageal reflux disease ??? Hypertension 11/03/2016 Hypertension ??? Migraine Ocular ??? Morbid obesity with BMI of 40.0-44.9, adult ([facility]) BMI 40.9 ??? PONV (postoperative nausea and vomiting) ??? Prolactinoma (CMS/HCC) pituitary tumor- used to see Dr Reddy at [facility], but PCP monitor levels now Family History [...] No narrative on file Review of Systems Constitutional: Negative for fatigue, fever and unexpected [...] Genitourinary: Negative for dysuria and hematuria. Musculoskeletal: +back and hip pain Skin: Negative for rash. Neurological: Negative for weakness and headaches. Hematological: Does not bruise/bleed easily. Psychiatric/Behavioral: Negative for suicidal ideas. The patient is not nervous/anxious. Vitals BP 120/78 (BP Location: Left arm, Patient Position: Sitting) Pulse 76 Temp 37.1 ??C (98.7 ??F) (Oral) Resp 16 Ht 170.2 cm (5' 7 ) Wt 115.7 kg (255 lb 1.6 oz) BMI 39.95 kg/m?? Body mass index is 39.95 kg/m??. Physical exam: Constitutional:well developed, well nourished, in no acute distress, alert and oriented X 3 Nose: normal Ears: normal external appearance Eyes: PERRL, normal extraocular movements, normal conjunctiva and sclera bilaterally, no nystagmus Oropharynx: mucous membranes moist, no lesions Neck:supple and no adenopathy Chest:Normal chest wall and respirations. Clear to auscultation. Lungs:Clear to auscultation bilaterally Cardiac:Heart sounds are normal. Regular rate and rhythm without murmur, gallop or rub. Abdomen: soft, non-tender; bowel sounds normal; no masses, no organomegaly :deferred Extremities: No clubbing or cyanosis Skin: no rashes Neurologic: normal without focal findings and mental status, speech normal, alert and oriented x3 Musculoskeletal:PIPs ttp but no overt swelling, +fibro tenderpoints. LABS: Lab Results Component Value Date GLUCOSE 122 12/03/2017 CALCIUM 9.9 12/03/2017 NA 142 07/01/2014 K 3.7 07/01/2014 CO2 29 12/03/2017 CL 103 07/01/2014 CREATININE 0.72 12/03/2017 Lab Results Component Value Date ALT 142 (H) 06/03/2013 AST 63 (H) 06/03/2013 ALKPHOS 103 06/03/2013 BILITOT 1.5 (H) 06/03/2013 Lab Results Component Value Date HGB 14.2 06/03/2013 HCT 41.7 06/03/2013 MCV 93.6 06/03/2013 Lab Results Component Value Date SEDRATE 8 04/20/2017 1. Musculoskeletal pain She is still dealing with back and hip pain. Discussed trial of meloxicam as well as her questions regarding tumeric and glucosamine/chondroitin. Also discussed fibro symptoms and considering w/u for REY. Will get hand xrays today as well. 25 min face to face 20 min counseling. Body mass index is 39.95 kg/m??. documented in this encounter Plan of Treatment Not on file documented as of this encounter Goals Goal Patient Goal Type Associated Problems Recent Progress Patient-Stated? Author [facility] On track( 018 11:29 AM CDT) No Cruz Garza RN Note: Patient will describe how unrelieved pain will be managed. documented as of this encounter Procedures Procedure Name Priority Date/Time Associated Diagnosis Comments VITAMIN D 25 HYDROXY Routine 04/16/2018 11:48 AM CDT Musculoskeletal pain ERYTHROCYTE SEDIMENTATION RATE Routine 04/16/2018 11:48 AM CDT Musculoskeletal pain CRP (ACUTE PHASE) Routine 04/16/2018 11: 48 AM CDT Musculoskeletal pain documented in this encounter [...] changes. Electronically signed by: Silverio Loja M.D. us Shannan Rivera MD IMG XR [...] IMG XR PROCEDURES Fin al Result * CRP (acute phase) (04/16/2018 11:48 AM CDT) [facility] CRP 6.6 <=10.0 mg/L [facility] Blood specimen (specimen) 04/16/2018 11:48 AM CDT 04/16/2018 2:45 PM CDT [facility]ative [facility] - 04/16/2018 3:33 PM CDT Shannan Rivera MD LAB BLOOD ORDERABLES Final Result [facility] [address] Department [place] [address] * (ABNORMAL) Vitamin D 25 hydroxy (04/16/2018 11:48 AM CDT) Pathologist [facility] Vitamin D 25-OH 26(L) 30 - 80 ng/mL [facility] Blood specimen (specimen) 04/16/2018 11:48 AM CDT 04/16/2018 2:45 PM CDT Narrative [facility] - 04/16/2018 8:30 PM CDT Shannan Rivera MD LAB BLOOD ORDERABLES Final Result Performing Organization Address [facility]/ZIP Co de Phone Number [facility] [address] [facility] [address] [place] [address] * Erythrocyte sedimentation rate (04/16/2018 11:48 AM CDT) Erythrocyte sedimentation rate 9 1 - 20 mm/hr [facility] Blood specimen (specimen) 04/16/2018 11:48 AM CDT 04/16/2018 2:45 PM CDT Narrative [facility] - 04/16/2018 3:50 PM CDT Shannan Rivera MD LAB BLOOD ORDERABLES Final Result Performing Organization Address [facility] Co de Phone Number [facility] [address] [facility] [address] [address] documented in this encounter Visit Diagnoses Diagnosis Musculoskeletal pain- Primary Unspecified myalgia and myositis Class 2 severe obesity due to excess calories with serious comorbidity and body mass index (BMI) of 39.0 to 39.9 in adult (HCC) Musculoskeletal pain Unspecified myalgia and myositis documented in this encounter Discontinued Medications Medication Sig Discontinue Reason Start Date End Da te acetaminophen (TYLENOL) 500 mg tablet Take 1,000 mg by mouth every 6 (six) hours as needed for pain. Discontinued by another clinician 04/16/2018 HYDROcodone-acetaminop hen (NORCO) 10-325 mg per tabletIndications:Pain Take 2 tablets by mouth every 6 (six) hours as needed for pain. Discontinued by another clinician 01/26/2018 04/16/2018 ibuprofen (ADVIL,MOTRIN) 600 mg tablet Take 1 tablet (600 mg total) by mouth every 6 (six) hours as needed for pain. 01/26/2018 04/16/2018 documented as of this encounter Care Teams Beach Expert Relationship Specialty Start Date End Date Cesar Berry MD PCP - General 08/07/17 12/16/19 Cruz Garza, RN Registered Nurse 08/13/17 06/13/18 Marlin Stewart, SHAYAN Registered Nurse Pain Management 10/23/17 06/13/18 Denys Urrutia MD [address] [place] [address] Surgeon Neurosurgery 01/15/18 Suzy Hopkins, PT Physical Therapist Physical Therapy 01/15/18 Aditi Mccormick, WAISTLINE JOINER LOCKSTITCH Associate Chemist Physical Therapy 01/23/18 documented as of this encounter
--- OUTSIDE RECORDS SUMMARY | 2024-08-09 20:05 | XMS_ITS | Encounter Summary ---
Author Organization [facility] Address [address] [place] [address] Care Team Providers Care Boring Machine Set Up Operator Jig Name Role Phone Cesar Berry MD Primary Care Provider [phone] Denys Urrutia MD Unavailable [phone] Suzy Hopkins PT Unavailable Unavailable Aditi Mccormick INDUSTRIAL SECURITY ANALYST Unavailable Unavailable Encounter Details Date Type Department Care Team (Late st Contact Info) Description 09/25/2019 3:45 PM NURSING UNIT MANAGER Ancillary Procedure [facility] Outside Films Social History Tobacco Use Types Packs/Day Years Used Date Smoking Tobacco: Never Smokeless Tobacco: Never Alcohol Use Standard Drinks/Week Comments Yes 0 (1 standard drink = 0.6 oz pur e alcohol) socially Comments No Sex and Gender Information Value Date Recorded Sex Assigned at Not on file Legal Sex Female 5:22 AM NURSING UNIT MANAGER Gender Identity Not on file Sexual Orientation [...] Procedure Name Priority Date/Time Associated Diagnosis Comments CT OUTSIDE REFERENCE Routine 09/25/2019 3:45 PM NURSING UNIT MANAGER documented in this encounter Results * CT Outside Reference (09/25/2019 3:45 PM NURSING UNIT MANAGER) Narrative [facility] - 11/23/2020 11:14 AM CDT This order has been auto-finalized and does not contain a result. us Not In File Miscellaneous IMG CT PROCEDURES Greer l Result [facility] documented in this encounter Visit Diagnoses Not on filedocumented in this encounter Care Teams Boring Machine Set Up Operator Jig Relationship Specialty Start Date End Date Cesar Berry MD PCP - General 08/07/17 12/16/19 Denys Urrutia MD [address] [facility] [address] [place] [address] Surgeon Neurosurgery 01/15/18 Suzy Hopkins, PT Physical Therapist Physical Therapy 01/15/18 Aditi Mccormick, INDUSTRIAL SECURITY ANALYST Blocker Hand Physical Therapy 01/23/18 documented as of this encounter
--- OUTSIDE RECORDS SUMMARY | 2024-08-09 20:05 | XMS_ITS | Encounter Summary ---
Author Organization [facility] Address [address] [place] [address] Care Team Providers Care Branch Credit Counselor Name Role Phone Cesar Berry MD Primary Care Provider [phone] Denys Urrutia MD Unavailable [phone] Suzy Hopkins PT Unavailable Unavailable Aditi Mccormick FILTER TANK TENDER Unavailable Unavailable Reason for Referral * Diagnostic Imaging (Routine) - Closed Specialty Diagnoses / Procedures Referred By Yvonneac t Referred To Contact Radiology Diagnoses Pain, neck Procedures MRI Cervical Spine WO Contrast Cesar Berry MD Phone: tel: fax: [address] [address] Referral ID Status Reason Start Date Expiration Date Visits Re quested Visits Authorized [id number] Closed 05/06/2019 11/14/2020 1 1 Reason for Visit * Diagnostic Imaging (Routine) - Closed Specialty Diagnoses / Procedures Referred By Ernestina kam Referred To Contact Radiology Diagnoses Pain, neck Procedures MRI Cervical Spine WO Contrast Cesar Berry MD Phone: tel: fax: [address] [address] Referral ID Status Reason Start Date Expiration Date Visits Re quested Visits Authorized [id number] Closed 05/06/2019 11/14/2020 1 1 Encounter Details Date Type Department Care Team (Latest Contact Info) Description 05/12/2019 11:00 AM CDT - 05/12/2019 11:59 PM CDT Hospital Encounter [facility] [address] [place] [address] Cesar Berry MD [address] [place] [address] [place] [address] Pain, neck Discharge Disposition: Discharge to home or self care Social History Tobacco Use Types Packs/Day Years Used Date Smoking Tobacco: Never Smokeless Tobacco: Never Alcohol Use Standard Drinks/Week Comments Yes 0 (1 standard drink = 0.6 oz pur e alcohol) socially Comments No Sex and Gender Information Value Date Recorded Sex Assigned at Not on file Legal Sex Female 5:22 AM SCREENING REPRESENTATIVE Gender Identity Not on file Sexual Orientation [...] per tablet Take 1 tablet by mouth political science research assistant before breakfast. 2 turmeric root extract 500 mg capsule Take 1 capsule by mouth political science research assistant before breakfast. 1 documented as of this [...] Name Priority Date/Time Associated Diagnosis Comments MRI CERVICAL SPINE WO CONTRAST Schedule Routine, Read Routine (OP Routine) 05/12/2019 11:14 AM CDT Pain, neck documented in this encounter Results * MRI Cervical Spine WO Contrast (05/12/2019 11:14 AM CDT) Anatomical Region Laterality Modality Spine N/A Magnetic Resonan ce 05/12/2019 12:5 6 PM CDT Impressions 05/12/2019 1:01 PM CDT 1. ??Straightening of upper cervical lordosis. 2. ??Minimal retrolisthesis of C5 on C6. 3. ??Minimal right paracentral disc protrusion without impingement at C6-C7. 4. ??Mild disc bulging without impingement at C5-C6; minimal to mild at C4-C5. Electronically signed by: Josse Riggs Jr., M.D. Narrative 05/12/2019 1:01 PM CDT MRI CERVICAL SPINE WO CONTRAST HISTORY: Cervicalgia. TECHNIQUE: Sagittal T1, T2, STIR; axial T1, T2 GE COMPARISON: None available. FINDINGS: Sagittal images show straightening of upper cervical lordosis. ??C5 is subluxed posteriorly on C6 approximately 3 mm. Alignment is otherwise normal. ??Vertebral body height is normal. C5-C6 disc space is very mildly narrowed. ??No other cervical disc space narrowing is seen. ??Focus of high T1-high T2 signal in the anterior portion of the C5 vertebral body is compatible with a vertebral hemangioma. ??Mild disc bulging is present at C5-C6; minimal to mild at C4-C5. ??Minimal right paracentral disc protrusion without impingement is seen at C6-C7. ??No intraspinal, perispinal or paravertebral mass is identified. ??No central canal or foraminal stenosis is seen. Procedure Note Josse Riggs Jr., MD - 05/12/2019 MRI CERVICAL SPINE WO CONTRAST HISTORY: Cervicalgia. TECHNIQUE: Sagittal T1, T2, STIR; axial T1, T2 GE COMPARISON: None available. FINDINGS: Sagittal images show straightening of upper cervical lordosis. C5 is subluxed posteriorly on C6 approximately 3 mm. Alignment is otherwise normal. Vertebral body height is normal. C5-C6 disc space is very mildly narrowed. No other cervical disc space narrowing is seen. Focus of high T1-high T2 signal in the anterior portion of the C5 vertebral body is compatible with a vertebral hemangioma. Mild disc bulging is present at C5-C6; minimal to mild at C4-C5. Minimal right paracentral disc protrusion without impingement is seen at C6-C7. No intraspinal, perispinal or paravertebral mass is identified. No central canal or foraminal stenosis is seen. IMPRESSION: 1. Straightening of upper cervical lordosis. 2. Minimal retrolisthesis of C5 on C6. 3. Minimal right paracentral disc protrusion without impingement at C6-C7. 4. Mild disc bulging without impingement at C5-C6; minimal to mild at C4-C5. Electronically signed by: Josse Riggs Jr., M.D. Cesar Berry MD IMG MRI PROCEDURES Final Res ult documented in this encounter Visit Diagnoses Diagnosis Pain, neck documented in this encounter Care Teams Branch Credit Counselor Relationship Specialty Start Date End Date Cesar Berry MD PCP - General 08/07/17 12/16/19 Denys Urrutia MD [address] [address] Surgeon Neurosurgery 01/15/18 Suzy Hopkins, PT Physical Therapist Physical Therapy 01/15/18 Aditi Mccormick, FILTER TANK TENDER Mobile Service Rv Technician Physical Therapy 01/23/18 documented as of this encounter
--- OUTSIDE RECORDS SUMMARY | 2024-08-09 20:05 | XMS_ITS | Encounter Summary ---
Author Organization [facility] Healthcare Address [address] [place] [address] Care Team Providers Care Dip Tanker Name Role Phone Cesar Berry MD Primary Care Provider [phone] Cruz Garza RN Unavailable UnavailMarlin Mantilla RN Unavailable Unavailab Denys Ellsworth MD Unavailable [phone] Suzy Hopkins PT Unavailable Unavailable Aditi Mccormick PTA Unavailable Unavailable Reason for Visit * Reason Comments PT Treatment Encounter Details Date Type Department Care Team (Late st Contact Info) Description 02/21/2018 10:00 AM CDT Therapy [facility] Physical Therapy [address] [place] [address] Aditi Mccormick, LIZABETH Other intervertebral disc displacement, lumbar region (Primary Dx) Social History Tobacco Use Types Packs/Day Years Used Date Smoking Tobacco: Never Smokeless Tobacco: Never Alcohol Use Standard Drinks/Week Comments Yes 0 (1 standard drink = 0.6 oz pur e alcohol) socially Comments No Sex and Gender Information Value Date Recorded Sex Assigned at Not on file Legal Sex Female 5:22 AM SIDE SAWYER Gender Identity Not on file Sexual Orientation Not on file documented as of this encounter Progress Notes * Aditi Mccormick PTA - 02/21/2018 10:00 AM CDT PT Daily Treatment Note [facility] [place] 1970 Subjective: Pt states she woke up in pain today with pain running down her leg to her calf. Pt states she is unclear as to why her pain is increased. Pain: 3/10 tail bone and L calf Objective: Added PUS to L low back and L hip. Treatment Provided: Nustep L6??X??7??min Rockerboard stability - static fwd/back and R/L ??X 2??min each direction Leg press B LE @ 100#, x 20; B ankles @ 100# X 20 ?? Sidestepping with green tband, 10 ft X 2 Monster walk 20' x 1w/tband green Retro Monster walks 20' x 1 w/tband green Seated B hip IR with green tband X 15 ?? LTR x 15 slowly Tato abs w/march using green tband??x 15 * Tato abs w/BKFO using green tband??x 15 ea LE* Tato abs w/clam shell w/tband green x 15* Bridging x 15* ?? Manual hamstring and piriformis stretch x 5 L Manual hamstring stretch X 5 R Nerve glide on L LE ?? kinesiotape R lumbar paraspinal and L piriformis* PUS in S/L x 8 min L low back and L hip (at point of pain) Ice pack ??to??low back and L buttock x 10??min. ? HEP: -Glut sets (supine with knees bent) -Supine pelvic tilts -Supine clam shells and marching with green Tband with TA contraction - Supine BKFO's with green tband with TA contraction - Bridging with band around knees - Walking outside the home (progression) ?? Assessment: Goals are ongoing. Pt tolerated treatment well. Plan:Continue to see pt per POC Start Time: 1000 End Time:1055 Aditi Mccormick PTA documented in this encounter [...] Primary documented in this encounter Care Teams Dip Tanker Relationship Specialty Start Date End Date Cesar Berry MD PCP - General 08/07/17 12/16/19 Cruz Garza, RN Registered Nurse 08/13/17 06/13/18 Marlin Stewart, SHAYAN Registered Nurse Pain Management 10/23/17 06/13/18 Denys Urrutia MD [address] [place] [address] Surgeon Neurosurgery 01/15/18 Suzy Hopkins, PT Physical Therapist Physical Therapy 01/15/18 Aditi Mccormick, TRANSPLANT IMMUNOLOGIST Rubber Mold Maker Physical Therapy 01/23/18 documented as of this encounter
--- OUTSIDE RECORDS SUMMARY | 2024-08-09 20:05 | XMS_ITS | Encounter Summary ---
Author Organization [facility] Address [address] [facility] [address] [place] [address] Care Team Providers Care Machine Setter Sheet Metal Name Role Phone Cesar Berry MD Primary Care Provider + [phone] Cruz Garza RN Unavailable Unavailabl Marlin Mcneil RN Unavailable Unavailab Denys Ellsworth MD Unavailable [phone] Suzy Hopkins PT Unavailable Unavailable Aditi Mccormick PTA Unavailable Unavailable Reason for Visit * Reason Onset Date Comments lab/ xray results 04/24/2018 Encounter Details Date Type Department Care Team (Late st Contact Info) Description 04/24/2018 Telephone [facility] [address] [facility] [address] [address] Shannan Rivera MD [address] [place] [address] [address] [place] [address] lab/ xray results Social History Tobacco Use Types Packs/Day Years Used Date Smoking Tobacco: Never Smokeless Tobacco: Never Alcohol Use Standard Drinks/Week Comments Yes 0 (1 standard drink = 0.6 oz pur e alcohol) socially Comments No Sex and Gender Information Value Date Recorded Sex Assigned at Not on file Legal Sex Female 5:22 AM PRESIDENTIAL HELICOPTER CREW CHIEF Gender Identity Not on file Sexual Orientation Not on file documented as of this encounter Miscellaneous Notes * Telephone Encounter - Leonarda Ray MA - 04/24/2018 12:40 PM CDT LMOM for pt with results * Telephone Encounter - Leonarda Ray MA - 04/24/2018 12:39 PM CDT ----- Message from Shannan Rivera MD sent at 04/24/2018 12:16 PM CDT ----- Please call patient and let them know that labs are stable. Thank you documented in this encounter Plan of Treatment [...] filedocumented in this encounter Care Teams Machine Setter Sheet Metal Relationship Specialty Start Date End Date Cesar Berry MD PCP - General 08/07/17 12/16/19 Cruz Garza, RN Registered Nurse 08/13/17 06/13/18 Marlin Stewart, SHAYAN Registered Nurse Pain Management 10/23/17 06/13/18 Denys Urrutia MD [address] [facility] [address] [place] [address] Surgeon Neurosurgery 01/15/18 Suzy Hopkins, KAIA Physical Therapist Physical Therapy 01/15/18 Aditi Mccormick, MINING ANALYST Staff Physical Therapy Assistant Physical Therapy 01/23/18 documented as of this encounter
--- OUTSIDE RECORDS SUMMARY | 2024-08-09 20:05 | XMS_ITS | Encounter Summary ---
Author Organization [facility] Healthcare Address [address] [place] [address] Care Team Providers Care Alumina Plant Supervisor Name Role Phone Cesar Berry MD Primary Care Provider + [phone] Cruz Garza RN Unavailable UnavailMarlin Mantilla RN Unavailable Unavailab Denys Ellsworth MD Unavailable [phone] Suzy Hopkins PT Unavailable Unavailable Aditi Mccormick PTA Unavailable Unavailable Reason for Visit * Reason Comments PT Treatment Encounter Details Date Type Department Care Team (Late st Contact Info) Description 02/28/2018 8:30 AM CDT Therapy [facility] Physical Therapy [address] [place] [address] Aditi Mccormick, LIZABETH Other intervertebral disc displacement, lumbar region (Primary Dx) Social History Tobacco Use Types Packs/Day Years Used Date Smoking Tobacco: Never Smokeless Tobacco: Never Alcohol Use Standard Drinks/Week Comments Yes 0 (1 standard drink = 0.6 oz pur e alcohol) socially Comments No Sex and Gender Information Value Date Recorded Sex Assigned at Not on file Legal Sex Female 5:22 AM SHAREPOINT DESIGNER DEVELOPER Gender Identity Not on file Sexual Orientation Not on file documented as of this encounter Progress Notes * Aditi Mccormick PTA - 02/28/2018 8:30 AM CDT PT Daily Treatment Note [facility] 1970 Subjective:Pt states she is having a fibro flare up. Pt states she doesn't think she can do the legpress today 2 fibro pain. Pt states she didn't feel the US helped her at all. Pain: / for her back, 7/10 overall 2 Fibromyagia. Objective: Treatment scaled back to accommodate increased pain from her fibro today. See treatment provided. Treatment Provided: Nustep L6??X??7??min Rockerboard stability - static fwd/back and R/L ??X 2??min each direction Leg press B LE @ 100#, x 20; B ankles @ 100# X 20* ?? Sidestepping with green tband, 10 ft X 2* Monster walk 20' x 1w/tband green * Retro Monster walks 20' x 1 w/tband green* Seated B hip IR with green tband X 15* ?? LTR x 15 slowly PPT x 15 Taot abs w/march using green tband??x 15 * Tato abs w/BKFO using green tband??x 15 ea LE Tato abs w/clam shell w/tband green x 15* Bridging x 15 ?? Manual hamstring and piriformis stretch x 5 B Nerve glide on L LE ?? kinesiotape R lumbar paraspinal and L??piriformis* PUS in S/L x 8 min L [...] knees - Walking outside the home (progression) ? Assessment: Goals are ongoing. Pt tolerated treatment well. Plan:Continue to see pt per POC Start Time: 830 End Time:925 Aditi Mccormick PTA documented in this encounter [...] Primary documented in this encounter Care Teams Alumina Plant Supervisor Relationship Specialty Start Date End Date Cesar Berry MD PCP - General 08/07/17 12/16/19 Cruz Garza, RN Registered Nurse 08/13/17 06/13/18 Marlin Stewart, SHAYAN Registered Nurse Pain Management 10/23/17 06/13/18 Denys Urrutia MD [address] [facility] [address] [place] [address] Surgeon Neurosurgery 01/15/18 Suzy Hopkins, PT Physical Therapist Physical Therapy 01/15/18 Aditi Mccormick, RUBY ENGINEER Acquisitions Analyst Physical Therapy 01/23/18 documented as of this encounter
--- OUTSIDE RECORDS SUMMARY | 2024-08-09 20:05 | XMS_ITS | Encounter Summary ---
Author Organization [facility] Healthcare Address [address] [place] [address] Care Team Providers Care Ethylene Plant Helper Name Role Phone Cesar Berry MD Primary Care Provider + [phone] Cruz Garza RN Unavailable Unavailabl Marlin Mcneil RN Unavailable Unavailab Denys Ellsworth MD Unavailable [phone] Suzy Hopkins PT Unavailable Unavailable Aditi Mccormick PTA Unavailable Unavailable Reason for Visit * Reason Comments PT Treatment Encounter Details Date Type Department Care Team (Late st Contact Info) Description 03/04/2018 8:30 AM CDT Therapy [facility] Physical Therapy [address] [place] [address] Aditi Mccormick, LIZABETH Other intervertebral disc displacement, lumbar region (Primary Dx) Social History Tobacco Use Types Packs/Day Years Used Date Smoking Tobacco: Never Smokeless Tobacco: Never Alcohol Use Standard Drinks/Week Comments Yes 0 (1 standard drink = 0.6 oz pur e alcohol) socially Comments No Sex and Gender Information Value Date Recorded Sex Assigned at Not on file Legal Sex Female 5:22 AM THEATER COMPANY PRODUCER Gender Identity Not on file Sexual Orientation Not on file documented as of this encounter Progress Notes * Aditi Mccormick PTA - 03/04/2018 8:30 AM CDT PT Daily Treatment Note [facility] [place] 1970 Subjective: Pt states she had a really good weekend as far as pain is concerned. Pain: / tailbone Objective:Added hip flexor stretch today. Treatment Provided: Nustep L6??X??8??min Rockerboard stability - static fwd/back and R/L ??X 2??min each direction Leg press B LE @ 100#, x 20; B ankles @ 100# X 20 Cybex Hip 2 plates, flex and ABD x 15 ea B ?? Sidestepping with green tband, [...] piriformis stretch and ITB x 5 B Manual hip flexor stretch R x 4 Nerve glide on L LE x 4 B STM B Low back to buttock (piriformis).??* kinesiotape B lumbar paraspinal to piriformis PUS [...] knees - Walking outside the home (progression) Assessment: Goals are [...] Primary documented in this encounter Care Teams Ethylene Plant Helper Relationship Specialty Start Date End Date Cesar Berry MD PCP - General 08/07/17 12/16/19 Cruz Garza, RN Registered Nurse 08/13/17 06/13/18 Marlin Stewart, SHAYAN Registered Nurse Pain Management 10/23/17 06/13/18 Denys Urrutia MD [address] [facility] [address] [place] [address] Surgeon Neurosurgery 01/15/18 Suzy Hopkins, PT Physical Therapist Physical Therapy 01/15/18 Aditi Mccormick, AFRICANA STUDIES PROFESSOR Bilingual Inside Sales Representative Physical Therapy 01/23/18 documented as of this encounter
--- OUTSIDE RECORDS SUMMARY | 2024-08-09 20:05 | XMS_ITS | Encounter Summary ---
Author Organization [facility] Healthcare Address [address] [place] [address] Care Team Providers Care Sealer Sander Name Role Phone Cesar Berry MD Primary Care Provider [phone] Cruz Garza RN Unavailable UnavailMarlin Mantilla RN Unavailable Unavailab Denys Ellsworth MD Unavailable [phone] Suzy Hopkins PT Unavailable Unavailable Aditi Mccormick PTA Unavailable Unavailable Reason for Visit * Reason Comments PT Treatment Encounter Details Date Type Department Care Team (Late st Contact Info) Description 02/18/2018 10:00 AM CDT Therapy [facility] Physical Therapy [address] [place] [address] Suzy Hopkins, PT Other intervertebral disc displacement, lumbar region (Primary Dx) Social History Tobacco Use Types Packs/Day Years Used Date Smoking Tobacco: Never Smokeless Tobacco: Never Alcohol Use Standard Drinks/Week Comments Yes 0 (1 standard drink = 0.6 oz pur e alcohol) socially Comments No Sex and Gender Information Value Date Recorded Sex Assigned at Not on file Legal Sex Female 5:22 AM KENNEL WORKER Gender Identity Not on file Sexual Orientation Not on file documented as of this encounter Progress Notes * Suzy Hopkins, PT - 02/18/2018 10:00 AM CDT PT Daily Treatment Note [facility] 1970 Subjective: Pt states she is doing better but did have some numbness and tingling in B feet this weekend. She also had some cramping in the L calf. She states she was on her feet more this weekend which may have caused the increase in symptoms. Pain: 10/06 R lower back and tailbone region Objective: Added leg press, sidestepping with green tband, and seated B hip IR with green tband to program today. Added more lumbar stabilization exercises to HEP today. Pt c/o increased pulling in L buttock with LTR stretch. Treatment Provided: Nustep L6??X??7 min Rockerboard stability - static fwd/back and R/L ??X 2 min each direction Leg press B LE @ 100#, 10 X 2; B ankles @ 100# X 20 HEP - Pt independent with HEP exercises Sidestepping with green tband, 10 ft X 2 Seated B hip IR with green tband X 15 LTR x 10 slowly Tato abs w/march using green tband??x 15 Tato abs w/BKFO using green tband??x 15 ea LE Tato abs w/clam shell w/tband green x 15 Bridging x 15 ?? Manual hamstring and piriformis stretch x 5 L Manual hamstring stretch X 5 R Nerve glide on L LE ?? kinesiotape R lumbar paraspinal and L piriformis Ice pack ??to??low back and L buttock x 10??min. ? HEP: -Glut sets (supine with knees bent) -Supine pelvic tilts -Supine clam shells and marching with green Tband with TA contraction - Supine BKFO's with green tband with TA contraction - Bridging with band around knees - Walking outside the home (progression) ? Assessment: Pt tolerated treatment well stating her back and buttock feel better. She will benefit from continued PT to address ongoing goals. Plan: Continue as per PT plan of care progressing therapeutic exercises as pt tolerates and per MD orders. Start Time: 1001 End Time: 1050 Suzy Hopkins PT documented in this encounter [...] Primary documented in this encounter Care Teams Sealer Sander Relationship Specialty Start Date End Date Cesar Berry MD PCP - General 08/07/17 12/16/19 Cruz Garza, RN Registered Nurse 08/13/17 06/13/18 Marlin Stewart, SHAYAN Registered Nurse Pain Management 10/23/17 06/13/18 Denys Urrutia MD [address] [facility] [address] [place] [address] Surgeon Neurosurgery 01/15/18 Suzy Hopkins, PT Physical Therapist Physical Therapy 01/15/18 Aditi Mccormick, OUTPATIENT FACILITY PHYSICAL THERAPIST Motor Coach Driver Physical Therapy 01/23/18 documented as of this encounter
--- OUTSIDE RECORDS SUMMARY | 2024-08-09 20:05 | XMS_ITS | Encounter Summary ---
Author Organization [facility] Healthcare Address [address] [place] [address] Care Team Providers Care Chief School Finance Officer Name Role Phone Cesar Berry MD Primary Care Provider [phone] Denys Urrutia MD Unavailable [phone] Suzy Hopkins PT Unavailable Unavailable Aditi Mccormick RELOCATION SERVICES SPECIALIST Unavailable Unavailable Reason for Visit * Reason Comments Follow-up Med eval Encounter Details Date Type Department Care Team (Late st Contact Info) Description 06/14/2018 1:15 PM MATERIAL DISPOSITION INSPECTOR Office Visit [facility] [address] [place] [address] [facility] [address] [place] [address] Nura Umana MD [address] [place] [address] [address] [place] [address] Fibromyalgia (Primary Dx); Chronic bilateral low back pain without sciatica; Depression, unspecified depression type Discharge Disposition: Discharge to home or self care Social History Tobacco Use Types Packs/Day Years Used Date Smoking Tobacco: Never Smokeless Tobacco: Never Alcohol Use Standard Drinks/Week Comments Yes 0 (1 standard drink = 0.6 oz pur e alcohol) socially Comments No Sex and Gender Information Value Date Recorded Sex Assigned at Not on file Legal Sex Female 5:22 AM MATERIAL DISPOSITION INSPECTOR Gender Identity Not on file Sexual Orientation Not on file documented as of this encounter Discharge Disposition Disposition Code Departure Means Destination Discharge to home or self care documented in this encounter Progress Notes * Marlin Stewart RN - 06/14/2018 1:15 PM CST Pt here for recommendations re: Cymbalta. States, did research on Cymbalta and rather not take it do so side effects. I'm trying to lose weight and lower my lipid count. States, still taking Zoloft. Pt had discectomy 11/2017. Pt states, most intense pain in in both hips/buttocks. Seen by . Pt and Dr. Umana discussed medication options and reviewed Comprehensive Pain Panel labs. Pt advised to continue Zoloft as prescribed. Pt declines any desire for pain meds. Pt to return as needed if pain symptoms worsen. RIAL DISPOSITION INSPECTOR * Nura Umana MD - 06/14/2018 1:15 PM CST Return visit results f/u HPI She comes in to go over CPP results. They were all WNL or neg. Her back pain the is due to depression/fibromyalgia syndrome. She does not want narcotic pain medication. She is on Zoloft for depression. Past Medical History: Diagnosis Date ??? Arthritis ??? Depression ??? Dysrhythmia History of ablation for cardiac ectopy of PVCs and PACs but it was unsuccessful. ??? Gastroesophageal reflux disease ??? Hypertension 11/03/2016 Hypertension ??? Migraine Ocular ??? Morbid obesity with BMI of 40.0-44.9, adult ([facility]) BMI 40.9 ??? PONV (postoperative nausea and vomiting) ??? 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 Negative for arthralgias. Neurological: Negative for weakness and numbness. Psychiatric/Behavioral: Negative for confusion. Vitals: Most Recent : There were no vitals taken for this visit. PEX: Physical Exam Constitutional: She is oriented to person, place, and time. She appears well- developed and well-nourished. Musculoskeletal: Normal range of motion. Neurological: She is alert and oriented to person, place, and time. Psychiatric: She has a normal mood and affect. Imaging/labs: CPP:cortisol WNL. RF neg. CHRISTINE neg. HLA neg. Assesment: Depression/fibromyalgia generated chronic LBP. Problem List Items Addressed This Visit Chronic bilateral low back pain without sciatica Fibromyalgia - Primary Plan: RTC PRN. RIAL DISPOSITION INSPECTOR documented in this encounter Plan of Treatment Not on file documented as of this encounter Goals Goal Patient Goal Type Associated Problems Recent Progress Patient-Stated? Author [facility] On track( 018 11:29 AM CDT) Cruz Irizarry, RN Note: Patient will describe how unrelieved pain will be managed. documented as of this encounter Visit Diagnoses Diagnosis Fibromyalgia- Primary Unspecified myalgia and myositis Chronic bilateral low back pain without sciatica Depression, unspecified depression type documented in this encounter Discontinued Medications Medication Sig Discontinue Reason Start Date End Da te meloxicam (MOBIC) 7.5 mg tablet Take 1 tablet (7.5 mg total) by mouth daily. Therapy completed 04/16/2018 06/14/2018 documented as of this encounter Care Teams Chief School Finance Officer Relationship Specialty Start Date End Date Cesar Berry MD PCP - General 08/07/17 12/16/19 Denys Urrutia MD [address] [facility] [address] [place] [address] Surgeon Neurosurgery 01/15/18 Suzy Hopkins, PT Physical Therapist Physical Therapy 01/15/18 Aditi Mccormick, RELOCATION SERVICES SPECIALIST Platform Power Technician Physical Therapy 01/23/18 documented as of this encounter
--- OUTSIDE RECORDS SUMMARY | 2024-08-09 20:05 | XMS_ITS | Encounter Summary ---
Author Organization [facility] Healthcare Address [address] [place] [address] Care Team Providers Care Photographic Equipment Technician Name Role Phone Cesar Berry MD Primary Care Provider [phone] Cruz Garza RN Unavailable UnavailMarlin Mantilla RN Unavailable Unavailab Denys Ellsworth MD Unavailable [phone] Suzy Hopkins PT Unavailable Unavailable Reason for Visit * Reason Comments PT Initial Eval * Consultation (Routine) - Closed Specialty Diagnoses / Procedures Referred By Contac t Referred To Contact Physical Therapy Diagnoses Other intervertebral disc displacement, lumbar region Denys Urrutia MD Phone: tel: fax: [address] [address] Referral ID Status Reason Start Date Expiration Date V isits Requested Visits Authorized [id number] Closed Specialty Services Required 01/15/2018 07/27/2019 1 1 Encounter Details Date Type Department Care Team (Late st Contact Info) Description 01/21/2018 8:15 AM CDT Therapy [facility] Physical Therapy [address] [place] [id number] Suzy Hopkins, PT Other intervertebral disc displacement, lumbar region (Primary Dx) Social History Tobacco Use Types Packs/Day Years Used Date Smoking Tobacco: Never Smokeless Tobacco: Never Alcohol Use Standard Drinks/Week Comments Yes 0 (1 standard drink = 0.6 oz pur e alcohol) socially Comments No Sex and Gender Information Value Date Recorded Sex Assigned at Not on file Legal Sex Female 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 female Denys Urrutia MD [address] [place] [address] ICD-9-CM ICD-10-CM 1. Other intervertebral disc displacement, lumbar region 722.10 M51.26 Ambulatory referral order toPhysical Therapy - Subjective: History of Present Condition Date of surgery: 12/05/17 Mechanism of injury: s/p lumbar microdiscectomy on L side. Pt states she has been having intermittent back pain for several years. Pt states if she does too much bending or stooping will cause radiating symptoms on R side. 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 requirements: 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, being on feet for long periods of time Diagnostic Tests MRI: Abnormal Treatments Previous treatment: Medication, Chiropractic Current treatment: Medication Patient/Caregiver Goals Goals for therapy: Decreased pain, Return to work/school Objective: POSTURE: no significant postural abnormalities noted in standing GAIT: minimal decreased pan due to low back stiffness and pain, otherwise WFL ROM: Trunk AROM: Flexion: 50% limited due to stiffness and pain All other movements WFL and not painful PROM: Excessive external rotation noted with significantly limited internal rotation in B hips FLEXIBILITY: Minimal tightness noted in B hamstring with 90/90 testing (B -20 deg from terminal extension) Minimal/no tightness noted in B piriformis with passive stretch STRENGTH: 5/5 strength throughout B LE; pain with L knee extension testing due to hamstring muscle pulling causing pain Lower abdominals = 3/5 Hip R abduction = 4+/5 L abduction = 4/5 R extension = 3-/5 L extension = 3-/5 REFLEXES: not tested at this time PALPATION: Moderate/significant tenderness and pain to palpation, scar tissue noted along surgical incision. Pt also tender along B PSIS. SPECIAL TESTS: none performed on this date Treatment Provided: HEP instruction: -Glut sets (supine with knees bent) -Supine pelvic tilts -Supine clam shells with green Tband with TA contraction -Walking outside the home (progression) Scar massage to lumbar surgical incision x 5 min. Ice pack on low back x 10 min. 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 Goal status: New LTG 1:: Pt will have minimal/no tenderness and pain to palpation in the low back in order to improve overall pain levels throughout the day by D/C. 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 Goal status: New Plan Start time: 815 End time: 911 Therapy options: will be seen for skilled therapy services Planned modality interventions: cryotherapy, thermotherapy (hydrocollator packs), interferential current Planned therapy interventions: abdominal trunk stabilization, manual therapy, strengthening, home exercise program, soft tissue mobilization Frequency: 3 x/week Duration in weeks: 4 weeks Plan details: Pt to be re-assessed after 4 weeks to determine further need for skilled PT or until MD recommends progressing protocol. Pt states she will eventually go to outpatient PT at her place of employment due to convenience. TREATMENT IDEAS: Nu-step Rockerboard Supine stabilization exercises -pelvic tilts -glut sets -supine marches with TA contraction Progress to turkmen ball and trunk flexion stretches Quadruped core stability exercises Scar/soft tissue massage low back Modalities prn Mechanical traction prn Wanda Sánchez, SPT Suzy Hopkins, PT Cosigned by Suzy Hopkins PT at 01/21/2018 4:26 PM CDT documented in this encounter Plan of Treatment [...] lumbar region- Primary documented in this encounter Orders Outpatient Referral Count Last Ordered Date Fir st Ordered Date AMB REFERRAL ORDER TO PHYSICAL THERAPY 1 documented in this encounter Care Teams Photographic Equipment Technician Relationship Specialty Start Date End Date Cesar Berry MD PCP - General 08/07/17 12/16/19 Cruz Garza, RN Registered Nurse 08/13/17 06/13/18 Marlin Stewart, SHAYAN Registered Nurse Pain Management 10/23/17 8 Denys Urrutia MD [address] [facility] [address] [place] [address] Surgeon Neurosurgery 01/15/18 Suzy Hopkins PT Physical Therapist Physical Therapy 01/15/18 documented as of this encounter
--- OUTSIDE RECORDS SUMMARY | 2024-08-09 20:05 | XMS_ITS | Encounter Summary ---
Author Organization [facility] Medical [facility] Address [address] [place] [address] Care Team Providers Care Piping Blocker Name Role Phone Cesar Berry MD Primary Care Provider Denys Urrutia MD Unavailable [phone] Suzy Hopkins PT Unavailable Unavailable Aditi Mccormick MANAGER EQUITY Unavailable Unavailable Encounter Details Date Type Department Care Team (Late st Contact Info) Description 02/13/2019 Orders Only [facility] Medical [facility] Cardiology [address] [place] [address] Shahbaz Aguilar MD [address] [address] Social History Tobacco Use Types Packs/Day Years Used Date Smoking Tobacco: Never Smokeless Tobacco: Never Alcohol Use Standard Drinks/Week Comments Yes 0 (1 standard drink = 0.6 oz pur e alcohol) socially Comments No Sex and Gender Information Value Date Recorded Sex Assigned at Not on file Legal Sex Female 5:22 AM 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 Gender Identity Not on file Sexual [...] Procedure Name Priority Date/Time Associated Diagnosis Comments CARDIOLOGY DOCUMENT SCAN Routine 02/13/2019 documented in this encounter Results * SCAN - CARDIOLOGY (02/13/2019) Anatomical Region Laterality Modality Other Shahbaz Aguilar MD CV CARDIAC SERVICES PROC EDURES Final Result documented in this encounter Visit Diagnoses Not on filedocumented in this encounter Care Teams Piping Blocker Relationship Specialty Start Date End Date Cesar Berry MD PCP - General 08/07/17 12/16/19 Denys Urrutia MD [address] [place] [address] Surgeon Neurosurgery 01/15/18 Suzy Hopkins, PT Physical Therapist Physical Therapy 01/15/18 Aditi Mccormick, MANAGER EQUITY Blueprint Assembler Physical Therapy 01/23/18 documented as of this encounter
--- OUTSIDE RECORDS SUMMARY | 2024-08-09 20:06 | XMS_ITS | Encounter Summary ---
Author Organization [facility] Healthcare Address [address] [place] [address] Care Team Providers Care Customer Quality Engineer Name Role Phone Cesar Berry MD Primary Care Provider Cruz Garza RN Unavailable Unavailabl e Encounter Details Date Type Department Care Team (Latest Contact Info) Description 08/27/2017 9:27 AM [employer] - 08/27/2017 10:03 AM [employer] Hospital Encounter [facility] [address] [place] [address] [place] [address] Nura Umana MD [address] [place] [id number] Discharge Disposition: Discharge to home or self care Social History Tobacco Use Types Packs/Day Years Used Date Smoking Tobacco: Never Smokeless Tobacco: Never Alcohol Use Standard Drinks/Week Comments Yes 0 (1 standard drink = 0.6 oz pur e alcohol) Comments Unknown Sex and Gender Information Value Date Recorded Sex Assigned at Not on file 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 [employer]S Gender Identity Not on file Sexual Orientation Not on file documented as of this encounter Last Filed Vital Signs Vital Sign Reading Time Taken Comments Blood Pressure 148/76 08/27/2017 9:59 AM [employer] Pulse 74 08/27/2017 9:59 AM [employer] Temperature 37.2 ??C (98.9 ??F) 08/27/2017 9:41 AM CS T Respiratory Rate 16 08/27/2017 9:59 AM [employer] Oxygen Saturation 98% 08/27/2017 9:59 AM [employer] Inhaled Oxygen Concentration - - Weight - - Height - - Body Mass Index - - documented in this encounter Medications at Time of Discharge cholecalciferol (VITAMIN D-3) 2,000 unit capsule 2,000 Units. 12/03/2017 dilTIAZem XR (CARDIZEM CD,DILACOR XR) 180 mg 24 hr capsule Take 180 mg by mouth daily. 12/03/2017 estradiol (VIVELLE-DOT) 0.025 mg/[address] 1 patch on the skin 2 (two) times a week. 12/03/2017 HYDROcodone-aceta minophen (NORCO) 5-325 mg per tabletIndications :Pain Take 1 tablet by mouth every 6 (six) hours as needed. 10/15/2017 losartan-hydroCHL OROthiazide (HYZAAR) 100-12.5 mg per tablet 0 0 11/03/2016 12/03/2017 meloxicam (MOBIC) 7.5 mg tablet Take 1 tablet (7.5 mg total) by mouth daily. 10 tablet 04/20/2017 10/23/2017 sertraline (ZOLOFT) 100 mg tablet Take 100 mg by mouth daily. 12/03/2017 traMADol (ULTRAM) 50 mg tablet Take 50 mg by mouth every 6 (six) hours. 10/23/2017 documented as of this encounter Discharge Disposition Disposition Code Departure Means Destination Discharge to home or self care documented in this encounter Procedure Notes * Nura Umana MD - 08/27/2017 9:46 AM CST Procedures Lumbar Epidural Injection Patient comes in today for planned injection therapy. She comes in for the 2nd LESI in this series today. Patient was brought to procedure room, and placed on the x-ray table in the prone position. A time out was performed to identify the patient and procedure. Lower back was prepped with chlorhexidine and draped in an sterile manner. C arm was brought to the field and rotated to demonstrate the L5-S1 interspace approach to best advantage. Skin and subcutaneous tissues on a median line were anesthetized with 1% lidocaine using a 25G needle. Next, a 22G Ravindra needle was passed on the same path until ligament engagement was felt. The C arm was then rotated to the lateral view and the needle advanced until the loss of resistance to saline was obtained. Next, 2mL of Omnipaque 240 was injected. This demonstrated epidural spread bilat L4-5 thru sacral levels. This was followed with 10mL of dexamethasone in 2cc of saline. The needle was removed, sterile dressing applied, and patient returned to their pain clinic room. Following observation and vital signs, patient will be discharged home. R SHOE PARTS documented in this encounter Miscellaneous Notes * Perioperative Nursing Note - Marlin Stewart RN - 08/27/2017 10:00 AM [facility] Discharge instructions reviewed with pt. Verbalized understanding. Hard copy given to pt. To returnin 2 weeks for #3 injection of series. R SHOE PARTS * Perioperative Nursing Note - Marlin Stewart RN - 08/27/2017 9:43 AM [employer] Seen by Dr. Umana pre procedure. R SHOE PARTS documented in this encounter Plan of Treatment Not on file documented as of this encounter Goals Goal Patient Goal Type Associated Problems Recent Progress Patient-Stated? Author [facility] On track( 018 11:29 AM CDT) Cruz Irizarry, SHAYAN Note: Patient will describe how unrelieved pain will be managed. documented as of this encounter Procedures Procedure Name Priority Date/Time Associated Diagnosis Comments XR SPINE LUMBAR 2 OR 3 VIEWS IP Routine 08/27/2017 9:57 AM [facility] [employer] INJECTION EPIDURAL LUMBAR/CAUDAL 1 LEVEL PAIN PUMP TRIAL W IMAGING [id number] 08/27/2017 9:48 AM [facility] [employer] Case Notes L5-S1 TLESI (2ND) documented in this encounter Results * XR Spine Lumbar 2 or 3 Views (08/27/2017 9:57 AM [facility] [employer]) Anatomical Region Laterality Modality Spine N/A Computed Radiogr aphy Impressions 08/27/2017 9:57 AM [facility] [employer] EPIDURAL INJECTION AT L5-S1. Electronically signed by: Hebert Falcon M.D. Narrative 08/27/2017 9:57 AM [employer] XR SPINE LUMBAR 2 OR 3 VIEWS HISTORY: BACK PAIN, UNSPECIFIED. ??Epidural injection. COMPARISON: None available. FINDINGS: 2 intraoperative fluoroscopic spot projections of the lumbar spine demonstrate placement of a spinal needle dorsally at L5-S1. ??No additional findings are noted. 10 seconds fluoroscopy time was recorded. Procedure Note Hebert Falcon MD - 08/27/2017 XR SPINE LUMBAR 2 OR 3 VIEWS HISTORY: BACK PAIN, UNSPECIFIED. Epidural injection. COMPARISON: None available. FINDINGS: 2 intraoperative fluoroscopic spot projections of the lumbar spine demonstrate placement of a spinal needle dorsally at L5-S1. No additional findings are noted. 10 seconds fluoroscopy time was recorded. IMPRESSION: EPIDURAL INJECTION AT L5-S1. Electronically signed by: Hebert Falcon M.D. Nura Umana MD IMG XR PROCEDURES Edited documented in this encounter Visit Diagnoses Not on filedocumented in this encounter Active and Recently Administered Medications Times are shown in [employer]. PRN Medication Order 08/25/2017 08/26/2017 08/27/2017 dexamethasone (DECADRON) injection (CANCELED) As needed, Starting on Sun08/27/17 at 0952, Intra-Op 0954 (Given - Provid er: Nura Umana MD - Comment: epidural) iohexol (OMNIPAQUE) 240 mg iodine/mL injection solution (CANCELED) As needed, Starting on Sun08/27/17 at 0951, Intra-Op 0954 (Given - Provid er: Nura Umana MD) lidocaine (XYLOCAINE) 10 mg/mL (1 %) injection (CANCELED) As needed, Starting on Sun08/27/17 at 0951, Intra-Op, Indications: Administration of Local Anesthesia 0951 (Given - Provid er: Nura Umana MD - Comment: local) sodium chloride 0.9% solution (CANCELED) As needed, Starting on Sun08/27/17 at 0951, Intra-Op 0953 (Given - Provid er: Nura Umana MD - Comment: epidural) documented in this encounter Orders Medications Ordered That Alessio ht Not Have Been Administered Count Last Ordered Date First Ordered Date dexamethasone (DECADRON) injection 1 2017 iohexol (OMNIPAQUE) 240 mg i odine/mL injection solution 1 08/27/2017 lidocaine (XYLOCAINE) 10 mg/ mL (1 %) injection 1 08/27/2017 sodium chloride 0.9% solution 1 08/27/2017 documented in this encounter Care Teams Customer Quality Engineer Relationship Specialty Start Date End Date Cesar Berry MD PCP - General 08/07/17 12/16/19 Cruz Garza, RN Registered Nurse 08/13/17 06/13/18 documented as of this encounter
--- OUTSIDE RECORDS SUMMARY | 2024-08-09 20:06 | XMS_ITS | Encounter Summary ---
Author Organization [facility] Healthcare Address [address] [place] [address] Care Team Providers Care Event Coordinator Marketing And Sales Name Role Phone Cesar Berry MD Primary Care Provider [phone] Cruz Garza RN Unavailable Unavailabl e Encounter Details Date Type Department Care Team (Latest Contact Info) Description 10/22/2017 1:44 PM CDT - 10/22/2017 11:59 PM CDT Hospital Encounter [facility] [address] [place] [address] Nura Umana MD [address] [place] [address] [address] Lumbosacral radiculopathy Discharge Disposition: Discharge to home or self care Social History Tobacco Use Types Packs/Day Years Used Date Smoking Tobacco: Never Smokeless Tobacco: Never Alcohol Use Standard Drinks/Week Comments Yes 0 (1 standard drink = 0.6 oz pur e alcohol) Comments No Sex and Gender Information Value Date Recorded Sex Assigned at Not on file 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 120 tablet 10/15/2017 11/14/2017 cholecalciferol (VITAMIN D-3) 2,000 unit capsule 2,000 Units. 12/03/2017 dilTIAZem XR (CARDIZEM CD,DILACOR XR) 180 mg 24 hr capsule Take 180 mg by mouth daily. 12/03/2017 estradiol (VIVELLE-DOT) 0.025 mg/[address] 1 patch on the skin 2 (two) times a week. 12/03/2017 losartan-hydroCH LOROthiazide (HYZAAR) 100-12.5 mg per tablet 0 0 [...] Date/Time Associated Diagnosis Comments MRI LUMBAR SPINE WO CONTRAST Schedule Routine, Read Routine (OP Routine) 10/22/2017 2:19 PM CDT Lumbosacral radiculopathy documented in this encounter Results * MRI Lumbar Spine WO Contrast (10/22/2017 2:19 PM CDT) Anatomical Region Laterality Modality Spine N/A Magnetic Resonan ce Impressions 10/22/2017 3:10 PM CDT 1. ??MODERATE TO LARGE LEFT PARACENTRAL DISC PROTRUSION SIGNIFICANTLY IMPINGING UPON THE CENTRAL AND LEFT SIDE OF THE THECAL SAC RESULTING IN MODERATE SPINAL CANAL STENOSIS. Electronically signed by: Shekhar Forde M.D. Narrative 10/22/2017 3:10 PM CDT MRI LUMBAR SPINE WO CONTRAST HISTORY: ??Low back pain. ??Left leg numbness and pain. TECHNIQUE: Sagittal T1, T2 and inversion recovery; axial T1 and T2 COMPARISON: Lumbar spine CT 07/27/2017. FINDINGS: There is no lumbar compression fracture. ??There is disc desiccation with mild narrowing of the disc space at L4-L5. ??At the L5-S1 level there is moderate right and milder left facet osteoarthritis. ??At L4-L5 and at L3-L4 there is mild right greater than left facet osteoarthritis. L5/S1: There is no focal disc protrusion, disc bulging or spinal canal or neural foraminal stenosis. L4/L5: There is a moderate to large left paracentral disc protrusion which significantly impinges upon the central and left-sided the thecal sac resulting in moderate spinal canal stenosis. ??Neural foramina are still adequately maintained. L3/L4: There is no focal disc protrusion, disc bulging or spinal canal or neural foraminal stenosis. L2/L3: There is no focal disc protrusion, disc bulging or spinal canal or neural foraminal stenosis. L1/L2: There is no focal disc protrusion, disc bulging or spinal canal or neural foraminal stenosis. T12/L1: There is no focal disc protrusion, disc bulging or spinal canal or neural foraminal stenosis. Procedure Note Shekhar Forde MD - 10/22/2017 MRI LUMBAR SPINE WO CONTRAST HISTORY: Low back pain. Left leg numbness and pain. TECHNIQUE: Sagittal T1, T2 and inversion recovery; axial T1 and T2 COMPARISON: Lumbar spine CT 07/27/2017. FINDINGS: There is no lumbar compression fracture. There is disc desiccation with mild narrowing of the disc space at L4-L5. At the L5-S1 level there is moderate right and milder left facet osteoarthritis. At L4-L5 and at L3-L4 there is mild right greater than left facet osteoarthritis. L5/S1: There is no focal disc protrusion, disc bulging or spinal canal or neural foraminal stenosis. L4/L5: There is a moderate to large left paracentral disc protrusion which significantly impinges upon the central and left-sided the thecal sac resulting in moderate spinal canal stenosis. Neural foramina are still adequately maintained. L3/L4: There is no focal disc protrusion, disc bulging or spinal canal or neural foraminal stenosis. L2/L3: There is no focal disc protrusion, disc bulging or spinal canal or neural foraminal stenosis. L1/L2: There is no focal disc protrusion, disc bulging or spinal canal or neural foraminal stenosis. T12/L1: There is no focal disc protrusion, disc bulging or spinal canal or neural foraminal stenosis. IMPRESSION: 1. MODERATE TO LARGE LEFT PARACENTRAL DISC PROTRUSION SIGNIFICANTLY IMPINGING UPON THE CENTRAL AND LEFT SIDE OF THE THECAL SAC RESULTING IN MODERATE SPINAL CANAL STENOSIS. Electronically signed by: Shekhar Forde M.D. Nura Umana MD IMG MRI PROCEDURES Edited Result - Final documented in this encounter Visit Diagnoses Diagnosis Lumbosacral radiculopathy Thoracic or lumbosacral neuritis or radiculitis, unspecified documented in this encounter Care Teams Event Coordinator Marketing And Sales Relationship Specialty Start Date End Date Cesar Berry MD PCP - General 08/07/17 12/16/19 Cruz Garza, RN Registered Nurse 08/13/17 06/13/18 documented as of this encounter
--- OUTSIDE RECORDS SUMMARY | 2024-08-09 20:06 | XMS_ITS | Encounter Summary ---
Author Organization [facility] Healthcare Address [address] [place] [address] Care Team Providers Care Senior Pensions Administrator Name Role Phone Cesar Berry MD Primary Care Provider [phone] Cruz Garza RN Unavailable Unavailabl e Marlin Stewart RN Unavailable Unavailab le Encounter Details Date Type Department Care Team (Latest Contact Info) Description 12/05/2017 8:48 AM CDT - 12/05/2017 5:45 PM CDT Hospital Encounter [facility] Operating Room [address] [place] [address] Denys Urrutia MD [address] [place] [id number] Back pain Discharge Disposition: Discharge to home or self care Social History Tobacco Use Types Packs/Day Years Used Date Smoking Tobacco: Never Smokeless Tobacco: Never Alcohol Use Standard Drinks/Week Comments Yes 0 (1 standard drink = 0.6 oz pur e alcohol) socially Comments No Sex and Gender Information Value Date Recorded Sex Assigned at Not on file 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 Gender Identity Not on file Sexual Orientation Not on file documented as of this encounter Last Filed Vital Signs Vital Sign Reading Time Taken Comments Blood Pressure 119/85 12/05/2017 5:35 PM CDT Pulse 66 12/05/2017 4:25 PM CDT Temperature 36.8 ??C (98.2 ??F) 12/05/2017 5:35 PM CD T Respiratory Rate 11 12/05/2017 4:25 PM CDT Oxygen Saturation 93% 12/05/2017 5:35 PM CDT Inhaled Oxygen Concentration - - Weight 118.3 kg (260 lb 12.9 oz) 12/05/2017 9:35 AM CDT Height 170.2 cm (5' 7 ) 12/05/2017 9:35 AM CDT Body Mass Index 40.85 12/05/2017 9:35 AM CDT documented in this encounter Discharge Instructions * Discharge Instructions* Maddison Oliveros RN - 12/05/2017 4:30 PM CDT Lumbar Discectomy WHAT YOU NEED TO KNOW: A lumbar discectomy is the removal of all or part of a ruptured lumbar disc. You may have muscle spasms in your low back, thighs, and buttocks after surgery. These should go away within a few days. This does not mean your surgery did not work. You will have pain. You will be given pain medicine to keep you comfortable. You will need to use proper body mechanics when you move. This means keeping your shoulders and your hips in a straight line. Proper body mechanics can help lower pain and removestress on your back as you move. DISCHARGE INSTRUCTIONS: Call 911 for any of the following: ?? You have any of the following signs of a heart attack: ?? Squeezing, pressure, or pain in your chest that lasts longer than 5 minutes or returns ?? Discomfort or pain in your back, neck, jaw, stomach, or arm ?? Trouble breathing ?? Nausea or vomiting ?? Lightheadedness or a sudden cold sweat, especially with chest pain or trouble breathing ?? You have any of the following signs of a stroke: ?? Numbness or drooping on one side of your face ?? Weakness in an arm or leg ?? Confusion or difficulty speaking ?? Dizziness, a severe headache, or vision loss ?? You feel lightheaded, short of breath, and have chest pain. ?? You cough up blood. ?? You have trouble breathing. Seek care immediately if: ?? Your leg feels warm, tender, and painful. It may look swollen and red. ?? You develop new weakness or loss of feeling in your back or legs. ?? You lose control of your bladder or bowels. Contact your healthcare provider if: ?? You have a fever of 101??F (38.3??C) or greater for more than 24 hours. ?? You have chills. ?? Your wound becomes more red and swollen, or starts draining pus. ?? You have nausea or are vomiting. ?? Your skin is itchy, swollen, or you have a rash. ?? You have questions or concerns about your condition or care. Medicines: ?? Prescription pain medicine may be given. Do not wait until the pain is severe before you take your medicine. Pain medicine can make you dizzy or sleepy. Ask for help when you get out of bed or stand up if needed to prevent a fall. ?? Take your medicine as directed. Contact your healthcare provider if you think your medicine is not helping or if you have side effects. Tell him or her if you are allergic to any medicine. Keep a list of the medicines, vitamins, and herbs you take. Include the amounts, and when and why you take them. Bring the list or the pill bottles to follow-up visits. Carry your medicine list with you in case of an emergency. Care for your wound as directed: Keep your surgical wound covered as long as directed. Do not take a tub bath, swim, or get in hot tubs until your healthcare provider says it is okay. Take showers instead of baths. Cover your wound with a clean dressing and a piece of tape. This will keep water from directly hitting your wound. After your shower, remove the bandage and carefully pat the area dry.Apply a clean, dry dressing if directed. Wear loose clothes to keep from irritating the area. Self-care: ?? Take short walks often. Slowly increase the length and distance of walks. Do not sit for long periods of time. Change your position every 1 to 2 hours. Use assistive devices, such as walkers, if needed. ?? Do not lift heavy items, or twist or bend at the waist. Your healthcare provider may tell you not to lift more than 10 pounds. ?? Decrease your activity for up to 6 weeks as directed. This will allow your spine time to heal. Ask your healthcare provider when you can return to work. ?? Lie on a firm mattress and sit in a chair that has a straight back. These reduce the strain on your back. ?? Maintain a healthy weight. Ask your healthcare provider how much you should weigh. Ask him to help you create a weight loss plan if you are overweight. ?? Do not drive if you are taking prescription pain medicine. Ask your healthcare provider when it is safe to drive. ?? Do not smoke. Smoking can delay healing. If you smoke, it is never too late to quit. Ask for information if you need help quitting. Go to therapy as directed: A physical therapist can teach you exercises to help improve movement and strength, and to decrease pain. An occupational therapist can teach you skills to help with your daily activities. Follow up with your healthcare provider as directed: Write down your questions so you remember to ask them during your visits. ?? 2017 [employer] Information is for End User's use only and may not be sold, redistributed or otherwise used for commercial purposes. All illustrations and images included in CareNotes?? are the copyrighted property of [employer]. or [employer]. The above information is an service aide only. It is not intended as medical advice for individual conditions or treatments. Talk to your doctor, nurse or pharmacist before following any medical regimen to see if it is safe and effective for you. documented in this encounter Medications at Time [...] total) by mouth nightly HYDROcodone-acet aminophen (NORCO) 10-325 mg per tabletIndication s:Pain Take 1 tablet by mouth every 6 (six) hours as needed for pain. 60 tablet 12/05/2017 8 acetaminophen (TYLENOL) 500 mg tablet Take 1,000 mg by mouth every 6 (six) hours as needed for pain. 8 estradiol (CLIMARA) 0.05 mg/[address] 1 patch on the skin 2 (two) times a week. Sunday and 1 HYDROcodone-acet aminophen (NORCO) 10-325 mg per tabletIndication s:Pain Take 1 tablet by mouth every 6 (six) hours as needed for pain. 8 losartan-hydroch lorothiazide (HYZAAR) 100-25 mg per tablet Take 1 tablet by mouth home care aide before breakfast. 2 turmeric root extract 500 mg capsule Take 1 capsule by mouth home care aide before breakfast. 1 documented as of this encounter Ordered Prescriptions Prescription Sig Dispense Quantity Refills Last Filled Start Date End Date HYDROcodone-acetam inophen (NORCO) 10-325 mg per tabletIndications: Pain Take 1 tablet by mouth every 6 (six) hours as needed for pain. 60 tablet 12/05/2017 01/04/2018 documented in this encounter Discharge Disposition Disposition Code Departure Means Destination Discharge to home or self care documented in this encounter H&P Notes * Denys Urrutia MD - 12/05/2017 9:57 AM CDT I have reviewed the H&P, examined the patient, and endorse the findings as written. Plan of Care : Based on the above findings, I consider Tg Gomez to be an acceptable risk for : Procedure(s): Left L4-5 Microdiscectomy Source Note - Dhara, Tg WolfeJESSICA guthrie - 12/03/2017 1:58 PM CDT Anesthesia Evaluation [...] tumor- used to see Dr Reddy at [facility], but PCP monitor levels now Past [...] Miscellaneous Notes * Perioperative Nursing Note - Maddison Oliveros RN - 12/05/2017 6:02 PM CDT Patient walked 50 feet without any difficulty, tolerated well; patient in reclining position in bed, ate bag of pretzels, with no nausea or vomiting. Patient's pain under control, with no nausea or vomiting * Op Note - Denys Urrtuia MD - 12/05/2017 9:57 AM CDT [id number] 1970 47 y.o. female Date of Procedure: 12/05/2017 Preoperative Diagnosis: 1. Lumbar disc herniation, left L4-L5 Postoperative Diagnosis: 1. Same Performed by: Denys Urrutia MD Anesthesiologist: Miay Lynch CRNA Anesthesia used: GETT Logistics Team Lead: physician Eugenio customer relations assistant Type of Procedure: 1. Lumbar Microdiscectomy, left L4-L5 Estimated blood loss: 50cc Fluids: 1200 cc Complications: None Findings: 1. Left L4-5 disc herniation Indication for procedure: Tg Gomez is a 47 y.o. year old female with a history of morbid obesity. She presents with back pain and left leg pain which is intolerable. MRI scan reveals a left-sided L4-5 disc herniation.. Description of procedure After written consent was obtained, the patient was brought in the operating room and smooth induction of general anesthesia was initiated. The patient was given preoperative antibiotics. Appropriatetimeout procedure was performed. The patient was rolled prone onto the Delmar frame with the arms forward, making sure to pad all pressure points. The back was prepped with alcohol. A spinal needle was introduced posteriorly and a lateral x-ray showed the underlying lumbar level. The needle was removed. The back was then prepped with DuraPrep and draped sterilely; 0.5% Marcaine with epinephrine was used for skin anesthesia. I began by making a linear incision based on the needle insertion site, directly in the center of alumbosacral tattoo. This was carried down through fat to the lumbodorsal fascia. The lumbodorsal fascia was opened with Bovie cautery on the side where the disc had herniated. I used subperiosteal dissection to expose the underlying spinous processes and laminae. Up-angled curette was placed under the underlying lamina and a confirmatory x-ray showed proper understanding of spinal level. I then used high speed drill and Kerrison punches to remove the inferior aspect of the superior lamina and the superior aspect of the inferior lamina. I drilled down the medial aspect of the facet joint. I removed the ligamentum flavum to expose the nerve root shoulder. I took my decompression downto the floor of the spinal canal. The microscope was then draped and brought into the field. Using m icroscopic dissection, I medialized the nerve root shoulder to expose the underlying disc herniation. A subligamentous disc herniation was encountered. I incised the posterior longitudinal ligament andremoved the underlying disc herniation. The disc space was entered and the superficial contents were removed with pituitary rongeurs and curets. The disc space was needle irrigated until free fragments of disc matrerial were no longer encountered. There was a cartilaginous component to the disc herniation which was compressing the proximal aspect of the left L5 nerve root. This was removed with nerve hooks. At the end of the microdiscectomy, I could palpate along the course of the exposed nerve root and there was no ongoing compression noted. Meticulous hemostasis was then obtained with thrombin soaked gel-foam powder in the epidural space. The wound was copiously irrigated with bacitracin saline. The self retaining retractor was then removed and hemostasis was again assured with bipolar and bovie cautery. The incision was closed in layers with interrupted 0, 2-0, and 3- 0 Vicryl sutures, followed by a running 4-0 Monocryl in the skin.The lumbosacral tattoo was reapproximated. Steri-Strips and sterile dressing were then applied. Allneedle and sponge counts were correct at the end of the case. I was present for the entire procedure. At the end of the case, the patient was rolled supine on the stretcher and extubated in the operating room. The patient was then transferred to the postanesthesia care unit for followup monitoring. Sacha Mccartney, Physician Logistics Team Lead, was involved in this case and was essential for the successful completion of the procedure. He was involved in the approach, the decompression, and closure. There were no other qualified assistants with his set of skills available for the successful completionof this surgery. Denys Urrutia MD 12/05/2017 9:58 AM documented in this encounter Plan of Treatment [...] Date/Time Associated Diagnosis Comments XR SPINE LUMBAR 1 VIEW IP Routine 8 11:54 AM CDT Back pain XR SPINE LUMBAR 1 VIEW IP Routine 8 11:54 AM CDT Back pain MICRODISCECTOMY - 1 LEVEL 12/05/2017 11:00 AM CDT Herniated lumbar intervertebral disc documented in this encounter Results * XR Spine Lumbar 1 View (12/05/2017 11:54 AM CDT) Anatomical Region Laterality Modality Spine N/A Computed Radiogr aphy Impressions 12/05/2017 12:24 PM CDT Intraoperative lumbar spine radiograph. Electronically signed by: BILLY VU MD Narrative 12/05/2017 12:24 PM CDT EXAMINATION: Lumbar Spine, 1 View INDICATION: Left L4-L5 microdiscectomy FINDINGS: Single view crosstable lateral radiograph of the lumbar spine shows an operative probe dorsal to the L4-L5 disc space. Procedure Note Billy Vu MD - 12/05/2017 EXAMINATION: Lumbar Spine, 1 View INDICATION: Left L4-L5 microdiscectomy FINDINGS: Single view crosstable lateral radiograph of the lumbar spine shows an operative probe dorsal to the L4-L5 disc space. IMPRESSION: Intraoperative lumbar spine radiograph. Electronically signed by: BILLY VU MD Denys Urrutia MD IMG XR PROCEDURES Final Result * XR Spine Lumbar 1 View (12/05/2017 11:54 AM CDT) Anatomical Region Laterality Modality Spine N/A Computed Radiogr aphy Impressions 12/05/2017 12:24 PM CDT Intraoperative lumbar spine radiograph. Electronically signed by: BILLY VU MD [facility] 12/05/2017 12:24 PM CDT EXAMINATION: Lumbar Spine, 1 View INDICATION: Left L4-L5 microdiscectomy FINDINGS: Single view crosstable lateral radiograph of the lumbar spine shows an operative probe dorsal to the L3-L4 disc space. Procedure Note Billy Vu MD - 12/05/2017 EXAMINATION: Lumbar Spine, 1 View INDICATION: Left L4-L5 microdiscectomy FINDINGS: Single view crosstable lateral radiograph of the lumbar spine shows an operative probe dorsal to the L3-L4 disc space. IMPRESSION: Intraoperative lumbar spine radiograph. Electronically signed by: BILLY VU MD Denys Urrutia MD IMG XR PROCEDURES Final Result documented in this encounter Visit Diagnoses Diagnosis Lumbar disc herniation- Primary Displacement of lumbar intervertebral disc without myelopathy Back pain Unspecified backache documented in this encounter Administered Medications Inactive Administered Medications - up to 3 most recent administrations Medication Order MAR Action Action Date Dose Rate Site acetaminophen (TYLENOL) tablet 1,000 mg 1,000 mg, oral, Once, On Sun12/05/17 at 1130, For 1 dose, Pre-Op, Indications: Pre-Emptive AnalgesiaIndications:Pre-Emptiv e Analgesia Given 12/05/2017 10:23 AM CDT 1,000 mg diazePAM (VALIUM) tablet 5 mg 5 mg, oral, Once, On Sun12/05/17 at 1015, For 1 dose, Pre-Op, Indications: muscle spasmsIndications:muscle spasms Given 12/05/2017 10:45 AM CDT 5 mg famotidine (PEPCID) tablet 20 mg 20 mg, oral, Once, On Sun12/05/17 at 1015, For 1 dose, Pre-Op, Indications: GERDIndications:GERD Given 12/05/2017 10:46 AM CDT 20 mg fentaNYL (SUBLIMAZE) 50 mcg/mL preservative free injection - ADS Override Pull Starting on Sun12/05/17 at 1342, For 1 dose, ALANIS SORIA: cabinet override fentaNYL (SUBLIMAZE) preservative free injection 25-50 mcg 25-50 mcg, intravenous, Every 10 min PRN, 1st line for pain, breakthrough pain, Starting on Sun12/05/17 at 1339, For 4 doses, Phase I, Administer for uncontrolled or increasing pain while in PACU only. Then proceed to PACU 1st line analgesic., Indications: PainIndications:Pain Given 12/05/2017 2:45 PM CDT 25 mcg Given 12/05/2017 2:29 PM CDT 25 mcg Given 12/05/2017 1:58 PM CDT 25 mcg gabapentin (NEURONTIN) capsule 300 mg 300 mg, oral, Once, On Sun12/05/17 at 1015, For 1 dose, Pre-Op, Indications: Pre-emptive analgesiaIndications:Pr e-emptive analgesia Given 12/05/2017 10:45 AM CDT 300 mg HYDROcodone-acetaminoph en (NORCO) 5-325 mg per tablet - ADS Override Pull Starting on Sun12/05/17 at 1634, For 1 dose, RUDY DICKEY: cabinet override Given 12/05/2017 4:35 PM CDT 1 tablet ketorolac (TORADOL) 30 mg/mL (1 mL) injection - ADS Override Pull Starting on Sun12/05/17 at 1412, For 1 dose, ALANIS SORIA: cabinet override ketorolac (TORADOL) injection 30 mg 30 mg, intravenous, Every 8 hours scheduled, First dose on Sun12/05/17 at 1445, For 3 doses, 15 mg every 8 hours for 3 doses if age >65 years, Indications: PainIndications:Pain Given 12/05/2017 2:16 PM CDT 30 mg Lactated Ringer's (LR) infusion 30 mL/hr, intravenous, Continuous, Starting on Sun12/05/17 at 1130, Pre-Op Lactated Ringer's (LR) infusion 30 mL/hr, intravenous, Continuous, Starting on Sun12/05/17 at 1015 New Bag 12/05/2017 10:22 AM CDT 30 mL/hr 30 mL/hr Lactated Ringer's (LR) infusion 125 mL/hr, intravenous, Continuous, Starting on Sun12/05/17 at 1415, Phase I Restarted 12/05/2017 3:35 PM CDT 30 mL/hr 30 mL/hr lidocaine PF (XYLOCAINE) 10 mg/mL (1 %) preservative free injection 2-10 mg 2-10 mg (0.2-1 mL), other, Once as needed, pain with IV placement, Starting on Sun12/05/17 at 1100, For 1 dose, Pre-Op, Administer volume needed to infiltrate IV site., Indications: Administration of Local AnesthesiaIndications:A dministration of Local Anesthesia lidocaine PF (XYLOCAINE) 10 mg/mL (1 %) preservative free injection 2-10 mg 2-10 mg (0.2-1 mL), other, Once as needed, pain with IV start - infiltrate IV site, Starting on Sun12/05/17 at 0937, For 1 dose, Pre-Op, Indications: pain with IV startIndications:pain with IV start Given 12/05/2017 10:22 AM CDT 2 mg ondansetron (ZOFRAN) injection 4 mg 4 mg, intravenous, Once, On Sun12/05/17 at 1130, For 1 dose, Pre-Op, Indications: Prevention of Post-Operative Nausea and VomitingIndications:Pre vention of Post-Operative Nausea and Vomiting Given 12/05/2017 10:24 AM CDT 4 mg scopolamine patch 72 hour 1 patch 1 patch, transdermal, Administer over 72 Hours, Once, On Sun12/05/17 at 1130, For 1 dose, Pre-Op, Indications: Prevention of Post-Operative Nausea and VomitingIndications:Pre vention of Post-Operative Nausea and Vomiting Medication Applied 12/05/2017 10:23 AM CDT 1 patch Behind Right Ear sodium chloride 0.9% flush 0.5-20 mL 0.5-20 mL, intra-catheter, As needed, line care, Starting on Sun12/05/17 at 1100, Pre-Op, Flush volume based on line type and size. Flush before and after each use. , Indications: FlushingIndications:Flu shing vancomycin 1500 mg in 250 mL sodium chloride 0.9% (premix) 1,500 mg, intravenous, Administer over 90 Minutes, Once, On Sun12/05/17 at 1130, For 1 dose, Pre-Op, Administer within 120 minutes of incision., Indications: Prophylaxis, SurgicalIndications:Pro phylaxis, Surgical New Bag 12/05/2017 10:45 AM CDT 1,500 mg documented in this encounter Active and Recently Administered Medications Times are shown in CDT. Scheduled Medication Order 12/03/2017 12/04/2017 12/05/2017 acetaminophen (TYLENOL) tablet 1,000 mg (COMPLETED) 1,000 mg, oral, Once, On Sun12/05/17 at 1130, For 1 dose, Pre-Op, Indications: Pre-Emptive Analgesia 1023 (Given - Provid er: Rudy Campbell RN) diazePAM (VALIUM) tablet 5 mg (COMPLETED) 5 mg, oral, Once, On Sun12/05/17 at 1015, For 1 dose, Pre-Op, Indications: muscle spasms 1045 (Given - Provid er: Rudy Campbell RN) famotidine (PEPCID) tablet 20 mg (COMPLETED) 20 mg, oral, Once, On Sun12/05/17 at 1015, For 1 dose, Pre-Op, Indications: GERD 1046 (Given - Provid er: Rudy Noelle Huelsing, RN) gabapentin (NEURONTIN) capsule 300 mg (COMPLETED) 300 mg, oral, Once, On Sun12/05/17 at 1015, For 1 dose, Pre-Op, Indications: Pre-emptive analgesia 1045 (Given - Provid er: Rudy Campbell RN) ketorolac (TORADOL) injection 30 mg 30 mg, intravenous, Every 8 hours scheduled, First dose on Sun12/05/17 at 1445, For 3 doses, 15 mg every 8 hours for 3 doses if age >65 years, Indications: Pain 1416 (Given - Provid er: Alanis Sroia, SHAYAN)1417 (Not Given - Provider: Alanis Soria, RN - Reason: Other - Comment: see given dose) ondansetron (ZOFRAN) injection 4 mg (COMPLETED) 4 mg, intravenous, Once, On Sun12/05/17 at 1130, For 1 dose, Pre-Op, Indications: Prevention of Post-Operative Nausea and Vomiting 1024 (Given - Provid er: Rudy Campbell RN) promethazine (PHENERGAN) tablet 25 mg 25 mg, oral, Once, On Sun12/05/17 at 1015, For 1 dose, Pre-Op, Indications: Prophylactic nausea treatment 1058 (Hold - Provide r: Rudy Campbell RN - Reason: Other - Comment: Hold per GROUND OPERATIONS SUPERVISOR) scopolamine patch 72 hour 1 patch 1 patch, transdermal, Administer over 72 Hours, Once, On Sun12/05/17 at 1130, For 1 dose, Pre-Op, Indications: Prevention of Post-Operative Nausea and Vomiting 1023 (Medication Chuck lied - Provider: Rudy Campbell RN)1811 (Due: Medication Removed - Provider: Automatic Discharge Provider - Comment: Time automatically adjusted from order being discontinued) vancomycin 1500 mg in 250 mL sodium chloride 0.9% (premix) (COMPLETED) 1,500 mg, intravenous, Administer over 90 Minutes, Once, On Sun12/05/17 at 1130, For 1 dose, Pre-Op, Administer within 120 minutes of incision., Indications: Prophylaxis, Surgical 1045 (New Bag - Prov ider: Rudy Campbell RN)1130 (Stopped - Provider: Rudy Campbell RN) Continuous Medication Order 12/03/2017 12/04/2017 12/05/2017 Lactated Ringer's (LR) infusion 30 mL/hr, intravenous, Continuous, Starting on Sun12/05/17 at 1130, Pre-Op 1130 (Due) Lactated Ringer's (LR) infusion 30 mL/hr, intravenous, Continuous, Starting on Sun12/05/17 at 1015 1022 (New Bag - Prov ider: Rudy Campbell RN)1207 (Anesthesia Volume Adjustment - Provider: Rudy Roger CRNA)1330 (Anesthesia Volume Adjustment - Provider: Miya Lynch CRNA) Lactated Ringer's (LR) infusion 125 mL/hr, intravenous, Continuous, Starting on Sun12/05/17 at 1415, Phase I 1535 (Restarted - Pr ovider: Maddison Oliveros RN) PRN Medication Order 12/03/2017 12/04/2017 12/05/2017 bacitracin 50,000 Units in sodium chloride 0.9% 800 mL solution (CANCELED) As needed, Starting on Sun12/05/17 at 1140, Intra-Op 1140 (Given - Provid er: Denys Urrutia MD) bupivacaine-EPINEPHrine (MARCAINE with EPI) 0.5 %-1:200,000 preservative free injection (CANCELED) As needed, Starting on Sun12/05/17 at 1141, Intra-Op 1141 (Given - Provid er: Denys Urrutia MD) diphenhydrAMINE (BENADRYL) injection 12.5 mg 12.5 mg, intravenous, Every 15 min PRN, itching, Starting on Sun12/05/17 at 1339, For 2 doses, Phase I, Max cumulative dose 50 mg., Indications: Itching fentaNYL (SUBLIMAZE) preservative free injection 25-50 mcg (COMPLETED) 25-50 mcg, intravenous, Every 10 min PRN, 1st line for pain, breakthrough pain, Starting on Sun12/05/17 at 1339, For 4 doses, Phase I, Administer for uncontrolled or increasing pain while in PACU only. Then proceed to PACU 1st line analgesic., Indications: Pain 1346 (Given - Provid er: Alanis Soria RN - Comment: restless in bed, moaning)1358 (Given - Provider: Alanis Soria RN - Comment: constant)1429 (Given - Provider: Alanis Soria RN - Comment: back pain constant ache)1445 (Given - Provider: Alanis Soria RN - Comment: tight at area of incision) fentaNYL (SUBLIMAZE) preservative free injection 50 mcg 50 mcg, intravenous, Once as needed, uncontrolled pain on PACU admission, Starting on Sun12/05/17 at 1501, For 1 dose, Phase I, Then proceed to PACU 1st line analgesic., Indications: Pain gelatin absorbable (GELFOAM) powder (CANCELED) As needed, Starting on Sun12/05/17 at 1140, Intra-Op, Indications: Bleeding from Wound 1140 (Given - Provid er: Denys Urrutia MD) hydrALAZINE (APRESOLINE) injection 5 mg 5 mg, intravenous, Every 15 min PRN, high blood pressure, Starting on Sun12/05/17 at 1339, For 4 doses, Phase I, Max cumulative dose 20 mg. Dose if systolic BP greater than 180 AND heart rate less than 70. , Indications: hypertension HYDROmorphone (DILAUDID) injection 0.2 mg 0.2 mg, intravenous, Every 10 min PRN, 1st line for pain, Starting on Sun12/05/17 at 1339, For 10 doses, Phase I, Switch to 2nd line analgesic order if pain is uncontrolled or increasing after 2 doses. Notify Anesthesiologist if total PACU dose reaches 2 mg and pain score 5/10 or more., Indications: Pain HYDROmorphone (DILAUDID) injection 0.4 mg 0.4 mg, intravenous, Every 10 min PRN, 2nd line for pain, Starting on Sun12/05/17 at 1339, For 5 doses, Phase I, May administer 10 mintes after 2nd dose of 1st line analgesic agent for uncontrolled or increasing pain. Revert to 1st line dose if POSS of 3. Notify Anesthesiologist if total PACU dose reaches 2 mg and pain score 5/10 or more., Indications: Pain labetalol (NORMODYNE,TRANDATE) injection 5 mg 5 mg, intravenous, Every 10 min PRN, high blood pressure, Starting on Sun12/05/17 at 1339, For 4 doses, Phase I, Max cumulative dose 20 mg. Dose if systolic blood pressure greater than 180 AND HR greater than 70. lidocaine PF (XYLOCAINE) 10 mg/mL (1 %) preservative free injection 2-10 mg 2-10 mg (0.2-1 mL), other, Once as needed, pain with IV placement, Starting on Sun12/05/17 at 1100, For 1 dose, Pre-Op, Administer volume needed to infiltrate IV site., Indications: Administration of Local Anesthesia 0919 (Due) lidocaine PF (XYLOCAINE) 10 mg/mL (1 %) preservative free injection 2-10 mg (COMPLETED) 2-10 mg (0.2-1 mL), other, Once as needed, pain with IV start - infiltrate IV site, Starting on Sun12/05/17 at 0937, For 1 dose, Pre-Op, Indications: pain with IV start 1022 (Given - Provid er: Rudy Campbell RN) meperidine (DEMEROL) preservative free injection 12.5 mg 12.5 mg, intravenous, Every 10 min PRN, shivering, Starting on Sun12/05/17 at 1339, For 2 doses, Phase I, Max cumulative dose 25 mg., Indications: Shivering naloxone (NARCAN) injection 0.04-0.4 mg 0.04-0.4 mg, intravenous, Once as needed, other, excessive sedation/respiratory depression, Starting on Sun12/05/17 at 1339, For 1 dose, Phase I, Dilute 0.4 mg with 9 mL NS (final concentration 0.04 mg/mL). For respiratory depression (respiratory rate less than 6), administer 0.4 mg IVP over 30 seconds. For excessive sedation administer 0.04 mg (1 mL) every 1 minute until desired level of alertness., Indications: Opioid Toxicity ondansetron (ZOFRAN) injection 4 mg 4 mg, intravenous, Once as needed, nausea, vomiting, Starting on Sun12/05/17 at 1339, For 1 dose, Phase I, Switch to prochlorperazine if no relief within 30 minutes. , Indications: Nausea and Vomiting oxyCODONE (ROXICODONE) tablet 5 mg 5 mg, oral, Once as needed, 1st line for pain, Starting on Sun12/05/17 at 1501, For 2 doses, Phase I, When able to tolerate PO. May repeat in 1 hour if pain is uncontrolled or increasing after 1st dose., Indications: Pain 1550 (Not Given - Pr ovider: Maddison Oliveros RN - Reason: Other - Comment: patient states she is allergic to this medication) prochlorperazine (COMPAZINE) injection 10 mg 10 mg, intravenous, Once as needed, nausea, vomiting, Starting on Sun12/05/17 at 1339, For 1 dose, Phase I, If not relieved by ondansetron within 30 minutes., Indications: Nausea and Vomiting sodium chloride (NS) 0.9 % irrigation (CANCELED) As needed, Starting on Sun12/05/17 at 1140, Intra-Op 1140 (Given - Provid er: Denys Urrutia MD) sodium chloride 0.9% flush 0.5-20 mL 0.5-20 mL, intra-catheter, As needed, line care, Starting on Sun12/05/17 at 1100, Pre-Op, Flush volume based on line type and size. Flush before and after each use. , Indications: Flushing sodium chloride 0.9% flush 0.5-20 mL 0.5-20 mL, intra-catheter, As needed, line care, Starting on Sun12/05/17 at 0937, Pre-Op, Flush volume based on line type and size. Flush before and after each use. , Indications: Flushing thrombin-recombinant 5,000 unit solution (CANCELED) As needed, Starting on Sun12/05/17 at 1145, Intra-Op, Indications: Superficial Bleeding 1145 (Given - Provid er: Denys Urrutia MD - Comment: on gelfoam powder) No Frequency Medication Order 12/03/2017 12/04/2017 12/05/2017 HYDROcodone-acetaminophen (NORCO) 5-325 mg per tablet - ADS Override Pull (COMPLETED) Starting on Sun12/05/17 at 1634, For 1 dose, RUDY DICKEY: cabinet override 1635 (Given - Provid er: Maddison Oliveros RN) documented in this encounter Orders Medications Ordered That Alessio ht Not Have Been Administered Count Last Ordered Date First Ordered Date bacitracin 50,000 Units in s odium chloride 0.9% 800 mL solution 1 12/05/2017 bupivacaine-EPINEPHrine (MAR KAYA with EPI) 0.5 %-1:200,000 preservative free injection 1 12/05/2017 diphenhydrAMINE (BENADRYL) i njection 12.5 mg 1 12/05/2017 fentaNYL (SUBLIMAZE) preserv ative free injection 50 mcg 1 12/05/2017 gelatin absorbable (GELFOAM) powder 1 12/05 hydrALAZINE (APRESOLINE) injection 5 mg 1 0 12/05/2017 HYDROmorphone (DILAUDID) injection 0.2 mg 1 12/05/2017 HYDROmorphone (DILAUDID) injection 0.4 mg 1 12/05/2017 labetalol (NORMODYNE,TRANDAT E) injection 5 mg 1 12/05/2017 Lactated Ringer's (LR) infusion 1 8 lidocaine PF (XYLOCAINE) 10 mg/mL (1 %) preservative free injection 2-10 mg 1 12/05/2017 meperidine (DEMEROL) preserv ative free injection 12.5 mg 1 12/05/2017 naloxone (NARCAN) injection 0.04-0.4 mg 1 0 12/05/2017 ondansetron (ZOFRAN) injection 4 mg 1 12/05 oxyCODONE (ROXICODONE) tablet 5 mg 1 2017 prochlorperazine (COMPAZINE) injection 10 mg 1 12/05/2017 promethazine (PHENERGAN) tablet 25 mg 1 03/2018 sodium chloride (NS) 0.9 % irrigation 1 03/2018 sodium chloride 0.9% flush 0.5-20 mL 2 03/2018 thrombin-recombinant 5,000 unit solution 1 12/05/2017 Diet Count Last Ordered Date First Orde red Date ADULT DISCHARGE DIET 1 12/05/2017 Nursing Count Last Ordered Date First Orde red Date DISCHARGE ACTIVITY 4 12/05/2017 DISCHARGE CALL PROVIDER 6 12/05/2017 DISCHARGE DRESSING 4 12/05/2017 FOLLOW UP WITH PROVIDER 1 12/05/2017 Discharge Count Last Ordered Date First Orde red Date DISCHARGE PATIENT 1 12/05/2017 documented in this encounter Care Teams Senior Pensions Administrator Relationship Specialty Start Date End Date Cesar Berry MD PCP - General 08/07/17 12/16/19 Cruz Garza, RN Registered Nurse 08/13/17 06/13/18 Marlin Stewart, SHAYAN Registered Nurse Pain Management 10/23/17 8 documented as of this encounter
--- OUTSIDE RECORDS SUMMARY | 2024-08-09 20:06 | XMS_ITS | Encounter Summary ---
Author Organization [facility] Healthcare Address [address] [place] [address] Care Team Providers Care Donations Attendant Name Role Phone Cesar Berry MD Primary Care Provider [phone] Cruz Garza RN Unavailable Unavailabl e Reason for Visit * Reason Comments Follow-up Injections Encounter Details Date Type Department Care Team (Late st Contact Info) Description 10/15/2017 11:15 AM CDT Office Visit [facility] [address] [place] [address] A, [facility]. 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 120 tablet 10/15/201711/14/201 8 documented in this encounter Progress Notes * Nura Umana MD - 10/15/2017 11:15 AM CDT Post injection treatment follow-up HPI: One month after L5-S1 LESI series for bilat L4/L5 dist radiating axial LBP. Now all her pain is Lt L5 distribution. She tried to go back to work and the bending and lifting has really aggravated her back pain. No Sxs on the Rt now. No B/B changes. P.E.: Tenderness to palpation Lt sacral sulcus area. Lt SLR is positive. Foot dorsiflexion is strong and equal. LE sensation intact to touch. ROS: Gen: WD/WN female M.S.: see above. Assessment: Lt L5 radicular Sxs of undetermined etiology. Plan: L-MRI RTC after MRI * Cruz Garza RN - 10/15/2017 11:15 AM CDT Pt weight bearing, gait unsteady. Reports no relief since DIVINE. Reports continuous pain to left low back radiating to left upper hip, buttock, left lateral thigh to calf to foot. Reports pain as sharp, shooting, also reports tingling to left foot, calf, thigh. Also having spasms to left calf. Having difficulty with ADLs standing and walking for long periods of time, bending, lifting, and sleeping.MRI of L-spine ordered for further eval. Received script today, [place] 10/325 mg QID prn. Pt to return within 2 weeks for MRI review. documented in this encounter Plan of Treatment Not on file documented as of this encounter Goals Goal Patient Goal Type Associated Problems Recent Progress Patient-Stated? Author [facility] On track( 018 11:29 AM CDT) No Cruz Garza, RN Note: Patient will describe how unrelieved pain will be managed. documented as of this encounter Results * MRI Lumbar Spine [...] by: Shekhar Forde M.D. Nura Umana MD IM MRI PROCEDURES Edited Result - Final documented in this encounter Visit Diagnoses Diagnosis Lumbosacral radiculopathy- Primary Thoracic or lumbosacral neuritis or radiculitis, unspecified Chronic left-sided low back pain with left-sided sciatica Long-term current use of opiate analgesic Encounter for long-term (current) use of other medications Lumbosacral radiculopathy Thoracic or lumbosacral neuritis or radiculitis, unspecified documented in this encounter Discontinued Medications Medication Sig Discontinue Reason Start Date End Da te HYDROcodone-acetaminophe n (NORCO) 5-325 mg per tabletIndications:Pain Take 1 tablet by mouth every 6 (six) hours as needed. Dose adjustment 10/15/2017 documented as of this encounter Care Teams Donations Attendant Relationship Specialty Start Date End Date Cesar Berry MD PCP - General 08/07/17 12/16/19 Cruz Garza, RN Registered Nurse 08/13/17 06/13/18 documented as of this encounter
--- OUTSIDE RECORDS SUMMARY | 2024-08-09 20:06 | XMS_ITS | Encounter Summary ---
Author Organization [facility] Address [address] [facility] [address] [place] [address] Care Team Providers Care Cnc Machinist Name Role Phone Cesar Berry MD Primary Care Provider [phone] Reason for Referral * MRI/CAT/PET Scan (Routine) - Closed Specialty Diagnoses / Procedures Referred By Contac t Referred To Contact Radiology Diagnoses Back pain, unspecified back location, unspecified back pain laterality, unspecified chronicity Procedures CT Lumbar Spine WO Contrast Jimmy Vann MD Phone: tel: fax: Referral ID Status Reason Start Date Expiration Date Visits Re quested Visits Authorized [id number] Closed 11/08/2017 05/07/2018 1 1 ATIONAL TECHNOLOGY SPECIALIST Encounter Details Date Type Department Care Team (Late st Contact Info) Description 07/09/2017 Orders Only [facility] [address] [facility] [address], [place] [address] Jimmy Vann MD [address] [place] [address] [address] [place] [address] Back pain, unspecified back location, unspecified back pain laterality, unspecified chronicity (Primary Dx) Social History Tobacco Use Types Packs/Day Years Used Date Smoking Tobacco: Never Smokeless Tobacco: Never Alcohol Use Standard Drinks/Week Comments Yes 0 (1 standard drink = 0.6 oz pur e alcohol) Comments Unknown Sex and Gender Information Value Date Recorded Sex Assigned at Not on file 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 TECHNIQUE: Noncontrast images of the lumbar spine were obtained using standard protocol with reformatted images in the coronal and sagittal planes. COMPARISON: None FINDINGS: The alignment of the lumbar spine is normal. Vertebral bodies are normal in height. No acute fracture is detected. Liver parenchyma is only partially visualized but exhibits markedly low density, suggesting steatosis. ??Otherwise, visualized intra-abdominal contents are unremarkable. Degenerative changes are as follows: L1-L2: Unremarkable disc and facets. ??No evidence of spinal canal or foraminal stenosis. L2-L3: Minimal disc bulge. ??Unremarkable facets. ??No evidence of spinal canal or foraminal stenosis. L3-L4: Minimal disc bulge. ??Mild bilateral facet arthropathy. ??No evidence of spinal canal or foraminal stenosis. L4-L5: Moderate loss of disc height. ??Mild disc bulge. ??Mild/moderate facet arthropathy, greater on the right, with ligamentum flavum thickening. ??At least mild spinal canal stenosis. ??No significant foraminal stenosis. L5-S1: Mild loss of disc height. ??No evidence of disc herniation. Mild bilateral facet arthropathy. ??No spinal canal or foraminal stenosis. IMPRESSION: 1. ??No acute fracture or subluxation. 2. ??Lumbar spine degenerative changes, most pronounced at L4-L5, as detailed above. 3. ??Suspected hepatic steatosis. Electronically signed by: Braydon Hsieh MD Radiologist: BRAYDON HSIEH ?? Attending: ??JIMMY VANN Requesting: JIMMY VANN Requesting Fax: ?? Requesting ID: [id number] Attending Fax: ?? Attending ID: ?? [id number] Completed Time: ?? 07/27/2017 1:00 PM Dictated Time: ?N/A Transcribed Time: 07/27/2017 3:18 PM Signed by: ?BRAYDON HSIEH ?? on 07/27/2017 3:18 PM Report To 1 ID: Report To 1 Name: , Report To 1 FAX: Report To 2 ID: Report To 2 Name: , Report To 2 FAX: Report To 3 ID: Report To 3 Name: , Report To 3 FAX: NextGen Order #: [id number] Procedure Note Miscellaneous, Not In File - 07/27/2017 EXAMINATION: CT of the lumbar spine without contrast HISTORY: Back pain, unspecified location. TECHNIQUE: Noncontrast images of the lumbar spine were obtained using standard protocol with reformatted images in the coronal and sagittal planes. COMPARISON: None FINDINGS: The alignment of the lumbar spine is normal. Vertebral bodies are normal in height. No acute fracture is detected. Liver parenchyma is only partially visualized but exhibits markedly low density, suggesting steatosis. Otherwise, visualized intra-abdominal contents are unremarkable. Degenerative changes are as follows: L1-L2: Unremarkable disc and facets. No evidence of spinal canal or foraminal stenosis. L2-L3: Minimal disc bulge. Unremarkable facets. No evidence of spinal canal or foraminal stenosis. L3-L4: Minimal disc bulge. Mild bilateral facet arthropathy. No evidence of spinal canal or foraminal stenosis. L4-L5: Moderate loss of disc height. Mild disc bulge. Mild/moderate facet arthropathy, greater on the right, with ligamentum flavum thickening. At least mild spinal canal stenosis. No significant foraminal stenosis. L5-S1: Mild loss of disc height. No evidence of disc herniation. Mild bilateral facet arthropathy. No spinal canal or foraminal stenosis. IMPRESSION: 1. No acute fracture or subluxation. 2. Lumbar spine degenerative changes, most pronounced at L4-L5, as detailed above. 3. Suspected hepatic steatosis. Electronically signed by: Braydon Hsieh MD Radiologist: BRAYDON HSIEH Attending: JIMMY VANN Requesting: JIMMY VANN Requesting Requesting ID: [id number] Attending Attending ID: [id number] Completed Time: 07/27/2017 1:00 PM Dictated Time: N/A Transcribed Time: 07/27/2017 3:18 PM Signed by: BRAYDON HSIEH on 07/27/2017 3:18 PM Report To 1 ID: Report To 1 Name: , Report To 1 FAX: Report To 2 ID: Report To 2 Name: , Report To 2 FAX: Report To 3 ID: Report To 3 Name: , Report To 3 FAX: NextGen Order #: [id number] Jimmy Vann MD IMG CT PROCEDURES Maxwell lauren Result - Final documented in this encounter Visit Diagnoses Diagnosis Back pain, unspecified back location, unspecified back pain laterality, unspecified chronicity- Primary Back pain, unspecified back location, unspecified back pain laterality, unspecified chronicity documented in this encounter Care Teams Cnc Machinist Relationship Specialty Start Date End Date Cesar Berry MD PCP - General Family Medicine 04/20/17 08/02/17 documented as of this encounter
--- OUTSIDE RECORDS SUMMARY | 2024-08-09 20:06 | XMS_ITS | Encounter Summary ---
Author Organization [facility] Healthcare Address [address] [place] [address] Care Team Providers Care Casing Cooker Name Role Phone Cesar Berry MD Primary Care Provider [phone] Cruz Garza RN Unavailable Unavailabl e Marlin Stewart RN Unavailable Unavailab le Encounter Details Date Type Department Care Team (Late st Contact Info) Description 11/28/2017 11:00 AM CDT [address] [address] Social History Tobacco Use Types Packs/Day Years Used Date Smoking Tobacco: Never Smokeless Tobacco: Never Alcohol Use Standard Drinks/Week Comments Yes 0 (1 standard drink = 0.6 oz pur e alcohol) Comments No Sex and Gender Information Value Date Recorded Sex Assigned at Not on file 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
--- OUTSIDE RECORDS SUMMARY | 2024-08-09 20:06 | XMS_ITS | Encounter Summary ---
Author Organization [facility] Address [address] [address] Care Team Providers Care Bariatric Nurse Name Role Phone Cesar Berry MD Primary Care Provider [phone] Reason for Visit * Reason Onset Date Comments Ct results 08/01/2017 Encounter Details Date Type Department Care Team (Late st Contact Info) Description 08/01/2017 Telephone [facility] [address] [facility] [address] [place] [address] Shannan Rivera MD [address] [facility] [address] [place] [address] Ct results Social History Tobacco Use Types Packs/Day Years Used Date Smoking Tobacco: Never Smokeless Tobacco: Never Alcohol Use Standard Drinks/Week Comments Yes 0 (1 standard drink = 0.6 oz pur e alcohol) Comments Unknown Sex and Gender Information Value Date Recorded Sex Assigned at Not on file 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 ENTAL PAVER INSTALLER documented in this encounter Plan of Treatment Not on file documented as of this encounter Visit Diagnoses Not on filedocumented in this encounter Care Teams Bariatric Nurse Relationship Specialty Start Date End Date Cesar Berry MD PCP - General Family Medicine 04/20/17 08/02/17 documented as of this encounter
--- OUTSIDE RECORDS SUMMARY | 2024-08-09 20:06 | XMS_ITS | Encounter Summary ---
Author Organization [facility] Healthcare Address [address] [place] [address] Care Team Providers Care Grout Pump Operator Name Role Phone Cesar Berry MD Primary Care Provider [phone] Cruz Garza RN Unavailable Unavailabl e Encounter Details Date Type Department Care Team (Late st Contact Info) Description 09/18/2017 Telephone [facility] [address] [place] [address] A, [facility] [address] [place] [address] Marlin Stewart RN Social History Tobacco Use Types Packs/Day Years Used Date Smoking Tobacco: Never Smokeless Tobacco: Never Alcohol Use Standard Drinks/Week Comments Yes 0 (1 standard drink = 0.6 oz pur e alcohol) Comments Unknown Sex and Gender Information Value Date Recorded Sex Assigned at Not on file 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 now, past 3 day has increased nerve pain L/hip and Hip joint with shooting pain down L/leg. EDICAL FIELD SERVICE ENGINEER documented in this encounter Plan of Treatment [...] on filedocumented in this encounter Care Teams Grout Pump Operator Relationship Specialty Start Date End Date Cesar Berry MD PCP - General 08/07/17 12/16/19 Cruz Garza, RN Registered Nurse 08/13/17 06/13/18 documented as of this encounter
--- OUTSIDE RECORDS SUMMARY | 2024-08-09 20:06 | XMS_ITS | Encounter Summary ---
Author Organization [facility] Healthcare Address [address] [place] [address] Care Team Providers Care Oil Well Directional Surveyor Name Role Phone Cesar Berry MD Primary Care Provider Cruz Garza RN Unavailable Unavailabl e Encounter Details Date Type Department Care Team (Late st Contact Info) Description 08/14/2017 9:30 AM READING RECOVERY TEACHER - 08/14/2017 9:45 AM [facility] Surgery [facility] [address] [place] [address] A, [facility] [address] [place] [address] Nura Umana MD [address] [place] [address] [address] [place] [address] Injection Epidural Lumbar/Caudal 1 Level Pain Pump Trial W Imaging 08908 Surgery Details Date/Time Status Location OR Service Patient Class Case Class Case Type Trauma Case? 08/14/2017 9:30 AM Posted [facility] Pain Management Procedure Center [facility] PM 1 Pain Management Outpatient Elective Panel 1 Procedure LRB Anes Op Region Wound Class Comments Injection Epidural Lumbar/Ca udal 1 Level Pain Pump Trial W Imaging 09671 N/A Local Back N/A Surgeon Surgeon Role Service Panel Nura Umana MD Primary Pain Management 1 Case Notes L5-S1 TLESI (1ST) documented in this encounter Social History Tobacco Use Types Packs/Day Years Used Date Smoking Tobacco: Never Smokeless Tobacco: Never Alcohol Use Standard Drinks/Week Comments Yes 0 (1 standard drink = 0.6 oz pur e alcohol) Comments Unknown Sex and Gender Information Value Date Recorded Sex Assigned at Not on file Legal Sex Female 5:22 AM READING RECOVERY TEACHER Gender Identity Not on file Sexual Orientation Not on file documented as of this encounter Last Filed Vital Signs Vital Sign Reading Time Taken Comments Blood Pressure 139/72 08/14/2017 9:38 AM READING RECOVERY TEACHER Pulse 85 08/14/2017 9:38 AM READING RECOVERY TEACHER Temperature 36.9 ??C (98.5 ??F) 08/14/2017 9:38 AM CS T Respiratory Rate 16 08/14/2017 9:38 AM READING RECOVERY TEACHER Oxygen Saturation - - Inhaled Oxygen Concentration [...] Procedure Notes * Nura Umana MD - 08/14/2017 9:38 AM CST Procedures Lumbar Epidural Injection Patient comes in today for planned injection therapy. She comes in today to start LESI Rx. Patient was brought to procedure room, and [...] 240 was injected. This demonstrated epidural spread Bilat L4-5 thru L5-S1 levels. This was followed with 10mL of dexamethasone in 2cc of saline. The needle was removed, sterile dressing applied, and patient returned to their pain clinic room. Following observation and vital signs, patient will be discharged home. ING RECOVERY TEACHER documented in this encounter Miscellaneous Notes * Perioperative Nursing Note - Marlin Stewart RN - 08/14/2017 9:46 AM READING RECOVERY TEACHER Discharge instructions reviewed with pt. Verbalized understanding. To return in 1 week for #2 injection of series. ING RECOVERY TEACHER * Perioperative Nursing Note - Marlin Stewart RN - 08/14/2017 9:40 AM READING RECOVERY TEACHER Seen by Dr. Umana pre procedure. ING RECOVERY TEACHER documented in this encounter Plan of Treatment [...] LUMBAR 2 OR 3 VIEWS IP Routine 08/14/2017 9:57 AM READING RECOVERY TEACHER INJECTION EPIDURAL LUMBAR/CAUDAL 1 LEVEL PAIN PUMP TRIAL W IMAGING [id number] 08/14/2017 9:46 AM READING RECOVERY TEACHER Case Notes L5-S1 TLESI (1ST) documented in this encounter Results * XR Spine Lumbar 2 or 3 Views (08/14/2017 9:57 AM READING RECOVERY TEACHER) Narrative [facility] - 08/14/2017 9:57 AM READING RECOVERY TEACHER The images from this study are not interpreted by Radiology. ??Please refer to the physician's procedure / OR operative note. us Nura Umana MD IMG XR PROCEDURES Final Re sult [facility] documented in this encounter Visit Diagnoses Not on filedocumented in this encounter Administered Medications Inactive Administered Medications - up to 3 most recent administrations Medication Order MAR Action Action Date Dose Rate Site dexamethasone (DECADRON) injection As needed, Starting on Sun08/14/17 at 0950, Intra-Op Given 08/14/2017 9:51 AM READING RECOVERY TEACHER 10 mg Back iohexol (OMNIPAQUE) 240 mg iodine/mL injection solution As needed, Starting on Sun08/14/17 at 0950, Intra-Op Given 08/14/2017 9:51 AM READING RECOVERY TEACHER 2 mL Back lidocaine (XYLOCAINE) 10 mg/mL (1 %) injection As needed, Starting on Sun08/14/17 at 0949, Intra-Op, Indications: Administration of Local AnesthesiaIndications:Administratio n of Local Anesthesia Given 08/14/2017 9:49 AM READING RECOVERY TEACHER 2 mL Back sodium chloride 0.9% 0.9 % solution As needed, Starting on Sun08/14/17 at 0949, Intra-Op Given 08/14/2017 9:50 AM READING RECOVERY TEACHER 2 mL Back documented in this encounter Active and Recently Administered Medications Times are shown in READING RECOVERY TEACHER. PRN Medication Order 08/12/2017 08/13/2017 08/14/2017 dexamethasone (DECADRON) injection (CANCELED) As needed, Starting on Sun08/14/17 at 0950, Intra-Op 0951 (Given - Provid er: Nura Umana MD - Comment: epidural) iohexol (OMNIPAQUE) 240 mg iodine/mL injection solution (CANCELED) As needed, Starting on Sun08/14/17 at 0950, Intra-Op 0951 (Given - Provid er: Nura Umana MD) lidocaine (XYLOCAINE) 10 mg/mL (1 %) injection (CANCELED) As needed, Starting on Sun08/14/17 at 0949, Intra-Op, Indications: Administration of Local Anesthesia 0949 (Given - Provid er: Nura Umana MD - Comment: local) sodium chloride 0.9% 0.9 % solution (CANCELED) As needed, Starting on Sun08/14/17 at 0949, Intra-Op 0950 (Given - Provid er: Nura Umana MD - Comment: epidural) documented in this encounter Care Teams Oil Well Directional Surveyor Relationship Specialty Start Date End Date Cesar Berry MD PCP - General 08/07/17 12/16/19 Cruz Garza, RN Registered Nurse 08/13/17 06/13/18 documented as of this encounter
--- OUTSIDE RECORDS SUMMARY | 2024-08-09 20:06 | XMS_ITS | Encounter Summary ---
Author Organization [facility] Healthcare Address [address] [place] [address] Care Team Providers Care Tree Planter Name Role Phone Cesar Berry MD Primary Care Provider + [phone] Cruz Garza RN Unavailable Unavailabl e Encounter Details Date Type Department Care Team (Late st Contact Info) Description 09/18/2017 Telephone [facility] [address] [place] [address] A, [facility] [address] [place] [address] Marlin Stewart RN Social History Tobacco Use Types Packs/Day Years Used Date Smoking Tobacco: Never Smokeless Tobacco: Never Alcohol Use Standard Drinks/Week Comments Yes 0 (1 standard drink = 0.6 oz pur e alcohol) Comments Unknown Sex and Gender Information Value Date Recorded Sex Assigned at Not on file Legal Sex Female 5:22 AM MANDARIN CHINESE TEACHER Gender Identity Not on file Sexual Orientation Not on file documented as of this encounter Miscellaneous Notes * Telephone Encounter - Marlin Stewart RN - 09/18/2017 11:22 AM MANDARIN CHINESE TEACHER Discussed pt phone message and concerns with Dr. Umana. Returned phone call to pt and informed pt that Dr. Umana states present symptoms consistent with Fibromyalgia flare up as side effect ofLESI. Pt enc to return for follow up visit as scheduled. ARIN CHINESE TEACHER documented in this encounter Plan of [...] on filedocumented in this encounter Care Teams Tree Planter Relationship Specialty Start Date End Date Cesar Berry MD PCP - General 08/07/17 12/16/19 Cruz Garza, RN Registered Nurse 08/13/17 06/13/18 documented as of this encounter
--- OUTSIDE RECORDS SUMMARY | 2024-08-09 20:06 | XMS_ITS | Encounter Summary ---
Author Organization [facility] Healthcare Address [address] [place] [address] Care Team Providers Care Manpower Development Manager Name Role Phone Cesar Berry MD Primary Care Provider [phone] Cruz Garza RN Unavailable Unavailabl e Encounter Details Date Type Department Care Team (Late st Contact Info) Description 08/27/2017 10:00 AM CREDIT RATING CHECKER Ancillary Procedure [address] [place] [address] Nura Umana MD 2 [facility] [address] [place] [address] Social History Tobacco Use Types Packs/Day Years Used Date Smoking Tobacco: Never Smokeless Tobacco: Never Alcohol Use Standard Drinks/Week Comments Yes 0 (1 standard drink = 0.6 oz pur e alcohol) Comments Unknown Sex and Gender Information Value Date Recorded Sex Assigned at Not on file Legal Sex Female 5:22 AM CREDIT RATING CHECKER Gender Identity Not on file Sexual Orientation [...] 3 VIEWS IP Routine 08/27/2017 9:57 AM CREDIT RATING CHECKER documented in this encounter Results * XR Spine Lumbar 2 or 3 Views (08/27/2017 9:57 AM CREDIT RATING CHECKER) Anatomical Region Laterality Modality Spine N/A Computed Radiogr aphy Impressions 08/27/2017 9:57 AM CREDIT RATING CHECKER EPIDURAL INJECTION AT L5-S1. Electronically signed by: Hebert Falcon M.D. Narrative 08/27/2017 9:57 AM CREDIT RATING CHECKER XR SPINE LUMBAR 2 OR 3 VIEWS [...] on filedocumented in this encounter Care Teams Manpower Development Manager Relationship Specialty Start Date End Date Cesar Berry MD PCP - General 08/07/17 12/16/19 Cruz Garza, RN Registered Nurse 08/13/17 06/13/18 documented as of this encounter
--- OUTSIDE RECORDS SUMMARY | 2024-08-09 20:06 | XMS_ITS | Encounter Summary ---
Author Organization [facility] Healthcare Address [address] [place] [address] Care Team Providers Care Assistant Teacher Primary Name Role Phone Cesar Berry MD Primary Care Provider [phone] Cruz Garza RN Unavailable Unavailabl e Encounter Details Date Type Department Care Team (Late st Contact Info) Description 09/06/2017 Telephone [facility] 2 [facility] [place] [address] [place] [address] Nura Umana MD [address] [place] [address] [address] [place] [address] Social History Tobacco Use Types Packs/Day Years Used Date Smoking Tobacco: Never Smokeless Tobacco: Never Alcohol Use Standard Drinks/Week Comments Yes 0 (1 standard drink = 0.6 oz pur e alcohol) Comments Unknown Sex and Gender Information Value Date Recorded Sex Assigned at Not on file Legal Sex Female 5:22 AM PROTOHISTORIAN Gender Identity Not on file Sexual Orientation Not on file documented as of this encounter Miscellaneous Notes * Telephone Encounter - Tg Gardner - 10/10/2017 9:13 AM CDT Patient called with increased pain, moved her follow up appt. up documented in this encounter Plan of Treatment [...] on filedocumented in this encounter Care Teams Assistant Teacher Primary Relationship Specialty Start Date End Date Cesar Berry MD PCP - General 08/07/17 12/16/19 Cruz Garza, RN Registered Nurse 08/13/17 06/13/18 documented as of this encounter
--- OUTSIDE RECORDS SUMMARY | 2024-08-09 20:06 | XMS_ITS | Encounter Summary ---
Author Organization [facility] Address [address] [address] Care Team Providers Care Electrical Lineworker Name Role Phone Cesar Berry MD Primary Care Provider [phone] Reason for Visit * Reason Onset Date Comments Back Pain 07/09/2017 Encounter Details Date Type Department Care Team (Late st Contact Info) Description 07/09/2017 Telephone [facility] [address] [facility] [address] [place] [address] Shannan Rivera MD [address] [facility] [address] [place] [address] Back Pain Social History Tobacco Use Types Packs/Day Years Used Date Smoking Tobacco: Never Smokeless Tobacco: Never Alcohol Use Standard Drinks/Week Comments Yes 0 (1 standard drink = 0.6 oz pur e alcohol) Comments Unknown Sex and Gender Information Value Date Recorded Sex Assigned at Not on file Legal Sex Female 5:22 AM SENIOR FIREWALL ENGINEER Gender Identity Not on file Sexual Orientation Not on file documented as of this encounter Miscellaneous Notes * Telephone Encounter - Theresa Gomez LPN - 07/27/2017 4:25 PM CST Pt had Ct today at [facility] OR FIREWALL ENGINEER * Telephone Encounter - Theresa Gomez LPN - 07/27/2017 8:[address] Scarlet Pierre called for a peer to peer. Gave approval for the Ct. Approval code: [id number]. Pt scheduled for CT today at 1 pm OR FIREWALL ENGINEER * Telephone Encounter - Theresa Gomez LPN - 07/26/2017 10:43 AM CST Called [employer] and scheduled a peer to peer for 07/27 at 8 am OR FIREWALL ENGINEER * Telephone Encounter - Shannan Rivera MD - 07/20/2017 11:52 AM SENIOR FIREWALL ENGINEER Will review when I return. Thank you OR FIREWALL ENGINEER * Telephone Encounter - Theresa Gomez LPN - 07/19/2017 8:30 AM CST Received fax from [facility] that Ct was denied. Information is on your desk for review. Please adviseon next step OR FIREWALL ENGINEER * Telephone Encounter - Theresa Gomez LPN - 07/09/2017 1:30 PM CST Called [employer] and a Pre cert was required. Answered questions and was sent to clinical review. Faxed in documents and will await response from jj OR FIREWALL ENGINEER * Telephone Encounter - Shannan Rivera MD - 07/09/2017 8:18 AM SENIOR FIREWALL ENGINEER I will place an order OR FIREWALL ENGINEER * Telephone Encounter - Theresa Gomez LPN - 07/09/2017 8:03 AM CST Please see message I received from pt and advise: Tg Hurst: so i missed afternoon and all of sunday and still in horrible pain from mid tolow back and hips with nerve pain to both sides, went to see my chiro sunday and he wouldnt adjust me, just did massage, it took me ten minutes to get off the table i was in so much pain, been takingflexeril all weekend which helped me sleep but i cant function, i am begging for dr rivera to write for me to have at least a CT of mid to low back and hips. my chiro said he has never seen me in this much pain or my back this bad, he thinks the stenosis and degeneration has worsened and now causing nerve compression OR FIREWALL ENGINEER documented in this encounter Plan of Treatment Not on file documented as of this encounter Visit Diagnoses Not on filedocumented in this encounter Care Teams Electrical Lineworker Relationship Specialty Start Date End Date Cesar Berry MD PCP - General Family Medicine 04/20/17 08/02/17 documented as of this encounter
--- OUTSIDE RECORDS SUMMARY | 2024-08-09 20:06 | XMS_ITS | Encounter Summary ---
Author Organization [facility] Address [address] [address] Care Team Providers Care Sales Agent Financial Report Service Name Role Phone Cesar Berry MD Primary Care Provider + [phone] Reason for Visit * Reason Onset Date Comments Medication Question 05/04/2017 Encounter Details Date Type Department Care Team (Late st Contact Info) Description 05/04/2017 Telephone [facility] [address] [facility] [address] [place] [address] [place] [address] [place] [address] [address] [place] [address] Medication Question Social History Tobacco Use Types Packs/Day Years Used Date Smoking Tobacco: Never Smokeless Tobacco: Never Alcohol Use Standard Drinks/Week Comments Yes 0 (1 standard drink = 0.6 oz pur e alcohol) Comments Unknown Sex and Gender Information Value Date Recorded Sex Assigned at Not on file Legal Sex Female 5:22 AM MAINTENANCE TECH Gender Identity Not on file Sexual Orientation Not on file documented as of this encounter Miscellaneous Notes * Telephone Encounter - Theresa Gomez LPN - 05/04/2017 2:58 PM CDT Pt would like gabapentin rx, please send to [facility] pharmacy * Telephone Encounter - Shannan Rivera MD - 05/04/2017 2:20 PM CDT If she is not tolerating the meloxicam well, we can stop this medication. If she is not having new,overt weakness in the limbs, there may not be much cause to get repeat xrays. I can give her a script for gabapentin, which can treat symptoms of degenerative disc disease, stenosis and arthritis. * Telephone Encounter - Theresa Gomez LPN - 05/04/2017 2:14 PM CDT Pt states she has been on meloxicam for 2 weeks with no relief of pain. Also states that it is making her stomach hurt with nausea. Pt would like to know what you would want to do next. She is also inquiring if she should get imaging of her neck, lower back and hips to see if her degenerative disk disease and stenosis has worsened. Stated she is in pain all the time. Please advise documented in this encounter Plan of Treatment Not on file documented as of this encounter Visit Diagnoses Not on filedocumented in this encounter Care Teams Sales Agent Financial Report Service Relationship Specialty Start Date End Date Cesar Berry MD PCP - General Family Medicine 04/20/17 08/02/17 documented as of this encounter
--- OUTSIDE RECORDS SUMMARY | 2024-08-09 20:06 | XMS_ITS | Encounter Summary ---
Author Organization [facility] Healthcare Address [address] [place] [address] Care Team Providers Care Industrial Hire Sales Assistant Name Role Phone Cesar Berry MD Primary Care Provider [phone] Cruz Garza RN Unavailable Unavailabl e Reason for Visit * Reason Comments Initial Consult Back Pain Encounter Details Date Type Department Care Team (Late st Contact Info) Description 08/13/2017 11:00 AM TURNSTILE COLLECTOR Office Visit [facility] [address] [place] [address] A, [facility] [address] [place] [address] Nura Umana MD [address] [place] [address] [address] [place] [address] Chronic bilateral low back pain with bilateral sciatica (Primary Dx); Lumbar radiculopathy; Disc degeneration, lumbar Discharge Disposition: Discharge to home or self care Social History Tobacco Use Types Packs/Day Years Used Date Smoking Tobacco: Never Smokeless Tobacco: Never Alcohol Use Standard Drinks/Week Comments Yes 0 (1 standard drink = 0.6 oz pur e alcohol) Comments Unknown Sex and Gender Information Value Date Recorded Sex Assigned at Not on file Legal Sex Female 5:22 AM TURNSTILE COLLECTOR Gender Identity Not on file Sexual Orientation Not on file documented as of this encounter Last Filed Vital Signs Vital Sign Reading Time Taken Comments Blood Pressure 124/83 08/13/2017 11:16 AM TURNSTILE COLLECTOR Pulse 92 08/13/2017 11:16 AM TURNSTILE COLLECTOR Temperature - - Respiratory Rate - - Oxygen Saturation - - Inhaled Oxygen Concentration - - Weight 108.9 kg (240 lb) 08/13/2017 11:16 AM TURNSTILE COLLECTOR Height 170.2 cm (5' 7 ) 08/13/2017 11:16 AM TURNSTILE COLLECTOR Body Mass Index 37.59 08/13/2017 11:16 AM TURNSTILE COLLECTOR documented in this encounter Discharge Disposition Disposition Code Departure Means Destination Discharge to home or self care documented in this encounter Progress Notes * Nura Umana MD - 08/13/2017 11:00 AM CST New patient H&P CC: Bilateral radiating axial LBP X 2 weeks. 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 This time it is worse than usual.Chiro care has not helped. Pain is axial LB then into the lateral thighs Rt>Lt to the knee level. No weakness nor parasthesia. No B/B changes. PE: LE EXAM:Pos SLR. both legs. Foot dorsiflexion strong and equal. Sensation intact to touch both legs. BACK EXAM:tender and reactive to palpation midline L4-5 and L5-S1 interspace levels ROS: Gen:WD/WN alert and oriented female M.S.:see above Imaging: Jun 2017 L-CT report: L4-5>L5-S1 loss of disc space height Assessment: Discogenic bilateral radiating LBP Plan: L5-S1 LESI series STILE COLLECTOR * Cruz Garza RN - 08/13/2017 11:00 AM CST Pt ambulatory, no assistive devices needed. Reports chronic pain to low back radiating to boom buttocks, hips, to boom lateral thighs to knee, worse on right in past. Reports recent flare-up within past 2 weeks. Aggravated by bending, lifting, walking, standing. Has difficulty completing ADLs and sleeping at night. Tx history has included heat, chir care, muscle relaxers, pain meds with no relief. DIVINE recommended. Preprocedure instructions reviewed. Pt verbalized understanding. Pt to return JESSICA for 1st injection. STILE COLLECTOR documented in this encounter Plan of Treatment Not on file documented as of this encounter Goals Goal Patient Goal Type Associated Problems Recent Progress Patient-Stated? Author [facility] On track( 018 11:29 AM CDT) No Cruz Garza, RN Note: Patient will describe how unrelieved pain will be managed. documented as of this encounter Visit Diagnoses Diagnosis Chronic bilateral low back pain with bilateral sciatica- Primary Lumbar radiculopathy Thoracic or lumbosacral neuritis or radiculitis, unspecified Disc degeneration, lumbar Degeneration of lumbar or lumbosacral intervertebral disc documented in this encounter Care Teams Industrial Hire Sales Assistant Relationship Specialty Start Date End Date Cesar eBrry MD PCP - General 08/07/17 12/16/19 Cruz Garza, RN Registered Nurse 08/13/17 06/13/18 documented as of this encounter
--- OUTSIDE RECORDS SUMMARY | 2024-08-09 20:06 | XMS_ITS | Encounter Summary ---
Author Organization [facility] Address [address] [facility] [address] [place] [address] Care Team Providers Care Senior Administrator Support Name Role Phone Cesar Berry MD Primary Care Provider + [phone] Shekhar Blake MD Primary Care Provider [phone] Cesar Berry MD Primary Care Provider + [phone] Cruz Garza RN Unavailable UnavailMarlin Mantilla RN Unavailable Unavailab Denys Ellsworth MD Unavailable [phone] Suzy Hopkins PT Unavailable Unavailable Aditi Mccormick PTA Unavailable Unavailable Ashwin Hong MD Primary Care Provider + [phone] Encounter Details Date Type Department Care Team (Late st Contact Info) Description 05/04/2017 Orders Only [facility] [address] [facility] [address] [place] [address] Shannan Rivera MD [address] [place] [address] [address] [place] [address] Social History Tobacco Use Types Packs/Day Years Used Date Smoking Tobacco: Never Smokeless Tobacco: Never Alcohol Use Standard Drinks/Week Comments Yes 0 (1 standard drink = 0.6 oz pur e alcohol) Comments Unknown Sex and Gender Information Value Date Recorded Sex Assigned at Not on file Legal Sex Female 5:22 AM COMPUTER AIDED DESIGN OPERATOR Gender Identity Not on file Sexual Orientation Not on file documented as of this encounter Ordered Prescriptions Prescription Sig Dispense Quantity Refills Last Filled Start Date End Date gabapentin (NEURONTIN) 100 mg capsule Take 1 capsule (100 mg total) by mouth 3 (three) times a day. 90 capsule 05/04/2017 7 documented in this encounter Plan of Treatment [...] on filedocumented in this encounter Care Teams Senior Administrator Support Relationship Specialty Start Date End Date Cesar Berry MD PCP - General Family Medicine 04/20/17 08/02/17 Shekhar Blake MD [address] [facility] [address] [address] PCP - General 08/03/17 08/06/17 Cesar Berry MD PCP - General 08/07/17 12/16/19 Ashwin Hong MD PCP - General 12/17/19 Cruz Garza, RN Registered Nurse 08/13/17 06/13/18 Marlin Stewart RN Registered Nurse Pain Management 10/23/17 06/13/18 Denys Urrutia MD [address] [facility] [address] [place] [address] Surgeon Neurosurgery 01/15/18 Suzy Hopkins, PT Physical Therapist Physical Therapy 01/15/18 Aditi Mccormick, DUST PULLER Pigment Furnace Tender Physical Therapy 01/23/18 documented as of this encounter
--- OUTSIDE RECORDS SUMMARY | 2024-08-09 20:06 | XMS_ITS | Encounter Summary ---
Author Organization [facility] Healthcare Address [address] [place] [address] Care Team Providers Care Public Information Director Name Role Phone Cesar Berry MD Primary Care Provider [phone] Cruz Garza RN Unavailable Unavailabl e Encounter Details Date Type Department Care Team (Latest Contact Info) Description 09/10/2017 9:21 AM PANTS PRESSER - 09/10/2017 9:52 AM PANTS PRESSER Hospital Encounter [facility] [address] [place] [address] [place] [address] Nura Uamna MD [address] [place] [address] Discharge Disposition: Discharge to home or self care Social History Tobacco Use Types Packs/Day Years Used Date Smoking Tobacco: Never Smokeless Tobacco: Never Alcohol Use Standard Drinks/Week Comments Yes 0 (1 standard drink = 0.6 oz pur e alcohol) Comments Unknown Sex and Gender Information Value Date Recorded Sex Assigned at Not on file Legal Sex Female 5:22 AM PANTS PRESSER Gender Identity Not on file Sexual Orientation Not on file documented as of this encounter Last Filed Vital Signs Vital Sign Reading Time Taken Comments Blood Pressure 139/66 09/10/2017 9:27 AM PANTS PRESSER Pulse 86 09/10/2017 9:27 AM PANTS PRESSER Temperature 36.4 ??C (97.5 ??F) 09/10/2017 9:27 AM CS T Respiratory Rate - - Oxygen Saturation [...] or self care documented in this encounter Miscellaneous Notes * Perioperative Nursing Note - Marlin Stewart RN - 09/10/2017 9:52 AM PANTS PRESSER Discharge instructions reviewed with pt. Verbalized understanding. Hard copy given to pt. To returnin 1 month for follow up post injection series. S PRESSER S PRESSER * Op Note - Nura Umana MD - 09/10/2017 9:28 AM CST Lumbar Epidural Injection Patient comes in today for planned injection therapy. She comes in today for the final LESI in thisseries. Patient was brought to procedure room, and [...] was injected. This demonstrated epidural spread bilat L5-S1 thru sacral levels. This was followed with 10mL of dexamethasone in 2cc of saline. The needle was removed, sterile dressing applied, and patient returned to their pain clinic room. Following observation and vital signs, patient will be discharged home. ICD 10 code M51.36 S PRESSER documented in this encounter Plan of Treatment [...] LUMBAR 2 OR 3 VIEWS IP Routine 09/10/2017 9:44 AM PANTS PRESSER INJECTION EPIDURAL LUMBAR/CAUDAL 1 LEVEL PAIN PUMP TRIAL W IMAGING [address] 09/10/2017 9:37 AM PANTS PRESSER Case Notes L5-S1 TLESI (3RD) documented in this encounter Results * XR Spine Lumbar 2 or 3 Views (09/10/2017 9:44 AM PANTS PRESSER) Narrative [facility] - 09/10/2017 9:45 AM PANTS PRESSER The images from this study are not interpreted by Radiology. ??Please refer to the physician's procedure / OR operative note. us Nura Umana MD IMG XR PROCEDURES Final Re sult [facility] documented in this encounter Visit Diagnoses Not on filedocumented in this encounter Active and Recently Administered Medications Times are shown in PANTS PRESSER. PRN Medication Order 09/08/2017 09/09/2017 09/10/2017 dexamethasone (DECADRON) injection (CANCELED) As needed, Starting on 09/10/17 at 0931, Intra-Op 0931 (Given - Provid er: Nura Umana MD - Comment: Epidural) iohexol (OMNIPAQUE) 240 mg iodine/mL injection solution (CANCELED) As needed, Starting on Sun09/10/17 at 0931, Intra-Op 0931 (Given - Provid er: Nura Umana MD) lidocaine (XYLOCAINE) 10 mg/mL (1 %) injection (CANCELED) As needed, Starting on Sun09/10/17 at 0932, Intra-Op, Indications: Administration of Local Anesthesia 0932 (Given - Provid er: Nura Umana MD - Comment: Local) sodium chloride 0.9% solution (CANCELED) As needed, Starting on Sun09/10/17 at 0932, Intra-Op 0932 (Given - Provid er: Nura Umana MD - Comment: Epidural) documented in this encounter Orders Medications Ordered That Alessio ht Not Have Been Administered Count Last Ordered Date First Ordered Date dexamethasone (DECADRON) injection 1 2017 iohexol (OMNIPAQUE) 240 mg i odine/mL injection solution 1 09/10/2017 lidocaine (XYLOCAINE) 10 mg/ mL (1 %) injection 1 09/10/2017 sodium chloride 0.9% solution 1 09/10/2017 documented in this encounter Care Teams Public Information Director Relationship Specialty Start Date End Date Cesar Berry MD PCP - General 08/07/17 12/16/19 Cruz Garza, RN Registered Nurse 08/13/17 06/13/18 documented as of this encounter
--- OUTSIDE RECORDS SUMMARY | 2024-08-09 20:06 | XMS_ITS | Encounter Summary ---
Author Organization [facility] Healthcare Address [address] [place] [address] Care Team Providers Care Assistant Film Editor Name Role Phone Cesar Berry MD Primary Care Provider + [phone] Cruz Garza RN Unavailable Unavailabl e Marlin Stewart RN Unavailable Unavailab le Reason for Visit * Reason Comments Follow-up MRI Back Pain Encounter Details Date Type Department Care Team (Late st Contact Info) Description 10/23/2017 2:00 PM CDT Office Visit [facility] [address] [place] [address] [address] [place] [address] Nura Umana MD [address] [place] [address] [address] [place] [address] Low back pain, unspecified back pain laterality, unspecified chronicity, with sciatica presence unspecified (Primary Dx); Chronic lumbar radiculopathy; Ruptured lumbar disc Social History Tobacco Use Types Packs/Day Years Used Date Smoking Tobacco: Never Smokeless Tobacco: Never Alcohol Use Standard Drinks/Week Comments Yes 0 (1 standard drink = 0.6 oz pur e alcohol) Comments No Sex and Gender Information Value Date Recorded Sex Assigned at Not on file 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 PEX: General: alert and oriented Back exam: tenderness to palpation Lt sacral sulcus area. SLR pos on the Lt. LE motor 5/5. LE sensory intact to touch. Imaging/labs: L-MRI: Lt paracentral L4-5 HNP abuts the passing L5 root Assesment: L4-5 HNP caused Lt L5 radiculopathy. Plan: Surgery referral to Dr. Chan * Marlin Stewart, SHAYAN - 10/23/2017 2:00 PM CDT Here to see Dr. Umana re: Recent MRI results and establish new plan of care. States, pain in lower back resolved but now new onset L/hip/gluteal pain down L/outer thigh to ankle. Seen by Dr. Umana. Pt advised to get neurosurg consult for herniated L4-5 disc. List of neurosurg physicians given to pt. Pt to return To pain management as needed. documented in this encounter Plan of Treatment Not on file documented as of this encounter Goals Goal Patient Goal Type Associated Problems Recent Progress Patient-Stated? Author -Pain Behavioral Health On track( 018 11:29 AM CDT) Cruz Irizarry, RN Note: Patient will describe how unrelieved pain will be managed. documented as of this encounter Visit Diagnoses Diagnosis Low back pain, unspecified back pain laterality, unspecified chronicity, with sciatica presence unspecified- Primary Chronic lumbar radiculopathy Ruptured lumbar disc Displacement of lumbar intervertebral disc without myelopathy documented in this encounter Discontinued Medications Medication Sig Discontinue Reason Start Date End Da te traMADol (ULTRAM) 50 mg tablet Take 50 mg by mouth every 6 (six) hours. 10/23/2017 meloxicam (MOBIC) 7.5 mg tablet Take 1 tablet (7.5 mg total) by mouth daily. 04/20/2017 10/23/2017 documented as of this encounter Care Teams Assistant Film Editor Relationship Specialty Start Date End Date Cesar Berry MD PCP - General 08/07/17 12/16/19 Cruz Garza, RN Registered Nurse 08/13/17 06/13/18 Marlin Stewart, SHAYAN Registered Nurse Pain Management 10/23/17 8 documented as of this encounter
--- OUTSIDE RECORDS SUMMARY | 2024-08-09 20:06 | XMS_ITS | Encounter Summary ---
Author Organization [facility] Healthcare Address [address] [place] [address] Care Team Providers Care Addictions Therapist Name Role Phone Cesar Berry MD Primary Care Provider [phone] Encounter Details Date Type Department Care Team (Latest Contact Info) Description 07/27/2017 12:29 PM STUDENT SERVICES COORDINATOR - 07/27/2017 11:59 PM STUDENT SERVICES COORDINATOR Hospital Encounter [facility] [phone] Jimmy Vann MD [address] [facility] [address] [place] [address] Back pain, unspecified back location, unspecified back pain laterality, unspecified chronicity Discharge Disposition: Discharge to home or self care Social History Tobacco Use Types Packs/Day Years Used Date Smoking Tobacco: Never Smokeless Tobacco: Never Alcohol Use Standard Drinks/Week Comments Yes 0 (1 standard drink = 0.6 oz pur e alcohol) Comments Unknown Sex and Gender Information Value Date Recorded Sex Assigned at Not on file Legal Sex Female 5:22 AM STUDENT SERVICES COORDINATOR Gender Identity Not on file Sexual Orientation [...] Name Priority Date/Time Associated Diagnosis Comments CT LUMBAR SPINE WO CONTRAST Schedule Routine, Read Routine (OP Routine) 07/27/2017 7:00 PM STUDENT SERVICES COORDINATOR Back pain, unspecified back location, unspecified back pain laterality, unspecified chronicity documented in this encounter Results * CT Lumbar Spine WO Contrast (07/27/2017 7:00 PM STUDENT SERVICES COORDINATOR) Anatomical Region Laterality Modality Spine N/A Computed Tomogra phy 07/27/2017 7:00 PM STUDENT SERVICES COORDINATOR Narrative 07/27/2017 9:18 PM STUDENT SERVICES COORDINATOR EXAMINATION: CT of the lumbar spine without [...] JIMMY VANN Requesting Fax: ?? Requesting ID: [id number] Attending Fax: ?? Attending ID: ?? [id number] Completed Time: ?? 07/27/2017 1:00 PM Dictated [...] Report To 3 FAX: NextGen Order #: [id number] Procedure Note Miscellaneous, Not In File - [...] VANN Requesting: JIMMY VANN Requesting Requesting ID: [id number] Attending Attending ID: [id number] Completed Time: 07/27/2017 1:00 PM Dictated Time: N/A Transcribed Time: 07/27/2017 3:18 PM Signed by: BRAYDON HSIEH on 07/27/2017 3:18 PM Report To 1 ID: Report To 1 Name: , Report To 1 FAX: Report To 2 ID: Report To 2 Name: , Report To 2 FAX: Report To 3 ID: Report To 3 Name: , Report To 3 FAX: NextGen Order #: [id number] us Jimmy Vann MD IMG CT PROCEDURES Maxwell lauren Result - Final documented in this encounter Visit Diagnoses Diagnosis Back pain, unspecified back location, unspecified back pain laterality, unspecified chronicity documented in this encounter Care Teams Addictions Therapist Relationship Specialty Start Date End Date Cesar Berry MD PCP - General Family Medicine 04/20/17 08/02/17 documented as of this encounter
--- OUTSIDE RECORDS SUMMARY | 2024-08-09 20:06 | XMS_ITS | Encounter Summary ---
Author Organization [facility] Address [address] [place] [address] Care Team Providers Care Post Closer Name Role Phone Cesar Berry MD Primary Care Provider [phone] Cruz Garza RN Unavailable Unavailabl e Encounter Details Date Type Department Care Team (Late st Contact Info) Description 09/10/2017 9:30 AM DIAL SCREW ASSEMBLER Ancillary Procedure [address] [place] [address] Nura Umana MD 2 [facility] [address] [place] [address] Social History Tobacco Use Types Packs/Day Years Used Date Smoking Tobacco: Never Smokeless Tobacco: Never Alcohol Use Standard Drinks/Week Comments Yes 0 (1 standard drink = 0.6 oz pur e alcohol) Comments Unknown Sex and Gender Information Value Date Recorded Sex Assigned at Not on file Legal Sex Female 5:22 AM DIAL SCREW ASSEMBLER Gender Identity Not on file Sexual Orientation [...] 3 VIEWS IP Routine 09/10/2017 9:44 AM DIAL SCREW ASSEMBLER documented in this encounter Results * XR Spine Lumbar 2 or 3 Views (09/10/2017 9:44 AM DIAL SCREW ASSEMBLER) Narrative [facility] - 09/10/2017 9:45 AM DIAL SCREW ASSEMBLER The images from this study are not interpreted by Radiology. ??Please refer to the physician's procedure / OR operative note. us Nura Umana MD IMG XR PROCEDURES Final Re sult [facility] documented in this encounter Visit Diagnoses Not on filedocumented in this encounter Care Teams Post Closer Relationship Specialty Start Date End Date Cesar Berry MD PCP - General 08/07/17 12/16/19 Cruz Garza, RN Registered Nurse 08/13/17 06/13/18 documented as of this encounter
--- OUTSIDE RECORDS SUMMARY | 2024-08-09 20:06 | XMS_ITS | Encounter Summary ---
Author Organization [facility] Medical Group Address [address] [facility] [address] [place] [address] Care Team Providers Care Foundation Coordinator Name Role Phone Cesar Berry MD Primary Care Provider + [phone] Shekhar Blake MD Primary Care Provider [phone] Cesar Berry MD Primary Care Provider + [phone] Cruz Garza RN Unavailable UnavailMarlin Mantilla RN Unavailable Unavailab Denys Ellsworth MD Unavailable [phone] Suzy Hopkins PT Unavailable Unavailable Aditi Mccormick PTA Unavailable Unavailable Ashwin Hong MD Primary Care Provider + [phone] Encounter Details Date Type Department Care Team (Late st Contact Info) Description 04/24/2017 Orders Only [facility] Health Information Management [address] [place] [address] Scanning, Provider Social History Tobacco Use Types Packs/Day Years Used Date Smoking Tobacco: Never Assessed Comments Unknown Sex and Gender Information Value Date Recorded Sex Assigned at Not on file 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 Gender Identity Not on file Sexual [...] Procedure Name Priority Date/Time Associated Diagnosis Comments SCAN - LABS 04/24/2017 1:18 PM CDT documented in this encounter Results * SCAN - LABS (04/24/2017 1:18 PM CDT) Provider Scanning Final Result documented in this encounter Visit Diagnoses Not on filedocumented in this encounter Care Teams Foundation Coordinator Relationship Specialty Start Date End Date Cesar Berry MD PCP - General Family Medicine 04/20/17 08/02/17 Shekhar Blake MD [address] [facility] [address] [place] [address] PCP - General 08/03/17 08/06/17 Cesar Berry MD PCP - General 08/07/17 12/16/19 Ashwin Hong MD PCP - General 12/17/19 Cruz Garza, RN Registered Nurse 08/13/17 06/13/18 Marlin Stewart, SHAYAN Registered Nurse Pain Management 10/23/17 06/13/18 Denys Urrutia MD [address] [facility] [address] [place] [address] Surgeon Neurosurgery 01/15/18 Suzy Hopkins, PT Physical Therapist Physical Therapy 01/15/18 Aditi Mccormick, REAL ESTATE AGENT Metal Bonding Press Operator Physical Therapy 01/23/18 documented as of this encounter
--- OUTSIDE RECORDS SUMMARY | 2024-08-09 20:06 | XMS_ITS | Encounter Summary ---
Author Organization [facility] Healthcare Address [address] [place] [address] Care Team Providers Care Dough Raiser Name Role Phone Cesar Berry MD Primary Care Provider Cruz Garza RN Unavailable Unavailabl e Encounter Details Date Type Department Care Team (Late st Contact Info) Description 09/10/2017 9:30 AM PASS WORKER - 09/10/2017 9:45 AM [facility] Surgery [facility] [address] [place] [address] A, [facility] [address] [place] [address] Nura Umana MD [address] [place] [address] [address] [place] [address] Injection Epidural Lumbar/Caudal 1 Level Pain Pump Trial W Imaging 10188 Surgery Details Date/Time Status Location OR Service Patient Class Case Class Case Type Trauma Case? 09/10/2017 9:30 AM Posted [facility] Pain Management Procedure Center [facility] PM 1 Pain Management Outpatient Elective Panel 1 Procedure LRB Anes Op Region Wound Class Comments Injection Epidural Lumbar/Ca udal 1 Level Pain Pump Trial W Imaging [address] N/A Local Back Surgeon Surgeon Role Service Panel Nura Umana MD Primary Pain Management 1 Case Notes L5-S1 TLESI (3RD) documented in this encounter Social History Tobacco Use Types Packs/Day Years Used Date Smoking Tobacco: Never Smokeless Tobacco: Never Alcohol Use Standard Drinks/Week Comments Yes 0 (1 standard drink = 0.6 oz pur e alcohol) Comments Unknown Sex and Gender Information Value Date Recorded Sex Assigned at Not on file Legal Sex Female 5:22 AM PASS WORKER Gender Identity Not on file Sexual Orientation Not on file documented as of this encounter Last Filed Vital Signs Vital Sign Reading Time Taken Comments Blood Pressure 139/66 09/10/2017 9:27 AM PASS WORKER Pulse 86 09/10/2017 9:27 AM PASS WORKER Temperature 36.4 ??C (97.5 ??F) 09/10/2017 9:27 [...] Marlin Stewart RN - 09/10/2017 9:52 AM PASS WORKER Discharge instructions reviewed with pt. Verbalized understanding. Hard copy given to pt. To returnin 1 month for follow up post injection series. WORKER WORKER * Op Note - Nura Umana MD [...] be discharged home. ICD 10 code M51.36 WORKER documented in this encounter Plan of Treatment Not on file documented as of this encounter Goals Goal Patient Goal Type Associated Problems Recent Progress Patient-Stated? Author [facility]-Pain Behavioral Health On track( 018 11:29 AM CDT) Cruz Irizarry RN Note: Patient will describe how unrelieved pain will be managed. documented as of this encounter Procedures Procedure Name Priority Date/Time Associated Diagnosis Comments XR SPINE LUMBAR 2 OR 3 VIEWS IP Routine 09/10/2017 9:44 AM PASS WORKER INJECTION EPIDURAL LUMBAR/CAUDAL 1 LEVEL PAIN PUMP TRIAL W IMAGING [id number] 09/10/2017 9:37 AM PASS WORKER Case Notes L5-S1 TLESI (3RD) documented in this encounter Results * XR Spine Lumbar 2 or 3 Views (09/10/2017 9:44 AM PASS WORKER) Narrative [facility] - 09/10/2017 9:45 AM PASS WORKER The images from this study are not [...] dexamethasone (DECADRON) injection As needed, Starting on Sun09/10/17 at 0931, Intra-Op Given 09/10/2017 9:31 AM PASS WORKER 10 mg Back iohexol (OMNIPAQUE) 240 mg iodine/mL injection solution As needed, Starting on 09/10/17 at 0931, Intra-Op Given 09/10/2017 9:31 AM PASS WORKER 2 mL Back lidocaine (XYLOCAINE) 10 mg/mL (1 %) injection As needed, Starting on Sun09/10/17 at 0932, Intra-Op, Indications: Administration of Local AnesthesiaIndications:Administratio n of Local Anesthesia Given 09/10/2017 9:32 AM PASS WORKER 2 mL Back sodium chloride 0.9% solution As needed, Starting on 09/10/17 at 0932, Intra-Op Given 09/10/2017 9:32 AM PASS WORKER 2 mL Back documented in this encounter Active and Recently Administered Medications Times are shown in PASS WORKER. PRN Medication Order 09/08/2017 09/09/2017 09/10/2017 dexamethasone (DECADRON) injection (CANCELED) As needed, Starting on 09/10/17 at 0931, Intra-Op 0931 (Given - Provid er: Nura Umana MD - Comment: Epidural) iohexol (OMNIPAQUE) 240 mg iodine/mL injection solution (CANCELED) As needed, Starting on 09/10/17 at [...] - Comment: Epidural) documented in this encounter Care Teams Dough Raiser Relationship Specialty Start Date End Date Cesar Berry MD PCP - General 08/07/17 12/16/19 Cruz Garza, RN Registered Nurse 08/13/17 06/13/18 documented as of this encounter
--- OUTSIDE RECORDS SUMMARY | 2024-08-09 20:06 | XMS_ITS | Encounter Summary ---
Author Organization [facility] Healthcare Address [address] [place] [address] Care Team Providers Care Work Ticket Distributor Name Role Phone Cesar Berry MD Primary Care Provider [phone] Cruz Garza RN Unavailable Unavailabl e Marlin Stewart RN Unavailable Unavailab le Encounter Details Date Type Department Care Team (Latest Contact Info) Description 11/28/2017 10:40 AM CDT - 11/28/2017 11:59 PM CDT Hospital Encounter [facility] Cardiology [address] [place] [address] Denys Urrutia MD [address] [facility] [address] [place] [address] Lumbar herniated disc Discharge Disposition: Discharge to home or self care Social History Tobacco Use Types Packs/Day Years Used Date Smoking Tobacco: Never Smokeless Tobacco: Never Alcohol Use Standard Drinks/Week Comments Yes 0 (1 standard drink = 0.6 oz pur e alcohol) Comments No Sex and Gender Information Value Date Recorded Sex Assigned at Not on file 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 60 tablet 12/05/2017 01/04/2018 cholecalciferol (VITAMIN D-3) 2,000 unit capsule 2,000 Units. 12/03/2017 dilTIAZem XR (CARDIZEM CD,DILACOR XR) 180 mg 24 hr capsule Take 180 mg by mouth daily. 12/03/2017 estradiol (VIVELLE-DOT) 0.025 mg/[address] 1 patch on the skin 2 (two) times a week. 12/03/2017 losartan-hydroCHL OROthiazide (HYZAAR) 100-12.5 mg per tablet 0 0 11/03/2016 12/03/2017 sertraline (ZOLOFT) 100 mg tablet Take 100 mg by mouth daily. 12/03/2017 documented as of this encounter Discharge Disposition [...] Procedure Name Priority Date/Time Associated Diagnosis Comments DISCHARGE LABORATORY CUMULATIVE REPORT 11/29/2017 12:00 AM CDT ECG 12-LEAD Routine 11/28/2017 11:04 AM CDT Lumbar herniated disc PROLACTIN Routine 11/28/2017 10:49 AM CDT documented in this encounter Results * DISCHARGE LABORATORY CUMULATIVE REPORT (11/29/2017 12:00 AM CDT) Narrative 11/29/2017 12:00 AM CDT Ordered by an unspecified provider. us Historical Provider LAB BLOOD ORDERABLES Greer l Result * ECG 12 lead (11/28/2017 11:04 AM CDT) Patient age 46 years [facility] Interpretation Text SINUS RHYTHMLEFT AXIS DEVIATIONLOW QRS VOLTAGE IN PRECORDIAL LEADSPoor R-wave progressionNonspecific intraventricular conduction delayMODERATE VOLTAGE CRITERIA FOR LVH, CONSIDER NORMAL VARIANTABNORMAL ECGNO PREVIOUS TRACING [facility] Comment:Physician Interprete r Dr. Christopher Green , M.D. Ventricular Rate EKG/Min 70 /min [facility] P Wave Duration 127 ms [facility] QRS-Interval (MSEC) 102 ms [facility] [place]-Interval (MSEC) 177 ms [facility] QT Interval 385 ms [facility] QTc 402 ms [facility] QTC Interval ms [facility] P [place] 40 deg [facility] QRS [place] -28 deg [facility] T [place] -6 deg [facility] 11/28/2017 10:0 0 AM CDT us Denys Urrutia MD ECG ORDERABLES Final R esult [facility] * Prolactin (11/28/2017 10:49 AM CDT) Prolactin 12 3 - 27 ng/mL [facility] ([place]) Comment:Testing performed by : [facility], [address] [place] [address], [facility] Blood specimen (specimen) 11/28/2017 10:49 AM CDT 11/28/2017 1:51 PM CDT Narrative [facility] ([place]) - 11/28/2017 2:42 PM CDT us Denys Urrutia MD LAB BLOOD ORDERABLES Fi nal Result Performing Organization Address City/[facility]/ZIP Co de Phone Number [facility] ([place]) [address] [facility] Department [place] [address] documented in this encounter Visit Diagnoses Diagnosis Lumbar herniated disc documented in this encounter Care Teams Work Ticket Distributor Relationship Specialty Start Date End Date Cesar Berry MD PCP - General 08/07/17 12/16/19 Cruz Garza, RN Registered Nurse 08/13/17 06/13/18 Marlin Stewart, SHAYAN Registered Nurse Pain Management 10/23/17 8 documented as of this encounter
--- OUTSIDE RECORDS SUMMARY | 2024-08-09 20:06 | XMS_ITS | Encounter Summary ---
Author Organization [facility] Healthcare Address [address] [place] [address] Care Team Providers Care Perishable Fruit Inspector Name Role Phone Cesar Berry MD Primary Care Provider [phone] Cruz Garza RN Unavailable Unavailabl e Encounter Details Date Type Department Care Team (Latest Contact Info) Description 08/14/2017 9:15 AM PSYCH NP - 08/14/2017 10:01 AM PSYCH NP Hospital Encounter [facility] [address] [place] [address] [place] [address] Nura Umana MD [address] [place] [id number] Discharge Disposition: Discharge to home or self care Social History Tobacco Use Types Packs/Day Years Used Date Smoking Tobacco: Never Smokeless Tobacco: Never Alcohol Use Standard Drinks/Week Comments Yes 0 (1 standard drink = 0.6 oz pur e alcohol) Comments Unknown Sex and Gender Information Value Date Recorded Sex Assigned at Not on file Legal Sex Female 5:22 AM PSYCH NP Gender Identity Not on file Sexual Orientation Not on file documented as of this encounter Last Filed Vital Signs Vital Sign Reading Time Taken Comments Blood Pressure 136/88 08/14/2017 9:57 AM PSYCH NP Pulse 79 08/14/2017 9:57 AM PSYCH NP Temperature 36.9 ??C (98.5 ??F) 08/14/2017 9:38 AM CS T Respiratory Rate 16 08/14/2017 9:57 AM PSYCH NP Oxygen Saturation 96% 08/14/2017 9:57 AM PSYCH NP Inhaled Oxygen Concentration - - Weight - [...] vital signs, patient will be discharged home. H NP documented in this encounter Miscellaneous Notes * Perioperative Nursing Note - Marlin Stewart RN - 08/14/2017 9:46 AM PSYCH NP Discharge instructions reviewed with pt. Verbalized understanding. To return in 1 week for #2 injection of series. H NP * Perioperative Nursing Note - Marlin Stewart RN - 08/14/2017 9:40 AM PSYCH NP Seen by Dr. Umana pre procedure. H NP documented in this encounter Plan of Treatment [...] 3 VIEWS IP Routine 08/14/2017 9:57 AM PSYCH NP INJECTION EPIDURAL LUMBAR/CAUDAL 1 LEVEL PAIN PUMP TRIAL W IMAGING 72680 08/14/2017 9:46 AM PSYCH NP Case Notes L5-S1 TLESI (1ST) documented in this encounter Results * XR Spine Lumbar 2 or 3 Views (08/14/2017 9:57 AM PSYCH NP) Narrative [facility] - 08/14/2017 9:57 AM PSYCH NP The images from this study are not interpreted by Radiology. ??Please refer to the physician's procedure / OR operative note. us Nura Umana MD IMG XR PROCEDURES Final Re sult [facility] documented in this encounter Visit Diagnoses Not on filedocumented in this encounter Active and Recently Administered Medications Times are shown in PSYCH NP. PRN Medication Order 08/12/2017 08/13/2017 08/14/2017 dexamethasone [...] (OMNIPAQUE) 240 mg i odine/mL injection solution 08/14/2017 lidocaine (XYLOCAINE) 10 mg/ mL (1 %) injection 1 08/14/2017 sodium chloride 0.9% 0.9 % solution 1 08/14 documented in this encounter Care Teams Perishable Fruit Inspector Relationship Specialty Start Date End Date Cesar Berry MD PCP - General 08/07/17 12/16/19 Cruz Garza, RN Registered Nurse 08/13/17 06/13/18 documented as of this encounter
--- OUTSIDE RECORDS SUMMARY | 2024-08-09 20:06 | XMS_ITS | Encounter Summary ---
Author Organization [facility] Medical Group Address [address] [facility] [address] [place] [address] Care Team Providers Care Recruiting Intern Name Role Phone Cesar Berry MD Primary Care Provider [phone] Shekhar Blake MD Primary Care Provider [phone] Cesar Berry MD Primary Care Provider [phone] Cruz Garza RN Unavailable UnavailMarlin Mantilla RN Unavailable Unavailab Denys Ellsworth MD Unavailable [phone] Suzy Hopkins PT Unavailable Unavailable Aditi Mccormick PTA Unavailable Unavailable Ashwin Hong MD Primary Care Provider [phone] Encounter Details Date Type Department Care Team (Late st Contact Info) Description 04/24/2017 Orders Only [facility] Health Information Management [address] [place] [address] Scanning, Provider Social History Tobacco Use Types Packs/Day Years Used Date Smoking Tobacco: Never Assessed Comments Unknown Sex and Gender Information Value Date Recorded Sex Assigned at Not on file 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 Sex 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 Gender Identity Not on file Sexual Orientation [...] Priority Date/Time Associated Diagnosis Comments SCAN - RADIOLOGY/IMAGING 04/24/2017 1:18 PM CDT documented in this encounter Results * SCAN - RADIOLOGY/IMAGING (04/24/2017 1:18 PM CDT) Anatomical Region Laterality Modality Other us Provider Scanning Final Result documented in this encounter Visit Diagnoses Not on filedocumented in this encounter Care Teams Recruiting Intern Relationship Specialty Start Date End Date Cesar Berry MD PCP - General Family Medicine 04/20/17 08/02/17 Shekhar Blake MD [address] [facility] [address] [place] [address] PCP - General 08/03/17 08/06/17 Cesar Berry MD PCP - General 08/07/17 12/16/19 Ashwin Hong MD PCP - General 12/17/19 Cruz Garza, RN Registered Nurse 08/13/17 06/13/18 Marlin Stewart, SHAYAN Registered Nurse Pain Management 10/23/17 06/13/18 Denys Urrutia MD [address] [facility] [address] [place] [address] Surgeon Neurosurgery 01/15/18 Suzy Hopkins, PT Physical Therapist Physical Therapy 01/15/18 Aditi Mccormick, REFRIGERATING ENGINEER Supply Chain Program Manager Physical Therapy 01/23/18 documented as of this encounter
--- OUTSIDE RECORDS SUMMARY | 2024-08-09 20:06 | XMS_ITS | Encounter Summary ---
Author Organization [facility] Healthcare Address [address] [place] [address] Care Team Providers Care Porcelain Enameling Supervisor Name Role Phone Cesar Berry MD Primary Care Provider [phone] Cruz Garza RN Unavailable Unavailabl e Reason for Visit * Reason Onset Date Comments Back Pain 08/31/2017 Encounter Details Date Type Department Care Team (Late st Contact Info) Description 08/31/2017 Telephone [facility] [address] [facility] [address] [place] [address] Nura Umana MD [address] [place] [address] [address] [place] [address] Back Pain Social History Tobacco Use Types Packs/Day Years Used Date Smoking Tobacco: Never Smokeless Tobacco: Never Alcohol Use Standard Drinks/Week Comments Yes 0 (1 standard drink = 0.6 oz pur e alcohol) Comments Unknown Sex and Gender Information Value Date Recorded Sex Assigned at Not on file Legal Sex Female 5:22 AM BOTANY TEACHER Gender Identity Not on file Sexual Orientation Not on file documented as of this encounter Miscellaneous Notes * Telephone Encounter - Bre Tabares RN - 08/31/2017 8:43 AM BOTANY TEACHER Patient called and stated she is having pain and pressure in her back and straining feeling in both legs after her 2nd L5 - S1 TLESI on 08/27/17. She is also complaining of extreme fatigue and is wondering if these symptoms are related to the steroid injection. Per Dr. Lyndsay, he does not believe these symptoms are related to the injection and he recommends completing the full injection therapy (3rd injection in two weeks). Patient stated she understood and agreed to this plan. [place] TEACHER documented in this encounter Plan of [...] on filedocumented in this encounter Care Teams Porcelain Enameling Supervisor Relationship Specialty Start Date End Date Cesar Berry MD PCP - General 08/07/17 12/16/19 Cruz Garza, RN Registered Nurse 08/13/17 06/13/18 documented as of this encounter
--- OUTSIDE RECORDS SUMMARY | 2024-08-09 20:06 | XMS_ITS | Encounter Summary ---
Author Organization [facility] Medical Group Address [address] [facility] [address] [place] [address] Care Team Providers Care Application Project Leader Name Role Phone Cesar Berry MD Primary Care Provider [phone] Shekhar Blake MD Primary Care Provider [phone] Encounter Details Date Type Department Care Team (Late st Contact Info) Description 08/01/2017 Orders Only [facility] [address] [facility] [address], [place] [id number] Shannan Rivera MD [address] [facility] [address] [place] [address] Social History Tobacco Use Types Packs/Day Years Used Date Smoking Tobacco: Never Smokeless Tobacco: Never Alcohol Use Standard Drinks/Week Comments Yes 0 (1 standard drink = 0.6 oz pur e alcohol) Comments Unknown Sex and Gender Information Value Date Recorded Sex Assigned at Not on file Legal Sex Female 5:22 AM MARKETING ASSOCIATE Gender Identity Not on file Sexual Orientation Not on file documented as of this encounter Plan of Treatment Not on file documented as of this encounter Visit Diagnoses Not on filedocumented in this encounter Care Teams Application Project Leader Relationship Specialty Start Date End Date Cesar Berry MD PCP - General Family Medicine 04/20/17 08/02/17 Shekhar Blake MD [address] [facility] [address] [place] [address] PCP - General 08/03/17 08/06/17 documented as of this encounter
--- OUTSIDE RECORDS SUMMARY | 2024-08-09 20:06 | XMS_ITS | Encounter Summary ---
Author Organization [facility] Healthcare Address [address] [place] [address] Care Team Providers Care Shake Table Operator Name Role Phone Cesar Berry MD Primary Care Provider [phone] Cruz Garza RN Unavailable UnavailMarlin Mantilla RN Unavailable Unavailab Denys Ellsworth MD Unavailable [phone] Suzy Hopkins PT Unavailable Unavailable Aditi Mccormick PTA Unavailable Unavailable Encounter Details Date Type Department Care Team (Late st Contact Info) Description 11/29/2017 Telephone [facility] Operating Room [address] [place] [address] Colette Cash Social History Tobacco Use Types Packs/Day Years Used Date Smoking Tobacco: Never Smokeless Tobacco: Never Alcohol Use Standard Drinks/Week Comments Yes 0 (1 standard drink = 0.6 oz pur e alcohol) Comments No Sex and Gender Information Value Date Recorded Sex Assigned at Not on file Legal Sex Female 5:22 AM SIGNAL AND COMMUNICATIONS MAINTAINER Gender Identity Not on file Sexual Orientation [...] on filedocumented in this encounter Care Teams Shake Table Operator Relationship Specialty Start Date End Date Cesar Berry MD PCP - General 08/07/17 12/16/19 Cruz Garza, RN Registered Nurse 08/13/17 06/13/18 Marlin Stewart, SHAYAN Registered Nurse Pain Management 10/23/17 06/13/18 Denys Urrutia MD [address] [facility] [address] [place] [address] Surgeon Neurosurgery 01/15/18 Suzy Hopkins, PT Physical Therapist Physical Therapy 01/15/18 Aditi Mccormick, LOZENGE MAKER HELPER Laundry Housekeeping Aide Physical Therapy 01/23/18 documented as of this encounter
--- OUTSIDE RECORDS SUMMARY | 2024-08-09 20:06 | XMS_ITS | Encounter Summary ---
Author Organization [facility] Address [address] [place] [address] Care Team Providers Care Cadastral Engineer Name Role Phone Cesar Berry MD Primary Care Provider [phone] Cruz Garza RN Unavailable Unavailabl e Encounter Details Date Type Department Care Team (Late st Contact Info) Description 08/14/2017 9:40 AM EVENT MARKETING COORDINATOR Ancillary Procedure [address] [place] [address] Nura Umana MD [address] [facility] [address] [place] [address] Social History Tobacco Use Types Packs/Day Years Used Date Smoking Tobacco: Never Smokeless Tobacco: Never Alcohol Use Standard Drinks/Week Comments Yes 0 (1 standard drink = 0.6 oz pur e alcohol) Comments Unknown Sex and Gender Information Value Date Recorded Sex Assigned at Not on file Legal Sex Female 5:22 AM EVENT MARKETING COORDINATOR Gender Identity Not on file Sexual [...] 3 VIEWS IP Routine 08/14/2017 9:57 AM EVENT MARKETING COORDINATOR documented in this encounter Results * XR Spine Lumbar 2 or 3 Views (08/14/2017 9:57 AM EVENT MARKETING COORDINATOR) Narrative [facility] - 08/14/2017 9:57 AM EVENT MARKETING COORDINATOR The images from this study are not interpreted by Radiology. ??Please refer to the physician's procedure / OR operative note. us Nura Umana MD IMG XR PROCEDURES Final Re sult [facility] documented in this encounter Visit Diagnoses Not on filedocumented in this encounter Care Teams Cadastral Engineer Relationship Specialty Start Date End Date Cesar Berry MD PCP - General 08/07/17 12/16/19 Cruz Garza, RN Registered Nurse 08/13/17 06/13/18 documented as of this encounter
--- OUTSIDE RECORDS SUMMARY | 2024-08-09 20:06 | XMS_ITS | Encounter Summary ---
Author Organization [facility] Healthcare Address [address] [place] [address] Care Team Providers Care Officer Captain Name Role Phone Cesar Berry MD Primary Care Provider [phone] Cruz Garza RN Unavailable Unavailabl e Encounter Details Date Type Department Care Team (Late st Contact Info) Description 08/27/2017 9:30 AM MINE EQUIPMENT DESIGN ENGINEER - 08/27/2017 9:45 AM [facility] [address] [place] [address] A, [facility] [address] [place] [address] Nura Umana MD [address] [place] [address] [address] [place] [address] Injection Epidural Lumbar/Caudal 1 Level Pain Pump Trial W Imaging [address] Surgery Details Date/Time Status Location OR Service Patient Class Case Class Case Type Trauma Case? 08/27/2017 9:30 AM Posted [facility] Pain [facility] Procedure Center [facility] PM 1 Pain Management Outpatient Elective Panel 1 Procedure LRB Anes Op Region Wound Class Comments Injection Epidural Lumbar/Ca udal 1 Level Pain Pump Trial W Imaging [address] N/A Local Back N/A Surgeon Surgeon Role Service Panel Nura Umana MD Primary Pain Management 1 Case Notes L5-S1 TLESI (2ND) documented in this encounter Social History Tobacco Use Types Packs/Day Years Used Date Smoking Tobacco: Never Smokeless Tobacco: Never Alcohol Use Standard Drinks/Week Comments Yes 0 (1 standard drink = 0.6 oz pur e alcohol) Comments Unknown Sex and Gender Information Value Date Recorded Sex Assigned at Not on file Legal Sex Female 5:22 AM MINE EQUIPMENT DESIGN ENGINEER Gender Identity Not on file Sexual Orientation Not on file documented as of this encounter Last Filed Vital Signs Vital Sign Reading Time Taken Comments Blood Pressure 132/89 08/27/2017 9:41 AM MINE EQUIPMENT DESIGN ENGINEER Pulse 85 08/27/2017 9:41 AM MINE EQUIPMENT DESIGN ENGINEER Temperature 37.2 ??C (98.9 ??F) 08/27/2017 9:41 AM CS T Respiratory Rate 17 08/27/2017 9:41 AM MINE EQUIPMENT DESIGN ENGINEER Oxygen Saturation - - Inhaled Oxygen Concentration [...] vital signs, patient will be discharged home. EQUIPMENT DESIGN ENGINEER documented in this encounter Miscellaneous Notes * Perioperative Nursing Note - Marlin Stewart RN - 08/27/2017 10:00 AM MINE EQUIPMENT DESIGN ENGINEER Discharge instructions reviewed with pt. Verbalized understanding. Hard copy given to pt. To returnin 2 weeks for #3 injection of series. EQUIPMENT DESIGN ENGINEER * Perioperative Nursing Note - Marlin Stewart RN - 08/27/2017 9:43 AM MINE EQUIPMENT DESIGN ENGINEER Seen by Dr. Umana pre procedure. EQUIPMENT DESIGN ENGINEER documented in this encounter Plan of [...] 3 VIEWS IP Routine 08/27/2017 9:57 AM MINE EQUIPMENT DESIGN ENGINEER INJECTION EPIDURAL LUMBAR/CAUDAL 1 LEVEL PAIN PUMP TRIAL W IMAGING [address] 08/27/2017 9:48 AM MINE EQUIPMENT DESIGN ENGINEER Case Notes L5-S1 TLESI (2ND) documented in this encounter Results * XR Spine Lumbar 2 or 3 Views (08/27/2017 9:57 AM MINE EQUIPMENT DESIGN ENGINEER) Anatomical Region Laterality Modality Spine N/A Computed Radiogr aphy Impressions 08/27/2017 9:57 AM MINE EQUIPMENT DESIGN ENGINEER EPIDURAL INJECTION AT L5-S1. Electronically signed by: Hebert Falcon M.D. Narrative 08/27/2017 9:57 AM MINE EQUIPMENT DESIGN ENGINEER XR SPINE LUMBAR 2 OR 3 VIEWS [...] dexamethasone (DECADRON) injection As needed, Starting on Sun08/27/17 at 0952, Intra-Op Given 08/27/2017 9:54 AM MINE EQUIPMENT DESIGN ENGINEER 10 mg Back iohexol (OMNIPAQUE) 240 mg iodine/mL injection solution As needed, Starting on Sun08/27/17 at 0951, Intra-Op Given 08/27/2017 9:54 AM MINE EQUIPMENT DESIGN ENGINEER 2 mL Back lidocaine (XYLOCAINE) 10 mg/mL (1 %) injection As needed, Starting on Sun08/27/17 at 0951, Intra-Op, Indications: Administration of Local AnesthesiaIndications:Administratio n of Local Anesthesia Given 08/27/2017 9:51 AM MINE EQUIPMENT DESIGN ENGINEER 2 mL Back sodium chloride 0.9% solution As needed, Starting on Sun08/27/17 at 0951, Intra-Op Given 08/27/2017 9:53 AM MINE EQUIPMENT DESIGN ENGINEER 2 mL Back documented in this encounter Active and Recently Administered Medications Times are shown in MINE EQUIPMENT DESIGN ENGINEER. PRN Medication Order 08/25/2017 08/26/2017 08/27/2017 dexamethasone [...] epidural) documented in this encounter Care Teams Officer Captain Relationship Specialty Start Date End Date Cesar Berry MD PCP - General 08/07/17 12/16/19 Cruz Garza, RN Registered Nurse 08/13/17 06/13/18 documented as of this encounter
--- OUTSIDE RECORDS SUMMARY | 2024-08-09 20:06 | XMS_ITS | Encounter Summary ---
Author Organization [facility] Medical Group Address [address] [facility] [address] [place] [address] Care Team Providers Care Cnc Maintenance Mechanic Name Role Phone Cesar Berry MD Primary Care Provider [phone] Shekhar Blake MD Primary Care Provider [phone] Reason for Visit * Reason Onset Date Comments CT results request 08/01/2017 Encounter Details Date Type Department Care Team (Late st Contact Info) Description 08/01/2017 Telephone [facility] [address] [address] results request Social History Tobacco Use Types Packs/Day Years Used Date Smoking Tobacco: Never Smokeless Tobacco: Never Alcohol Use Standard Drinks/Week Comments Yes 0 (1 standard drink = 0.6 oz pur e alcohol) Comments Unknown Sex and Gender Information Value Date Recorded Sex Assigned at Not on file Legal Sex Female 5:22 AM LANDSCAPE DESIGNER Gender Identity Not on file Sexual Orientation Not on file documented as of this encounter Miscellaneous Notes * Telephone Encounter - Theresa Gomez LPN - 08/03/2017 1:49 PM CST Pt is aware SCAPE DESIGNER * Telephone Encounter - Leonarda Ray MA - 08/03/2017 12:52 PM LANDSCAPE DESIGNER Called pt and LMOM for pt on both numbers to call back SCAPE DESIGNER * Telephone Encounter - Shannan Rivera MD - 08/03/2017 12:28 PM LANDSCAPE DESIGNER She may continue ibuprofen as directed on the bottle. If she tolerated gabapentin well and wants tosee if a higher dose would provide relief, I can send in a script. SCAPE DESIGNER * Telephone Encounter - Theresa Gomez LPN - 08/03/2017 11:06 AM CST meloxicam- upset her stomach Gabapentin- no relief was provided She seems to think ibuprofen seems to work better Called Natalie at Pain management scheduled appt for pt on 08/[address] Serrano SCAPE DESIGNER SCAPE DESIGNER * Telephone Encounter - Leonarda Ray MA - 08/01/2017 5:07 PM LANDSCAPE DESIGNER LMOM for pt to call back for results SCAPE DESIGNER * Telephone Encounter - Shannan Rivera MD - 08/01/2017 4:52 PM LANDSCAPE DESIGNER Please let pt know that I have reviewed her scans. There are no changes which would indicate an inflammatory arthritis. The findings are most consistent with some degenerative findings and mild disc protrusion. There is not any evidence that there is critical narrowing of the canal where her nervestravel through. The changes are most seen at L4-5. Some patients may benefit from injections to this site as a next step. If she has not tried this in the past, a next step would be to have her see pain management for this. Did she take the gabapentin that was ordered in the past? SCAPE DESIGNER * Telephone Encounter - Leonarda Ray MA - 08/01/2017 3:10 PM LANDSCAPE DESIGNER Called pt and LMOM for pt with response from dr. rivera SCAPE DESIGNER * Telephone Encounter - Shannan Rivera MD - 08/01/2017 2:12 PM LANDSCAPE DESIGNER Please call pt to let her know that I will be reviewing the results in detail today. She just got this done Sunday, our office was closed on Sunday, and I would like to try to review it with the reading radiologist. Thank you SCAPE DESIGNER * Telephone Encounter - Leonarda Ray MA - 08/01/2017 2:08 PM LANDSCAPE DESIGNER Pt calling about CT results Please advise SCAPE DESIGNER documented in this encounter Plan of Treatment Not on file documented as of this encounter Visit Diagnoses Not on filedocumented in this encounter Care Teams Cnc Maintenance Mechanic Relationship Specialty Start Date End Date Cesar Berry MD PCP - General Family Medicine 04/20/17 08/02/17 Shekhar Blake MD [address] [address] PCP - General 08/03/17 08/06/17 documented as of this encounter
--- OUTSIDE RECORDS SUMMARY | 2024-08-09 20:07 | XMS_ITS | Encounter Summary ---
Author Organization [facility] Care Team Providers Care Bridge Ironworker Helper Name Role Phone Unavailable Primary Care Provider Unavailabl e Encounter Details Date Type Department Care Team (Late st Contact Info) Description 02/15/2010 6:03 AM CDT - 02/15/2010 4:00 PM CDT [facility] sphen[facility] Social History Tobacco Use Types Packs/Day Years Used Date Smoking Tobacco: Never Assessed Comments Unknown Sex and Gender Information Value Date Recorded Sex Assigned at Not on file Legal Sex Female 5:22 AM HOOP MACHINE OPERATOR Gender Identity Not on file Sexual Orientation Not on file documented as of this encounter Plan of Treatment Not on file documented as of this encounter Visit Diagnoses Diagnosis Chronic sphenoidal sinusitis documented in this encounter
--- OUTSIDE RECORDS SUMMARY | 2024-08-09 20:07 | XMS_ITS | Encounter Summary ---
Author Organization [facility] Facility Care Team Providers Care Therapeutic Activities Services Worker Name Role Phone Unavailable Primary Care Provider Unavailabl e Encounter Details Date Type Department Care Team (Late st Contact Info) Description 09/08/2016 8:05 PM PLASTICS SHEET FINISHING PRESS OPERATOR - 09/08/2016 11:59 PM PLASTICS SHEET FINISHING PRESS OPERATOR Hospital Encounter [facility] Nura Schmitt MD [address] [facility] [address] [place] [address] Social History Tobacco Use Types Packs/Day Years Used Date Smoking Tobacco: Never Assessed Comments Unknown Sex and Gender Information Value Date Recorded Sex Assigned at Not on file Legal Sex Female 5:22 AM PLASTICS SHEET FINISHING PRESS OPERATOR Gender Identity Not on file Sexual Orientation Not on file documented as of this encounter Plan of Treatment Not on file documented as of this encounter Procedures Procedure Name Priority Date/Time Associated Diagnosis Comments SERUM VARICELLA ZOSTER VIRUS (VZV) AB, IGG Routine 09/08/2016 10:16 AM PLASTICS SHEET FINISHING PRESS OPERATOR SERUM RUBEOLA AB, IGG Routine 09/08/2016 10:16 AM PLASTICS SHEET FINISHING PRESS OPERATOR SERUM RUBELLA AB SCREEN Routine 09/08/2016 10:16 AM PLASTICS SHEET FINISHING PRESS OPERATOR SERUM MUMPS AB, IGG SCREEN Routine 09/08/2016 10:16 AM PLASTICS SHEET FINISHING PRESS OPERATOR DISCHARGE LABORATORY CUMULATIVE REPORT 09/08/2016 documented in this encounter Results * Serum Rubella ab screen (09/08/2016 10:16 AM PLASTICS SHEET FINISHING PRESS OPERATOR) Rubella ab, IgG Positive CDR HISTORICAL RESULTS Serum 09/08/2016 10:1 6 AM PLASTICS SHEET FINISHING PRESS OPERATOR us Nura Thornton MD LAB BLOOD ORDERABLES Final Re sult Performing Organization Address [facility] de Phone Number CDR HISTORICAL RESULTS * (ABNORMAL) Serum Varicella zoster virus (VZV) ab, IgG (09/08/2016 10:16 AM PLASTICS SHEET FINISHING PRESS OPERATOR) VZV ab Positive(A ) CDR HISTORICAL RESULTS Serum 09/08/2016 10:1 6 AM PLASTICS SHEET FINISHING PRESS OPERATOR us Nura Thornton MD LAB BLOOD ORDERABLES Final Re sult Performing Organization Address [facility] Phone Number CDR HISTORICAL RESULTS * (ABNORMAL) Serum mumps ab, IgG screen (09/08/2016 10:16 AM PLASTICS SHEET FINISHING PRESS OPERATOR) Mumps ab, IgG Positive( A) Negative CDR HISTORICAL RESULTS Comment: Interpretive Data Negative: No detectable IgG antibody to mumps by the EITAN test. Such individuals are presumed to be uninfected with the mumps and to be susceptible to primary infection. Equivocal: Presence or absence of the Mumps IgG antibody cannot be determined. Positive: Indicates presence of detectable IgG antibody to mumps by the EITAN test. Indicative of current or previous infection. The individual may be at risk of transmitting mumps infection, but is not necessarily currently contagious. Current interpretive data was last revised on 2014. Serum 09/08/2016 10:1 6 AM PLASTICS SHEET FINISHING PRESS OPERATOR Result Stephanie Thornton MD LAB BLOOD ORDERABLES Final Re sult Performing Organization Address [facility] de Phone Number CDR HISTORICAL RESULTS * (ABNORMAL) Serum Rubeola ab, IgG (09/08/2016 10:16 AM PLASTICS SHEET FINISHING PRESS OPERATOR) Rubeola ab, IgG Positive(A ) Negative CDR HISTORICAL RESULTS Serum 09/08/2016 10:1 6 AM PLASTICS SHEET FINISHING PRESS OPERATOR us Nura Thornton MD LAB BLOOD ORDERABLES Final Re sult CDR HISTORICAL RESULTS * DISCHARGE LABORATORY CUMULATIVE REPORT (09/08/2016) Narrative 09/08/2016 Ordered by an unspecified provider. us Historical Provider LAB BLOOD ORDERABLES Greer l Result documented in this encounter Visit Diagnoses Not on filedocumented in this encounter
--- OUTSIDE RECORDS SUMMARY | 2024-08-09 20:07 | XMS_ITS | Encounter Summary ---
Author Organization [facility] Healthcare Address [address] [place] [address] Care Team Providers Care Real Estate Office Manager Name Role Phone Cesar Berry MD Primary Care Provider [phone] Encounter Details Date Type Department Care Team (Latest Contact Info) Description 04/20/2017 11:15 AM CDT - 04/20/2017 11:59 PM CDT Hospital Encounter [facility] [phone] Shannan Rivera MD [address] [facility] [address] [place] [address] Discharge Disposition: Discharge to home or self care Social History Tobacco Use Types Packs/Day Years Used Date Smoking Tobacco: Never Smokeless Tobacco: Never Alcohol Use Standard Drinks/Week Comments Yes 0 (1 standard drink = 0.6 oz pur e alcohol) Comments Unknown Sex and Gender Information Value Date Recorded Sex Assigned at Not on file Legal Sex Female 5:22 AM PETROLOGY TEACHER Gender Identity Not on file Sexual [...] Associated Diagnosis Comments DISCHARGE LABORATORY CUMULATIVE REPORT 04/20/2017 12:00 AM CDT documented in this encounter Results * DISCHARGE LABORATORY CUMULATIVE REPORT (04/20/2017 12:00 AM CDT) Narrative 04/20/2017 12:00 AM CDT Ordered by an unspecified provider. us Historical Provider LAB BLOOD ORDERABLES Greer l Result documented in this encounter Visit Diagnoses Not on filedocumented in this encounter Care Teams Real Estate Office Manager Relationship Specialty Start Date End Date Cesar Berry MD PCP - General Family Medicine 04/20/17 08/02/17 documented as of this encounter
--- OUTSIDE RECORDS SUMMARY | 2024-08-09 20:07 | XMS_ITS | Encounter Summary ---
Author Organization [facility] Facility Care Team Providers Care Cake Inspector Name Role Phone Unavailable Primary Care Provider Unavailabl e Encounter Details Date Type Department Care Team (Late st Contact Info) Description 02/04/2008 - 02/04/2008 11:59 PM CDT Hospital Encounter [facility] Pal Cummins MD [address] [address] Other and unspecified anterior pituitary hyperfunction; Thyroiditis Social History Tobacco Use Types Packs/Day Years Used Date Smoking Tobacco: Never Assessed Comments Unknown Sex and Gender Information Value Date Recorded Sex Assigned at Not on file Legal Sex Female 5:22 AM BUSINESS MACHINES TEACHER Gender Identity Not on file Sexual Orientation Not on file documented as of this encounter Plan of Treatment Not on file documented as of this encounter Visit Diagnoses Diagnosis Other and unspecified anterior pituitary hyperfunction Thyroiditis Unspecified thyroiditis documented in this encounter
--- OUTSIDE RECORDS SUMMARY | 2024-08-09 20:07 | XMS_ITS | Encounter Summary ---
Author Organization [facility] Medical Group Address [address] [address] Care Team Providers Care Department Editor Name Role Phone Cesar Berry MD Primary Care Provider [phone] Reason for Visit * Reason Comments New Patient Joint Pain Encounter Details Date Type Department Care Team (Late st Contact Info) Description 04/20/2017 8:00 AM CDT Office Visit [facility] [address] [facility] [address] [place] [address] Shannan Rivera MD [address] [place] [address] [address] [place] [address] Musculoskeletal pain (Primary Dx); Class 2 obesity with serious comorbidity and body mass index (BMI) 39.0 to 39.9 in adult Social History Tobacco Use Types Packs/Day Years Used Date Smoking Tobacco: Never Smokeless Tobacco: Never Alcohol Use Standard Drinks/Week Comments Yes 0 (1 standard drink = 0.6 oz pur e alcohol) Comments Unknown Sex and Gender Information Value Date Recorded Sex Assigned at Not on file Legal Sex Female 5:22 AM SKIP OPERATOR Gender Identity Not on file Sexual Orientation Not on file documented as of this encounter Last Filed Vital Signs Vital Sign Reading Time Taken Comments Blood Pressure 124/72 04/20/2017 7:51 AM CDT Pulse - - Temperature - - Respiratory Rate - - Oxygen Saturation - - Inhaled Oxygen Concentration - - Weight 114.8 kg (253 lb) 04/20/2017 7:51 AM CDT Height 170.2 cm (5' 7 ) 04/20/2017 7:51 AM CDT Body Mass Index 39.63 04/20/2017 7:51 AM CDT documented in this encounter Ordered Prescriptions Prescription Sig Dispense Quantity Refills Last Filled Start Date End Date meloxicam (MOBIC) 7.5 mg tablet Take 1 tablet (7.5 mg total) by mouth daily. 30 tablet 11 04/20/2017 04/20/2017 documented in this encounter Progress Notes * Shannan Rivera MD - 04/20/2017 8:00 AM CDT New Patient and Joint Pain HPI: This is a 46 y.o. female patient presenting with a chief complaint of New Patient and Joint Pain . I am seeing this patient in consultation, requested by Dr. Berry for eval for MSK pain. She has low back and hip pain. Also has some numbness and tingling down the mid calf to the bottomsof the feet. Sitting for a long time aggravates her. The pain can get severe. Elbows ache from timeto time. This has been going on for about 5 years ago. Seems to have happened after her hysterectomy. She takes ibuprofen and this helps just slightly. Worst time of day is right away in the am and also at night. Sleep is interrupted. She was given norco by her PMD. She will wake up 'flip flopping' around. Feels like her hip pain is more towards the groin. Hip ROM is not as good as what it had been. Hot baths help. She has not recently done PT . Did this a long time ago for her back. Was seen by a chiropractor for a while, She has fatigue. No fevers. No rashes. No hair loss, no sores in the mouth or nose. No vision changes. No n/v/d, no CP or SOB. No noted synovitis. No hx of psoriasis. She had a pituitary tumor, she was on bromocriptine for this. She has had csection x 2, gallbladder and hernia surgery, hysterectomy. She was seen by Rheum in the past. She states that she was concerned that the other valuer thought she was just drug seeking and she really didn't have a good relationship. She was told that she has fibro and OA . 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 Current Outpatient Prescriptions Medication Sig Dispense Refill ??? cholecalciferol (VITAMIN D-3) 2,000 unit capsule 2,000 Units. ??? dilTIAZem XR (CARDIZEM CD,DILACOR XR) 180 mg 24 hr capsule Take 180 mg by mouth daily. ??? estradiol (VIVELLE-DOT) 0.025 mg/[address] 1 patch on the skin 2 (two) times a week. ??? HYDROcodone-acetaminophen (NORCO) 5-325 mg per tablet Take 1 tablet by mouth every 6 (six) hours as needed. ??? losartan-hydroCHLOROthiazide (HYZAAR) 100-12.5 mg per tablet 0 0 ??? sertraline (ZOLOFT) 100 mg tablet Take 100 mg by mouth daily. ??? traMADol (ULTRAM) 50 mg tablet Take 50 mg by mouth every 6 (six) hours. ??? meloxicam (MOBIC) 7.5 mg tablet Take 1 tablet (7.5 mg total) by mouth daily. 30 tablet 11 No current facility-administered medications for this visit. Metoclopramide; Morphine; and Penicillins Past Medical History: Diagnosis Date ??? Hypertension 11/03/2016 Hypertension Family History Problem Relation Age of Onset ??? Cancer Mother ??? Rheum arthritis Mother Past Surgical History: Procedure Laterality Date ??? SECTION x2 ??? GALLBLADDER SURGERY gall bladder and hernia repair ??? HYSTERECTOMY 2012 complete ??? OTHER SURGICAL HISTORY Sinus-sphenoid x2 ??? OTHER SURGICAL HISTORY Right 1995, 2001 ??? OTHER SURGICAL HISTORY lymph nodes ??? OVARY SURGERY Right 2009 Social History Social History ??? Marital status: Spouse name: N/A ??? Number of children: N/A ??? Years of education: N/A Occupational History ??? Not on file. Social History Main Topics ??? Smoking status: Never Smoker ??? Smokeless tobacco: Never Used ??? Alcohol use Yes ??? Drug use: Unknown ??? Sexual activity: Not on file Other Topics Concern ??? Not on file Social History Narrative ??? No narrative on file Review of Systems Constitutional: +fatigue HENT: Negative for nosebleeds and trouble swallowing. Eyes: Negative for photophobia, pain and redness. Respiratory: Negative for cough and shortness of breath. Cardiovascular: Negative for chest pain and leg swelling. Gastrointestinal: Negative for abdominal pain, blood in stool, constipation, diarrhea, nausea and vomiting. Endocrine: Negative for cold intolerance and heat intolerance. Genitourinary: Negative for dysuria and hematuria. Musculoskeletal: +joint pain Skin: Negative for rash. Neurological: Negative for weakness and headaches. Hematological: Does not bruise/bleed easily. Psychiatric/Behavioral: Negative for suicidal ideas. The patient is not nervous/anxious. Vitals: 04/20/17 0751 BP: 124/72 Body mass index is 39.63 kg/m??. Physical exam: Constitutional:well developed, well nourished, [...] status, speech normal, alert and oriented x3 Musculoskeletal: +fibro tender points, no synovitis. LABS: Lab Results Component Value Date GLUCOSE 106 06/03/2013 CALCIUM 9.2 06/03/2013 CO2 27 06/03/2013 CREATININE 0.71 06/03/2013 Lab Results Component Value Date ALT 142 (H) 06/03/2013 AST 63 (H) 06/03/2013 ALKPHOS 103 06/03/2013 BILITOT 1.5 (H) 06/03/2013 Lab Results Component Value Date HGB 14.2 06/03/2013 HCT 41.7 06/03/2013 MCV 93.6 06/03/2013 No results found for: SEDRATE RF neg, CHRISTINE neg, CRP nl IMAGING: Xrays from last Jul reviewed, findings summarized: hand xray nl, shoulder mild AC arthritis on the R, L ankle plantar spur, hip xrays nl, SI joints nl 1. Musculoskeletal pain She has MSK pain which sounds more mechanical in nature. No signs of inflammatory arthritis or active CTD on exam. She likely also has a component of fibro. We discussed management of this today. Encouraged exercise. I gave her a handout for hip and low back exercises as well. I would like to also extend the w/u as listed below. I would like her to try meloxicam instead of ibuprofen first. May consider cymbalta or gabapentin down the road 2. Class 2 obesity with serious comorbidity and body mass index (BMI) 39.0 to 39.9 in adult Recommend diet and exercise. She is considering possible eval for bariatric surgery. Body mass index is 39.63 kg/m??. documented in this encounter Plan of Treatment Not on file documented as of this encounter Procedures Procedure Name Priority Date/Time Associated Diagnosis Comments ДМИТРИЙ ANTIBODY EVALUATION WITH REFLEX Routine 04/20/2017 8:49 AM CDT Musculoskeletal pain CYCLIC CITRUL PEPTIDE ANTIBODY, IGG Routine 04/20/2017 8:49 AM CDT Musculoskeletal pain ERYTHROCYTE SEDIMENTATION RATE Routine 04/20/2017 8:49 AM CDT Musculoskeletal pain CRP (ACUTE PHASE) Routine 04/20/2017 8:4 9 AM CDT Musculoskeletal pain documented in this encounter Results * Erythrocyte sedimentation rate (04/20/2017 8:49 AM CDT) Erythrocyte sedimentation rate 8 0 - 20 mm/hr [facility] Blood specimen (specimen) 04/20/2017 8:49 AM CDT 04/20/2017 11:41 AM CDT us Shannan Rivera MD LAB BLOOD ORDERABLES Final Result [facility] [address] Department [place] [address] * Cyclic citrul peptide antibody, IgG (04/20/2017 8:49 AM CDT) CCP Ab <0.5 <=2.9 units/mL [facility] Comment: Interpretive data Negative: <3 units/mL Positive: > or equal to 3 units/mL Current interpretive data was last revised on 2016. Testing performed by: [facility], [address] [place] [address]., [id number] Blood specimen (specimen) 04/20/2017 8:49 AM CDT 04/20/2017 6:44 PM CDT Shannan Rivera MD LAB BLOOD ORDERABLES Final Result Performing Organization Address City/[facility]/ZIP Co de Phone Number [facility] [address] [place] [address] * CRP (acute phase) (04/20/2017 8:49 AM CDT) CRP 5.20 0.00 - 9.90 mg/L [facility] Blood specimen (specimen) 04/20/2017 8:49 AM CDT 04/20/2017 11:41 AM CDT Shannan Rivera MD LAB BLOOD ORDERABLES Final Result Performing Organization Address [facility] Co de Phone Number [facility] [address] [place] [address] * ДМИТРИЙ antibody panel (04/20/2017 8:49 AM CDT) ДМИТРИЙ ab Negative Negative [facility] Comment: Interpretive Data Positive Screens will be reflexed to specific testing for the following antigens: Joselin-1 Ab, HANGER OFF Ab, Scl-70 Ab, Hurst Ab, SS-A/Ro Ab, and SS-B/La Ab. Further testing for dsDNA, Centromere, or Ribosomal P antibodies is suggested in patient with a positive screen and negative specific antibodies. Current interpretive data was last revised on 16. Testing performed by: [facility], [address] [place] [address]., [id number] Blood specimen (specimen) 04/20/2017 8:49 AM CDT 04/20/2017 6:44 PM CDT us Shannan Rivera MD LAB BLOOD ORDERABLES Final Result [facility] [address] Department [place] [address] documented in this encounter Visit Diagnoses Diagnosis Musculoskeletal pain- Primary Unspecified myalgia and myositis Class 2 obesity with serious comorbidity and body mass index (BMI) 39.0 to 39.9 in adult documented in this encounter Discontinued Medications Medication Sig Discontinue Reason Start Date End Da te dilTIAZem (CARDIZEM) 30 mg tablet 30 mg. Duplicate order 11/03/2016 04/20/2017 sertraline (ZOLOFT) 20 mg/mL concentrated solution 20 mg/mL. Discontinued by another clinician 11/03/2016 04/20/2017 estrogens-methylTESTOSTE Salvatore (EEMT,COVARYX) 0.625-1.25 mg per tablet Discontinued by another clinician 11/03/2016 04/20/2017 ondansetron ODT (ZOFRAN ODT) 4 mg disintegrating tablet take 1 tablet by oral route every [address] on top of the tongue where they will dissolve, then swallow Discontinued by another clinician 11/03/2016 04/20/2017 ibuprofen (ADVIL,MOTRIN) 400 mg tablet Take by mouth every 6 (six) hours as needed for pain. Drug interaction 04/20/2017 documented as of this encounter Historical Medications * This list may reflect changes made after this encounter. estradiol (VIVELLE-DOT) 0.025 mg/[address] 1 patch on the skin 2 (two) times a week. 12/03/2017 ibuprofen (ADVIL,MOTRIN) 400 mg tablet Take by mouth every 6 (six) hours as needed for pain. 04/20/2017 HYDROcodone-aceta minophen (NORCO) 5-325 mg per tabletIndications :Pain Take 1 tablet by mouth every 6 (six) hours as needed. 10/15/2017 traMADol (ULTRAM) 50 mg tablet Take 50 mg by mouth every 6 (six) hours. 10/23/2017 cholecalciferol (VITAMIN D-3) 2,000 unit capsule 2,000 Units. 12/03/2017 sertraline (ZOLOFT) 100 mg tablet Take 100 mg by mouth daily. 12/03/2017 dilTIAZem XR (CARDIZEM CD,DILACOR XR) 180 mg 24 hr capsule Take 180 mg by mouth daily. 12/03/2017 added in this encounter Care Teams Department Editor Relationship Specialty Start Date End Date Cesar Berry MD PCP - General Family Medicine 04/20/17 08/02/17 documented as of this encounter
--- OUTSIDE RECORDS SUMMARY | 2024-08-09 20:07 | XMS_ITS | Encounter Summary ---
Author Organization [facility] Facility Care Team Providers Care Supervisor Hairspring Fabrication Name Role Phone Unavailable Primary Care Provider Unavailabl e Encounter Details Date Type Department Care Team (Late st Contact Info) Description 05/06/2007 9:50 AM CDT - 05/06/2007 11:59 PM CDT Hospital Encounter [facility] Lyndsay Broussard MD [address] [place] [address] Encounter for screening of mother Social History Tobacco Use Types Packs/Day Years Used Date Smoking Tobacco: Never Assessed Comments Unknown Sex and Gender Information Value Date Recorded Sex Assigned at Not on file Legal Sex Female 5:22 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
--- OUTSIDE RECORDS SUMMARY | 2024-08-09 20:07 | XMS_ITS | Encounter Summary ---
Author Organization [facility] Address [address] [facility] [address] [place] [address] Care Team Providers Care Basketballs And Footballs Reverser Name Role Phone Cesar Berry MD Primary Care Provider [phone] Encounter Details Date Type Department Care Team (Late st Contact Info) Description 04/20/2017 Telephone [facility] [address] [facility] [address] [place] [address] Shannan Rivera MD [address] [place] [address] [address] [place], [place] [id number] Social History Tobacco Use Types Packs/Day Years Used Date Smoking Tobacco: Never Smokeless Tobacco: Never Alcohol Use Standard Drinks/Week Comments Yes 0 (1 standard drink = 0.6 oz pur e alcohol) Comments Unknown Sex and Gender Information Value Date Recorded Sex Assigned at Not on file Legal Sex Female 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 Please advise documented in this encounter Plan of Treatment Not on file documented as of this encounter Visit Diagnoses Not on filedocumented in this encounter Care Teams Basketballs And Footballs Reverser Relationship Specialty Start Date End Date Cesar Berry MD PCP - General Family Medicine 04/20/17 08/02/17 documented as of this encounter
--- OUTSIDE RECORDS SUMMARY | 2024-08-09 20:07 | XMS_ITS | Encounter Summary ---
Author Organization [facility] Address [address] [place] [address] Care Team Providers Care Lasting Machine Operator Bed Name Role Phone Unavailable Primary Care Provider Unavailabl e Encounter Details Date Type Department Care Team (Late st Contact Info) Description 04/25/2011 9:49 AM CDT - 04/25/2011 11:59 PM CDT Hospital Encounter [facility] Dustin Kirkpatrick MD [address] [place] [address] Abdominal pain of other specified site; Other specified circulatory system disorders Social History Tobacco Use Types Packs/Day Years Used Date Smoking Tobacco: Never Assessed Comments Unknown Sex and Gender Information Value Date Recorded Sex Assigned at Not on file 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
--- OUTSIDE RECORDS SUMMARY | 2024-08-09 20:07 | XMS_ITS | Encounter Summary ---
Author Organization [facility] Facility Care Team Providers Care Blanchard Grinder Operator Name Role Phone Unavailable Primary Care Provider Unavailabl e Encounter Details Date Type Department Care Team (Latest Contact Info) Description 02/02/2010 12:06 PM CDT Hospital Encounter [facility]. Other diseases of nasal cavity and sinuses Social History Tobacco Use Types Packs/Day Years Used Date Smoking Tobacco: Never Assessed Comments Unknown Sex and Gender Information Value Date Recorded Sex Assigned at Not on file Legal Sex Female 5:22 AM CONTENT CURATOR Gender Identity Not on file Sexual Orientation Not on file documented as of this encounter Plan of Treatment Not on file documented as of this encounter Visit Diagnoses Diagnosis Other diseases of nasal cavity and sinuses documented in this encounter
--- OUTSIDE RECORDS SUMMARY | 2024-08-09 20:07 | XMS_ITS | Encounter Summary ---
Author Organization [facility] Facility Care Team Providers Care Trimming Caser Name Role Phone Unavailable Primary Care Provider Unavailabl e Encounter Details Date Type Department Care Team (Latest Contact Info) Description 10/12/2010 7:57 AM CDT - 10/13/2010 10:34 AM CDT Hospital Encounter [facility] Dustin Kirkpatrick MD [address] [place] [address] Other gallbladder disorder; Incisional hernia; Essential hypertension; Benign neoplasm of pituitary gland and craniopharyngeal duct (pouch) (HCC) Social History Tobacco Use Types Packs/Day Years Used Date Smoking Tobacco: Never Assessed Comments Unknown Sex and Gender Information Value Date Recorded Sex Assigned at Not on file 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
--- OUTSIDE RECORDS SUMMARY | 2024-08-09 20:07 | XMS_ITS | Encounter Summary ---
Author Organization [facility] Address [address] [address] Care Team Providers Care Clay Miner Name Role Phone Cesar Berry MD Primary Care Provider + [phone] Reason for Visit * Reason Onset Date Comments Test Results 04/23/2017 Encounter Details Date Type Department Care Team (Late st Contact Info) Description 04/23/2017 Telephone [facility] [address] [facility] [address] [place] [address] Shannan Rivera MD [address] [facility] [address] [place] [address] Test Results Social History Tobacco Use Types Packs/Day Years Used Date Smoking Tobacco: Never Smokeless Tobacco: Never Alcohol Use Standard Drinks/Week Comments Yes 0 (1 standard drink = 0.6 oz pur e alcohol) Comments Unknown Sex and Gender Information Value Date Recorded Sex Assigned at Not on file 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 She should continue her meloxicam for now. documented in this encounter Plan of Treatment Not on file documented as of this encounter Visit Diagnoses Not on filedocumented in this encounter Care Teams Clay Miner Relationship Specialty Start Date End Date Cesar Berry MD PCP - General Family Medicine 04/20/17 08/02/17 documented as of this encounter
--- OUTSIDE RECORDS SUMMARY | 2024-08-09 20:07 | XMS_ITS | Encounter Summary ---
Author Organization [facility] Facility Care Team Providers Care Pipe Welder Name Role Phone Unavailable Primary Care Provider Unavailabl e Encounter Details Date Type Department Care Team (Latest Contact Info) Description 2012 7:08 PM CDT - 2012 9:57 PM CDT [facility] Other specified noninflammatory disorder of vagina; Other specified symptom associated with female genital organs; Essential hypertension Social History Tobacco Use Types Packs/Day Years Used Date Smoking Tobacco: Never Assessed Comments Unknown Sex and Gender Information Value Date Recorded Sex Assigned at Not on file 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 Gender Identity Not on file Sexual Orientation Not on file documented as of this encounter Plan of Treatment Not on file documented as of this encounter Procedures Procedure Name Priority Date/Time Associated Diagnosis Comments CT ABDOMEN PELVIS WO CONTRAST Routine 2012 8:40 PM CDT BLOOD CELL COUNT (CBC), MORPHOLOGIC EXAM Routine 2012 4:15 PM CDT DISCHARGE LABORATORY CUMULATIVE REPORT 2012 documented in this encounter Results * CT Abdomen Pelvis WO Contrast (2012 8:40 PM CDT) Anatomical Region Laterality Modality Body N/A Computed Tomogra phy 2012 8:40 PM CDT Narrative 2012 9:[address] ABDOMEN AND PELVIS WITHOUT ORAL OR IV CONTRAST 2012 HISTORY: Vaginal bleeding status post hysterectomy. ??Evaluate for hematoma. FINDINGS: Spiral CT of the abdomen and pelvis was obtained without oral or IV contrast and correlation is made to previous CT abdomen and pelvis 04/25/2011. There has been prior hysterectomy. ??There is mesenteric edema throughout the pelvis. ??There is a large oval soft tissue density in the left adnexa that measures approximately 8.2 x 8 x 6.5 cm. ??This extends caudally to the vaginal cough and air is seen within the vaginal cuff and cervical region. ??According to the patient's physician, the left ovary is present. ??The differential diagnosis for this large left adnexal mass includes a markedly enlarged and abnormal ovary versus postoperative hematoma. ??I see no high attenuation blood within the pelvis or retroperitoneum to suggest acute bleed. There is no hydroureteronephrosis or urolithiasis. ??There has been prior cholecystectomy. The bowel appears normal. No significant abdominal wall hematoma is identified. SUMMARY: 1. Large soft tissue mass in left adnexa extending to the vaginal cuff with associated air in the cervix and vaginal cuff. ?? Differential diagnosis includes markedly enlarged and abnormal left ovary versus postoperative hematoma. ??No evidence of acute bleed. This result was discussed with the patient's physician at 2100 hours. Radiologist: GATO WILLIAMSON M.D. ?? Attending: ??UNKNOWN, NOTINFILE ?? Requesting: YUKO SALINAS Completed Time: ?? 2012 8:40 PM Dictated Time: ?2012 9:02 PM Transcribed Time: 2012 9:06 PM Signed by: ?GATO WILLIAMSON ??Jose on 2012 9:06 PM Procedure Note Provider, MD Mariana - 11/15/2016 CT ABDOMEN AND PELVIS WITHOUT ORAL OR IV CONTRAST 2012 HISTORY: Vaginal bleeding status post hysterectomy. Evaluate for hematoma. FINDINGS: Spiral CT of the abdomen and pelvis was obtained without oral or IV contrast and correlation is made to previous CT abdomen and pelvis 04/25/2011. There has been prior hysterectomy. There is mesenteric edema throughout the pelvis. There is a large oval soft tissue density in the left adnexa that measures approximately 8.2 x 8 x 6.5 cm. This extends caudally to the vaginal cough and air is seen within the vaginal cuff and cervical region. According to the patient's physician, the left ovary is present. The differential diagnosis for this large left adnexal mass includes a markedly enlarged and abnormal ovary versus postoperative hematoma. I see no high attenuation blood within the pelvis or retroperitoneum to suggest acute bleed. There is no hydroureteronephrosis or urolithiasis. There has been prior cholecystectomy. The bowel appears normal. No significant abdominal wall hematoma is identified. SUMMARY: 1. Large soft tissue mass in left adnexa extending to the vaginal cuff with associated air in the cervix and vaginal cuff. Differential diagnosis includes markedly enlarged and abnormal left ovary versus postoperative hematoma. No evidence of acute bleed. This result was discussed with the patient's physician at 2100 hours. Radiologist: GATO WILLIAMSON M.D. Attending: CHARLENE MEZA Requesting: YUKO SALINAS Completed Time: 2012 8:40 PM Dictated Time: 2012 9:02 PM Transcribed Time: 2012 9:06 PM Signed by: GATO WILLIAMSON M.D. on 2012 9:06 PM us Historical Provider MD [place] CT PROCEDURES Final R esult * (ABNORMAL) Blood cell count (CBC), morphologic exam (2012 4:15 PM CDT) WBC 8.4 4.5 - 11.0 K/cumm HISTORICAL RESULTS RBC 3.49(L) 3.80 - 5.40 M/cumm HISTORICAL RESULTS Hgb 11.4(L) 11.5 - 16.0 g/dl HISTORICAL RESULTS Comment:As of August 13, the hemoglobin alert value has changed from less than 7.0 g/dL to less than or equal to 6.5 g/dL, first time per admission. Hct 33.3(L) 34.0 - 48.0 % HISTORICAL RESULTS Comment:As of August 13, the hematocrit alert value has changed from less than 21% to less than or equal to 19.5%, first time per admission. MCV 95.6 80.0 - 100.0 fl HISTORICAL RESULTS MCH 32.6 27.0 - 33.0 pg HISTORICAL RESULTS MCHC 34.1 32.0 - 36.0 g/dl HISTORICAL RESULTS Rdw 14.2 11.5 - 14.5 % HISTORICAL RESULTS Platelets 279 140 - 400 K/cumm HISTORICAL RESULTS MPV 7.0(L) 7.4 - 10.4 fl HISTORICAL RESULTS Neutrophils 62.9 42.0 - 75.0 % HISTORICAL RESULTS Lymphocytes 23.8 21.0 - 51.0 % HISTORICAL RESULTS Monos 6.0 2.0 - 9.0 % HISTORICAL RESULTS Eosinophils 6.3 0.0 - 10.0 % HISTORICAL RESULTS Basophils 1.0 0.0 - 1.0 % HISTORICAL RESULTS Neutrophils, abs 5.3 1.8 - 7.7 K/cumm HISTORICAL RESULTS Lymphocytes, abs 2.0 1.0 - 4.8 K/cumm HISTORICAL RESULTS Monocytes, absolute 0.5 0.0 - 0.8 K/cumm HISTORICAL RESULTS Eosinophils, abs 0.5 0.0 - 0.5 K/cumm HISTORICAL RESULTS Basophils, abs 0.1 0.0 - 0.2 K/cumm HISTORICAL RESULTS Blood specimen (specimen) 2012 4:15 PM CDT Narrative HISTORICAL RESULTS - 2012 4:25 PM CDT verbal order by Dr. Lynne us Historical Provider LAB BLOOD ORDERABLES Greer l Result HISTORICAL RESULTS * DISCHARGE LABORATORY CUMULATIVE REPORT (2012) Narrative 2012 Ordered by an unspecified provider. us Historical Provider LAB BLOOD ORDERABLES Greer l Result documented in this encounter Visit Diagnoses Diagnosis Other specified noninflammatory disorder of vagina Other specified symptom associated with female genital organs Essential hypertension Unspecified essential hypertension documented in this encounter
--- OUTSIDE RECORDS SUMMARY | 2024-08-09 20:07 | XMS_ITS | Encounter Summary ---
Author Organization [facility] Facility Care Team Providers Care Asset Protection Assistant Name Role Phone Unavailable Primary Care Provider Unavailabl e Encounter Details Date Type Department Care Team (Latest Contact Info) Description 05/28/2013 9:06 AM CDT - 05/28/2013 4:55 PM CDT Hospital Encounter [facility] [place] [address] [place] [address] Other specified symptom associated with female genital organs; Chronic salpingitis and oophoritis; Other and unspecified ovarian cyst; Pelvic peritoneal adhesions, female; Symptom associated with female genital organs; Other noninflammatory disorders of ovary, fallopian tube, and broad ligament; Essential hypertension; Other acquired absence of organ; Acquired absence of both cervix and uterus; Personal history of allergy to penicillin; Personal history of allergy to narcotic agent Social History Tobacco Use Types Packs/Day Years Used Date Smoking Tobacco: Never Assessed Comments Unknown Sex and Gender Information Value Date Recorded Sex Assigned at Not on file 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 Date: Dictating: CLAUDE NOVAK MD Patient Type: SDS The patient is a 50-year-old, 2, para 2, status post TLH on November 13, 2012, for irregular vaginal bleeding. Postoperatively, she developed a vaginal cuff hematoma, which was followed and was stable. The patient was actually doing fairly well until approximately February where she started to have GI and urinary symptoms. She presented to the emergency room in March 2013, where she had a CT of her abdomen and pelvis where there was an enlarged ovary and a 4 cm complex proteinaceous area adjacent to that ovary, which is most likely consistent with a residual hematoma. The patient is starting to have severe diarrhea as well as pain with urination and persistent pelvic pressure. Tumor markers of AFP, CA125 and CEA were drawn, which were all within normal limits. An ultrasound confirmed a 4 x 3 cm cystic area with low fluid echoes as well as a 6.9 x 3.4 x 4.5 cm complex mass in that area. Continuing to follow this area with ultrasounds remained stable, and the mass began to appear consistent with a hydrosalpinx with a possible residual clot adjacent to that. Due to persistent bowel and urinary issues, and no improvement in symptoms, recommend to proceed. Options of management were reviewed with the patient, and patient wishes to proceed with a laparoscopic left salpingo-oophorectomy. PAST MEDICAL HISTORY: Significant for hypertension. She has a history of heart palpitations for which she had a cardiac ablation for PVCs. She also has reflux and a history of a prolactinoma, which has been stable. PAST SURGICAL HISTORY: In 2012, she had a cardiac ablation for the PVCs. In October 2012 she had TLH for menorrhagia. Previously, she also had laparoscopic cholecystectomy and prior to that she has had multiple hysteroscopy/D and C's and she also had a thermal endometrial ablation in 2008 for her history of menorrhagia. She also has a history of a right salpingo-oophorectomy due to a complex right ovarian cyst in 2007. PAST OB HISTORY: She has had two vaginal deliveries. 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 Her most recent Pap smear was prior to her hysterectomy, which was within normal limits and negative for high risk HPV. ALLERGIES: She is sensitive to PENICILLIN and MORPHINE, however tolerates Percocet without difficulty. CURRENT MEDICATIONS: 1. Cozaar 50 mg 1 p.o. every morning. 2. Ibuprofen p.r.n. 3. Vicodin p.r.n. PHYSICAL EXAMINATION: VITAL SIGNS: She is 67.5 inches tall, blood pressure 118/82, weight 226 pounds. HEENT: Normocephalic, atraumatic. NECK: Supple. PULMONARY: Respirations clear to auscultation bilaterally. CARDIOVASCULAR: Regular rate and rhythm. ABDOMEN: Positive bowel sounds, soft, nontender, nondistended. EXTREMITIES: No cyanosis, clubbing or edema. No calf tenderness bilaterally. PELVIC: Her vaginal cuff is intact and she has a left lower quadrant fullness and tenderness as well. ASSESSMENT AND PLAN: Left complex adnexal mass most likely consistent with the residual hematoma as well as hydrosalpinx. Difficult to visualize the normal-appearing ovary on ultrasound and on CT. She already has a history of a right salpingo-oophorectomy as well as a hysterectomy. The patient wishes to proceed with a left salpingo-oophorectomy. The patient is aware after this left ovary is removed, that she will be in surgical menopause, and risks of menopause were reviewed with the patient at length as well. The patient wishes to proceed. She is also aware that due to her history of surgery, there may be some scar tissue as well, and may need to have evacuation of a clot as well as adhesiolysis. The patient is aware. She has been n.p.o. after midnight. The patient wishes, regardless even if the left ovary appears within normal limits, to have that ovary removed as also since hysterectomy every month when she does have an ovulation as extensive left lower quadrant pain. So, regardless of appearance of the left ovary, she would like the removal of this left tube and ovary. She will be on Climara postoperatively. CLAUDE NOVAK MD HK/pc TD: 05/27/2013 09:33 Authenticated and Edited by Claude Novak MD On 05/28/13 10:41:52 AM * Op Note - Provider, MD Mariana - 05/28/2013 12:00 AM CDT Patient: AURELIA RODRIGUEZ Account: [id number] Room No: A26-A : 1970 Proc. Date: 05/28/2013 Surgeon: CLAUDE NOVAK MD Admit Date: 05/28/2013 Disch. Date: 05/28/2013 Patient Type: SDS Preoperative Diagnoses: 1. Left adnexal mass. 2. Pelvic pain. Postoperative Diagnoses: 1. Left adnexal mass. 2. Pelvic pain. Procedures: Diagnostic laparoscopy with left salpingo-oophorectomy, enterolysis, as well as adhesiolysis. Surgeon: Claude Novak MD Trash Collector: Dr. Bobby Cavazos, as well as Ruthie Ashley Anesthesia: General endotracheal, as well as a total of 23 mL of 0.25 percent Marcaine plain locally and subcutaneous areas. Anesthesia: General endotracheal. Estimated Blood Loss: 10 mL. Complications: None. Pathology: Left tube and ovary. Findings: A left hydrosalpinx with an enlarged left ovary with what appeared to be an endometrioma versus a hemorrhagic corpus luteal cyst adhered to the left pelvic sidewall, as well as wrapped around the colon with copious filmy adhesions in the posterior cul-de-sac behind the vaginal cuff adhering to the colon as well. Indications: The patient is a 42-year-old female, status post TLH in October 2012, with worsening left lower quadrant pain over the past few months with a persistent left adnexal mass. The patient desires surgical management. The patient received gentamicin 80 mg and clindamycin 900 mg IV x1 prior to surgery. Procedure: The patient was taken to the operating room, where she was placed under general anesthesia in the supine position. She was then placed in dorsal lithotomy position on Yaya stirrups on a gel pad. She was then carefully positioned. Her arms were carefully tucked. She was then sterilely prepped and draped in routine fashion. A Sam catheter and a sponge stick were placed in her vagina. Gloves were changed. Then in her umbilicus, 5 mL of 0.25 percent Marcaine plain was injected into the base of the umbilicus. A 5 mm skin incision was made. Her abdomen was tented up, and entered under direct visualization into the abdominal cavity. CO2 gas was insufflated into the abdominal cavity, which confirmed proper placement with no injury to underlying bowel or vessels or omentum. The 5 mm camera was placed. The patient was placed in deep Trendelenburg, and a 5 mm right lower quadrant port was placed, as well as a 10/12 mm left lower port. An initial survey revealed a large, approximately 6-7 cm, left complex mass with filmy adhesions with small bowel filmy adhesions around this large, what appeared to be a hydrosalpinx, as well as an enlarged left ovary with engorged left IP ligaments. The colon arced around this left adnexa and then adhered along the pelvic sidewall in a kinked fashion and then along the posterior cul-de-sac there were filmy adhesions adhering to the colon, as well as to the vaginal cuff. Therefore the filmy adhesions were carefully taken down. The small bowel was freed from the left adnexal mass. At this point, there was noted to be colon attached along the inferior side of this adnexal mass, however, underneath where the piece of ovary could be visualized, the pelvic sidewall appeared within normal limits, however, the anterior and lateral surface of this adnexal mass was adhered completely to the left pelvic sidewall. After the filmy adhesions were taken down as much as possible, as well as the left colon filmy adhesions were taken down, the left ureter was easily visualized to course below this mass. Therefore, grasping the round ligament, entered the retroperitoneal space and dissected down towards the pelvic floor along the left pelvic sidewall, carefully dissecting down the left ovary. Then, the left IP was carefully identified and then ligated using the Enseal device with good hemostasis. There was approximately a 3 cm segment of colon adhesion left and was carefully picked off from the ovary. All of the filmy adhesions in the posterior cul-de-sac were freed from the colon, as well as along the pelvic sidewalls. Once these colon adhesions were finally liberated, the tubo-ovarian complex was free and a 10-12 mm EndoCatch bag was placed in the belly. This tubo-ovarian complex was removed and was placed intact in a bag and then and in the bag was broken up into pieces and sent to pathology. The pelvis was then carefully irrigated with warm normal saline, and all was noted to be hemostatic. The pressure was taken down to 4 mmHg. There was a little bit of oozing noted around the round ligament, which was carefully ligated with good hemostasis. A piece of Interceed was then placed into the abdominal cavity and placed along this left pelvic sidewall. The Cj De was then used to close the 10/12 incision in the left lower quadrant. The skin was then closed with 4-0 Monocryl in subcuticular fashion with Dermabond on the left lower quadrant and right lower quadrant incisions, and a Band-Aid over the umbilicus. All sponge, lap, and needle counts were correct x3. The Sam catheter, as well as the vaginal sponge stick was removed from the vagina. The patient was returned to a supine position and awoke from anesthesia in stable condition. At the very end of the procedure, prior to the placement of Interceed, the gel pad was noted to have slid down, where the patient's head was slightly off the table, however, carefully then the patient was returned to the supine dorsal lithotomy position. CLAUDE NOVAK MD /mt TD: 05/29/2013 13:40 Authenticated by Claude Novak MD On 05/31/2013 10:16:40 AM documented in this encounter Plan of Treatment Not on file documented as of this encounter Procedures Procedure Name Priority Date/Time Associated Diagnosis Comments BLOOD ABO, RH, INDIRECT AB SCREEN Routine 05/28/2013 9:42 AM CDT PLASMA BASIC METABOLIC PANEL Routine 05/28/2013 9:34 AM CDT BLOOD CELL COUNT (CBC), MORPHOLOGIC EXAM Routine 05/28/2013 9:34 AM CDT DISCHARGE LABORATORY CUMULATIVE REPORT 05/28/2013 SURGICAL PATHOLOGY 05/28/2013 documented in this encounter Results * Blood ABO, Rh, indirect ab screen (05/28/2013 9:42 AM CDT) ABO typing A HISTORICA L RESULTS Rho(D) typing Positive HISTOR ICAL RESULTS Neftali, indirect Negative HISTORICAL RESULTS Blood specimen (specimen) 05/28/2013 9:42 AM CDT Claude Novak MD LAB BLOOD ORDERABLES Greer merritt Result HISTORICAL RESULTS * Blood cell count (CBC), morphologic exam (05/28/2013 9:34 AM CDT) WBC 6.6 4.5 - 11.0 K/cumm HISTORICAL RESULTS RBC 4.40 3.80 - 5.40 M/cumm HISTORICAL RESULTS Hgb 14.1 11.5 - 16.0 g/dl HISTORICAL RESULTS Comment:As of August 13, the hemoglobin alert value has changed from less than 7.0 g/dL to less than or equal to 6.5 g/dL, first time per admission. Hct 41.1 34.0 - 48.0 % HISTORICAL RESULTS Comment:As of August 13, the hematocrit alert value has changed from less than 21% to less than or equal to 19.5%, first time per admission. MCV 93.4 80.0 - 100.0 fl HISTORICAL RESULTS MCH 32.1 27.0 - 33.0 pg HISTORICAL RESULTS MCHC 34.4 32.0 - 36.0 g/dl HISTORICAL RESULTS Rdw 12.9 11.5 - 14.5 % HISTORICAL RESULTS Platelets 212 140 - 400 K/cumm HISTORICAL RESULTS MPV 7.9 7.4 - 10.4 fl HISTORICAL RESULTS Neutrophils 63.9 42.0 - 75.0 % HISTORICAL RESULTS Lymphocytes 26.5 21.0 - 51.0 % HISTORICAL RESULTS Monos 6.8 2.0 - 9.0 % HISTORICAL RESULTS Eosinophils 2.1 0.0 - 10.0 % HISTORICAL RESULTS Basophils 0.7 0.0 - 1.0 % HISTORICAL RESULTS Neutrophils, abs 4.2 1.8 - 7.7 K/cumm HISTORICAL RESULTS Lymphocytes, abs 1.7 1.0 - 4.8 K/cumm HISTORICAL RESULTS Monocytes, absolute 0.4 0.0 - 0.8 K/cumm HISTORICAL RESULTS Eosinophils, abs 0.1 0.0 - 0.5 K/cumm HISTORICAL RESULTS Basophils, abs 0.0 0.0 - 0.2 K/cumm HISTORICAL RESULTS Blood specimen (specimen) 05/28/2013 9:34 AM CDT Result [facility] Claude Novak MD LAB BLOOD ORDERABLES Greer l Result Performing Organization Address [facility] de Phone Number HISTORICAL RESULTS * Plasma basic metabolic panel (05/28/2013 9:34 AM CDT) Sodium 138 136 - 146 mmol/L HISTORICAL RESULTS K, pl 3.7 3.3 - 4.9 mmol/L HISTORICAL RESULTS Chloride 108 98 - 108 mmol/L HISTORICAL RESULTS CO2 26 22 - 33 mmol/L HISTORICAL RESULTS BUN 10 7 - 18 mg/dl HISTORICAL RESULTS Glucose 104 70 - 140 mg/dl HISTORICAL RESULTS Comment: Glucose is assumed to be non-fasting. ?? Fasting Glucose normal ranges are: 0 days - 2 months: ? 40 mg/dL - 100 mg/dL 2 months - 999 years: ?70 mg/dL - 99 mg/dL Creatinine 0.71 0.50 - 1.50 mg/dl HISTORICAL RESULTS eGFR >60 ml/min/1.7 3 m2 HISTORICAL RESULTS Comment: GFR Reference Range: = > 60 mL/min/1.73 m2 This result has been calculated assuming the patient is Non-. ??If the patient is , please multiply this result by 1.21. The GFR value is not recommended for medication dose adjustment for renal function, creatinine clearance values should be used. Calcium 8.9 8.5 - 10.5 mg/dl HISTORICAL RESULTS Plasma 05/28/2013 9:34 AM CDT Result [facility] Claude Novak MD LAB BLOOD ORDERABLES Greer l Result Performing Organization Address [facility] de Phone Number HISTORICAL RESULTS * Surgical pathology (05/28/2013) Narrative 05/28/2013 Ordered by an unspecified provider. Result [facility] Provider LAB PATHOLOGY ORDERABLES Final Result * DISCHARGE LABORATORY CUMULATIVE REPORT (05/28/2013) Narrative 05/28/2013 Ordered by an unspecified provider. [facility] Provider LAB BLOOD ORDERABLES Greer l Result documented in this encounter Visit Diagnoses Diagnosis Other specified symptom associated with female genital organs Chronic salpingitis and oophoritis Other and unspecified ovarian cyst Pelvic peritoneal adhesions, female Pelvic peritoneal adhesions, female (postoperative) (postinfection) Symptom associated with female genital organs Other noninflammatory disorders of ovary, fallopian tube, and broad ligament Essential hypertension Unspecified essential hypertension Other acquired absence of organ Acquired absence of both cervix and uterus Personal history of allergy to penicillin Personal history of allergy to narcotic agent documented in this encounter
--- OUTSIDE RECORDS SUMMARY | 2024-08-09 20:07 | XMS_ITS | Encounter Summary ---
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 Name Role Phone Unavailable Primary Care Provider Unavailabl e Encounter Details Date Type Department Care Team (Late st Contact Info) Description 06/30/2014 - 06/30/2014 11:59 PM FOREPART RASPER Hospital Encounter [facility] Pal Cummins MD [address] [address] Deviated nasal septum; Chronic sinusitis Social History Tobacco Use Types Packs/Day Years Used Date Smoking Tobacco: Never Assessed Comments Unknown Sex and Gender Information Value Date Recorded Sex Assigned at Not on file Legal Sex Female 5:22 AM FOREPART RASPER Gender Identity Not on file Sexual Orientation Not on file documented as of this encounter Plan of Treatment Not on file documented as of this encounter Procedures Procedure Name Priority Date/Time Associated Diagnosis Comments DISCHARGE LABORATORY CUMULATIVE REPORT Routine 07/03/2014 5:18 PM FOREPART RASPER PLASMA RENIN ACTIVITY Routine 06/30/2014 3:24 PM FOREPART RASPER PLASMA METANEPHRINE Routine 06/30/2014 3 :24 PM FOREPART RASPER PLASMA ALDOSTERONE Routine 06/30/2014 3: 24 PM FOREPART RASPER documented in this encounter Results * Discharge Laboratory Cumulative Report (07/03/2014 5:18 PM FOREPART RASPER) 07/03/2014 5:18 PM FOREPART RASPER Narrative HISTORICAL RESULTS - 07/03/2014 5:18 PM FOREPART RASPER ? [facility] ? Department of Laboratories ? [facility] ? [place] [address] ?[facility] ? [facility] [address] [place] [address] Patient Name: ? AURELIA RODRIGUEZ Med Rec Number: ?? [id number] Date of : ?1970 Gender/Age: ? Female 43 years Doctor: ? Pal Reddy M.D. Report Date/Time: 07/03/2014 17:18 ?* Abnormal ??C Critical ??f Footnote ??^ Corrected ??L Low ??H High ?i Interp Data ??@ Reference Lab ?Chart Type: Cumulative ? CHEMISTRY ? Hormones ? 06/30/2014 ??06/30/2014 ? 15:24:58 ?15:24:29 Test ? Units ?Reference Aldosterone ?<4.0 ??f ? ng/dL ?<=21 Plasma Renin Activity ?1.1 ??f ?ng/mL/H 06/30/2014 15:24:58 ??Aldosterone: ADDITIONAL INFORMATION Reference range for patients 11 years and older is based on upright A.M. collection from subjects without sodium restrictions. Test Performed by: [place] [id number] Vp Analysis: Esteban Lamar M.D. 06/30/2014 15:24:29 ??Plasma Renin Activity: REFERENCE VALUE (Peripheral vein specimen) Na-deplete, upright: ??Mean: 5.9 ??Range: 2.9-10.8 Na-replete, upright: ??Mean: 1.0 ??Range: <=0.6-3.0 Test Performed by: [place] [id number] Vp Analysis: Esteban Lamar M.D. ? 06/30/2014 ? 15:24:28 Test ? Units ?? Reference Metanephrine ? <0.20 ??f ?nmol/L ??<0.50 Normetanephrine ??0.42 ?nmol/L ??<0.90 ? CHEMISTRY ? Hormones 06/30/2014 15:24:28 ??Metanephrine: Test Performed by: [place] [address] Vp Analysis: Esteban Lamar M.D. Historical Provider LAB BLOOD ORDERABLES Greer l Result Performing Organization Address [facility] de Phone Number HISTORICAL RESULTS * Plasma metanephrine (06/30/2014 3:24 PM FOREPART RASPER) Pathologist [facility] [place] Metanephrines <0.20 <0.50 nmol/L HISTORICAL RESULTS Comment: Test Performed by: [place] [id number] Vp Analysis: Esteban Lamar M.D. Normetanephrines 0.42 <0.90 nmol/L HISTORICAL RESULTS Plasma 06/30/2014 3:24 PM FOREPART RASPER Pal Reddy MD LAB BLOOD ORDERABLES Final Result Performing Organization Address [facility] de Phone Number HISTORICAL RESULTS * Plasma aldosterone (06/30/2014 3:24 PM FOREPART RASPER) Pathologist [facility] [place] Aldosterone <4.0 <=21 ng/dl HISTORI HARLEY RESULTS Comment: ADDITIONAL INFORMATION Reference range for patients 11 years and older is based on upright A.M. collection from subjects without sodium restrictions. Test Performed by: [place] [address] Vp Analysis: Esteban Lamar M.D. Plasma 06/30/2014 3:24 PM FOREPART RASPER Pal Reddy MD LAB BLOOD ORDERABLES Final Result Performing Organization Address [facility] de Phone Number HISTORICAL RESULTS * Plasma renin activity (06/30/2014 3:24 PM FOREPART RASPER) Renin 1.1 ng/ml/hr HISTORICAL RESULTS Comment: REFERENCE VALUE (Peripheral vein specimen) Na-deplete, upright: ??Mean: 5.9 ??Range: 2.9-10.8 Na-replete, upright: ??Mean: 1.0 ??Range: <=0.6-3.0 Test Performed by: [facility] [address] [place] [address] Vp Analysis: Esteban Lamar M.D. Plasma 06/30/2014 3:24 PM FOREPART RASPER Pal Reddy MD LAB BLOOD ORDERABLES Final Result Performing Organization Address [facility] de Phone Number HISTORICAL RESULTS documented in this encounter Visit Diagnoses Diagnosis Deviated nasal septum Chronic sinusitis Unspecified sinusitis (chronic) documented in this encounter
--- OUTSIDE RECORDS SUMMARY | 2024-08-09 20:07 | XMS_ITS | Encounter Summary ---
Author Organization [facility] Facility Care Team Providers Care Gasser Machine Operator Name Role Phone Unavailable Primary Care Provider Unavailabl e Encounter Details Date Type Department Care Team (Latest Contact Info) Description 09/08/2008 7:49 AM SENIOR JAVA PROGRAMMER Hospital [place]counter [place] [address] [place] [address] Follow-up examination, following other surgery Social History Tobacco Use Types Packs/Day Years Used Date Smoking Tobacco: Never Assessed Comments Unknown Sex and Gender Information Value Date Recorded Sex Assigned at Not on file Legal Sex Female 5:22 AM SENIOR JAVA PROGRAMMER Gender Identity Not on file Sexual Orientation Not on file documented as of this encounter Plan of Treatment Not on file documented as of this encounter Visit Diagnoses Diagnosis Follow-up examination, following other surgery documented in this encounter
--- OUTSIDE RECORDS SUMMARY | 2024-08-09 20:07 | XMS_ITS | Encounter Summary ---
Author Organization [facility] Facility Care Team Providers Care Insurance Counselor Name Role Phone Unavailable Primary Care Provider Unavailabl e Encounter Details Date Type Department Care Team (Late st Contact Info) Description 07/09/2009 1:25 PM SOFTWARE DEVELOPER Hospital Encounter [facility] Rohit Fox Chronic sinusitis Social History Tobacco Use Types Packs/Day Years Used Date Smoking Tobacco: Never Assessed Comments Unknown Sex and Gender Information Value Date Recorded Sex Assigned at Not on file Legal Sex Female 5:22 AM SOFTWARE DEVELOPER Gender Identity Not on file Sexual Orientation Not on file documented as of this encounter Plan of Treatment Not on file documented as of this encounter Visit Diagnoses Diagnosis Chronic sinusitis Unspecified sinusitis (chronic) documented in this encounter
--- OUTSIDE RECORDS SUMMARY | 2024-08-09 20:07 | XMS_ITS | Encounter Summary ---
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
--- OUTSIDE RECORDS SUMMARY | 2024-08-09 20:07 | XMS_ITS | Encounter Summary ---
Author Organization [facility] Facility Care Team Providers Care [address] Vendor Name Role Phone Unavailable Primary Care Provider Unavailabl e Encounter Details Date Type Department Care Team (Late st Contact Info) Description 10/08/2009 - 10/08/2009 11:59 PM NEEDLE SETTER Hospital Encounter [facility] Dustin Dunlap Other seborrheic keratosis Social History Tobacco Use Types Packs/Day Years Used Date Smoking Tobacco: Never Assessed Comments Unknown Sex and Gender Information Value Date Recorded Sex Assigned at Not on file Legal Sex Female 5:22 AM NEEDLE SETTER Gender Identity Not on file Sexual Orientation Not on file documented as of this encounter Plan of Treatment Not on file documented as of this encounter Visit Diagnoses Diagnosis Other seborrheic keratosis documented in this encounter
--- OUTSIDE RECORDS SUMMARY | 2024-08-09 20:07 | XMS_ITS | Encounter Summary ---
Author Organization [facility] [place] Facility Care Team Providers Care Web Methods Developer Name Role Phone Unavailable Primary Care Provider Unavailabl e Encounter Details Date Type Department Care Team (Latest Contact Info) Description 11/13/2012 5:58 AM CDT - 11/15/2012 6:25 PM CDT Hospital En[facility] [place] [address] [place] [address] Excessive or frequent menstruation; Symptom associated with female genital organs; Hematometra; Endometriosis of uterus Social History Tobacco Use Types Packs/Day Years Used Date Smoking Tobacco: Never Assessed Comments Unknown Sex and Gender Information Value Date Recorded Sex Assigned at Not on file 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 Date: Dictating: CLAUDE NOVAK MD Patient Type: SDS HISTORY OF PRESENT ILLNESS: The patient is a 41 -year-old 2 para 2 with a hematometra distending worsening over the past month. She has a history of an endometrial ablation in 2008 with a THERMACHOICE device approximately five years ago. After which she had had irregular bleeding on and off during the menstrual cycle. However, since the middle of September started having increased pain and cramping and lower back pain. An ultrasound was obtained which showed a few irregular hyperechoic areas within the endometrium; however, overall the endometrium was only measuring approximately 5.9 mm. A repeat ultrasound two to three weeks later showed slightly enlarging of these areas most consistent with hematometra. The patient states that she is having minimal vaginal bleeding. There is no blood flow in these pockets of fluid and no masses bilaterally. Her right ovary was removed due to complex ovarian cyst which turned out to be a hemorrhagic corpus luteal cyst in 2008. PAST MEDICAL HISTORY: 1. Has a history of prolactinoma which has been followed by endocrinology and has been stable. She did have a severe headache in September when she was bleeding and having pelvic pain and had a CT of her head which was negative. 2. She also has a history of frequent PVCs. Attempt at an unsuccessful cardiac ablation in August 2012 at [facility]. 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 3. History of hypertension for which her blood pressures are stable on the Cozaar. 4. In 2008, when she had a laparoscopy and right oophorectomy as well as adhesiolysis and ablation, she had a postoperative complication where she had MRSA infection in her umbilicus. An MRSA culture today was negative, however, did show heavy growth of staphylococcus aureus which had inducible clindamycin resistance, however, was not methicillin-resistant and will start Bactrim to clear the nasal infection. PAST SURGICAL HISTORY: 1. In 2005 and 2007 she had c-sections. 2. She does have a history of some ankle surgery. 3. Neck surgery. 4. Sinus surgery in 2009. 5. In 2010 she had an inguinal hernia repair as well as the gallbladder. PAST OB HISTORY: She has had two c-sections. 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 ALLERGIES: She is allergic to MORPHINE, REGLAN, and PENICILLIN. CURRENT MEDICATIONS: Include: 1. Losartan. 2. Vicodin. 3. Ibuprofen. 4. Aspirin 81 mg which she has discontinued. FAMILY MEDICAL HISTORY: SOCIAL HISTORY AND HABITS: REVIEW OF SYSTEMS: PHYSICAL EXAMINATION: HEIGHT: 67.5 inches. WEIGHT: 230 pounds. GENERAL APPEARANCE: The patient is a pleasant, female, in mild distress due to her abdominal discomfort. VITAL SIGNS: Blood pressure 136/80. HEENT: Normocephalic and atraumatic. NECK: Supple. LUNGS: Respirations clear to auscultation bilaterally. CARDIAC: Regular rate and rhythm. ABDOMEN: Positive bowel sounds, soft, nontender, nondistended. EXTREMITIES: No clubbing, cyanosis, or edema. No calf tenderness bilaterally. PELVIC: EG BUS within normal limits. Uterus is tender and feels bloated at approximately 10 cm. No bleeding and no masses bilaterally. ASSESSMENT AND PLAN: 1. Pelvic pain caused by probable hematometra. Options of draining the hematometra and hysteroscopic suction scarring versus a hysterectomy were reviewed. The patient states that she is interested in hysterectomy as she has a longstanding history of dysmenorrhea. Previous operative report of her surgery in 2008 showed that her right ovary was removed measuring approximately 6 cm at that time was a hemorrhagic corpus luteal cyst on pathology. She did have some colon scarring in the posterior cul-de-sac which were taken down. Of note, her right oophorectomy was performed using stapler. We reviewed with the patient that she may have more scarring also due to the history of c-sections, as well as this previous surgery. May need to convert to an open surgery, however, most likely should be able to perform a TLH and will attempt to save her left ovary, as long as there are no abnormal cysts or anything concerning. The patient states she agrees. She is to be n.p.o. after midnight. CLAUDE NOVAK MD HK/dv TD: 11/11/2012 12:01 Authenticated by Claude Novak MD On 11/13/2012 10:16:04 AM * Op Note - Provider, MD Mariana - 11/13/2012 12:00 AM CDT Patient: AURELIA RODRIGUEZ Account: [id number] Room No: 325-P : 1970 Proc. Date: 11/13/2012 Surgeon: CLAUDE NOVAK MD Admit Date: 11/13/2012 Disch. Date: Patient Type: SDS Preoperative Diagnoses: 1. Hematometra. 2. Pelvic pain. 3. Menorrhagia. Postoperative Diagnoses: 1. Hematometra. 2. Pelvic pain. 3. Menorrhagia. Procedure: Total laparoscopic hysterectomy. Surgeon: Claude Novak MD Concrete Mixer: Marianela Lynne DO Anesthesia: General endotracheal. Estimated Blood Loss: 700 mL. Urine Output: 400 mL clear yellow urine at the end of procedure. Fluid: 21 mL of LR. Pathology: Uterus and cervix. Complications: None. Indication: The patient is a 41-year-old female with a longstanding history of menorrhagia, status post ablation, with hematometra afterward, requesting to proceed with a hysterectomy. The risks of surgery and alternatives were reviewed with the patient. The patient wished to proceed. She has been n.p.o. after midnight. She received 900 mg of clindamycin and 1.5 mg of gentamicin. Procedure in Detail: The patient was taken to the operating room, where she was placed under general anesthesia in supine position. She was then placed in dorsal lithotomy position on Yaya stirrups with her arms tucked back and carefully protected. She was sterilely prepped and draped in routine fashion. A Sam catheter was placed in her bladder, and a bivalve speculum was introduced into her vagina. Then a VCare was inserted per routine. Once dilating the cervix, copious dark blood came out of the cervical os. The VCare was placed with a single stitch in the cervix, per routine. Instruments were removed from the vagina. Gloves were changed. Attention turned to her abdomen where a total of 15 mL of 0.25 percent Marcaine plain was used in the subcutaneous tissue for 3 ports. Three 5 mm ports were placed, the first one in the umbilicus, under direct visualization. Entering the abdominal cavity confirmed with placement and CO2 gas with a maximal insufflation pressure of 15 mmHg. Then, the lateral ports were placed where would be most appropriate anatomically. Then attention was noted that there was an adhesion band from the bowel to the anterior abdominal wall, which was removed. There was also copious adhesions from the previous section from the lower uterine segment to the bladder. The staple line along the right side was noted, and the left tube and ovary appeared within normal limits. Therefore, the left round ligament was coagulated with an Enseal device, and entered anteriorly to create a bladder flap. However, due to the copious adhesions, carefully insufflated the bladder to see the bladder line with gas. Once that was delineated, took down the thick bands, initially using the Enseal device, and then with scissors. Then the uterus, due to the limitation of mobility from the scarring, the left tube tubo-ovarian ligament was ligated and carried down to the left lower uterine segment area, where there uterine was then coagulated high on the uterus along the lower uterine segment. Then attention was turned to the right side. The right round was ligated and entered into the retroperitoneal space, dissected anteriorly toward the bladder, to additionally create the bladder flap and once again continue to work on the scar tissue to lower down the bladder flap. Along the right cornual edge, where the right tube and ovary had been, there were staple lines, and, carefully using the Enseal device, carefully worked my way through the staple line, with good hemostasis. Then, the right uterine was coagulated and then carefully taken the pedicles down with the cardinal bite as well, down below the level of the cup. The same was then done on the left side, and good blanching was noted on the uterus. There was some oozing on the recti, and once again we used Enseal. The bladder was then once again re-insufflated with CO2 gas to delineate the border, and then once again, carefully dissected down to the cervical fascia, and the cup was then palpated. Carefully took the bladder down past that point, and then once this area was all skeletonized using the Harmonic scalpel, created a colpotomy, and amputated the uterus from the vagina. The uterus was then delivered through the vagina. A pack was then placed in the vagina, and then using a V-Loc 180, closed vaginal cuff, reincorporating the uterosacrals onto the vaginal cuff. Good hemostasis was noted. There was continuous oozing along the entire bladder flap area, as well as a little bit along the suture line. Therefore, 10 mL of FloSeal was placed along this area after attempting to coagulate with the Harmonic. After the FloSeal was placed and the suture had been cut and removed, the pressure was taken down to 4 mm for approximately 2 minutes and no further oozing was noted. The pelvis, previously to the FloSeal, was irrigated with normal saline. Clots were removed. Then, a cystoscopy was done by retrograde filling the bladder with some normal saline and then the trigone was visualized, and both ostia were visualized, with good flow from both sides. No injury or sutures were noted to the bladder. The Sam catheter was replaced. A bimanual was performed, which showed good vaginal support, with no active bleeding in the vagina. All sponge, lap, and needle counts were correct x3. The abdominal incisions were closed with 4-0 Monocryl in subcuticular fashion with Steri-Strips. The patient was then returned to supine position, awakened from anesthesia, and transferred to recovery room in stable condition. CLAUDE NOVAK MD HK/val TD: 11/14/2012 06:21 Authenticated by Claude Novak MD On 11/23/2012 01:26:53 PM documented in this encounter Plan of Treatment Not on file documented as of this encounter Procedures Procedure Name Priority Date/Time Associated Diagnosis Comments BLOOD CELL COUNT (CBC), MORPHOLOGIC EXAM Routine 11/15/2012 5:18 AM CDT DISCHARGE LABORATORY CUMULATIVE REPORT 11/15/2012 PLASMA DISSEMINATED INTRAVASCULAR COAGULATION (DIC) Routine 11/14/2012 12:17 PM CDT BLOOD SCHISTOCYTE IDENTIFICATION Routine 11/14/2012 12:17 PM CDT BLOOD PLATELET COUNT, DIC SCREEN Routine 11/14/2012 12:17 PM CDT BLOOD CELL COUNT (CBC), MORPHOLOGIC EXAM Routine 11/14/2012 12:17 PM CDT PLASMA VON WILLEBRAND MULTIMERS Routine 11/14/2012 7:17 AM CDT PLASMA VON WILLEBRAND FACTOR AG Routine 11/14/2012 7:17 AM CDT PLASMA RISTOCETIN COFACTOR ACTIVATION Routine 11/14/2012 7:17 AM CDT PLASMA PARTIAL THROMBOPLASTIN TIME (PTT) Routine 11/14/2012 7:17 AM CDT PLASMA FACTOR VIII ACTIVITY Routine 11/14/2012 7:17 AM CDT BLOOD CELL COUNT (CBC), MORPHOLOGIC EXAM Routine 11/14/2012 12:46 AM CDT BLOOD ABO, RH, INDIRECT AB SCREEN Routine 11/13/2012 6:38 AM CDT URINE CHORIONIC GONADOTROPIN (HCG) Routine 11/13/2012 6:14 AM CDT PLASMA BASIC METABOLIC PANEL Routine 11/13/2012 6:14 AM CDT BLOOD CELL COUNT (CBC), MORPHOLOGIC EXAM Routine 11/13/2012 6:14 AM CDT ELECTROCARDIOGRAPHY (ECG) 11/13/2012 SURGICAL PATHOLOGY 11/13/2012 documented in this encounter Results * (ABNORMAL) Blood cell count (CBC), morphologic exam (11/15/2012 5:18 AM CDT) WBC 7.4 4.5 - 11.0 K/cumm HISTORICAL RESULTS RBC 2.72(L) 3.80 - 5.40 M/cumm HISTORICAL RESULTS Hgb 8.8(L) 11.5 - 16.0 g/dl HISTORICAL RESULTS Comment:As of August 13, the hemoglobin alert value has changed from less than 7.0 g/dL to less than or equal to 6.5 g/dL, first time per admission. Hct 25.9(L) 34.0 - 48.0 % HISTORICAL RESULTS Comment:As of August 13, the hematocrit alert value has changed from less than 21% to less than or equal to 19.5%, first time per admission. MCV 95.4 80.0 - 100.0 fl HISTORICAL RESULTS MCH 32.5 27.0 - 33.0 pg HISTORICAL RESULTS MCHC 34.1 32.0 - 36.0 g/dl HISTORICAL RESULTS Rdw 13.1 11.5 - 14.5 % HISTORICAL RESULTS Platelets 179 140 - 400 K/cumm HISTORICAL RESULTS MPV 7.8 7.4 - 10.4 fl HISTORICAL RESULTS Neutrophils 56.1 42.0 - 75.0 % HISTORICAL RESULTS Lymphocytes 34.6 21.0 - 51.0 % HISTORICAL RESULTS Monos 6.9 2.0 - 9.0 % HISTORICAL RESULTS Eosinophils 1.8 0.0 - 10.0 % HISTORICAL RESULTS Basophils 0.6 0.0 - 1.0 % HISTORICAL RESULTS Neutrophils, abs 4.2 1.8 - 7.7 K/cumm HISTORICAL RESULTS Lymphocytes, abs 2.6 1.0 - 4.8 K/cumm HISTORICAL RESULTS Monocytes, absolute 0.5 0.0 - 0.8 K/cumm HISTORICAL RESULTS Eosinophils, abs 0.1 0.0 - 0.5 K/cumm HISTORICAL RESULTS Basophils, abs 0.0 0.0 - 0.2 K/cumm HISTORICAL RESULTS Blood specimen (specimen) 11/15/2012 5:18 AM CDT Claude Novak MD LAB BLOOD ORDERABLES Greer l Result HISTORICAL RESULTS * DISCHARGE LABORATORY CUMULATIVE REPORT (11/15/2012) Narrative 11/15/2012 Ordered by an unspecified provider. Historical Provider LAB BLOOD ORDERABLES Greer l Result * Blood schistocyte identification (11/14/2012 12:17 PM CDT) Schistocytes None Seen HISTORI HARLEY RESULTS Blood specimen (specimen) 11/14/2012 12:17 PM CDT Result [facility] Claude Novak MD LAB BLOOD ORDERABLES Greer l Result HISTORICAL RESULTS * Blood platelet count, DIC screen (11/14/2012 12:17 PM CDT) Platelets 186 140 - 400 K/cumm HISTORICAL RESULTS Blood specimen (specimen) 11/14/2012 12:17 PM CDT Claude Novak MD LAB BLOOD ORDERABLES Greer rené Result HISTORICAL RESULTS * (ABNORMAL) Blood cell count (CBC), morphologic exam (11/14/2012 12:17 PM CDT) WBC 10.6 4.5 - 11.0 K/cumm HISTORICAL RESULTS RBC 2.90(L) 3.80 - 5.40 M/cumm HISTORICAL RESULTS Hgb 9.3(L) 11.5 - 16.0 g/dl HISTORICAL RESULTS Comment:As of August 13, the hemoglobin alert value has changed from less than 7.0 g/dL to less than or equal to 6.5 g/dL, first time per admission. Hct 27.9(L) 34.0 - 48.0 % HISTORICAL RESULTS Comment:As of August 13, the hematocrit alert value has changed from less than 21% to less than or equal to 19.5%, first time per admission. MCV 96.2 80.0 - 100.0 fl HISTORICAL RESULTS MCH 32.1 27.0 - 33.0 pg HISTORICAL RESULTS MCHC 33.3 32.0 - 36.0 g/dl HISTORICAL RESULTS Rdw 13.3 11.5 - 14.5 % HISTORICAL RESULTS Platelets 178 140 - 400 K/cumm HISTORICAL RESULTS MPV 7.6 7.4 - 10.4 fl HISTORICAL RESULTS Neutrophils 72.9 42.0 - 75.0 % HISTORICAL RESULTS Lymphocytes 20.4(L) 21.0 - 51.0 % HISTORICAL RESULTS Monos 6.1 2.0 - 9.0 % HISTORICAL RESULTS Eosinophils 0.2 0.0 - 10.0 % HISTORICAL RESULTS Basophils 0.4 0.0 - 1.0 % HISTORICAL RESULTS Neutrophils, abs 7.8(H) 1.8 - 7.7 K/cumm HISTORICAL RESULTS Lymphocytes, abs 2.2 1.0 - 4.8 K/cumm HISTORICAL RESULTS Monocytes, absolute 0.6 0.0 - 0.8 K/cumm HISTORICAL RESULTS Eosinophils, abs 0.0 0.0 - 0.5 K/cumm HISTORICAL RESULTS Basophils, abs 0.0 0.0 - 0.2 K/cumm HISTORICAL RESULTS Blood specimen (specimen) 11/14/2012 12:17 PM CDT Claude Novak MD LAB BLOOD ORDERABLES Greer l Result Performing Organization Address [facility] de Phone Number HISTORICAL RESULTS * (ABNORMAL) Plasma disseminated intravascular coagulation (DIC) (11/14/2012 12:17 PM CDT) Prothrombin time (PT) 13.7 11.7 - 14.8 seconds HISTORICAL RESULTS INR 1.1 0.9 - 1.2 HISTORICAL RESULTS APTT 23.4(L) 24.0 - 36.1 seconds HISTORICAL RESULTS Fibrinogen 253 150 - 425 mg/dl HISTORICAL RESULTS D-dimer 1.76(H) 0.00 - 0.42 mcg/ml HISTORICAL RESULTS Comment: A cut-off value of 0.50 mcg/ml FEU has a negative predictive value regarding the exclusion of thrombosis of 95-100%. Plasma 11/14/2012 12:1 7 PM CDT Claude Novak MD LAB BLOOD ORDERABLES Greer l Result Performing Organization Address [facility] de Phone Number HISTORICAL RESULTS * Plasma von Willebrand multimers (11/14/2012 7:17 AM CDT) von Willebrand factor multimer Normal Normal HISTORICAL RESULTS Comment: VWF multimer analysis shows a normal pattern and distribution of bands. ??This is the pattern of multimers that occurs in both normal individuals and those with Type 1 VW Disease as well as in both type 2M and 2N VW disease. ??No additional results available for further interpretation. ??Performed at [facility] [address] [id number] [facility] Laboratory: Krista Brunner MD, Phone: [phone] von Willebrand factor ag, interp Not Applicable HISTORICAL RESULTS Plasma 11/14/2012 7:17 AM CDT Narrative HISTORICAL RESULTS - 11/28/2012 4:18 AM CDT Test performed at [facility], [address], [facility], [address] Claude Novak MD LAB BLOOD ORDERABLES Greer l Result Performing Organization Address [facility] de Phone Number HISTORICAL RESULTS * Plasma ristocetin cofactor activation (11/14/2012 7:17 AM CDT) Pathologist [facility] von Willebrand factor activity 70 Units/dl HISTORICAL RESULTS Comment: Normal Reference Range for Blood Type O: ? Ristocetin Cofactor (R:Co) = 50 - 162 Normal Reference Range for Blood Type A: ? R:Co = 70 - 185 Normal Reference Range for Blood Type B and AB combined: ? R:Co = 80 - 210 Normal reference ranges for blood type B and AB will be available separately as soon as enough data is accumulated. Plasma 11/14/2012 7:17 AM CDT Narrative HISTORICAL RESULTS - 11/15/2012 4:32 PM CDT Test performed at [facility], [address] [facility], [facility], [address] Claude Novak MD LAB BLOOD ORDERABLES Greer l Result Performing Organization Address [facility] de Phone Number HISTORICAL RESULTS * Plasma von Willebrand factor ag (11/14/2012 7:17 AM CDT) Pathologist [facility] von Willebrand factor ag 73 Units/dl HISTORICAL RESULTS Comment: Normal Reference Range for Blood Type O: ? vWF Antigen (vWF-Ag) = 50 - 170 Normal Reference Range for Blood Type A: ? (vWF-Ag) = 60 - 260 Normal Reference Range for Blood Type B and AB combined: ? (vWF-Ag) = 90 - 280 Normal reference ranges for blood type B and AB will be available separately as soon as enough data is accumulated. Plasma 11/14/2012 7:17 AM CDT Narrative HISTORICAL RESULTS - 11/15/2012 4:32 PM CDT Test performed at [facility], [address] [place] [address]., [address] [facility], [facility], [address] Claude Novak MD LAB BLOOD ORDERABLES Greer l Result Performing Organization Address [facility] de Phone Number HISTORICAL RESULTS * Plasma factor VIII activity (11/14/2012 7:17 AM CDT) Pathologist [facility] Factor VIII, quant 125 Units/dl HISTORICAL RESULTS Comment: Normal Reference Range for Blood Type O: ? Factor VIII:c (VIII:c) ??= 45 - 180 Normal Reference Range for Blood Type A: ? VIII:c = 60 - 200 Normal Reference Range for Blood Type B and AB combined: ? VIII:c = 80 - 225 Normal reference ranges for blood type B and AB will be available separately as soon as enough data is accumulated. Plasma 11/14/2012 7:17 AM CDT Narrative HISTORICAL RESULTS - 11/15/2012 4:32 PM CDT Test performed at [facility], [address] [place], [place] [address]., [address] [facility], [facility], [address] Claude Novak MD LAB BLOOD ORDERABLES Greer l Result Performing Organization Address [facility] de Phone Number HISTORICAL RESULTS * Plasma partial thromboplastin time (PTT) (11/14/2012 7:17 AM CDT) Pathologist [facility] APTT 31.0 24.0 - 38.0 seconds HISTORICAL RESULTS Plasma 11/14/2012 7:17 AM CDT Narrative HISTORICAL RESULTS - 11/15/2012 4:32 PM CDT Test performed at [facility], [address], [place], [place], [place], [address] Claude Novak MD LAB BLOOD ORDERABLES Greer merritt Result HISTORICAL RESULTS * (ABNORMAL) Blood cell count (CBC), morphologic exam (11/14/2012 12:46 AM CDT) WBC 11.4(H) 4.5 - 11.0 K/cumm HISTORICAL RESULTS RBC 3.00(L) 3.80 - 5.40 M/cumm HISTORICAL RESULTS Hgb 9.6(L) 11.5 - 16.0 g/dl HISTORICAL RESULTS Comment:As of August 13, the hemoglobin alert value has changed from less than 7.0 g/dL to less than or equal to 6.5 g/dL, first time per admission. Hct 28.5(L) 34.0 - 48.0 % HISTORICAL RESULTS Comment:As of August 13, the hematocrit alert value has changed from less than 21% to less than or equal to 19.5%, first time per admission. MCV 95.0 80.0 - 100.0 fl HISTORICAL RESULTS MCH 31.9 27.0 - 33.0 pg HISTORICAL RESULTS MCHC 33.5 32.0 - 36.0 g/dl HISTORICAL RESULTS Rdw 12.9 11.5 - 14.5 % HISTORICAL RESULTS Platelets 193 140 - 400 K/cumm HISTORICAL RESULTS MPV 7.7 7.4 - 10.4 fl HISTORICAL RESULTS Neutrophils 79.3(H) 42.0 - 75.0 % HISTORICAL RESULTS Lymphocytes 14.2(L) 21.0 - 51.0 % HISTORICAL RESULTS Monos 6.2 2.0 - 9.0 % HISTORICAL RESULTS Eosinophils 0.0 0.0 - 10.0 % HISTORICAL RESULTS Basophils 0.3 0.0 - 1.0 % HISTORICAL RESULTS Neutrophils, abs 9.1(H) 1.8 - 7.7 K/cumm HISTORICAL RESULTS Lymphocytes, abs 1.6 1.0 - 4.8 K/cumm HISTORICAL RESULTS Monocytes, absolute 0.7 0.0 - 0.8 K/cumm HISTORICAL RESULTS Eosinophils, abs 0.0 0.0 - 0.5 K/cumm HISTORICAL RESULTS Basophils, abs 0.0 0.0 - 0.2 K/cumm HISTORICAL RESULTS Blood specimen (specimen) 11/14/2012 12:46 AM CDT Narrative HISTORICAL RESULTS - 11/14/2012 1:22 AM CDT This order is a replacement of the rejected order with accession number [id number] Claude Novak MD LAB BLOOD ORDERABLES Greer l Result Performing Organization Address [facility] Co de Phone Number HISTORICAL RESULTS * Blood ABO, Rh, indirect ab screen (11/13/2012 6:38 AM CDT) ABO typing A HISTORICA L RESULTS Rho(D) typing Positive HISTOR ICAL RESULTS Neftali, indirect Negative HISTORICAL RESULTS Blood specimen (specimen) 11/13/2012 6:38 AM CDT Claude Novak MD LAB BLOOD ORDERABLES Greer l Result Performing Organization Address [facility] Co de Phone Number HISTORICAL RESULTS * Blood cell count (CBC), morphologic exam (11/13/2012 6:14 AM CDT) WBC 6.6 4.5 - 11.0 K/cumm HISTORICAL RESULTS RBC 4.19 3.80 - 5.40 M/cumm HISTORICAL RESULTS Hgb 13.5 11.5 - 16.0 g/dl HISTORICAL RESULTS Comment:As of August 13, the hemoglobin alert value has changed from less than 7.0 g/dL to less than or equal to 6.5 g/dL, first time per admission. Hct 39.3 34.0 - 48.0 % HISTORICAL RESULTS Comment:As of August 13, the hematocrit alert value has changed from less than 21% to less than or equal to 19.5%, first time per admission. MCV 93.9 80.0 - 100.0 fl HISTORICAL RESULTS MCH 32.3 27.0 - 33.0 pg HISTORICAL RESULTS MCHC 34.3 32.0 - 36.0 g/dl HISTORICAL RESULTS Rdw 12.9 11.5 - 14.5 % HISTORICAL RESULTS Platelets 203 140 - 400 K/cumm HISTORICAL RESULTS MPV 7.5 7.4 - 10.4 fl HISTORICAL RESULTS Neutrophils 62.9 42.0 - 75.0 % HISTORICAL RESULTS Lymphocytes 25.6 21.0 - 51.0 % HISTORICAL RESULTS Monos 8.6 2.0 - 9.0 % HISTORICAL RESULTS Eosinophils 2.5 0.0 - 10.0 % HISTORICAL RESULTS Basophils 0.4 0.0 - 1.0 % HISTORICAL RESULTS Neutrophils, abs 4.2 1.8 - 7.7 K/cumm HISTORICAL RESULTS Lymphocytes, abs 1.7 1.0 - 4.8 K/cumm HISTORICAL RESULTS Monocytes, absolute 0.6 0.0 - 0.8 K/cumm HISTORICAL RESULTS Eosinophils, abs 0.2 0.0 - 0.5 K/cumm HISTORICAL RESULTS Basophils, abs 0.0 0.0 - 0.2 K/cumm HISTORICAL RESULTS Blood specimen (specimen) 11/13/2012 6:14 AM CDT Claude Novak MD LAB BLOOD ORDERABLES [facility] Result HISTORICAL RESULTS * Urine chorionic gonadotropin (HCG) (11/13/2012 6:14 AM CDT) Pathologist [facility] HCG, ur Negative Negative HISTORICAL RESULTS Comment: Urine or Serum specimens containing as low as 20 mIU/mL HCG will yield positive results. Urine 11/13/2012 6:14 AM CDT Claude Novak MD LAB BLOOD ORDERABLES [facility] Result HISTORICAL RESULTS * Plasma basic metabolic panel (11/13/2012 6:14 AM CDT) Pathologist [facility] Sodium 140 136 - 146 mmol/L HISTORICAL RESULTS K, pl 3.8 3.3 - 4.9 mmol/L HISTORICAL RESULTS Chloride 106 98 - 108 mmol/L HISTORICAL RESULTS CO2 27 22 - 33 mmol/L HISTORICAL RESULTS BUN 13 7 - 18 mg/dl HISTORICAL RESULTS Glucose 99 70 - 140 mg/dl HISTORICAL RESULTS Comment: Glucose is assumed to be non-fasting. ?? Fasting Glucose normal ranges are: 0 days - 2 months: ? 40 mg/dL - 100 mg/dL 2 months - 999 years: ?70 mg/dL - 99 mg/dL Creatinine 0.65 0.50 - 1.50 mg/dl HISTORICAL RESULTS eGFR [...] 8.5 - 10.5 mg/dl HISTORICAL RESULTS Plasma 11/13/2012 6:14 AM CDT Result [facility] Claude Novak MD LAB BLOOD ORDERABLES [facility] Result HISTORICAL RESULTS * Surgical pathology (11/13/2012) Narrative 11/13/2012 Ordered by an unspecified provider. [facility] Provider LAB PATHOLOGY ORDERABLES Final Result * ELECTROCARDIOGRAPHY (ECG) (11/13/2012) Narrative 11/13/2012 Ordered by an unspecified provider. Result [facility] Historical Provider ECG ORDERABLES Final Res ult documented in this encounter Visit Diagnoses Diagnosis Excessive or frequent menstruation Symptom associated with female genital organs Hematometra Endometriosis of uterus documented in this encounter
--- OUTSIDE RECORDS SUMMARY | 2024-08-09 20:07 | XMS_ITS | Encounter Summary ---
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
--- OUTSIDE RECORDS SUMMARY | 2024-08-09 20:07 | XMS_ITS | Encounter Summary ---
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; Essential hypertension Social History Tobacco Use Types Packs/Day Years Used Date Smoking Tobacco: Never Assessed Comments Unknown Sex and Gender Information Value Date Recorded Sex Assigned at Not on file Legal Sex Female 5:22 AM GAS STATION OPERATOR Gender Identity Not on file Sexual Orientation Not on file documented as of this encounter Plan of Treatment Not on file documented as of this encounter Procedures Procedure Name Priority Date/Time Associated Diagnosis Comments CT HEAD WO CONTRAST Routine 06/03/2013 1 :17 PM GAS STATION OPERATOR PLASMA COMPREHENSIVE METABOLIC PANEL Routine 06/03/2013 12:56 PM GAS STATION OPERATOR BLOOD CELL COUNT (CBC), MORPHOLOGIC EXAM Routine 06/03/2013 12:56 PM GAS STATION OPERATOR DISCHARGE LABORATORY CUMULATIVE REPORT 06/03/2013 documented in this encounter Results * CT Head WO Contrast (06/03/2013 1:17 PM GAS STATION OPERATOR) Anatomical Region Laterality Modality Head and Neck N/A Computed Tomogra phy 06/03/2013 1:17 PM GAS STATION OPERATOR Narrative 06/03/2013 1:[address] brain CLINICAL HISTORY: ??Visual changes. No intracranial mass, hemorrhage, extra-axial collection, or ventriculomegaly. IMPRESSION: 1. ??Negative. DD:llc Radiologist: LO SMALL MD ?? Attending: ??UNKNOWN, NOTINFILE ?? Requesting: DEMETRIUS ARAIZA Requesting Fax: ?? Completed Time: ?? 06/03/2013 1:17 PM Dictated Time: ?06/03/2013 1:22 PM Transcribed Time: 06/03/2013 1:54 PM Signed by: ?LO SMLAL ??MD on 06/03/2013 1:55 PM Procedure Note Provider, MD Mariana - 11/15/2016 CT brain CLINICAL HISTORY: Visual changes. No intracranial mass, hemorrhage, extra-axial collection, or ventriculomegaly. IMPRESSION: 1. Negative. DD:llc Radiologist: LO SMALL MD Attending: UNKNOWN, CHARLENE Requesting: DEMETRIUS ARAIZA Requesting Completed Time: 06/03/2013 1:17 PM Dictated Time: 06/03/2013 1:22 PM Transcribed Time: 06/03/2013 1:54 PM Signed by: LO SMALL MD on 06/03/2013 1:55 PM Historical Provider Hang CT PROCEDURES Final R esult * (ABNORMAL) Blood cell count (CBC), morphologic exam (06/03/2013 12:56 PM GAS STATION OPERATOR) Pathologist [facility] WBC 8.1 4.5 - 11.0 K/cumm HISTORICAL RESULTS RBC 4.45 3.80 - 5.40 M/cumm HISTORICAL RESULTS Hgb 14.2 11.5 - 16.0 g/dl HISTORICAL RESULTS Hct 41.7 34.0 - 48.0 % HISTORICAL RESULTS MCV 93.6 80.0 - 100.0 fl HISTORICAL RESULTS MCH 31.8 27.0 - 33.0 pg HISTORICAL RESULTS MCHC 34.0 32.0 - 36.0 g/dl HISTORICAL RESULTS Rdw 13.1 11.5 - 14.5 % HISTORICAL RESULTS Platelets 271 140 - 400 K/cumm HISTORICAL RESULTS MPV 7.4 7.4 - 10.4 fl HISTORICAL RESULTS Neutrophils 71.8 42.0 - 75.0 % HISTORICAL RESULTS Lymphocytes 19.5(L) 21.0 - 51.0 % HISTORICAL RESULTS Monos 5.6 2.0 - 9.0 % HISTORICAL RESULTS Eosinophils 2.0 0.0 - 10.0 % HISTORICAL RESULTS Basophils 1.1(H) 0.0 - 1.0 % HISTORICAL RESULTS Neutrophils, abs 5.8 1.8 - 7.7 K/cumm HISTORICAL RESULTS Lymphocytes, abs 1.6 1.0 - 4.8 K/cumm HISTORICAL RESULTS Monocytes, absolute 0.5 0.0 - 0.8 K/cumm HISTORICAL RESULTS Eosinophils, abs 0.2 0.0 - 0.5 K/cumm HISTORICAL RESULTS Basophils, abs 0.1 0.0 - 0.2 K/cumm HISTORICAL RESULTS Blood specimen (specimen) 06/03/2013 12:56 PM GAS STATION OPERATOR Demetrius Araiza DO LAB BLOOD ORDERABLES Final Result HISTORICAL RESULTS * (ABNORMAL) Plasma comprehensive metabolic panel (06/03/2013 12:56 PM GAS STATION OPERATOR) Sodium 139 136 - 146 mmol/L HISTORICAL RESULTS K, pl 4.1 3.3 - 4.9 mmol/L HISTORICAL RESULTS Chloride 106 98 - 108 mmol/L HISTORICAL RESULTS CO2 27 22 - 33 mmol/L HISTORICAL RESULTS BUN 10 7 - 18 mg/dl HISTORICAL RESULTS Glucose 106 70 - 140 mg/dl HISTORICAL RESULTS Comment: [...] creatinine clearance values should be used. Calcium 9.2 8.5 - 10.5 mg/dl HISTORICAL RESULTS Bilirubin 1.5(H) 0.1 - 1.2 mg/dl HISTORICAL RESULTS Protein, pl 6.7 6.0 - 8.5 g/dl HISTORICAL RESULTS Alb 3.9 3.4 - 5.0 g/dl HISTORICAL RESULTS Alk phos 103 38 - 126 IUnits/L HISTORICAL RESULTS ALT 142(H) 14 - 54 IUnits/L HISTORICAL RESULTS AST 63(H) 15 - 41 IUnits/L HISTORICAL RESULTS Plasma 06/03/2013 12:5 6 PM GAS STATION OPERATOR Demetrius Araiza DO LAB BLOOD ORDERABLES Final Result HISTORICAL RESULTS * DISCHARGE LABORATORY CUMULATIVE REPORT (06/03/2013) Narrative 06/03/2013 Ordered by an unspecified provider. 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
--- OUTSIDE RECORDS SUMMARY | 2024-08-09 20:07 | XMS_ITS | Encounter Summary ---
Author Organization [facility] Healthcare Address [address] [place] [address] Care Team Providers Care Facs Teacher Name Role Phone Unavailable Primary Care Provider Unavailabl e Encounter Details Date Type Department Care Team (Late st Contact Info) Description 06/06/2008 12:01 AM CORE FILER - 06/06/2008 11:59 PM CORE FILER Hospital Encounter [facility] [facility] Social History Tobacco Use Types Packs/Day Years Used Date Smoking Tobacco: Never Assessed Comments Unknown Sex and Gender Information Value Date Recorded Sex Assigned at Not on file Legal Sex Female 5:22 AM CORE FILER Gender Identity Not on file Sexual Orientation Not on file documented as of this encounter Plan of Treatment Not on file documented as of this encounter Visit Diagnoses Not on filedocumented in this encounter
--- OUTSIDE RECORDS SUMMARY | 2024-08-09 20:07 | XMS_ITS | Encounter Summary ---
Author Organization [facility] Facility Care Team Providers Care Tanning Wheel Filler Name Role Phone Unavailable Primary Care Provider Unavailabl e Encounter Details Date Type Department Care Team (Latest Contact Info) Description 07/14/2009 9:58 AM SHAREPOINT TRAINER - 07/14/2009 7:05 PM SHAREPOINT TRAINER Hospital Encounter Dustin Portillo Chronic sphenoidal sinusitis; Essential hypertension; Esophageal reflux; Morbid obesity (HCC) Social History Tobacco Use Types Packs/Day Years Used Date Smoking Tobacco: Never Assessed Comments Unknown Sex and Gender Information Value Date Recorded Sex Assigned at Not on file Legal Sex Female 5:22 AM SHAREPOINT TRAINER Gender Identity Not on file Sexual Orientation Not on file documented as of this encounter Plan of Treatment Not on file documented as of this encounter Visit Diagnoses Diagnosis Chronic sphenoidal sinusitis Essential hypertension Unspecified essential hypertension Esophageal reflux Morbid obesity (HCC) Morbid obesity documented in this encounter
--- OUTSIDE RECORDS SUMMARY | 2024-08-09 20:07 | XMS_ITS | Encounter Summary ---
Author Organization [facility] Medical Group Address [address] [address] Care Team Providers Care Pharmacy Customer Care Specialist Name Role Phone Cesar Berry MD Primary Care Provider + [phone] Shekhar Blake MD Primary Care Provider [phone] Cesar Berry MD Primary Care Provider + [phone] Cruz Garza RN Unavailable UnavailMarlin Mantilla RN Unavailable Unavailab Denys Ellsworth MD Unavailable [phone] Suzy Hopkins PT Unavailable Unavailable Aditi Mccormick PTA Unavailable Unavailable Ashwin Hong MD Primary Care Provider + [phone] Encounter Details Date Type Department Care Team (Late st Contact Info) Description 04/20/2017 Orders Only [facility] [address] [facility] [address] [place] [address] Shannan Rivera MD [address] [place] [address] [address] [place] [address] Social History Tobacco Use Types Packs/Day Years Used Date Smoking Tobacco: Never Smokeless Tobacco: Never Alcohol Use Standard Drinks/Week Comments Yes 0 (1 standard drink = 0.6 oz pur e alcohol) Comments Unknown Sex and Gender Information Value Date Recorded Sex Assigned at Not on file Legal Sex Female 5:22 AM GRINDER HAND Gender Identity Not on file Sexual Orientation Not on file documented as of this encounter Ordered Prescriptions Prescription Sig Dispense Quantity Refills Last Filled Start Date End Date meloxicam (MOBIC) 7.5 mg tablet Take 1 tablet (7.5 mg total) by mouth daily. 10 tablet 04/20/2017 10/23/2017 documented in this encounter Plan of Treatment Not on file documented as of this encounter Goals Goal Patient Goal Type Associated Problems Recent Progress Patient-Stated? Author [facility] On track( 018 11:29 AM CDT) No Cruz Garza, RN Note: Patient will describe how unrelieved pain will be managed. documented as of this encounter Visit Diagnoses Not on filedocumented in this encounter Discontinued Medications Medication Sig Discontinue Reason Start Date End Da te meloxicam (MOBIC) 7.5 mg tablet Take 1 tablet (7.5 mg total) by mouth daily. Reorder 04/20/2017 04/20/2017 documented as of this encounter Care Teams Pharmacy Customer Care Specialist Relationship Specialty Start Date End Date Cesar Berry MD PCP - General Family Medicine 04/20/17 08/02/17 Shekhar Blake MD [address] [facility] [address] [place] [address] PCP - General 08/03/17 08/06/17 Cesar Berry MD PCP - General 08/07/17 12/16/19 Ashwin Hong MD PCP - General 12/17/19 Cruz Garza, RN Registered Nurse 08/13/17 06/13/18 Marlin Stewart, SHAYAN Registered Nurse Pain Management 10/23/17 06/13/18 Denys Urrutia MD [address] [facility] [address] [place] [address] Surgeon Neurosurgery 01/15/18 Suzy Hopkins, PT Physical Therapist Physical Therapy 01/15/18 Aditi Mccormick, FILLER BLOCK INSERTER REMOVER Heel Slicker Physical Therapy 01/23/18 documented as of this encounter
--- OUTSIDE RECORDS SUMMARY | 2024-08-09 20:07 | XMS_ITS | Encounter Summary ---
Author Organization [facility] Facility Care Team Providers Care Reed Or Wind Instrument Tuner Name Role Phone Unavailable Primary Care Provider Unavailabl e Encounter Details Date Type Department Care Team (Late st Contact Info) Description 06/16/2008 - 06/16/2008 11:59 PM CREDIT UNDERWRITER Hospital Encounter [facility] Pal Cummins MD [address] [address] Other and unspecified anterior pituitary hyperfunction; Other malaise and fatigue Social History Tobacco Use Types Packs/Day Years Used Date Smoking Tobacco: Never Assessed Comments Unknown Sex and Gender Information Value Date Recorded Sex Assigned at Not on file Legal Sex Female 5:22 AM CREDIT UNDERWRITER Gender Identity Not on file Sexual Orientation Not on file documented as of this encounter Plan of Treatment Not on file documented as of this encounter Visit Diagnoses Diagnosis Other and unspecified anterior pituitary hyperfunction Other malaise and fatigue documented in this encounter
--- OUTSIDE RECORDS SUMMARY | 2024-08-09 20:11 | XMS_ITS | Continuity of Care Document ---
Author Organization [facility] Address [address] [place] [address] [place] [address] Phone Care Team Providers Care Clamshell Engineer Name Role Phone Jamal BOWLING, Cesar Unavailable Unavailable Allergies, Adverse Reactions, Alerts Substance Reaction Status Criticality morphine Active No Information Penicillins Active No Information Sulfa (Sulfonamide Antibiotics) Active No Information METHYLPHENIDATE HCL Active No Infor mation Medications Medication Instructions Dosage Effective Dates (start - stop) Status Comments Leola 5 mg-325 mg tablet take 1 tablet by oral route every 6 hours as needed for pain as needed - Active PRN for pain, avoid driving or operate machines Crestor 5 mg tablet take 1 tablet by oral route every day 5 MG - Active Zoloft 100 mg tablet take 1 tablet by oral route every day 100 MG - Active Cardizem CD 180 mg capsule,extended release take 1 capsule by oral route every day 180 MG - Active losartan 50 mg-hydrochlorothi azide 12.5 mg tablet take 1 tablet by oral route every day 1.00 tablet - Active Procedures Procedure Date PREV VISIT, EST, AGE 40-64 OFFICE/OUTPATIENT VISIT, EST OFFICE/OUTPATIENT VISIT, EST OFFICE/OUTPATIENT VISIT, EST OFFICE/OUTPATIENT VISIT, EST PREV VISIT, EST, AGE 40-64 OFFICE/OUTPATIENT VISIT, EST OFFICE/OUTPATIENT VISIT, EST PREV VISIT, EST, AGE 40-64 OFFICE/OUTPATIENT VISIT, EST OFFICE/OUTPATIENT VISIT, EST PREV VISIT, EST, AGE 40-64 OFFICE/OUTPATIENT VISIT, EST OFFICE/OUTPATIENT VISIT, EST OFFICE/OUTPATIENT VISIT, EST OFFICE/OUTPATIENT VISIT, EST OFFICE/OUTPATIENT VISIT, EST PREV VISIT, EST, AGE 40-64 OFFICE/OUTPATIENT VISIT, EST PREV VISIT, NEW, AGE 40-64 OFFICE/OUTPATIENT VISIT, NEW Advance Directives Directive Yes / No Effective Date File Name No Information Encounters Encounter Description Practice Location Reason(s) For Visit Diagnoses Date Provider Providers Copied on Encounter [facility], [address] [place], [address], tel:[phone] [facility] No Information Jamal Guerrero. [address] [place], [address]. tel:[phone] Referring Provider: Shira Johnson [address], [place], [address]. tel:[phone] PREV VISIT, EST, AGE 40-64 [facility], [address], [place], [address], [place] tel:[phone] [facility] physical (chief complaint) Encounter for general adult medical exam w abnormal findingsEssential (primary) hypertensionFatigue HyperlipidemiaChron ic pain syndromeGeneralized Anxiety Disorder 9 Jamal Guerrero. [address], [place], [address]. tel:[phone] Referring Provider: Shira Johnson [address], [place], [address]. tel:[phone] OFFICE/OUTPA TIENT VISIT, EST [facility], [address] [place], [address], [place] tel:[phone] [facility] HLP (chief complaint) HTN (chief complaint) retic1 (chief complaint) back pani1 (chief complaint) fatigue1 (chief complaint) PalpitationsHyperli pidemiaDisorder of iron metabolism, unspecifiedChronic pain syndromeEssential (primary) hypertensionFatigue 9 Jamal Guerrero. [address], [place], [address]. tel:[phone] Referring Provider: Shira Johnson [address], [place], [address]. tel:[phone] OFFICE/OUTPA TIENT VISIT, EST [facility], [address], [place], [address], [place] tel:[phone] [facility] HTN (chief complaint) retic (chief complaint) LFT (chief complaint) HLP (chief complaint) Fatigue1 (chief complaint) Body mass index (BMI) 39.0-39.9, adultHyperlipidemia Other abnormality of red blood cellsDisorder of iron metabolism, unspecifiedFatty liverPalpitationsEs sential (primary) hypertension 9 Jamal Guerrero. [address], [place], [address]. tel:[phone] Referring Provider: Shira [address], [place], [address]. tel:[phone] OFFICE/OUTPA TIENT VISIT, [facility], [address], [place], [address], [place] tel:[phone] [facility] low K (chief complaint) HLP (chief complaint) LFT (chief complaint) Syncope and collapseHypokalemia Essential (primary) hypertensionFatigue DyspneaChest painDisorder of bilirubin metabolism, unspecified 9 Jamal Guerrero. [address], [place], [address]. tel:[phone] Referring Provider: Shira [address], [place], [address]. tel:[phone] PREV VISIT, EST, AGE 40-64 [facility], [address], [place], [address], [place] tel:[phone] [facility] Physical (chief complaint) Encounter for general adult medical exam w abnormal findingsFibromyalgi aFatty liverEssential (primary) hypertension 8 Jamal Guerrero. [address], [place], [address]. tel:[phone] Referring Provider: Shira [address], [place], [address]. tel:[phone] OFFICE/OUTPA TIENT VISIT, EST [facility], [address], [place], [address], tel:[phone] [facility] glucose1 (chief complaint) LFT1 (chief complaint) HTn (chief complaint) weight gain1 (chief complaint) Body mass index (BMI) 40.0-44.9, adultFatty liverDisorder of bilirubin metabolism, unspecifiedHypergly cemiaHyperlipidemia 8 Jamal Sylvester [address], [place], [address]. tel:[phone] Referring Provider: Shiar [address], [place], [address]. tel:[phone] PREV VISIT, EST, AGE 40-64 [facility], [address], [place], [address], [place] tel:[phone] [facility] Physical (chief complaint) Encounter for general adult medical exam w abnormal findingsFatty liverHyperlipidemia Essential (primary) hypertensionGeneral ized Anxiety Disorder 8 Jamal [address], [place], [address]. tel:[phone] Referring Provider: Shira Johnson [address], [place], [address]. tel:[phone] OFFICE/OUTPA TIENT VISIT, EST [facility], [address], [place], [address], [place] tel:[phone] [facility] HTN (chief complaint) anxiety1 (chief complaint) back pain1 (chief complaint) HLP (chief complaint) Essential (primary) hypertensionHyperli pidemiaLumbagoGener alized Anxiety Disorder 8 Jamal Sylvester [address], [place], [address]. tel:[phone] Referring Provider: Shira Johnson [address], [place], [address]. tel:[phone] PREV VISIT, EST, AGE 40-64 [facility], [address], [place], [address], [place] tel:[phone] [facility] Physical (chief complaint) Encounter for general adult medical exam w abnormal findingsAcute follicular conjunctivitis, left eyeEssential (primary) hypertensionHyperli pidemia 7 Jamal Guerrero. [address], [place], [address]. tel:[phone] Referring Provider: Shira Johnson [address], [place], [address]. tel:[phone] OFFICE/OUTPA TIENT VISIT, [facility], [address], [place], [address], [place] tel:[phone] [facility] HTN (chief complaint) joint pain1 (chief complaint) fatty liver1 (chief complaint) obesity1 (chief complaint) Body mass index (BMI) 38.0-38.9, adultEssential (primary) hypertensionFatty liverPain in joint Sep- 7 Jamal Guerrero. [address], [place], [address]. tel:[phone] Referring Provider: Shira Johnson [address], [place], [address]. tel:[phone] OFFICE/OUTPA TIENT VISIT, [facility], [address], [place], [address], [place] tel:[phone] [facility] LFT (chief complaint) hyperglyce mia1 (chief complaint) jonit pain1 (chief complaint) HTN (chief complaint) sinus (chief complaint) Essential (primary) hypertensionFatty liverPain in unspecified jointAcute sinusitis, unspecified Fe-0 7 Jamal Guerrero. [address], [place], [address]. tel:[phone] Referring Provider: Shira Johnson [address], [place], [address]. tel:[phone] OFFICE/OUTPA TIENT VISIT, [facility], [address], [place], [address], [place] tel:[phone] [facility] LFT (chief complaint) HLP (chief complaint) anxiety1 (chief complaint) joint pain1 (chief complaint) Pain in unspecified jointHyperlipidemia Liver diseaseGeneralized Anxiety Disorder 0-201 7 Jamal Guerrero. [address], [place], [address]. tel:[phone] Referring Provider: Shira Johnson [address], [place], [address]. tel:[phone] OFFICE/OUTPA TIENT VISIT, [facility], [address], [place], [address], [place] tel:[phone] [facility] HTN (chief complaint) back pain1 (chief complaint) sick (chief complaint) Essential (primary) hypertensionPain in unspecified jointLumbagoAcute upper respiratory infection, unspecified 0-201 6 Jamal Guerrero. [address], [place], [address]. tel:[phone] Referring Provider: Shira Johnson [address], [place], [address]. tel:[phone] PREV VISIT, EST, AGE 40-64 [facility], [address], [place], [address], [place] tel:[phone] [facility] PHysical (chief complaint) Encntr for general adult medical exam w/o abnormal findings 8 6 Jamal Guerrero. [address], [place], [address]. tel:[phone] Referring Provider: Shira Johnson [address], [place], [address]. tel:[phone] OFFICE/OUTPA TIENT VISIT, [facility], [address], [place], [address], [place] tel:[phone] [facility] shingle (chief complaint) edema (chief complaint) lymphadeno satnam (chief complaint) Dietary surveillance and counselingHerpes zoster with other specified complicationsEdemaE nlargement of lymph nodes 0 4 Jamal Guerrero. [address], [place], [address]. tel:[phone] Referring Provider: Cesar Berry, [address], [place], [address]. tel:[phone] PREV VISIT, NEW, AGE 40-64 [facility], [address], [place], [address], tel:[phone] [facility] Physical (chief complaint) Dietary surveillance and counselingRoutine Medical ExamEnlargement of lymph nodesHypertension, UnspecifiedRoutine Medical Exam 4 Jamal Guerrero. [address], [place], [address]. tel:[phone] Family History Family Member Type Diagnosis Age At Onset Father Problem (finding) MVA Sister Problem (finding) Alive and well Mother Problem (finding) Cancer - cervical, uter ine Sister Problem (finding) fibroid Payers Payer name Insurance type Covered constitution party ID Authoriza tion(s) No Information Social History Type Description Quantity Date Captured Comments Alcohol Use Details Unknown Caffeine Use Details Unknown Tobacco Use Status No Information Smoking Status No Information Sex Female Chief Complaint And Reason For Visit No Information Plan Of Treatment Date Type Action Status Goal Special diet education compl eted Goal Special diet education compl eted Goal Special diet education compl eted Goal Special diet education compl eted Goal Special diet education compl eted Goal Special diet education compl eted Goal Special diet education compl eted Referral Ordered: Pain Medicine (related to Chronic pain syndrome) ordered Referral Ordered: Referrals: Pain Medicine. Evaluate and treat ordered Referral Ordered: MRI CERVICAL SPINE W/O & W/DYE ordered Referral Ordered: CERVICAL SPINE XRAY 7 VIEWS ordered Referral Ordered: Hematology (related to Disorder of iron metabolism, unspecified) ordered Referral Ordered: Referrals: Hematology. Evaluate and treat ordered Referral Ordered: CT PULMONARY ordered Referral Ordered: DOPPLER ECHO EXAM, HEART ordered Referral Ordered: MRI ABDOMEN W/O & W/DYE ordered Referral Ordered: Laura Ha (related to Pain in unspecified joint) ordered Referral Ordered: US EXAM, ABDOM, COMPLETE ordered Referral Ordered: LUMBAR XRAY AP AND LAT ONLY ordered Referral Referred To: Laura Ha [address] [place], [phone] Ordered: Referrals: Laura Ha. Evaluate and treat ordered History Of Present Illness Encounter Date Complaint History Of Prese nt Illness physical Pt needs annual physical. Pt has chronic severe neck pain pt c/o bilateral radiculopathy and burning sensation both upper arm. Pt has DDD around neck. Pt has 7/10 pain Pt recently went to Er for chest pain and left arm pain and cardiac stress echo was negative. Pt has HTn. Pt takes losartan/hctz and Cardizem. Pt is seeing cardiology and she had completely negative cardiac work up Pt has anxiety and depression Pt takes zoloft and doing ok Pt denies any suicidal or homicidal thought. Pt has high retic. Pt has chronic fatigue. Pt had negative sleep study. Pt has poor sleep due to severe neck pain per patient. Pt denies any snoring. HLP Pt states that s he has headache with crestor so she stopped it. Her headache resolved HTN Pt has HTN. Pt i s on diltiazem and she went to see cardiology who took her off losartan/hctz and started her on losartan 50 mg only Her BP is creeping up and she notices some swelling LE as well. Pt denies any chest pain or sob. Pt still has some palpitation occasionally. her cardiac echo and holter is ok retic1 Pt has high reti c and high iron saturation. Pt has not heard from hematology yet. back pani1 Pt has chronic l ow back pain Pt had back surgery Pt denies any loss of bladder control Pt has sciatica Pt has DDD Pt needs ultram for pain Pt failed NSAID and muscle relaxant. Pt has neck and right shoulder pain as well Pt denies any radiculopathy pt denies any injury fatigue1 Pt has chronic f atigue Pt feels tired Pt does snore, Pt supposes to do sleep study by cardiology soon Fatigue1 Pt has chronic f atigue. Pt denies any snoring or waking up at night. Pt feels fatigue all the time. HTN Pt has HTN. Pt t akes 1/2 losartan/hctz and diltiazem and her BP is ok. Pt states that her BP was treading high without losartan./hctz. Pt denies any dizziness or syncope. Pt denies any chest pain. Pt has eddie with cardiology in two weeks and cardiac echo and holter next week. Pt denies any chest pain or sob. Pt still has mild palpitation, which is chronic. Pt did not do EKG yet. pt denies any syncope or dizziness HLP Pt has HLP. Pt i s not on any diet LFT Pt has fatty fannie er Pt denies any abd pain retic pt has high reti c count and high iron saturation her bili is normal now. HLP Pt has HLP, Pt d eferred statin in the past Pt has been working on low fat and low carb diet LFT Pt has fatty fannie er with high bili, Pt denies any abd pain or jaundice low K Pt recently had acute syncope episode while at [employer] parking lot and she passed out about one min. Witness called ambulance and she woke up and ambulance was there. Pt was sweaty and sent to ER Her BP was low and her KCL was 2.7. EKG and chest x ray was fine D dimer was fine. Pt received flluid and got some oral KCL and sent home. Pt feels very fatigue currently and feels heavy feeling around her chest. Pt feels sob. Pt had some cramp both calf. as well Pt flew to [place] last and above happened on . Pt denies any GI issue. Her BP was 92/54 in Er Pt has been taking half dose of losartan/hct. Pt has history of irrigarlu heart beat but she has not seen cardiology for a while. Pt denies any chest pain or palpitation Physical Pt needs annual physical. Pt has chronic low back and hip and midback pain. Pt had thorough evaluation by rheumatology and also pain management and was told she has fibromyalgia in addition to her low back pain. Pt does NOt have any rheumatological condition. Pt is on zoloft for anxiety and depression Pt takes losartan and Cardizem for HTN. her BP is stable. Pt denies any chest pain or headache. Pt denies any other complaints glucose1 Pt has mild high glucose. Pt has normal A1c, Pt denies any polyuria, polydipsia. Pt eats a lot of carb and drinks a lot of soda weight gain1 Pt gained 30 dustin nds since last year. Pt has not been active. Pt had back surgery and she is sedentary and she eats poorly HTn Pt is on Cardize m and losartan/htz and her BP is stable today. Pt denies any chest pain or headache LFT1 Pt has fatty fannie er Pt does not have hepatitis. Pt has mildly high bilirubin. Pt admits eating horribly. Pt drinks a lot of soda, and eats a lot of carbs. Physical Pt needs annual physical. pt has chronic anxiety and depression Pt takes zoloft and doing ok. pt denies any suicidal or homicidal thought Pt denies any crying spells. pt has HTN and history of intermittent SVT s/p cardiology evaluation pt has occasionally palpitation. Pt denies any chest pain Pt takes Cardizem and losartan/hctz and her BP is ok pt denies any acute symptoms. Pt is s/p lumbar surgery for disc disease Pt doing ok pt denies any loss of bladder control. Pt denies any sciatica or numbness Pt denies any other complaints HTN Pt has HTn. Pt t akes losartan.hctz and cardiazem. her BP is slighty high. Pt denies any chset pain or headache anxiety1 Pt has chronic a nxiety and depression. Pt takes zoloft and doing ok Pt denies any suicidal or homicidal thought Pt denies any cyring spells back pain1 Pt has chronic l ow back pain for years Pt c/o right sciatica to her SI joint. Pt states that her pain is getting worse. Pt feels sharp and catchy and is worse with movement or standing on her feet for too long. Pt feels numbness right leg sometimes Pt denies any loss of bladder control. Pt currently has acute low back pain flare up. Pt has 7/10 pain HLP Pt has HLP Pt is trying low fat and low carb diet Physical Pt needs annual physical. Pt is overwieght and she has chornic hip and knee pain. Pt seen rhematologyist in the past but she does not have any connectie tissue disease. Her joint pain was due to degenerative arthritis, not RA. Pt has daily pain. Pt has fatty liver. Pt denies any abd pain. Pt has HTN and she takes losartanhctz and also cardiazem and her BP is stable. Pt also c/o left eye itching and tearing and some irritation since two days ago. Pt denies any sickk contact. Pt denies any eye pain or any eye injury. Pt denies any vision loss. Pt does not wear contact. Pt denies any foreign body or any eye injury. Pt denies any other complaints obesity1 Pt has high BMI. Pt has difficulty losing weight joint pain1 Pt has bilateral shoulder, back and hip pain. Pt has been lifting all her life. Pt seen rheumatology and was told no rheumatologic condition HTN Pt has mild HTN Pt takes cardiazem and she restarted the 1/2 the losatanhctz. Her BP is ok today. fatty liver1 Pt has fatty fannie er NO choldolithiasis. Pt has histoir yof cholecystectomy. Pt denies any abd pain sinus Pt c/o sinus atnonia n and left side sinus congestion with green sinus drinage for one week Pt denies any fever, chill HTN Pt stats that sh e has been feeling dizzy and her BP is low recently. Pt is on cardiazem and also lsoatan,hctz jonit pain1 Pt has diffuse j oint pain Pt has mild arthritis on xray of shoulder and also plantar spur. Pt has mildly elevated RA. Pt has not recevied a call from rheumatology yet hyperglycemia1 Pt has high gluc ose. Her A1c ok Pt denie any polyuria, polydpisia LFT Pt has mildly el evated LFT. Pt has fatty liver and ? choledocolithiasis. Pt denies any abd pain or jaundice joint pain1 Pt has diffuse j oint pain including shoulder, mid and low back, foot and ankle and bilateral hand pain. Pt has borderline RA elevation anxiety1 Pt has chronic a nxiety and depression Pt takes zoloft and doing ok Pt denies any suicidal or homicidal thought HLP Pt has HLP Pt st ates that she is on low fat and low carb diet. Pt has mild high glucose. Pt denies any polyuria, polydipisa LFT Pt has mild high LFT Pt denies any abd pain HTN Pt has HTn. Pt t akes cardiazem and losartan.hctz and her bP is better. Pt denies any chset pain or headache back pain1 Pt has been havi ng low back for several years. Pt notices pain radiating to both hip area. Pt denies any injury Pt has daily pain for 1.5 years. Pt notices achy type of pain. Pt also has constant joint pain involving hand, shoulder, left knee for more than one year. Pt has daily pain which is very bothersome. Pt takes a lot of ibuprofen daily. Pt states that she feels stomach upset and nauseated from too much ibuprofen sick Pt c/o upper res piratory symptoms for one week including coughing, sinus, sore throat and ear pain. Pt denies any fever. SHe has sick contact PHysical Pt needs annual physical. Pt has HTN and she has history of frequent PVCs s/p ablation. Pt has frequent palptation. Pt denies any chest pain. Pt is on cardiazem and also losartan. Pt states taht her BP is still high around 90s. Pt denies any other complaints. 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 Pt denies any chest pain. Pt c/o left ear stuffiness and mild pain for two months. Pt denies any hearing loss. Pt has some mild sinus congestion. Pt denies any tinnitus Instructions Date Instruction Additional Infor roger Weight management Related to Enc ounter for general adult medical exam w abnormal findings Special diet education Related t o Body mass index (BMI) 39.0-39.9, adult Increase physical activity Relat ed to Encounter for general adult medical exam w abnormal findings Special diet education Related t o Body mass index (BMI) 39.0-39.9, adult Increase activity. Related to Hy perlipidemia Follow a low sodium diet. Relate d to Hyperlipidemia Special diet education Related t o Body mass index (BMI) 39.0-39.9, adult Increase activity. Related to Hy perlipidemia Follow a low sodium diet. Relate d to Hyperlipidemia Increase activity. Related to Hy perlipidemia Follow a low sodium diet. Relate d to Hyperlipidemia Weight management Related to Syn cope and collapse Increase physical activity Relat ed to Syncope and collapse Special diet education Related t o Body mass index (BMI) 39.0-39.9, adult Special diet education Related t o Body mass index (BMI) 40.0-44.9, adult Increase physical activity Relat ed to Encounter for general adult medical exam w abnormal findings Weight management Related to Enc ounter for general adult medical exam w abnormal findings Special diet education Related t o Body mass index (BMI) 40.0-44.9, adult Increase physical activity Relat ed to Fatty liver Weight management Related to Fat ty liver Weight management Related to Enc ounter for general adult medical exam w abnormal findings Special diet education Related t o Body mass index (BMI) 45.0-49.9, adult Increase activity. Related to Es sential (primary) hypertension Follow a low sodium diet. Relate d to Essential (primary) hypertension Prescribed Activity and Exercise Education Related to Dietary Surveillance and Counseling Prescribed Diet Educ ation/Lifestyle Education Regarding Diet Related to Dietary Surveillance and Counseling Prescribed Activity and Exercise Education Related to Dietary Surveillance and Counseling Prescribed Diet Educ ation/Lifestyle Education Regarding Diet Related to Dietary Surveillance and Counseling Perform monthly self breast examinations. Related to Encntr for general adult medical exam w/o abnormal findings Increase activity. Related to En cntr for general adult medical exam w/o abnormal findings Prescribed Activity and Exercise Education Related to Dietary Surveillance and Counseling Prescribed Diet Educ ation/Lifestyle Education Regarding Diet Related to Dietary Surveillance and Counseling Prescribed Activity and Exercise Education Related to Dietary Surveillance and Counseling Prescribed Diet Educ ation/Lifestyle Education Regarding Diet Related to Dietary Surveillance and Counseling Prescribed Activity and Exercise Education Related to Dietary Surveillance and Counseling Prescribed Diet Educ ation/Lifestyle Education Regarding Diet Related to Dietary Surveillance and Counseling Prescribed Activity and Exercise Education Related to Dietary Surveillance and Counseling Prescribed Diet Educ ation/Lifestyle Education Regarding Diet Related to Dietary Surveillance and Counseling Prescribed Diet Educ ation/Lifestyle Education Regarding Diet Related to Dietary Surveillance and Counseling Prescribed Activity and Exercise Education Related to Dietary Surveillance and Counseling Dietary counseling Related to Di etary surveillance counseling Decrease caloric intake Related to Dietary surveillance counseling Dietary counseling Related to Di etary surveillance counseling Decrease caloric intake Related to Dietary surveillance counseling Assessments Type Assessment Date No Information
--- OUTSIDE RECORDS SUMMARY | 2024-08-09 20:11 | XMS_ITS | Continuity of Care Document ---
Author Organization [facility] Address [address] [place] [address] Phone Care Team Providers Care Pipeline Dispatcher Name Role Phone Vivek Wells MD Unavailable Unavailable Allergies, Adverse Reactions, Alerts Substance Reaction Status Criticality METOCLOPRAMIDE HCL Active No Inform ation Sulfa (Sulfonamide Antibiotics) Unknown Active No Information Penicillins Rash Active No Information morphine Itching Active No Information Medications Medication Instructions Dosage Effective Dates (start - stop) Status Comments Hyzaar 100 mg-12.5 mg tablet - Active Cardizem 30 mg tablet - Active sertraline 50 mg tablet - Active Dundee 5 mg-325 mg tablet - Active IBUPROFEN (unknown strength) Not Available - Active ESTRADIOL (unknown strength) Not Available - Active Procedures Procedure Date Office/outpatient visit,[facility] 2016 Advance Directives Directive Yes / No Effective Date File Name No Information Encounters Encounter Description Practice Location Reason(s) For Visit Diagnoses Date Provider Providers Copied on Encounter Office/outpat ient visit,[facility], [address], [place], [place], [id number], [place] tel:[phone] [facility] r hip (chief complaint)r ankle (chief complaint) Pain in right hipPain in right footPain in right ankle Russell Doyle. [address], [address], [place], [place], [id number], [place]. tel:[phone] Family History Family Member Type Diagnosis Age At Onset Problem (finding) Family history of Cance r, unknown Problem (finding) Family history of Arthr itis Problem (finding) Family history of hyper tension Problem (finding) Family history of Diabe chinmay mellitus Payers Payer name Insurance type Covered libertarian ID Cherry calvin(elgin Pena [id number] Social History Type Description Quantity Date Captured Comments Alcohol Use Details Caffeine Use Details Unknown Tobacco Use Status No Information Smoking Status Never smoker Non-Smoking Tobacco Use Details : No Details Available : No Details Available Sex Female Vital Signs Date / Time: Height Weight BMI Pulse Rate Blood Pressure Temperature Respiratory Rate Body Surface Area Head Circumference Head Circ. Percentile Wt./Hiren. Percentile BMI percentile Pulse Ox Inhaled Ox 3:40 PM 67.00 in 108.862 kg (240.00 lbs) 37.5 9 kg/m eter (2) Chief Complaint And Reason For Visit From encounter dated 06/14/2017 15:40'. r hip (chief complaint). Description: patient presents to the office today for evaluation of right hip and ankle r ankle (chief complaint) Reason For Referral Reason For Referral No Information History Of Present Illness Encounter Date Complaint History Of Prese nt Illness r hip patient presents to the office today for evaluation of right hip and ankle r ankle Functional Status Date Functional Assessmen t No Information Instructions Date Instruction Additional Infor mation No Information Assessments Type Assessment Date assessment Pain in right hip assessment Pain in right foot assessment Pain in right ankle Patient Care Teams Name Effective Dates (start - stop) Status Members No Information
== END 2024-08-02 19:56 | disposition home or self-care (01) ==
PROVIDERS: Student in an Organized Health Care Education/Training Program; Emergency Provider Emergency Medicine; PCP Family Medicine
DX: J10.1 Influenza due to other identified influenza virus with other respiratory manifestations (principal); Z20.822 Contact with and (suspected) exposure to COVID-19; I10 Essential (primary) hypertension; E78.5 Hyperlipidemia, unspecified; E66.9 Obesity, unspecified; Z68.39 Body mass index [BMI] 39.0-39.9, adult; M79.7 Fibromyalgia; Z90.710 Acquired absence of both cervix and uterus; Z90.49 Acquired absence of other specified parts of digestive tract; Z77.22 Contact with and (suspected) exposure to environmental tobacco smoke (acute) (chronic)
CPT/HCPCS: 71045; 87637; 96361; 96374; 96375; 99284; J1885; J2405; J7030

== ENCOUNTER 2024-09-02 13:25 | Outpatient (CLI) | payer BC, SELFPAY ==
--- NOTE | ~2024-09-02 | XR_ITS ---
EXAMINATION: XR chest 2V 09/02/2024 13:53 INDICATION: Pneumonia PROCEDURE: 2 view chest COMPARISON: Comparison to multiple prior studies sequentially, with oldest reviewed study dated 03/2023. FINDINGS: The lungs are clear. The cardiomediastinal silhouette is within normal limits. There are no pleural effusions. There is no pneumothorax suspected. IMPRESSION: 1: NO ACUTE CARDIOPULMONARY DISEASE. Reviewed, dictated and finalized at location B. SUPPORT SPECIALIST
--- OUTSIDE RECORDS SUMMARY | 2024-09-02 13:38 | XMS_ITS | Clinical Summary ---
Author Organization [facility] Address [address] [place] [address] Care Team Providers Care Business Technology Professor Name Role Phone Cesar Berry MD Primary Care Provider [phone] Source Comments [facility],non-owned Affiliates and Associated Physician Practices is amultiple site organization consisting of ambulatory clinics and hospital sitesin [place], [place], [place] and [place]. This disclosure is being madepursuant to the Care Everywhere program and may not contain all information available regarding this patient. Last updated 18.[employer] [facility] Allergies Active Allergy Reactions Criticality Noted Date [...] Comments Blood Pressure 120/80 09/06/2016 9:44 AM COMMUNITY DEVELOPMENT OFFICER Pulse 98 09/06/2016 9:44 AM COMMUNITY DEVELOPMENT OFFICER Temperature 36.6 ??C (97.9 ??F) 09/06/2016 9:44 AM CS T Respiratory Rate 18 09/06/2016 9:44 AM COMMUNITY DEVELOPMENT OFFICER Oxygen Saturation 97% 09/06/2016 9:44 AM COMMUNITY DEVELOPMENT OFFICER Inhaled Oxygen Concentration - - Weight 110.2 kg (243 lb) 09/06/2016 9:44 AM COMMUNITY DEVELOPMENT OFFICER Height 170.2 cm (5' 7 ) 09/06/2016 9:44 AM COMMUNITY DEVELOPMENT OFFICER Body Mass Index 38.06 09/06/2016 9:44 AM COMMUNITY DEVELOPMENT OFFICER Plan of Treatment Health Maintenance Due Date [...] of 3 - 19+ 3-dose series) 11/30/1990 PNEUMOCOCCAL VACCINE 50+ (1 of 1 - PCV) 11/30/2021 ZOSTER VACCINE (1 of 2) 11/30/2021 COVID-19 VACCINE (1 - 2023-2 5 season) 2024 INFLUENZA VACCINE (#1) 2024 DEPRESSION SCREENING 07/30/2024 HIB VACCINE Aged Out No longer eligi ble based on patient's age to complete this topic HPV VACCINE Aged Out No longer eligi ble based on patient's age to complete this topic MENINGOCOCCAL (Group B) VACCINE Aged Out No longer eligible based on patient's age to complete this topic MENINGOCOCCAL VACCINE Aged Out No raven luis eligible based on patient's age to complete this topic PNEUMOCOCCAL VACCINE Aged Out No long er eligible based on patient's age to complete this topic Care Teams Business Technology Professor Relationship Specialty Start Date End Date Cesar Berry MD [address] [place] [address] PCP - General 08/09/16
--- OUTSIDE RECORDS SUMMARY | 2024-09-02 13:38 | XMS_ITS | Referral Summary ---
Author Organization [facility] Address [address] [place] [address] Care Team Providers Care Occupational Safety And Health Manager Name Role Phone Denys Urrutia MD Unavailable [phone] Suzy Hopkins PT Unavailable Unavailable Aditi Mccormick MILL TENDER WASHING Unavailable Unavailable Ashwin Hong MD Primary Care Provider [phone] Jeanette Parikh MD Unavailable [phone] Allergies Active Allergy Reactions Criticality Noted Date [...] times a day Active Narcan 4 mg/actuation spray,non-aero lakesha USE 1 SPRAY NASALLY ONCE FOR OVERSEDATION. REPEAT IN 2 TO 3 MINUTES IF NEEDED. 08/11/19 Active HYDROcodone-ac etaminophen (NORCO) 7.5-325 mg per tablet Take 1 tablet by mouth 2 (two) times a day as needed 08/11/19 Active losartan-hydro CHLOROthiazide (HYZAAR) 100-12.5 mg per tablet 09/02/19 22 Active Ozempic 1 mg/dose (4 mg/3 mL) pen injector injection 09/27/19 24 Active estradioL (VIVELLE-DOT) 0.1 mg/[address] 1 PATCH ON THE SKIN TWICE A WEEK 24 patch 09/01/19 25 Active estradioL (Lyllana) 0.1 mg/24 hrIndications: Hormone replacement therapy Place 1 patch on the skin 2 (two) times a week 8 patch 12/06/19 24 025 Discontinued(Du plicate order) estradioL (VIVELLE-DOT) 0.1 mg/[address] 1 patch on the skin 2 (two) times a week 24 patch 2 12/06/19 24 025 Discontinued Active Problems Problem Noted Date Diagnosed Date 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 Assessment & Plan (02/13/2020 8:31 AM CDT): Will obtain CT sinus Sinus Rinse or Nasal saline spray (Simply saline, Little Remedies, [place], [place]) 2 second sprays or 2 squeezes into [...] Nasal saline spray (Simply saline, Little Remedies, [place], [place]) 2 second sprays or 2 squeezes into [...] Nasal saline spray (Simply saline, Little Remedies, [place], [place]) 2 second sprays or 2 squeezes into [...] on file Legal Sex Female 5:22 AM AGENCY LEGAL COUNSEL Gender Identity Not on file Sexual Orientation Not on file Last Filed Vital Signs Vital Sign Reading Time Taken Comments Blood Pressure 119/86 10/02/2023 11:53 AM AGENCY LEGAL COUNSEL Pulse 74 02/11/2020 2:42 PM CDT Temperature 36.6 ??C (97.9 ??F) 08/09/2020 12:[address] Respiratory Rate 18 05/31/2018 1:59 PM CDT Oxygen Saturation 95% 01/26/2018 12:46 PM CDT Inhaled Oxygen Concentration - - Weight 112 kg (247 lb) 10/02/2023 11:53 AM AGENCY LEGAL COUNSEL Height 170.2 cm (5' 7 ) 10/02/2023 11:53 AM AGENCY LEGAL COUNSEL Body Mass Index 38.69 10/02/2023 11:53 AM AGENCY LEGAL COUNSEL Plan of Treatment Not on file Goals Goal Patient Goal Type Associated Problems Recent Progress Patient-Stated? Author [facility] On track( 018 11:29 AM CDT) Cruz Irizarry, RN Note: Patient will describe how unrelieved pain will be managed. Procedures Procedure Name Priority Date/Time Associated Diagnosis Comments THINPREP IMAGING PAP AND HPV MRNA E6/E7 REFLEX HPV 16,18/45 Routine 10/02/2023 1:44 PM AGENCY LEGAL COUNSEL Encounter for routine gynecological examination with Papanicolaou smear of cervix from Last 3 Months or Most Recently Relevant to Health Maintenance Results * ThinPrep(R) Imaging Pap and HPV mRNA E6/E7 Reflex HPV 16,18/45 (10/02/2023 1:44 PM AGENCY LEGAL COUNSEL) CLINICAL INFORMATION: [facility] Comment:None given LMP [facility] [employer] [facility] Comment:NONE GIVEN Previous Pap [facility] Comment:2019 NORMAL W/+HRHPV NEG 16/18/45 Prev. Bx [facility] Comment:NONE GIVEN SOURCE: [facility] Comment:None given Pap, specimen adequacy [facility] Comment:SATISFACTORY FOR ALEXANDREA LUATION HPV interp [facility] Comment: Cytology Results: Negative for intraepithelial lesion or malignancy. COMMENTS [facility] Comment: This Pap test has been evaluated with computer assisted technology. Slicing Machine Feeder [facility] Comment: BES, CT(ASCP) CT screening location: [place] [address] [place] [address] Comment [facility] Comment: EXPLANATORY NOTE: The Pap is a [...] High Risk E6/E7 Not Detected Not Detected [employer] Comment: Methodology: Application Support Analyst-Mediated Amplification This assay detects E6/E7 viral messenger RNA (mRNA) from 14 high-risk HPV types (16,18,31,33,35,39,45,51,52,56,58,59,66,68). Cervical sources are required for HPV testing. If a vaginal source from a patient who has had a total hysterectomy with removal of cervix was submitted, please contact the testing laboratory for alternative testing options. For additional information, please refer to http://education.[employer]/faq/IBN228m7 (This link if provided for information/ educational purposes only.) Vaginal (Endocervical/va ginal) 10/02/2023 1:44 PM AGENCY LEGAL COUNSEL 10/03/2023 12:11 AM AGENCY LEGAL COUNSEL Brenda Rubio DATA DELIVERABLES MANAGER LAB CYTOLOGY ORDERABLES Final Result [facility] [address] [place] [address] [employer] [address] [place] [address] from Last 3 Months or Most Recently Relevant to Health Maintenance Insurance [facility] ACCESS [employer] OOS [employer] CHOICE OOS BLUE ACC CHOICE OOS Care Teams Occupational Safety And Health Manager Relationship Specialty Start Date End Date Ashwin Hong MD PCP - General 12/17/19 Denys Urrutia MD [address] [address] Surgeon Neurosurgery 01/15/18 Suzy Hopkins, PT Physical Therapist Physical Therapy 01/15/18 Aditi Mccormick, MILL TENDER WASHING Box Finisher Physical Therapy 01/23/18 [place] [address] [place] [address] Consulting Physician Obstetrics and Gynecology 09/17/22
--- OUTSIDE RECORDS SUMMARY | 2024-09-02 13:38 | XMS_ITS | Patient Health Summary ---
Author Organization [facility] [email or web address] Address [address] [place] [address] Care Team Providers Care Lavatory Attendant Name Role Phone Cesar Berry MD Primary Care Provider [phone] Note from [facility],non-owned Affiliates and Associated Physician Practices is amultiple site organization consisting of ambulatory clinics and hospital sitesin [place], [place], [place] and [place]. This disclosure is being madepursuant to the Care Everywhere program and may not contain all information available regarding this patient. Last updated 18.[facility] [email or web address] Allergies * Kdc:Yellow Dye+Ci Pigment Blue 63+Metoclopramide(Nausea [...] Comments Blood Pressure 120/80 09/06/2016 9:44 AM TRANSFER OPERATOR Pulse 98 09/06/2016 9:44 AM TRANSFER OPERATOR Temperature 36.6 ??C (97.9 ??F) 09/06/2016 9:44 AM CS T Respiratory Rate 18 09/06/2016 9:44 AM TRANSFER OPERATOR Oxygen Saturation 97% 09/06/2016 9:44 AM TRANSFER OPERATOR Inhaled Oxygen Concentration - - Weight 110.2 kg (243 lb) 09/06/2016 9:44 AM TRANSFER OPERATOR Height 170.2 cm (5' 7 ) 09/06/2016 9:44 AM TRANSFER OPERATOR Body Mass Index 38.06 09/06/2016 9:44 AM TRANSFER OPERATOR Procedures * DERMATOPATHOLOGY(Performed 03/16/2021) * EKG 12-LEAD(Performed [...] CDT) Case Report Dermatopathology Report ? Case: [id number] ? Authorizing Provider: ??Noe Niño MD ?Collected: ? 03/16/2021 03:33 AM ? Ordering Location: ? [facility] D[facility] ?Received: ?03/18/2021 05:50 AM ? Pathologist: ? Radha Alfonso MD ? Specimen: ?Skin, left anti helix ? 4:09 PM CDT DERMATOPATHOLOGY LABORATORY Final Diagnosis Specimen A. SKIN, left anti helix: SEBORRHEIC KERATOSIS, IRRITATED (L82.0) 4:09 PM CDT DERMATOPATHOLOGY LABORATORY Clinical History SK vs other. Path # [id number]. 4:09 PM CDT DERMATOPATHOLOGY LABORATORY Gross Description Specimen A: Received is one formalin filled container labeled with the patient's name and designated left anti helix. The specimen consists of a shave biopsy measuring [id number]. Jar 0. 4:09 PM CDT DERMATOPATHOLOGY LABORATORY [...] characteristic determined by the Dermatopathology Laboratory at [facility], directed by Dr. Mayte Quintana. These tests need not be, and therefore are not, approved by the [place] Food and Drug Administration. The tests are used for clinical purposes. Billing Codes Specimen Charges Stain Charges 59924 1 4:09 PM CDT DERMATOPATHOLOGY LABORATORY Embedded Images 4:09 PM CDT DERMATOPATHOLOGY LABORATORY Pathology/Cytolo gy TISSUE SPECIMEN FROM SKIN / Unknown 03/16/2021 3:33 AM CDT 03/18/2021 5:50 AM CDT Noe Niño MD LAB - PATHOLOGY/CYTO LOGY ORDERABLES DERMATOPATHOLOGY LABORATORY [facility] Department of Dermatology [address], [address] [phone] * EKG 12-LEAD (12/17/2012 1:47 PM CDT) Only the most recent of6 resultswithin the time period is included. Narrative [facility] - 12/17/2012 1:47 PM CDT A scan was deleted from the Results section by Jenni Arreola [[id number]] on 12/17/2012 at ??1:47 PM (File: [id number]) Procedure Note Provider, MD Mariana - 01/04/2018 A scan was deleted from the Results section by Jenni Arreola [[id number]] on 12/17/2012t 1:47 PM (File:[id number]) Gaetano Partida MD ECG ORDERABLES [facility] * HOLTER MONITOR (10/21/2012 5:05 PM CDT) Only the most recent of4 resultswithin the time period is included. Narrative [facility] - 10/21/2012 5:05 PM CDT Comments: 1) Predominant rhythm sinus rhythm 2) 947 premature ventricular contractions noted (out of 192592 total beats). Mrs. Hurst has a PVC [...] 947 premature ventricular contractions noted (out of 384309 totalbeats). Mrs. Hurst has a PVC burden [...] of 45:09 hours was analyzed. Lisset Romero COMMUNICATIONS SPECIALIST-PRESS LOADER CARDIAC SER VICES ORDERABLES [facility] * BASIC METABOLIC PANEL (CALCIUM TOTAL) (10/10/2012 2:19 PM CDT) Only the most recent of3 resultswithin the time period is included. Glucose 77 65 - 99 mg/dL [facility] ([facility]) Comment: ? Fasting reference interval BUN 13 7 - 25 mg/dL [facility] ([facility]) Creatinine 0.67 0.50 - 1.10 mg/dL [facility] ([facility]) eGFR non- 110 > OR = 60 mL/min/1. 73m2 [facility] ([facility]) eGFR 127 > OR = 60 mL/min/1. 73m2 [facility] ([facility]) BUN/Creatinine Ratio NOT APPLICABLE 6 - 22 (calc) [facility] ([facility]) Sodium 141 135 - 146 mmol/L [facility] ([facility]) Potassium 4.0 3.5 - 5.3 mmol/L [facility] ([facility]) Chloride 106 98 - 110 mmol/L [facility] ([facility]) CO2 25 19 - 30 mmol/L [facility] ([facility]) Calcium 9.0 8.6 - 10.2 mg/dL [facility] ([facility]) Comment: Test Performed at: [facility] [address] [place], [place] ??[address] GAGE DRAKE DO,MPH 10/10/2012 2:19 PM CDT 10/10/2012 2:20 PM CDT Lisset Angelica Heather CHRISN-PRESS LOADER LAB - CHEMI STRY ORDERABLES Performing Organization Address [facility]/ZIP Co de Phone Number [facility] ([facility]) * MAGNESIUM BLOOD (10/10/2012 2:19 PM CDT) Magnesium 2.4 1.5 - 2.5 mg/dL [facility] ([facility]) Comment: Test Performed at: [employer] [facility] ??[phone] GAGE DRAKE DO,MPH Serum 10/10/2012 2:19 PM CDT 10/10/2012 2:20 PM CDT Lisset Romero APRN-PRESS LOADER LAB - CHEMI STRY ORDERABLES Performing Organization Address [facility] Co de Phone Number [facility] ([facility]) * LAB HISTORICAL RESULTS-ONBASE (10/10/2012) 10/10/2012 Narrative [facility] - 10/11/2012 9:21 AM CDT Historical Provider LAB - CHEMISTRY O RDERABLES Performing Organization Address [facility] Co de Phone Number [facility] [address] [place] [address], [facility] * VAS RIGHT ARTERIAL DUPLEX LE (09/05/2012 2:17 PM TRANSFER OPERATOR) Anatomical Region Laterality Modality Other Lisset Angelica Heather COMMUNICATIONS SPECIALIST-PRESS LOADER VASCULAR LA B ORDERABLES * (ABNORMAL) TROPONIN I (09/02/2012 3:00 PM TRANSFER OPERATOR) Troponin I 0.675(HH) <0.032 ng/mL [facility] Comment: RESULT CONFIRMED BY REPEAT [...] elevated for 5-10 days. 09/02/2012 3:00 PM TRANSFER OPERATOR 09/02/2012 3:25 PM TRANSFER OPERATOR Gaetano Partida MD LAB - CHEMISTRY PEDRO PABLO JACK[facility] [address] [phone] * (ABNORMAL) CBC W AUTO DIFFERENTIAL (09/02/2012 3:00 PM TRANSFER OPERATOR) WBC 6.9 3.5 - 10.5 10^3/uL [facility] RBC 3.67(L) 3.90 - 5.00 10^6/uL [facility] Hemoglobin 11.9(L) 12.0 - 15.5 g/dL [facility] Hematocrit 33.9(L) 35.0 - 45.0 % [facility] MCV 92.4 81.0 - 97.0 FL [facility] MCH 32.4 28.0 - 34.0 PG [facility] MCHC 35.1 32.0 - 36.0 G/DL [facility] Platelet 195 150 - 400 10^3/uL [facility] RDW 13.1 11.2 - 14.8 % [facility] RDW-SD 43.9 36 - 50 FL [facility] MPV 9.9 9.3 - 12.8 FL [facility] Neutrophils % 70.0 35.0 - 70.0 % [facility] Lymphocytes % 21.0 19.7 - 55.1 % [facility] Monocytes % 6.5 3 - 15 % [facility] Eosinophils % 1.9 0.0 - 6.0 % [facility] Basophils % 0.6 0.0 - 1.5 % [facility] Neutrophils Absolute 4.8 1.7 - 7.0 10^3/uL [facility] Lymphocyte Absolute 1.5 0.8 - 2.9 10^3/uL [facility] Monocytes Absolute 0.5 0.14 - 0.66 10^3/uL [facility] Eosinophils Absolute 0.13 0.00 - 0.22 10^3/uL [facility] Basophils Absolute 0.04 0.02 - 0.06 10^3/uL [facility] Differential Type AUTO DIFFERENTIAL [facility] Venous blood specimen (specimen) 09/02/2012 3:00 PM TRANSFER OPERATOR 09/02/2012 3:25 PM TRANSFER OPERATOR Gaetano Partida MD LAB - HEMATOLOGY FRANCY COX Performing Organization Address [facility] Co de Phone Number [address] [phone] * CK + CKMB PANEL (09/02/2012 3:00 PM TRANSFER OPERATOR) CK Total 103 30 - 200 Units/L [facility] CK-MB 2.2 0.0 - 6.6 ng/mL [facility] Comment: ? CKMB Reference Range 6.6 ng/mL [...] elevated for 2-3 days. 09/02/2012 3:00 PM TRANSFER OPERATOR 09/02/2012 3:25 PM TRANSFER OPERATOR Gaetano Partida MD LAB - CHEMISTRY PEDRO PABLO JACKSON Performing Organization Address [facility] Co de Phone Number [address] [phone] * XR CHEST 2VW (09/02/2012 2:38 PM TRANSFER OPERATOR) Anatomical Region Laterality Modality Chest Other Impressions 09/02/2012 4:12 PM TRANSFER OPERATOR Impression: No acute pulmonary disease. Report dictated by Dalton Alonzo DO (professor of radiology). This report was approved ??by Dalton Alonzo M.D. ?? on 09/02/2012 3:[address] TERI Alcantar M.D. have personally reviewed and interpreted this examination/study. This report was electronically signed by TERI CHASE M.D. ??on 09/02/2012 4:12 PM . Narrative 09/02/2012 4:12 PM TRANSFER OPERATOR Examination: XR CHEST PA AND LATERAL Date: [...] disease. Report dictated by Dalton Alonzo DO (professor of radiology). This report was approved by Dalton Alonzo M.D. on 09/02/2012 3:[address] TERI Alcantar M.D. have personally reviewed and interpreted thisexamination/study. This report was electronically signed by TERI CHASE M.D. on 09/02/20124:12 PM . Gaetano Partida MD DIAGNOSTIC IMAGING O RDERABLES * ECHO FU OR LIMITED (09/02/2012 12:00 AM TRANSFER OPERATOR) Anatomical Region Laterality Modality Other 09/02/2012 Ian Bunn MD ECHOCARDIOGRAPHY RADIANT * ANTITHROMBIN III ACTIVITY (08/30/2012 12:35 PM TRANSFER OPERATOR) Only the most recent of5 resultswithin the time period is included. AT ACT 138 105 - 167 SECONDS [facility] Comment: Therapeutic range for Cardiac lab engineer is: ? 200 - 300 seconds ? [...] > 450-999 seconds 08/30/2012 12:3 5 PM TRANSFER OPERATOR 09/02/2012 4:12 PM TRANSFER OPERATOR Marc Nunez MD LAB - COAGULATION OR DERABLES Performing Organization Address City/State/[facility] Co de Phone Number [address] [phone] * URINALYSIS REFLEX TO MICROSCOPIC NO CULTURE (08/30/2012 8:00 AM TRANSFER OPERATOR) Color UA YELLOW STRW,YELLOW [facility] Clarity UA CLEAR CLEAR [facility] Specific [place] Urine 1.010 1.001 - 1.030 [facility] pH UA 7.0 5.0 - 8.0 [facility] Protein UA NEGATIVE <20 mg/dL [facility] Glucose UA NEGATIVE NEGATIVE mg/dL [facility] Ketones NEGATIVE NEGATIVE mg/dL [facility] Bilirubin UA NEGATIVE NEGATIVE mg/dL [facility] Blood UA NEGATIVE NEGATIVE [facility] Nitrite UA NEGATIVE NEGATIVE [facility] Leukocyte Esterase NEGATIVE NEGATIVE [facility] Urobilinogen UA < 2.0 <2.0 mg/dL [facility] UA Micro Reflex NO [facility] Urine specimen (specimen) URINE SPECIMEN COLLECTION, CATHETERIZED / Unknown 08/30/2012 8:00 AM TRANSFER OPERATOR 08/30/2012 8:27 AM TRANSFER OPERATOR Marc Nunez MD LAB - URINALYSIS ORD ERABLES Performing Organization Address [facility] Co de Phone Number [address] [phone] * CULTURE URINE (08/30/2012 8:00 AM TRANSFER OPERATOR) Culture Urine NO GROWTH OF >100 CFU/ML AFTER 48 HOURS. [facility] Urine specimen (specimen) URINE SPECIMEN COLLECTION, CATHETERIZED / Unknown 08/30/2012 8:00 AM TRANSFER OPERATOR 08/30/2012 8:26 AM TRANSFER OPERATOR Narrative [facility] - 09/01/2012 11:09 AM TRANSFER OPERATOR Specimen Type->Urine Marc Nunez MD LAB - MICROBIOLOGY O RDERABLES Performing Organization Address [facility] Co de Phone Number [address] [phone] * PT-INR SLU (08/30/2012 6:30 AM TRANSFER OPERATOR) PT 13.1 12.1 - 14.8 SECONDS [facility] INR 1.0 [facility] Comment: SUGGESTED THERAPEUTIC RANGE FOR LOW-INTENSITY COUMADIN THERAPY FOR VENOUS THROMBOEMBOLISM IS INR 2.0-3.0. ??FOR HIGH RISK PATIENTS (MITRAL VALVE PROSTHESIS, ATRIAL FIBRILLATION, HISTORY OF TIA/STROKE), SUGGESTED THERAPEUTIC RANGE IS INR 2.5-3.5. Plasma specimen (specimen) 08/30/2012 6:30 AM TRANSFER OPERATOR 08/30/2012 7:50 AM TRANSFER OPERATOR Narrative [facility] - 08/30/2012 8:12 AM TRANSFER OPERATOR Is patient on Heparin, Argatroban or Dabigatran?->N Marc Nunez MD LAB - COAGULATION OR DERABLES Performing Organization Address [facility] Co de Phone Number [address] [phone] * CBC W/O DIFFERENTIAL (08/30/2012 6:30 AM TRANSFER OPERATOR) WBC 6.6 3.5 - 10.5 10^3/uL [facility] RBC 4.69 3.90 - 5.00 10^6/uL [facility] Hemoglobin 15.0 12.0 - 15.5 g/dL [facility] Hematocrit 43.3 35.0 - 45.0 % [facility] MCV 92.3 81.0 - 97.0 FL [facility] MCH 32.0 28.0 - 34.0 PG [facility] MCHC 34.6 32.0 - 36.0 G/DL [facility] Platelet 208 150 - 400 10^3/uL [facility] RDW 13.2 11.2 - 14.8 % [facility] RDW-SD 44.5 36 - 50 FL [facility] MPV 9.9 9.3 - 12.8 FL [facility] Venous blood specimen (specimen) 08/30/2012 6:30 AM TRANSFER OPERATOR 08/30/2012 7:50 AM TRANSFER OPERATOR Marc Nunez MD LAB - HEMATOLOGY ORD ERABLES Performing Organization Address [facility] Co de Phone Number [address] [phone] * ECHO 2D ONLY WO COLOR OR DOPPLER (06/03/2012 3:07 PM TRANSFER OPERATOR) Anatomical Region Laterality Modality Other Narrative 06/03/2012 3:07 PM TRANSFER OPERATOR NAME: Tg Hurst : 1970 AGE: 41 y.o. SEX: female Referring Physician: Vivek Leo MD [address] [place] [address] [address] [place] [address] Ordering Physician: ?? Primary Care Physician: Shekhar Blake Date of Test: 06/03/12 TAPE#: digital Desulfurizer Machine: casper Height: ?? Weight: ?? BSA: ?? [...] female Referring Physician: Vivek Leo MD [address] [facility] [address] [place] [address] Ordering Physician: Primary Care Physician: Shekhar Blake Date of Test: 06/03/12 TAPE#: digital Desulfurizer Machine: casper Height: Weight: BSA: Introduction: Tg Hurst [...] RAD IANT * TSH (06/03/2012 12:00 PM TRANSFER OPERATOR) TSH 0.78 mIU/L [facility] ([facility]) Comment: ?Reference Range ?> or = 20 Years ??0.40-4.50 ? Ranges ?First trimester ?0.26-2.66 ?Second trimester ?? 0.55-2.73 ?Third trimester ?0.43-2.91 Test Performed at: [email or web address] [address] ??[phone] GAGE DRAKE DO,MPH Venous blood specimen (specimen) 06/03/2012 12:00 PM TRANSFER OPERATOR 06/03/2012 12:01 PM TRANSFER OPERATOR Vivek Leo MD LAB - CHEMISTRY PEDRO PABLO JACKSON [facility] ([facility]) Care Teams Lavatory Attendant Relationship Specialty Start Date End Date Cesar Berry MD [address] [facility] [address] [place] [address] PCP - General 08/09/16
--- OUTSIDE RECORDS SUMMARY | 2024-09-02 13:38 | XMS_ITS | Encounter Summary ---
Author Organization [facility] Address [address] [facility] [address] Care Team Providers Care Skip Pit Worker Name Role Phone Cesar Berry MD Primary Care Provider [phone] Encounter Details Date Type Department Care Team (Late st Contact Info) Description 03/18/2021 Lab Requisition [facility] Derm[facility] Lab [address] [facility], [place] [id number] Noe Niño MD [address] [address] Social History Tobacco Use Types Packs/Day Years [...] CDT) Case Report Dermatopathology Report ? Case: [id number] ? Authorizing Provider: ??Noe Niño MD ?Collected: ? 03/16/2021 03:33 AM ? Ordering Location: ? [facility]erm[facility] ?Received: ?03/18/2021 05:50 AM ? Pathologist: ? Radha Alfonso MD ? Specimen: ?Skin, left anti helix ? 1 4:09 PM CDT DERMATOPATHOLOGY LABORATORY Final Diagnosis Specimen A. SKIN, left anti helix: SEBORRHEIC KERATOSIS, IRRITATED (L82.0) 4:09 PM T DERMATOPATHOLOGY LABORATORY Clinical History SK vs other. Path # [id number]. 4:09 PM CDT DERMATOPATHOLOGY LABORATORY Gross Description Specimen A: Received is one formalin filled container labeled with the patient's name and designated left anti helix. The specimen consists of a shave biopsy measuring [id number]. Jar 0. 4:09 PM CDT DERMATOPATHOLOGY LABORATORY [...] characteristic determined by the Dermatopathology Laboratory at [facility], directed by Dr. Mayte Quintana. These tests need not be, and therefore are not, approved by the [place] Food and Drug Administration. The tests are used for clinical purposes. Billing Codes Specimen Charges Stain Charges 24486 1 1 4:09 PM CDT DERMATOPATHOLOGY LABORATORY Embedded Images 1 4:09 PM CDT DERMATOPATHOLOGY LABORATORY Pathology/Cytolo gy TISSUE SPECIMEN FROM SKIN / Unknown 03/16/2021 3:33 AM CDT 03/18/2021 5:50 AM CDT Noe Niño MD LAB - PATHOLOGY/CYTO LOGY ORDERABLES DERMATOPATHOLOGY LABORATORY [facility] - Department of Dermatology [address] [phone] documented in this encounter Visit Diagnoses Not on filedocumented in this encounter Care Teams Skip Pit Worker Relationship Specialty Start Date End Date Cesar Berry MD [address] [facility] [address] [place] [address] PCP - General 08/09/16 documented as of this encounter
--- OUTSIDE RECORDS SUMMARY | 2024-09-02 13:38 | XMS_ITS | Referral Summary ---
Author Organization [facility] [employer] Address [address] [place] [address] Care Team Providers Care Etiquette Teacher Name Role Phone Cesar Berry MD Primary Care Provider [phone] Source Comments [facility] [employer],non-owned Affiliates and Associated Physician Practices is amultiple site organization consisting of ambulatory clinics and hospital sitesin [place], [place], [place] and [place]. This disclosure is being madepursuant to the Care Everywhere program and may not contain all information available regarding this patient. Last updated [employer] Allergies Active Allergy Reactions Criticality Noted Date [...] Comments Blood Pressure 120/80 09/06/2016 9:44 AM TERRITORY MANAGER Pulse 98 09/06/2016 9:44 AM TERRITORY MANAGER Temperature 36.6 ??C (97.9 ??F) 09/06/2016 9:44 AM CS T Respiratory Rate 18 09/06/2016 9:44 AM TERRITORY MANAGER Oxygen Saturation 97% 09/06/2016 9:44 AM TERRITORY MANAGER Inhaled Oxygen Concentration - - Weight 110.2 kg (243 lb) 09/06/2016 9:44 AM TERRITORY MANAGER Height 170.2 cm (5' 7 ) 09/06/2016 9:44 AM TERRITORY MANAGER Body Mass Index 38.06 09/06/2016 9:44 AM TERRITORY MANAGER Plan of Treatment Not on file Care Teams Etiquette Teacher Relationship Specialty Start Date End Date Cesar Berry MD [address] [facility] [address] [place] [address] PCP - General 08/09/16
--- OUTSIDE RECORDS SUMMARY | 2024-09-02 13:38 | XMS_ITS | Clinical Summary ---
Author Organization Formerly [facility] Address [address] [place] [address] Care Team Providers Care Activities Specialist Name Role Phone Denys Urrutia MD Unavailable [phone] Suzy Hopkins PT Unavailable Unavailable Aditi Mccormick INTERNAL INVESTIGATOR Unavailable Unavailable Ashwin Hong MD Primary Care Provider [phone] Jenaette Parikh MD Unavailable [phone] Allergies Active Allergy Reactions Criticality Noted Date [...] Nasal saline spray (Simply saline, Little Remedies, [place], [place]) 2 second sprays or 2 squeezes into [...] Nasal saline spray (Simply saline, Little Remedies, [place], [place]) 2 second sprays or 2 squeezes into [...] Nasal saline spray (Simply saline, Little Remedies, [place], [place]) 2 second sprays or 2 squeezes into [...] sinus surgery approx 2009 had second one. [facility] [address] LAPAROSCOPIC TOTAL HYSTERECTOMY 11/13/2012 [facility] HK/DS REDUCTION MAMMAPLASTY 08/30/2020 - 09/26/2020 Bilateral Medical History Medical History Date Comments Hypertension 11/03/2016 Hypertension Arthritis Gastroesophageal reflux disease Prolactinoma (HCC) pituitary kalpesh or- used to see Dr Reddy at [facility], but PCP monitor levels now Migraine Ocular [...] on file Legal Sex Female 5:22 AM VENEER SAMPLE MAKER Gender Identity Not on file Sexual Orientation Not on file Obstetrics History Para Term AB IAB SAB Ectopic Multiple Livin g Live Births 2 2 Date Outcome GA Total Labor Labor/2nd/3rd Weight Sex Type Anes PTL Miriam A1 A5 Name Clin Para Para Comments C/s x2 Last Filed Vital Signs Vital Sign Reading Time Taken Comments Blood Pressure 119/86 10/02/2023 11:53 AM VENEER SAMPLE MAKER Pulse 74 02/11/2020 2:42 PM CDT Temperature 36.6 ??C (97.9 ??F) 08/09/2020 12:[address] Respiratory Rate 18 05/31/2018 1:59 PM CDT Oxygen Saturation 95% 01/26/2018 12:46 PM CDT Inhaled Oxygen Concentration - - Weight 112 kg (247 lb) 10/02/2023 11:53 AM VENEER SAMPLE MAKER Height 170.2 cm (5' 7 ) 10/02/2023 11:53 AM VENEER SAMPLE MAKER Body Mass Index 38.69 10/02/2023 11:53 AM VENEER SAMPLE MAKER Plan of Treatment Health Maintenance Due Date [...] REFLEX HPV 16,18/45 Routine 10/02/2023 1:44 PM VENEER SAMPLE MAKER Encounter for routine gynecological examination with Papanicolaou smear of cervix from Last 3 Months or Most Recently Relevant to Health Maintenance Results * ThinPrep(R) Imaging Pap and HPV mRNA E6/E7 Reflex HPV 16,18/45 (10/02/2023 1:44 PM VENEER SAMPLE MAKER) CLINICAL INFORMATION: [facility] Comment:None given LMP [facility] Comment:NONE GIVEN Previous Pap [facility] Comment:2019 NORMAL W/+HRHPV NEG 16/18/45 Prev. Bx [facility] Comment:NONE GIVEN SOURCE: [facility] Comment:None given Pap, specimen adequacy [facility] Comment:SATISFACTORY FOR ALEXANDREA LUATION HPV interp [facility] Comment: Cytology Results: Negative for intraepithelial lesion or malignancy. COMMENTS [facility] Comment: This Pap test has been evaluated with computer assisted technology. [facility] Comment: BES, CT(ASCP) CT screening location: [place] [address], [place] [address] Comment [facility] Comment: EXPLANATORY NOTE: The Pap is a [...] High Risk E6/E7 Not Detected Not Detected [employer] [facility] Comment: Methodology: Automatic Quilling Machine Operator-Mediated Amplification This assay detects E6/E7 viral messenger RNA (mRNA) from 14 high-risk HPV types (16,18,31,33,35,39,45,51,52,56,58,59,66,68). Cervical sources are required for HPV testing. If a vaginal source from a patient who has had a total hysterectomy with removal of cervix was submitted, please contact the testing laboratory for alternative testing options. For additional information, please refer to http://education.Mine/faq/XXI659x3 (This link if provided for information/ educational purposes only.) Vaginal (Endocervical/va ginal) 10/02/2023 1:44 PM VENEER SAMPLE MAKER 10/03/2023 12:11 AM VENEER SAMPLE MAKER Brenda Rubio RETAIL STOCKER LAB CYTOLOGY ORDERABLES Final Result [facility] [address] [place] [address] [employer] [address] [place] [address] from Last 3 Months or Most Recently Relevant to Health Maintenance [place] [address] [facility] ACCESS [employer] OOS [employer]Generator CHOICE OOS BLUE ACC CHOICE OOS Care Teams Activities Specialist Relationship Specialty Start Date End Date Ashwin Hong MD PCP - General 12/17/19 Denys Urrutia MD [address] [address] Surgeon Neurosurgery 01/15/18 Suzy Hopkins, PT Physical Therapist Physical Therapy 01/15/18 Aditi Mccormick, INTERNAL INVESTIGATOR Senior Staff Accountant Physical Therapy 01/23/18 [place] [address] [place] [address] Consulting Physician Obstetrics and Gynecology 09/17/22
--- OUTSIDE RECORDS SUMMARY | 2024-09-02 13:38 | XMS_ITS | Continuity of Care Document ---
Author Organization [facility] Address [address] [place] [address] Phone Care Team Providers Care Cook Night Name Role Phone Vivek Wells MD Unavailable [...] Active sertraline 50 mg tablet - Active [place] 5 mg-325 mg tablet - Active IBUPROFEN (unknown strength) Not Available - Active ESTRADIOL (unknown strength) Not Available - Active Procedures Procedure Date [facility]patient [facility] Advance Directives Directive Yes / No Effective Date File Name No Information Encounters Encounter Description Practice Location Reason(s) For Visit Diagnoses Date Provider Providers Copied on Encounter Office/outpat ient visit,[facility], [facility], [address], [place], [place], [address], [place] tel:[phone] [facility] r hip (chief complaint)r ankle (chief complaint) Pain in right hipPain in right footPain in right ankle Russell Doyle. [address], [place], [place], [address], [place]. tel:[phone] Family History Family Member Type Diagnosis Age At Onset Problem (finding) Family history of Cance r, unknown Problem (finding) Family history of Arthr itis Problem (finding) Family history of hyper tension Problem (finding) Family history of Diabe chinmay mellitus Payers Payer name Insurance type Covered republican ID Cherry calvin(elgin Pena [id number] Social History Type Description Quantity Date Captured [...]
--- OUTSIDE RECORDS SUMMARY | 2024-09-02 13:38 | XMS_ITS | Continuity of Care Document ---
Author Organization [facility] Address [address] [place] [address] [place] [address] Phone Care Team Providers Care Loan Reviewer Name Role Phone Cesar Berry MD Unavailable Unavailable Allergies, Adverse Reactions, Alerts Substance Reaction Status Criticality morphine Active No Information Penicillins Active No Information Sulfa (Sulfonamide Antibiotics) Active No Information METHYLPHENIDATE HCL Active No Infor mation Medications Medication Instructions Dosage Effective Dates (start - stop) Status Comments losartan 50 mg-hydrochlorothi azide 12.5 mg tablet take 1 tablet by oral route every day 1.00 tablet - Active Cardizem CD 180 mg capsule,extended release take 1 capsule by oral route every day 180 MG - Active Zoloft 100 mg tablet take 1 tablet by oral route every day 100 MG - Active Crestor 5 mg tablet take 1 tablet by oral route every day 5 MG - Active [place] 5 mg-325 mg tablet take 1 tablet by oral route every 6 hours as needed for pain as needed - Active PRN for pain, avoid driving or operate machines Procedures Procedure Date PREV VISIT, EST, AGE [...] Diagnoses Date Provider Providers Copied on Encounter [facility], [address], [place], [place], [address], [place] tel:[phone] [facility] No Information Jamal Guerrero. [address] [place], [address] , [place]. tel:[phone] Referring Provider: Shira Johnson, [place], [place], [address]. tel:[phone] PREV VISIT, EST, AGE 40-64 [facility], [address], [place], [place], [address], [place] tel:[phone] [facility] physical (chief complaint) Encounter for general adult medical exam w abnormal findingsEssential (primary) hypertensionFatigue HyperlipidemiaChron ic pain syndromeGeneralized Anxiety Disorder 9 Jamal Guerrero. [address], [place], [place], [address] , [place]. tel:[phone] Referring Provider: Shira Johnson, [place], [place], [address]. tel:[phone] OFFICE/OUTPA TIENT VISIT, EST [facility], [address], [place], [place], [address], [place] tel:[phone] [facility] Medicine HLP (chief complaint) HTN (chief complaint) retic1 (chief complaint) back pani1 (chief complaint) fatigue1 (chief complaint) PalpitationsHyperli pidemiaDisorder of iron metabolism, unspecifiedChronic pain syndromeEssential (primary) hypertensionFatigue 9 Jamal Guerrero. [address], [place], [place], [address] , [place]. [phone] Referring Provider: Shira Johnson [address], [place], [place], [address]. tel:[phone] OFFICE/OUTPA TIENT VISIT, [facility], [address], [place], [place], [address], [place] tel:[phone] [facility] HTN (chief complaint) retic (chief complaint) LFT (chief complaint) HLP (chief complaint) Fatigue1 (chief complaint) Body mass index (BMI) 39.0-39.9, adultHyperlipidemia Other abnormality of red blood cellsDisorder of iron metabolism, unspecifiedFatty liverPalpitationsEs sential (primary) hypertension 9 Jamal Guerrero. [address], [place], [place], [address] , [place]. [phone] Referring Provider: Shira Johnson [address], [place], [place], [address]. tel:[phone] OFFICE/OUTPA TIENT VISIT, [facility], [address], [place], [place], [address], [place] tel:[phone] [facility] low K (chief complaint) HLP (chief complaint) LFT (chief complaint) Syncope and collapseHypokalemia Essential (primary) hypertensionFatigue DyspneaChest painDisorder of bilirubin metabolism, unspecified 9 Jamal Guerrero. [address], [place], [place], [address] , [place]. [phone] Referring Provider: Shira Johnson [address], [place], [place], [address]. tel:[phone] PREV VISIT, EST, AGE 40-64 [facility], [address], [place], [place], [address], [place] tel:[phone] [facility] Physical (chief complaint) Encounter for general adult medical exam w abnormal findingsFibromyalgi aFatty liverEssential (primary) hypertension 8 Jamal Guerrero. [address], [place], [place], [address] , [place]. [phone] Referring Provider: Shira Johnson [address], [place], [place], [address]. tel:[phone] OFFICE/OUTPA TIENT VISIT, EST [facility], [address], [place], [place], [address], [place] [phone] [facility] Medicine glucose1 (chief complaint) LFT1 (chief complaint) HTn (chief complaint) weight gain1 (chief complaint) Body mass index (BMI) 40.0-44.9, adultFatty liverDisorder of bilirubin metabolism, unspecifiedHypergly cemiaHyperlipidemia 8 Jamal Guerrero. [address], [place], [place], [address] , [place]. [phone] Referring Provider: Shira Johnson [address], [place], [place], [address]. tel:[phone] PREV VISIT, EST, AGE 40-64 [facility], [address], [place], [place], [address], [place] tel:[phone] [facility] Physical (chief complaint) Encounter for general adult medical exam w abnormal findingsFatty liverHyperlipidemia Essential (primary) hypertensionGeneral ized Anxiety Disorder 8 Jamal Guerrero. [address], [place], [place], [address] , [place]. tel:[phone] Referring Provider: Shira Johnson [address], [place], [place], [address]. tel:[phone] OFFICE/OUTPA TIENT VISIT, EST [facility], [address], [place], [place], [address], [place] tel:[phone] [facility] HTN (chief complaint) anxiety1 (chief complaint) back pain1 (chief complaint) HLP (chief complaint) Essential (primary) hypertensionHyperli pidemiaLumbagoGener alized Anxiety Disorder 0- 8 Jamal Guerrero. [address], [place], [place], [address] , [place]. tel:[phone] Referring Provider: Shira Johnson [address], [place], [place], [address]. tel:[phone] PREV VISIT, EST, AGE 40-64 [facility], [address], [place], [place], [address], [place] tel:[phone] [facility] Physical (chief complaint) Encounter for general adult medical exam w abnormal findingsAcute follicular conjunctivitis, left eyeEssential (primary) hypertensionHyperli pidemia 7 Jamal Guerrero. [address], [place], [address] , [place]. tel:[phone] Referring Provider: Shira Johnson [address], [place], [place], [address]. tel:[phone] OFFICE/OUTPA TIENT VISIT, EST [facility], [address], [place], [place], [address], [place] tel:[phone] [facility] HTN (chief complaint) joint pain1 (chief complaint) fatty liver1 (chief complaint) obesity1 (chief complaint) Body mass index (BMI) 38.0-38.9, adultEssential (primary) hypertensionFatty liverPain in joint 7 Jamal Guerrero. [address], [place], [place], [address] , [place]. tel:[phone] Referring Provider: Shira Johnson [address], [place], [place], [address]. tel:[phone] OFFICE/OUTPA TIENT VISIT, EST [facility], [address], [place], [place], [address], [place] tel:[phone] [facility] LFT (chief complaint) hyperglyce mia1 (chief complaint) jonit pain1 (chief complaint) HTN (chief complaint) sinus (chief complaint) Essential (primary) hypertensionFatty liverPain in unspecified jointAcute sinusitis, unspecified 7 Jamal Guerrero. [address], [place], [place], [address] , [place]. tel:[phone] Referring Provider: Cesar Berry, [address], [place], [place], [address]. tel:[phone] OFFICE/OUTPA TIENT VISIT, [facility], [address], [place], [place], [address], [place] tel:[phone] [facility] LFT (chief complaint) HLP (chief complaint) anxiety1 (chief complaint) joint pain1 (chief complaint) Pain in unspecified jointHyperlipidemia Liver diseaseGeneralized Anxiety Disorder 7 Jamal Guerrero. [address], [place], [place], [address] , [place]. [phone] Referring Provider: Shira Johnson [address], [place], [place], [address]. tel:[phone] OFFICE/OUTPA TIENT VISIT, [facility], [address], [place], [place], [address], [place] tel:[phone] [facility] HTN (chief complaint) back pain1 (chief complaint) sick (chief complaint) Essential (primary) hypertensionPain in unspecified jointLumbagoAcute upper respiratory infection, unspecified 6 Jamal Guerrero. [address], [place], [place], [address] , [place]. tel:[phone] Referring Provider: Shira Johnson [address], [place], [place], [address]. tel:[phone] PREV VISIT, EST, AGE 40-64 [facility], [address], [place], [place], [address], [place] tel:[phone] [facility] PHysical (chief complaint) Encntr for general adult medical exam w/o abnormal findings 6 Jamal Guerrero. [address], [place], [place], [address] , [place]. tel:[phone] Referring Provider: Shira Johnson [address], [place], [place], [address]. tel:[phone] OFFICE/OUTPA TIENT VISIT, EST [facility], [address], [place], [place], [address], [place] tel:[phone] [facility] shingle (chief complaint) edema (chief complaint) lymphadeno satnam (chief complaint) Dietary surveillance and counselingHerpes zoster with other specified complicationsEdemaE nlargement of lymph nodes 4 Jamal Guerrero. [address], [place], [place], [address] , [place]. tel:[phone] Referring Provider: Shira Johnson [facility] [address], [place], [place], [address]. tel:[phone] PREV VISIT, NEW, AGE 40-64 [facility], [facility] [address], [place], [place], [address], [place] tel:[phone] [facility] Physical (chief complaint) Dietary surveillance and counselingRoutine Medical ExamEnlargement of lymph nodesHypertension, UnspecifiedRoutine Medical Exam 4 Jamal [address] [facility] [address], [place], [place], [address] , [place]. tel:[phone] Family History Family Member Type Diagnosis Age At Onset Father Problem (finding) MVA Sister Problem (finding) Alive and well Mother Problem (finding) Cancer - cervical, uter ine Sister Problem (finding) fibroid Payers Payer name Insurance type Covered libertarian ID Authoriza tion(s) No Information Social History [...] ONLY ordered Referral Referred To: Laura Ha [address]
[facility] [address] [place], [phone] Ordered: Referrals: Laura Ha. Evaluate and treat [...] Pt denies any chest pain. Pt has eddei with cardiology in two weeks and cardiac echo and holter next week. Pt denies any chest pain or sob. Pt still has mild palpitation, which is chronic. Pt did not do EKG yet. pt denies any syncope or dizziness retic pt has high reti c count and high iron saturation her bili is normal now. LFT Pt has fatty fannie er Pt denies any abd pain HLP Pt has HLP. Pt i s not on any diet HLP Pt has HLP, Pt d eferred statin in the past Pt has been working on low fat and low carb diet LFT Pt has fatty fannie er with high bili, Pt denies any abd pain or jaundice low K Pt recently had acute syncope episode while at [employer] parking lot and she passed out about [...] both calf. as well Pt flew to [place] last and above happened on . Pt [...] carb and drinks a lot of soda LFT1 Pt has fatty fannie er Pt does not have hepatitis. Pt has mildly high bilirubin. Pt admits eating horribly. Pt drinks a lot of soda, and eats a lot of carbs. HTn Pt is on Cardize m and losartan/htz and her BP is stable today. Pt denies any chest pain or headache weight gain1 Pt gained 30 dustin nds since last year. Pt has not been active. Pt had back surgery and she is sedentary and she eats poorly Physical Pt needs annual physical. pt has [...] eye injury. Pt denies any other complaints fatty liver1 Pt has fatty fannie er NO choldolithiasis. Pt has histoir yof cholecystectomy. Pt denies any abd pain HTN Pt has mild HTN Pt takes cardiazem and she restarted the 1/2 the losatanhctz. Her BP is ok today. joint pain1 Pt has bilateral shoulder, back and hip pain. Pt has been lifting all her life. Pt seen rheumatology and was told no rheumatologic condition obesity1 Pt has high BMI. Pt has difficulty losing weight LFT Pt has mildly el evated LFT. Pt has fatty liver and ? choledocolithiasis. Pt denies any abd pain or jaundice hyperglycemia1 Pt has high gluc ose. Her A1c ok Pt denie any polyuria, polydpisia jonit pain1 Pt has diffuse j oint pain Pt has mild arthritis on xray of shoulder and also plantar spur. Pt has mildly elevated RA. Pt has not recevied a call from rheumatology yet HTN Pt stats that sh e has been feeling dizzy and her BP is low recently. Pt is on cardiazem and also lsoatan,hctz sinus Pt c/o sinus antonia n and left side sinus congestion with green sinus drinage for one week Pt denies any fever, chill LFT Pt has mild high LFT Pt denies any abd pain HLP Pt has HLP Pt st ates that she is on low fat and low carb diet. Pt has mild high glucose. Pt denies any polyuria, polydipisa anxiety1 Pt has chronic a nxiety and depression Pt takes zoloft and doing ok Pt denies any suicidal or homicidal thought joint pain1 Pt has diffuse j oint pain including shoulder, mid and low back, foot and ankle and bilateral hand pain. Pt has borderline RA elevation HTN Pt has HTn. Pt t akes [...] other complaints. 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 Pt denies any chest pain. Pt c/o left ear stuffiness and mild pain for two months. Pt denies any hearing loss. Pt has some mild sinus congestion. Pt denies any tinnitus Instructions Date Instruction Additional Infor mation Weight management Related to Enc ounter for general adult medical exam w abnormal findings Increase physical activity Relat ed to Encounter for general adult medical exam w abnormal findings Special diet education Related t o Body mass index (BMI) 39.0-39.9, adult Special diet education Related t o Body mass index (BMI) 39.0-39.9, adult Follow a low sodium diet. Relate d to Hyperlipidemia Increase activity. Related to Hy perlipidemia Special diet education Related t o Body [...] o Body mass index (BMI) 45.0-49.9, adult Prescribed Activity and Exercise Education Related to Dietary Surveillance and Counseling Prescribed Diet Educ ation/Lifestyle Education Regarding Diet Related to Dietary Surveillance and Counseling Increase activity. Related to Es sential (primary) [...] Education Related to Dietary Surveillance and Counseling Decrease caloric intake Related to Dietary surveillance counseling Dietary counseling Related to Di etary surveillance counseling Dietary counseling Related to Di etary surveillance counseling Decrease caloric intake Related to Dietary surveillance counseling Assessments Type Assessment Date No Information
== END 2024-09-02 13:26 | disposition home or self-care (01) ==
PROVIDERS: PCP Family Medicine
DX: J10.00 Influenza due to other identified influenza virus with unspecified type of pneumonia (principal)
CPT/HCPCS: 71046

== ENCOUNTER 2025-02-13 12:39 | Outpatient (CLI) | payer BC, SELFPAY ==
--- NOTE | ~2025-02-13 | CT_ITS ---
Non-contrast CT scan of the Abdomen Clinical indication: Disorder adrenal gland Technique: 2.5 mm axial scans were obtained through the abdomen without intravenous or oral contrast . Dose reduction technique was used on this scan by utilizing automated exposure control and iterativ e reconstruction technique. The dose-length product (DLP) was 741.23 mGy-cm. COMPARISON: 03/20/2024 Findings: Images through the lung bases reveal no abnormalities. There is no evidence of renal or ureteral calculi. The kidneys and the ureters are nondilated. There is diffuse hepatic steatosis. Cholecystectomy clips are present. The spleen, pancreas, and adre nals appear normal. There is no aortic aneurysm. Visualized bowel loops are unremarkable. No ascites. Impression: No abnormality of the adrenal glands is seen. Diffuse hepatic steatosis. Reviewed, dictated and finalized at [facility]. Impression: No abnormality of the adrenal glands is seen. Diffuse hepatic steatosis.
== END 2025-02-13 12:40 | disposition home or self-care (01) ==
LOC: MICIMG 12:40
PROVIDERS: PCP Family Medicine; Visit Provider Internal Medicine Endocrinology, Diabetes & Metabolism
DX: E27.9 Disorder of adrenal gland, unspecified (principal); K76.0 Fatty (change of) liver, not elsewhere classified
CPT/HCPCS: 74150

== ENCOUNTER 2025-06-10 14:13 | Outpatient (CLI) | payer BC, SELFPAY ==
--- NOTE | ~2025-06-10 | XR_ITS ---
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 Technique: 2 views obtained. Findings: The lungs are clear, no effusion. No pneumothorax. Heart is normal size. Mediastinal and hilar contours are within normal limits. Bony thorax no acute abnormality. Impression: No acute cardiopulmonary abnormality. Reviewed, dictated and finalized at location P. ITORY SALES MANAGER Impression: No acute cardiopulmonary abnormality.
--- OUTSIDE RECORDS SUMMARY | 2025-06-10 15:10 | XMS_ITS | Clinical Summary ---
Author Organization [facility] Address [address] [place] [address] Care Team Providers Care Warehouse Director Name Role Phone Cesar Berry MD Primary Care Provider [phone] Source Comments [facility],non-owned Affiliates and Associated Physician Practices is amultiple site organization consisting of ambulatory clinics and hospital sitesin [place], [place], [place] and [place]. This disclosure is being madepursuant to the Care Everywhere program and may not contain all information available regarding this patient. Last updated 18.[employer] [facility] Allergies Active Allergy Reactions Criticality Noted Date Comments Kdc:Yellow Dye+Ci Pigment Bl ue 63+Metoclopramide Nausea and/or Vomiting Low 02/05/2012 Morphine Skin Reactions Medium 02/05/2012 Penicillins Cross Reactors Shortness of Breath High 02/05/2012 Sulfa Drugs Nausea Low 09/06/2016 Medications * Be aware that medications may not be up to date on this document. Alwaysverify current medications with the patient. sertraline (ZOLOFT) 100 MG tablet 100 mg DAILY. 0 08/08/2016 Active dilTIAZem SR 24hr (DILT-XR) 180 MG capsule 180 mg DAILY. 0 06/01/2016 Active estradiol (VIVELLE-DOT) 0.1 MG/24HR patch 1 patch 2X/week. 3 06/28/2016 Active dicyclomine (BENTYL) 20 MG tablet 20 mg. 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 Gender Identity Not on file Sexual Orientation Not on file Last Filed Vital Signs Vital Sign Reading Time Taken Comments Blood Pressure 120/80 09/06/2016 9:44 AM DATA ENTRY SPECIALIST Pulse 98 09/06/2016 9:44 AM DATA ENTRY SPECIALIST Temperature 36.6 C (97.9 F) 09/06/2016 9:44 AM DATA ENTRY SPECIALIST Respiratory Rate 18 09/06/2016 9:44 AM DATA ENTRY SPECIALIST Oxygen Saturation 97% 09/06/2016 9:44 AM DATA ENTRY SPECIALIST Inhaled Oxygen Concentration - - Weight 110.2 kg (243 lb) 09/06/2016 9:44 AM DATA ENTRY SPECIALIST Height 170.2 cm (5' 7) 09/06/2016 9:44 AM DATA ENTRY SPECIALIST Body Mass Index 38.06 09/06/2016 9:44 AM DATA ENTRY SPECIALIST Plan of Treatment Health Maintenance Due Date Last Done Comments COLOGUARD (AGES 45-75) - COL ON CA SCREENING 1971 COLON MONITORING 1971 COLONOSCOPY - COLON CA SCREENING 1971 CT COLONOGRAPHY - COLON CA SCREENING 1971 Colorectal Cancer Screening 1971 FIT - COLON CA SCREENING 1971 FLEX SIG - COLON CA SCREENING 1971 LIPID TESTING 1971 MAMMOGRAM 1971 HIV SCREENING 11/30/1986 HEPATITIS C SCREENING 11/26/1989 DTAP/TDAP/TD VACCINES (1 - Tdap) 11/30/1990 HEPATITIS B VACCINE (1 of 3 - 19+ 3-dose series) 11/30/1990 PNEUMOCOCCAL VACCINE 50+ (1 of 1 - PCV) 11/30/2021 ZOSTER VACCINE (1 of 2) 11/30/2021 DEPRESSION SCREENING 07/30/2024 COVID-19 VACCINE (1 - 2023-2 5 season) 2025 INFLUENZA VACCINE (#1) 2025 HIB VACCINE Aged Out No longer eligi ble based on patient's age to complete this topic HPV VACCINE Aged Out No longer eligi ble based on patient's age to complete this topic MENINGOCOCCAL (Group B) VACC INE SHARED DECISION-MAKING Aged Out No longer eligibl e based on patient's age to complete this topic MENINGOCOCCAL GROUPS A/C/Y/W VACCINE Aged Out No longer eligible b ased on patient's age to complete this topic [place] [address] [address] [facility] Care Teams Warehouse Director Relationship Specialty Start Date End Date Cesar Berry MD [address] [place] [address] PCP - General 08/09/16
--- OUTSIDE RECORDS SUMMARY | 2025-06-10 15:10 | XMS_ITS | Encounter Summary ---
Author Organization [facility] Address [address] [place] [address] Care Team Providers Care Weight Loss Counselor Name Role Phone Cesar Berry MD Primary Care Provider [phone] Encounter Details Date Type Department Care Team (Late st Contact Info) Description 03/18/2021 Lab Requisition [facility] [address], [place] [id number] Noe Niño MD [address] [place] [address] Social History Tobacco Use Types Packs/Day Years Used Date Smoking Tobacco: Never Smokeless Tobacco: Never Alcohol Use Standard Drinks/Week Comments Yes 0 (1 standard drink = 0.6 oz pur e alcohol) Comments Unknown Sex and Gender Information Value Date Recorded Sex Assigned at Not on file 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 Gender Identity Not on file Sexual Orientation Not on file documented as of this encounter Plan of Treatment Not on file documented as of this encounter Procedures Procedure Name Priority Date/Time Associated Diagnosis Comments DERMATOPATHOLOGY Routine 03/16/2021 3:33 AM CDT documented in this encounter Results * DERMATOPATHOLOGY (03/16/2021 3:33 AM CDT) Case Report Dermatopathology Report Case: [id number] Authorizing Provider: Noe Niño MD Collected: 03/16/2021 03:33 AM Ordering Location: [facility] Lab Received: 03/18/2021 05:50 AM Pathologist: Radha Alfonso MD Specimen: Skin, left anti helix 4:09 PM CDT DERMATOPATHOLOGY LABORATORY Final Diagnosis Specimen A. SKIN, left anti helix: SEBORRHEIC KERATOSIS, IRRITATED (L82.0) 4:09 PM CDT DERMATOPATHOLOGY LABORATORY at 1609 CDT Clinical History SK vs other. Path # [id number]. 4:09 PM CDT DERMATOPATHOLOGY LABORATORY Gross Description Specimen A: Received is one formalin filled container labeled with the patient's name and designated left anti helix. The specimen consists of a shave biopsy measuring [id number]. Jar 0. 4:09 PM CDT DERMATOPATHOLOGY LABORATORY [...] characteristic determined by the Dermatopathology Laboratory at [facility], directed by Dr. Mayte Quintana. These tests need not be, and therefore are not, approved by the [place] Food and Drug Administration. The tests are used for clinical purposes. Billing Codes Specimen Charges Stain Charges 57525 1 1 4:09 PM CDT DERMATOPATHOLOGY LABORATORY Embedded Images 4:09 PM CDT DERMATOPATHOLOGY LABORATORY Pathology/Cytolo gy TISSUE SPECIMEN FROM SKIN / Unknown 03/16/2021 3:33 AM CDT 03/18/2021 5:50 AM CDT us Noe Niño MD LAB - PATHOLOGY/CYTOLOGY ORDER BONIFACIO Final Result DERMATOPATHOLOGY LABORATORY [facility] - Department of Dermatology [address], [address] [phone] documented in this encounter Visit Diagnoses Not on filedocumented in this encounter Care Teams Weight Loss Counselor Relationship Specialty Start Date End Date Cesar Berry MD [address] [facility] [address] [place] [address] PCP - General 08/09/16 documented as of this encounter
--- OUTSIDE RECORDS SUMMARY | 2025-06-10 15:10 | XMS_ITS | Clinical Summary ---
Author Organization [facility] Address [address] [place] [address] Care Team Providers Care Film Inspector Name Role Phone Denys Urrutia MD Unavailable [phone] Suzy Hopkins PT Unavailable Unavailable Aditi Mccormick [employer] B[employer]ER Unavailable Unavailable Ashwin Hong MD Primary Care Provider [phone] Jeanette Parikh MD Unavailable [phone] Allergies Active Allergy Reactions Criticality Noted Date [...] mg/3 mL) pen injector injection 4 Active progesterone (PROMETRIUM) 100 mg capsuleIndicatio ns:Symptomatic menopausal or female climacteric states Take 2 capsules (200 mg total) by mouth nightly 90 capsule 5 Active estradioL 1 mg/gram (0.1 %) gel in packet Place 1 Application on the skin daily Rub into forearm or inner thigh q day. 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 Assessment & Plan (02/13/2020 8:31 AM CDT): Will obtain CT sinus Sinus Rinse or Nasal saline spray (Simply saline, Little Remedies, [place], Converse) 2 second sprays or 2 squeezes into [...] Nasal saline spray (Simply saline, Little Remedies, [place], Converse) 2 second sprays or 2 squeezes into [...] Nasal saline spray (Simply saline, Little Remedies, [place], Converse) 2 second sprays or 2 squeezes into [...] to ears Acquired deviated nasal septum 05/10/2009 Encounters Date Type Department Care Team Description 05/04/2025 Orders Only [facility] [address] [facility] [place]bah [place]ILL[place] [address] Dora Ku NP from Last 3 Months Surgical History Surgery Date Site/Laterality Comments SECTION [...] sinus surgery approx 2009 had second [address]. [place] 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 Gender Identity Not on file Sexual Orientation Not on file Obstetrics History Para Term AB IAB SAB Ectopic Multiple Livin g Live Births 2 2 Date Outcome GA Total Labor Labor/2nd/3rd Weight Sex Type Anes PTL Miriam A1 A5 Name Clin Para Para Comments C/s x2 Last Filed Vital Signs Vital Sign Reading Time Taken Comments Blood Pressure 134/86 01/12/2025 1:39 PM CDT Pulse 74 02/11/2020 2:42 PM CDT Temperature 36.6 C (97.9 F) 08/09/2020 12:30 PM LUMP INSPECTOR Respiratory Rate 18 05/31/2018 1:59 PM CDT Oxygen Saturation 95% 01/26/2018 12:46 PM CDT Inhaled Oxygen Concentration - - Weight 114.8 kg (253 lb) 01/12/2025 1:39 PM CDT Height 170.2 cm (5' 7) 01/12/2025 1:39 PM CDT Body Mass Index 39.63 01/12/2025 1:39 PM CDT Plan of Treatment Health Maintenance Due Date Last Done Comments Breast Cancer Screening-Mammogram 1971 Colon Cancer Screening-Colonoscopy 1971 Hepatitis C Screening 1971 DTaP/Tdap/Td Vaccine (1 - Tdap) 11/30/1982 Hepatitis B Screening 11/30/1989 Depression Screening 08/13/2018 08/13/2017, 08/13/19 18 Zoster Vaccine (1 of 2) 11/30/2021 Influenza Vaccine (#1) 2025 06/04/2017 Regular Well Visit/Exam 18-64 01/12/2026 01/12/2025, 10/02/2023, 09/18/2022, Additional history exists Cervical Cancer Screening Discontinued 2024, 10/02/2023, 09/18/2022, Additional history exists Pneumococcal vaccine <65 Aged Out No longer [...] HPV MRNA E6/E7 REFLEX HPV 16,18/45 Routine 01/12/2025 2:09 PM CDT Encounter for well woman exam from Last 3 Months or Most Recently Relevant to Health Maintenance Results * ThinPrep(R) Imaging Pap and HPV mRNA E6/E7 Reflex HPV 16,18/45 (01/12/2025 2:09 PM CDT) CLINICAL INFORMATION: [facility] Comment:None given LMP [facility] Comment:NONE GIVEN Previous Pap [facility] Comment:NONE GIVEN Prev. Bx [facility] Comment:NONE GIVEN SOURCE: [facility] Comment:None given Pap, specimen adequacy [facility] Comment: Satisfactory for evaluation. Endocervical/transformation zone component absent. Age and/or menstrual status not provided HPV interp [facility] Comment: Cytology Results: Negative for intraepithelial lesion or malignancy. COMMENTS [facility] Comment: This Pap test has been evaluated with computer assisted technology. Computer Animator [facility] Comment: DOLORES PORTER(ASCP) CT Screening Location: [place] [address] [place] [address] [facility] Comment: EXPLANATORY NOTE: The Pap is [...] High Risk E6/E7 Not Detected Not Detected [facility] Comment: Methodology: Nursing Professor-Mediated Amplification This assay detects E6/E7 viral messenger RNA (mRNA) from 14 high-risk HPV types (16,18,31,33,35,39,45,51,52,56,58,59,66,68). Cervical sources are required for HPV testing. If a vaginal source from a patient who has had a total hysterectomy with removal of cervix was submitted, please contact the testing laboratory for alternative testing options. For additional information, please refer to http://education.[employer]/faq/NDO849x2 (This link if provided for information/ educational purposes only.) Swab 01/12/2025 2:09 PM CDT 01/13/2025 3:45 PM CDT Dora Ku NP LAB CYTOLOGY ORDERABLES Final Result [facility] [address] [place] [address] [address] from Last 3 Months or Most Recently Relevant to Health Maintenance [place] [id number] [facility] ACCESS BLUE ACCESS OOS BLUE ACC CHOICE OOS BLUE ACC CHOICE OOS Care Teams Film Inspector Relationship Specialty Start Date End Date Ashwin Hong MD PCP - General 12/17/19 Denys Urrutia MD [address] [facility] [address] [address] Surgeon Neurosurgery 01/15/18 Suzy Hopkins, PT Physical Therapist Physical Therapy 01/15/18 Aditi Mccormick, HIGH SCHOOL BAND TEACHER Lathe Sander Physical Therapy 01/23/18 [place] [address] [place] [address] Consulting Physician Obstetrics and Gynecology 09/17/22
== END 2025-06-10 14:14 | disposition home or self-care (01) ==
PROVIDERS: PCP Family Medicine
DX: R06.89 Other abnormalities of breathing (principal); Z87.01 Personal history of pneumonia (recurrent)
CPT/HCPCS: 71046